=== PATIENT | female | born 1960 | race African-American/Black ===

== ENCOUNTER 2018-03-02 19:56 | Emergency (ER) | payer OTHER ==
[2018-03-02] MEDS ORDERED: KETOROLAC 30 MG/ML INJ ONE (20:30)
--- NOTE | 2018-03-02 21:14 | ER ---
Nurse's Notes [facility] Name: Tana Pérez Age: 57 yrs Sex: Female : 1960 Arrival Date: 03/02/2018 Time: 20:02 Bed 13 Private MD: Diagnosis: Pain in right foot;Pain in left foot;Sprain of ankle-Right Presentation: 03/02 20:25 Presenting complaint: Patient states: Pt reports she twisted her right foot and has ea been having left foot pain for a week. Transition of care: patient was not received from another setting of care. Onset of symptoms was March 02, 2018. Risk Assessment: Do you want to hurt yourself or someone else? Patient reports no desire to harm self or others. Initial Sepsis Screen: Does the patient meet any 2 criteria? No. Patient's initial sepsis screen is negative. Does the patient have a suspected source of infection? No. Patient's initial sepsis screen is negative. Care prior to arrival: None. 20:25 Method Of Arrival: Ambulatory ea 20:25 Acuity: JUANITA 4 ea Triage Assessment: 20:30 General: Appears in no apparent distress. Behavior is calm, cooperative, appropriate ea for age. Pain: Complains of pain in right Achilles and medial aspect of right heel. Neuro: Level of Consciousness is awake, alert, obeys commands, Oriented to person, place, time, situation. Cardiovascular: Patient's skin is warm and dry. Respiratory: Airway is patent Respiratory effort is even, unlabored, Respiratory pattern is regular, symmetrical. Derm: Skin is dry, Skin temperature is warm. Musculoskeletal: Reports pain in right foot and left foot. Historical: - Allergies: 20:45 Morphine; ea - Home Meds: 20:45 metformin 500 mg Oral tab 1 tab 2 times per day [Active]; Lipitor 20 mg Oral tab 1 tab ea once daily [Active]; - PMHx: 20:45 Diabetes - NIDDM; Hyperlipidemia; ea - PSHx: 20:45 None; ea - Immunization history:: Adult Immunizations up to date. - Social history:: Smoking status: Patient/guardian denies using tobacco. - Ebola Screening: : No symptoms or risks identified at this time. Screenin:48 Abuse screen: Denies threats or abuse. Nutritional screening: No deficits noted. ea Tuberculosis screening: No symptoms or risk factors identified. Fall Risk None identified. Assessment: 20:25 Reassessment: see triage assessment. ea 21:35 Reassessment: Patient and/or family updated on plan of care and expected duration. Pain ea level reassessed. Patient is alert, oriented x 3, equal unlabored respirations, skin warm/dry/pink. Discharge instruction given to patient, verbalized the understanding of instruction. Vital Signs: 20:25 BP 138 / 68; Pulse 78; Resp 18; Temp 97.6; Pulse Ox 99% ; Weight 90.72 kg; Height 5 ft. ea 1 in. (154.94 cm); Pain 7/10; 21:30 BP 128 / 70; Pulse 68; Resp 18; Pulse Ox 98% on R/A; ea 20:25 Body Mass Index 37.79 (90.72 kg, 154.94 cm) ea ED Course: 20:02 Patient arrived in ED. ds1 20:08 Scot Perez PA is PHCP. cp 20:08 Jean Paul Toure MD is Attending Physician. cp 20:20 Criselda Bryan RN is Primary Nurse. ea 20:25 Arm band placed on right wrist. Patient placed in an exam room, on a stretcher, on ea pulse oximetry. 20:25 Patient has correct armband on for positive identification. Bed in low position. Call ea light in reach. Side rails up X 1. 20:37 Triage completed. ea 21:01 XRAY Foot LEFT 3 View In Process Unspecified. EDMS 21:01 XRAY Foot RIGHT 3 View In Process Unspecified. EDMS 21:01 XRAY Ankle RIGHT 3 view In Process Unspecified. EDMS 21:12 Rupesh Addison DPM is Referral Physician. cp 21:30 No provider procedures requiring assistance completed. Patient did not have IV access ea during this emergency room visit. Administered Medications: 20:30 Drug: TORadol 60 mg Route: IM; Site: right gluteus; ea 21:27 Follow up: Response: No adverse reaction ea Outcome: 21:14 Discharge ordered by . cp 21:38 Patient left the ED. ea 21:38 Discharged to home with crutches. ea 21:38 Condition: stable 21:38 Instructed on discharge instructions, follow up and referral plans. medication usage, Demonstrated understanding of instructions, follow-up care, medications, Prescriptions given X 2. Signatures: Dispatcher [employer] EDWendi Chambers ds1 Scot Perez PA PA cp Antunez, Elena, RN RN alda Corrections: (The following items were deleted from the chart) 22:12 22:08 Patient left the ED. alda lizama
--- NOTE | 2018-03-02 21:14 | EDPHYS ---
Physician Documentation [facility] Name: Tana Pérez Age: 57 yrs Sex: Female : 1960 Arrival Date: 03/02/2018 Time: 20:02 Bed 13 Private MD: ED Physician Jean Paul Toure HPI: 03/02 21:07 This 57 yrs old Black Female presents to ER via Ambulatory with complaints of bilateral cp foot Pain. 21:07 The patient presents with pain, that is chronic. The complaints affect the right foot cp and left foot. Context: resulted from an unknown cause, the patient can fully bear weight, the patient is able to ambulate, patient reports pain worse with standing. Onset: The symptoms/episode began/occurred 6 month(s) ago. Associated signs and symptoms: Pertinent negatives calf tenderness, numbness, swelling. Treatment prior to arrival includes: no previous treatment. Historical: - Allergies: 20:45 Morphine; ea - Home Meds: 20:45 metformin 500 mg Oral tab 1 tab 2 times per day [Active]; Lipitor 20 mg Oral tab 1 tab ea once daily [Active]; - PMHx: 20:45 Diabetes - NIDDM; Hyperlipidemia; ea - PSHx: 20:45 None; ea - Immunization history:: Adult Immunizations up to date. - Social history:: Smoking status: Patient/guardian denies using tobacco. - Ebola Screening: : No symptoms or risks identified at this time. ROS: 21:10 Constitutional: Negative for body aches, chills, fever, poor PO intake. cp 21:10 Eyes: Negative for injury, pain, redness, and discharge. cp 21:10 Cardiovascular: Negative for chest pain, edema, palpitations. 21:10 Respiratory: Negative for cough, shortness of breath, wheezing. 21:10 MS/extremity: Positive for pain, of the left foot and right foot and right ankle, Negative for decreased range of motion, deformity, paresthesias. 21:10 Skin: Negative for cellulitis, rash. 21:10 All other systems are negative. Exam: 21:15 Constitutional: The patient appears in no acute distress, alert, awake, non-toxic, well cp developed, well nourished. 21:15 Head/Face: Normocephalic, atraumatic. cp 21:15 Eyes: Periorbital structures: appear normal, Conjunctiva: normal, no exudate, no injection, Lids and lashes: appear normal, bilaterally. 21:15 ENT: External ear(s): are unremarkable, Nose: is normal, Mouth: is normal. 21:15 Chest/axilla: Inspection: normal. 21:15 Cardiovascular: Rate: normal. 21:15 Respiratory: the patient does not display signs of respiratory distress, Respirations: normal, no use of accessory muscles, no retractions, labored breathing, is not present. 21:15 Abdomen/GI: Exam negative for discomfort, distension, guarding, Inspection: abdomen appears normal. 21:15 Back: pain, is absent, ROM is normal. 21:15 Musculoskeletal/extremity: Extremities: grossly normal except: noted in the left foot: pain, tenderness, There is no evidence of decreased ROM, deformity, erythema, swelling, noted in the right foot and right ankle: pain, swelling, tenderness, no evidence of decreased ROM, deformity, Pulses: noted to be 2+ in the right dorsalis pedis artery and left dorsalis pedis artery, Sensation intact. 21:15 Skin: cellulitis, is not appreciated, no rash present. Vital Signs: 20:25 BP 138 / 68; Pulse 78; Resp 18; Temp 97.6; Pulse Ox 99% ; Weight 90.72 kg; Height 5 ft. ea 1 in. (154.94 cm); Pain 7/10; 21:30 BP 128 / 70; Pulse 68; Resp 18; Pulse Ox 98% on R/A; ea 20:25 Body Mass Index 37.79 (90.72 kg, 154.94 cm) ea MDM: 20:09 Patient medically screened. cp 20:30 Differential diagnosis: sprain, fracture, dislocation. cp 21:12 Data reviewed: vital signs, nurses notes, radiologic studies, plain films, and as a cp result, I will discharge patient. 21:12 Test interpretation: by ED physician or midlevel provider: plain radiologic studies. cp Counseling: I had a detailed discussion with the patient and/or guardian regarding: the historical points, exam findings, and any diagnostic results supporting the discharge/admit diagnosis, radiology results, the need for outpatient follow up, a feed mixer, to return to the emergency department if symptoms worsen or persist or if there are any questions or concerns that arise at home. 21:12 Response to treatment: the patient's symptoms have mildly improved after treatment, and cp as a result, I will discharge patient. 03/02 20:18 Order name: XRAY Foot LEFT 3 View cp 03/02 20:18 Order name: XRAY Foot RIGHT 3 View cp 03/02 20:18 Order name: XRAY Ankle RIGHT 3 view cp 03/02 21:07 Order name: Crutches; Complete Time: 21:35 cp 03/02 21:07 Order name: Aircast Ankle Splint: right ankle; Complete Time: 21:35 cp Administered Medications: 20:30 Drug: TORadol 60 mg Route: IM; Site: right gluteus; ea 21:27 Follow up: Response: No adverse reaction alda Disposition: 03/03 06:02 Co-signature as Attending Physician, Jean Paul Toure MD. ma2 Disposition: 03/02/18 21:14 Discharged to Home. Impression: Pain in right foot, Pain in left foot, Sprain of ankle - Right. - Condition is Stable. - Discharge Instructions: Ankle Sprain, Foot Pain. - Prescriptions for Tramadol 50 mg Oral Tablet - take 1 tablet by ORAL route every 8 hours as needed; 15 tablet. Mobic 7.5 mg Oral Tablet - take 1 tablet by ORAL route once daily take with food; 20 tablet. - Medication Reconciliation Form, Thank You Letter, Antibiotic Education, Prescription Opioid Use, Work release form form. - Follow up: Rupesh Addison DPM; When: 2 - 3 days; Reason: bilateral foot pain. - Problem is new. - Symptoms have improved. Signatures: Dispatcher [employer] EDMS Scot Perez PA PA cp Antunez, Elena, RN RN ea Alzahri, Mohammad, MD MD ma2 Corrections: (The following items were deleted from the chart) 03/02 22:08 21:14 03/02/2018 21:14 Discharged to Home. Impression: Pain in right foot; Pain in left ea foot; Sprain of ankle - Right. Condition is Stable. Forms are Medication Reconciliation Form, Thank You Letter, Antibiotic Education, Prescription Opioid Use. Follow up: Rupesh Addison; When: 2 - 3 days; Reason: bilateral foot pain. Problem is new. Symptoms have improved. cp 03/03 00:39 03/02 20:10 Constitutional: Negative for body aches, chills, fever, poor PO intake, cp cp 03/03 00:39 03/02 20:10 Eyes: Negative for injury, pain, redness, and discharge, cp cp
--- NOTE | 2018-03-02 22:08 | RAD REPORT ---
EXAM DESCRIPTION: RAD - Foot Left 3 View - 03/02/2018 9:00 pm CLINICAL HISTORY: Trauma history, foot pain not further localized COMPARISON: None. FINDINGS: No fracture, dislocation or periosteal reaction. No acute or destructive bony process. La rge Achilles and plantar spurs are present. There is advanced for age degenerative change at the firs t MTP joint. No air or foreign body in the soft tissues. IMPRESSION: Degenerative change as detailed. No acute bone or soft tissue finding.
--- NOTE | 2018-03-02 22:10 | RAD REPORT ---
EXAM DESCRIPTION: RAD - Foot Right 3 View - 03/02/2018 9:00 pm CLINICAL HISTORY: Foot pain, trauma history, pain not further localized COMPARISON: None. FINDINGS: No fracture, dislocation or periosteal reaction. No acute or destructive bone process. Mod erate plantar and Achilles spurs are present. There is prominent for age degenerative change at the f irst MTP joint. No air or foreign body in the soft tissues. IMPRESSION: Degenerative change without acute bone finding. No suspicious soft tissue finding.
--- NOTE | 2018-03-02 22:11 | RAD REPORT ---
EXAM DESCRIPTION: RAD - Ankle Right 3 View - 03/02/2018 9:00 pm CLINICAL HISTORY: Twisting injury, ankle pain COMPARISON: None. FINDINGS: No fracture, dislocation or periosteal reaction. No joint effusion seen. No joint space na rrowing. Moderate plantar and Achilles spurs are present. Bone density inferior margin of the medial malleolus is not an acute process. Lateral soft tissue swelling is present. IMPRESSION: Lateral soft tissue swelling with no fracture identified. Degenerative changes are present as detailed.
== END 2018-03-02 22:08 | disposition home or self-care (01) ==
LOC: ER 19:56
DX: M79.672 Pain in left foot (principal); S93.401A Sprain of unspecified ligament of right ankle, initial encounter; X58.XXXA Exposure to other specified factors, initial encounter; M79.9 Soft tissue disorder, unspecified; E11.9 Type 2 diabetes mellitus without complications; E78.5 Hyperlipidemia, unspecified; Z79.84 Long term (current) use of oral hypoglycemic drugs; Z79.899 Other long term (current) drug therapy
CPT/HCPCS: 96372; 99284

== ENCOUNTER 2020-02-18 04:29 | Emergency (ER) | payer OTHER ==
--- OUTSIDE RECORDS SUMMARY | 2020-02-18 04:34 | XMS REPORT | Continuity of Care Document ---
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 Office Christopher [facility] Social Encou nter/ Legacy 00:00:00 00:00:00 Visit Hector Services [id number] Co mmuni [id number] [facility] 2019-01-22 2019-01-22 Office Lalitha Whitney [facility] Adult E ncounter/ Legacy 00:00:00 00:00:[address] [facility] [phone] Formerly [facility] 610368 [facility] 2019-01-21 2019-01-21 Office Amanda Brown [facility] Adult Encou nter/ Legacy 00:00:00 00:00:00 Visit Medicine [id number] Co mmuni [id number] [facility] 2019-01-06 2019-01-06 Office Lalitha Whitney [facility] Adult E ncounter/ Legacy 00:00:00 00:00:00 Visit Sylvester Cox,, Omid [facility] [id number] [facility] 903905 [facility] 2018-12-11 2018-12-11 Office Lalitha Whitney [facility] Adult E ncounter/ Legacy 00:00:00 00:00:00 Visit Jayne Cox,Amanda edicine [id number] [facility] [id number] Health 2018-12-11 2018-12-11 Office Amanda Brown [facility] Legacy Encount er/ Legacy 00:00:00 00:00:00 Visit Dorcas Sanchez Pending Sale To [facility] [id number] [id number] [facility] 800474 [facility] 2018-12-02 2018-12-02 Office Roland [facility] Public Encount er/ Legacy 00:00:00 00:00:00 Visit Segun [facility] [id number] Com brandy Services [id number] [facility] 2018-11-25 2018-11-25 [facility]/ Legacy 00:00:00 00:00:00 Visit Viviennelaura De Guzman [id number] [facility] [id number] [facility] 2018-11-16 2018-11-16 Office [facility] Adult Encounte r/ Legacy 00:00:00 00:00:00 Visit Lalitha Novoa [id number] Co mmuni [id number] [facility] 2018-11-12 2018-11-12 [facility] Adult [facility] ncounter/ Legacy 00:00:00 00:00:00 Visit Marley Chavira Medicine [id number] [facility] [id number] [facility] 2018-06-03 2018-06-03 [facility] Chucky English Encoun ter/ Legacy 00:00:00 00:00:00 Visit Arlen Weber [id number] ommuni Practice [id number] [facility] 2018-05-22 2018-05-22 Office [facility] Adult Encounte r/ Legacy 00:00:00 00:00:00 Visit Isabella Novoa [phone] [facility] 304614 [facility] 2018-04-22 2018-04-22 Office [facility] Vision Encoun ter/ Legacy 00:00:00 00:00:00 Visit Lori [id number] [facility] brandy [id number] [facility] 2018-04-19 2018-04-19 Office [facility] Vision Encoun ter/ Legacy 00:00:00 00:00:00 Visit Lori [id number] Com brandy [id number] [facility] 2018-03-23 2018-03-23 Office Devonte [facility] Adult Encounte r/ Legacy 00:00:00 00:00:00 Visit Lalitha Novoa [id number] Co mmuni [id number] [facility] 2018-03-23 2018-03-23 Office [facility] Adult Encounte r/ Legacy 00:00:00 00:00:00 Visit Lalitha Novoa [id number] Co mmuni [id number] [facility] 2018-03-23 2018-03-23 Office [facility] Adult Encounte r/ Legacy 00:00:00 00:00:00 Visit Lalitha Novoa [id number] Co mmuni [id number] [facility] 2018-03-23 2018-03-23 Office Devonte [facility] Adult Encounte r/ Legacy 00:00:00 00:00:00 Visit Lalitha Novoa [id number] Co mmuni [id number] [facility] 2018-03-23 2018-03-23 Office Devonte [facility] Adult Encounte r/ Legacy 00:00:00 00:00:00 Visit Lalitha Novoa [id number] Co mmuni [id number] [facility] 2018-03-23 2018-03-23 Office Peyton [facility] Adult Encount er/ Legacy 00:00:00 00:00:00 Visit Nona Novoa [id number] Neisha ommuni [id number] [facility] 2018-03-23 2018-03-23 Office Lalitha Whitney [facility] Adult E ncounter/ Legacy 00:00:00 00:00:00 Visit Calli Mancia Medicine [id number] Nona Vu [id number] [facility] 2018-03-22 2018-03-22 Office [facility] Adult Encounte r/ Legacy 00:00:00 00:00:00 Visit Gianni Novoa [id number] Co mmuni [id number] [facility] 2018-03-09 2018-03-09 Office Devonte [facility] Adult Encounte r/ Legacy 00:00:00 00:00:00 Visit Lalitha Novoa [id number] Co mmuni [id number] [facility] 2018-03-09 2018-03-09 Office [facility] Adult Encounte r/ Legacy 00:00:00 00:00:00 Visit Lalitha Medicine [id number] Co mmuni [id number] [facility] 2018-03-09 2018-03-09 Office Devonte [facility] Adult Encounte r/ Legacy 00:00:00 00:00:00 Visit Lalitha Novoa [id number] Co mmuni [id number] [facility] 2018-03-09 2018-03-09 Office Devonte, [facility] Adult Encounte r/ Legacy 00:00:00 00:00:00 Visit Lalitha Novoa [id number] Co mmuni [id number] [facility] 2017-12-05 2017-12-05 Office Roger, [facility] Vee Encount er/ Legacy 00:00:00 00:00:00 Visit Erika Weber [id number] Com brandy Practice [id number] [facility] 2017-11-09 2017-11-09 Office Valdez, [facility] Vision Encoun ter/ Legacy 00:00:00 00:00:00 Visit Lori [id number] Com brandy [id number] [facility] 2017-11-09 2017-11-09 Office Valdez, [facility] Vision Encoun ter/ Legacy 00:00:00 00:00:00 Visit Lori [id number] Com brandy [id number] [facility] 2017-11-01 2017-11-01 Office Valdez, [facility] Vision Encoun ter/ Legacy 00:00:00 00:00:00 Visit Lori [id number] Com brandy [id number] [facility] 2017-11-01 2017-11-01 [facility] Enco unter/ Legacy 00:00:00 00:00:00 Visit Juice [id number] Com brandy [id number] [facility] 2017-11-01 2017-11-01 [facility] Vision Enco unter/ Legacy 00:00:00 00:00:00 Visit Juice [id number] Com brandy [id number] [facility] 2017-11-01 2017-11-01 Office Evangelista, [facility] Vision Enco unter/ Legacy 00:00:00 00:00:00 Visit Juice [id number] Com brandy [id number] [facility] 2017-11-01 2017-11-01 Office Evangelista, [facility] Visi on Encounter/ Legacy 00:00:00 00:00:00 Visit Lori Valdez [id number] Communi 009957 [facility] 2017-10-27 2017-10-27 Office Devonte, [facility] Adult Encounte r/ Legacy 00:00:00 00:00:00 Visit Lalitha Novoa [id number] Co mmuni [id number] Health 2017-10-27 2017-10-27 Office Devonte [facility] Adult Encounte r/ Legacy 00:00:00 00:00:00 Visit Lalitha Novoa [id number] Co mmuni [id number] [facility] 2017-10-27 2017-10-27 Office Lalitha Whitney [facility] Adult E ncounter/ Legacy 00:00:00 00:00:00 Visit Raine Ramírez [place] [id number] [facility] [id number] [facility] 2017-10-17 2017-10-17 Office Devonte [facility] Adult Encounte r/ Legacy 00:00:00 00:00:00 Visit Lalitha Novoa [id number] Co mmuni [id number] [facility] 2017-10-15 2017-10-15 Office Provider, Public Health Services [facility] Public Encounter/ Legacy 00:00:00 00:00:00 Visit Guiterrez [facility] 93309 [id number] Former[facility] Services 830881 [facility] 2017-10-15 2017-10-15 Office Alexandr [facility] Vision Encount er/ Legacy 00:00:00 00:00:00 Visit Khoi Mckoy [id number] Co mmuni 855344 [facility] 2017-10-15 2017-10-15 Office Khoi Strange [facility] Visio n Encounter/ Legacy 00:00:00 00:00:00 Visit Estella Stahl [id number] Communi 935030 [facility] 2017-10-03 2017-10-03 Office Khoi [facility] SKEET OPERATOR Encount er/ Legacy 00:00:00 00:00:00 Visit Becka [id number] Com brandy [id number] Health 2017-10-02 2017-10-02 Office Khoi [facility] SKEET OPERATOR Encount er/ Legacy 00:00:00 00:00:00 Visit Becka [id number] Com brandy [id number] Health 2017-09-22 2017-09-22 Office Devonte [facility] Adult Encounte r/ Legacy 00:00:00 00:00:00 Visit Lalitha Novoa [id number] Co mmuni [id number] [facility] 2017-09-22 2017-09-22 Office [facility] Adult Encounte r/ Legacy 00:00:00 00:00:00 Visit Lalitha Medicine [id number] Co mmuni 708103 [facility] 2017-09-22 2017-09-22 Office [facility] Adult Encounte r/ Legacy 00:00:00 00:00:00 Visit Lalitha Medicine [id number] Co mmuni [id number] [facility] 2017-09-22 2017-09-22 Office [facility] Adult Encounte r/ Legacy 00:00:00 00:00:00 Visit Lalitha Medicine [id number] Co mmuni 944386 [facility] 2017-09-22 2017-09-22 [facility]/ Legacy 00:00:00 00:00:00 Visit Lalitha Medicine [id number] Co mmuni [id number] [facility] 2017-09-22 2017-09-22 [facility] Adult En[facility]te [facility]/ Legacy 00:00:00 00:00:00 Visit Lalitha Medicine [id number] Co mmuni 853128 [facility] 2017-09-22 2017-09-22 Office [facility] Adult Encounte r/ Legacy 00:00:00 00:00:00 Visit Lalitha Medicine [id number] Co mmuni 948722 [facility] 2017-08-28 2017-08-28 Office [facility] Adult Encounte r/ Legacy 00:00:00 00:00:00 Visit Becka Medicine [id number] Co mmuni [id number] [facility] 2017-08-28 2017-08-28 Office [facility] Adult Encounte r/ Legacy 00:00:00 00:00:00 Visit Becka Medicine [id number] Co mmuni [id number] [facility] 2017-08-28 2017-08-28 Office Status, Fax [facility] Encoun ter/ Legacy 00:00:00 00:00:00 Visit [facility]ending [facility] To [facility] [phone] [facility] [id number] [facility] 2017-08-28 2017-08-28 Office Status, Fax [facility] Legacy Encoun ter/ Legacy 00:00:00 00:00:00 Visit Pending [facility] To [facility] [id number] [facility] 811640 ty [facility] Health 2017-08-28 2017-08-28 Office Prabhjot [facility] Adult Encounte r/ Legacy 00:00:00 00:00:00 Visit [facility] Medicine [id number] Co mmuni 795889 ty Health 2017-08-28 2017-08-28 Office Prabhjot [facility] Adult Encounte r/ Legacy 00:00:00 00:00:00 [facility] [id number] Co mmuni 815407 ty Health 2017-08-28 2017-08-28 Office Khoi [facility] SKEET OPERATOR Encount er/ Legacy 00:00:00 00:00:00 Visit Becka [id number] Com brandy 891274 ty Health 2017-08-28 2017-08-28 Office Becka Westfall [facility] SKEET OPERATOR Encounter/ Legacy 00:00:00 00:00:00 Visit Calli Mancia [id number] Raine Hernandez 73496 0 ty Health 2017-07-12 2017-07-12 Office Gutierrez [facility] Public Encou nter/ Legacy 00:00:00 00:00:00 Visit [facility] [id number] Com brandy Services 317222 ty Health 2017-07-12 2017-07-12 Office Provider, Public Health Services [facility] Public Encounter/ Legacy 00:00:00 00:00:00 Visit Gutierrez [facility] 31446 01949 Communi Services [id number] ty Health 2017-06-29 2017-06-29 Office Teresa Clay [facility] Social Enc ounter/ Legacy 00:00:00 00:00:00 Visit Services [id number] Co mmuni 109071 ty Health 2017-06-29 2017-06-29 Office Devonte [facility] Adult Encounte r/ Legacy 00:00:00 00:00:[address] [facility] [id number] Co mmuni [id number] ty Health 2017-06-29 2017-06-29 Office Lalitha Whitney [facility] Adult E ncounter/ Legacy 00:00:00 00:00:00 Visit Silvia Doll Medicine [phone] [facility] 764711 [facility] Health 2017-06-26 2017-06-26 Office North [facility] Adult Encounte r/ Legacy 00:00:00 00:00:00 Visit Gianni Medicine [id number] Co mmuni 827595 ty Health 2017-06-02 2017-06-02 Office Devonte [facility] Adult Encounte r/ Legacy 00:00:00 00:00:00 Visit Lalitha Medicine [id number] Co mmuni 148526 ty Health 2017-06-02 2017-06-02 Office Lalitha Whitney [facility] Adult E ncounter/ Legacy 00:00:00 00:00:[address] [facility] [phone] [id number] Communi [id number] Health 2017-05-22 2017-05-22 Office Provider, Public Health Services [facility] Public Encounter/ Legacy 00:00:00 00:00:00 Visit Gutierrez [facility] [phone] Communi Services [id number] Health 2017-05-21 2017-05-21 Office Provider, [facility] Health Services [facility] Public Encounter/ Legacy 00:00:00 00:00:00 Visit Whitley, [facility] 52395 39295 Communi Services [id number] Health 2017-05-14 2017-05-14 Office Provider, Public Health Services [facility] Public Encounter/ Legacy 00:00:00 00:00:00 Visit Gutierrez [facility] 09765 37824 Communi Services [id number] Health 2017-05-10 2017-05-10 Office Lalitha Whitney [facility] Adult E ncounter/ Legacy 00:00:00 00:00:00 Visit Silvia Doll Medicine [phone] Communi 166020 Health 2017-05-04 2017-05-04 Office Teresa Clay [facility] Social Enc ounter/ Legacy 00:00:00 00:00:00 Visit Services [id number] Co mmuni [id number] ty Health 2017-05-04 2017-05-04 Office Devonte [facility] Adult Encounte r/ Legacy 00:00:00 00:00:00 Visit Lalitha Medicine [id number] Co mmuni 682969 ty Health 2017-05-04 2017-05-04 Office [facility] Social Enc ounter/ Legacy 00:00:00 00:00:00 Visit Services [id number] Co mmuni [id number] [facility] 2017-05-04 2017-05-04 Office [facility] Adult Encounte r/ Legacy 00:00:00 00:00:00 Visit Lalitha Medicine [id number] Co mmuni 223285 [facility] 2017-05-04 2017-05-04 Office [facility] Adult Encounte r/ Legacy 00:00:00 00:00:00 Visit Lalitha Medicine [id number] Co mmuni 525253 [facility] 2017-05-04 2017-05-04 Office [facility] Adult Encounte r/ Legacy 00:00:00 00:00:00 Visit Lalitha Medicine [id number] Co mmuni 304106 [facility] 2017-05-04 2017-05-04 Office [facility]/ Legacy 00:00:00 00:00:00 Visit Jayjay Sales Medicine [phone] [facility] 409642 [facility] 2017-05-04 2017-05-04 [facility] Encounte r/ Legacy 00:00:00 00:00:00 Visit Lalitha Medicine [id number] Co mmuni 343842 [facility] 2017-05-04 2017-05-04 Office [facility] Social Enc ounter/ Legacy 00:00:00 00:00:00 Visit Services [id number] Co mmuni 309757 [facility] 2017-05-04 2017-05-04 Office Provider[facility] Public En[facility]/ Legacy 00:00:00 00:00:00 Visit Gutierrez [facility] 57740 45939 [facility] 608346 [facility] 2017-05-04 2017-05-04 Office Lalitha Whitney [facility] Adult E ncounter/ Legacy 00:00:00 00:00:00 Visit Silvia Doll Medicine [phone] Gladys Jayjay Sales 111442 Gavino [facility] 2017-05-01 2017-05-01 Office Provider, Public Health Services [facility] Public Encounter/ Legacy 00:00:00 00:00:00 Visit Pillo Whitley [facility] 91709 27898 Communi Services 639406 [facility] 2017-04-13 2017-04-13 Office Devonte [facility] Adult Encounte r/ Legacy 00:00:00 00:00:[address] [facility] [id number] Co mmuni 950990 [facility] 2017-04-13 2017-04-13 Office Lalitha Whitney [facility] Adult E ncounter/ Legacy 00:00:00 00:00:[address] [facility] 02779 67990 [facility] 212181 [facility] 2017-04-13 2017-04-13 Office Provider, Public Health Services [facility] Public Encounter/ Legacy 00:00:00 00:00:00 [facility] 33917 84637 Communi Services [id number] [facility] Results Test Description Test Time Test Comments Results Result Comments Source rapid plasma reagin antibody, serum 2019-08-16 09:41:00 Test Item Value Reference Range Interpretation Comme nts rapid plasma reagin antibody, serum (test code = Non Reactive Non R eactive 5291-0) [facility], blood, as % of total [id number] 09:41:00 Test Item Value Reference Range Interpretation Comments hemoglobin A1C, blood, as % of total 7.1 % 4.8-5.6 H hemoglobin (test code = 4548-4) [facility], serum, by PCR, [id number] 09:41:00 Test Item Value Reference Range Interpretation Comments HIV-1RNA, serum, by PCR, <20 copies/mL quantitative (test code = 96909) [facility], [id number] 09:41:00 Test Item Value Reference Range Interpretation Comments LDL cholesterol, serum (test code = 136 mg/dL 0-99 H 2088-1) [facility] Centervery low density [id number] 09:41:00 Test Item Value Reference Range Interpretation Comments very low density lipoproteins (test 14 mg/dL 5-40 code = 2091-7) [facility], [id number] 09:41:00 Test Item Value Reference Range Interpretation Comments HDL cholesterol, serum (test code = 59 mg/dL >39 2085-9) [facility], serum, [id number] 09:41:00 Test Item Value Reference Range Interpretation Comments triglyceride, serum, fasting (test 72 mg/dL 0-149 code = 2571-8) [facility], [id number] 09:41:00 Test Item Value Reference Range Interpretation Comments cholesterol, serum (test code = 209 mg/dL 100-199 H 2093-3) [facility] Cent[facility]anine aminotransferase (SGPT), [id number] 09:41:00 Test Item Value Reference Range Interpretation Comments alanine aminotransferase (SGPT), serum 16 1/L 0-32 (test code = 1742-6) [facility] Centeraspartate aminotransferase (SGOT), [id number] 09:41:00 Test Item Value Reference Range Interpretation Comments aspartate aminotransferase (SGOT), 17 1/L 0-40 serum (test code = 1920-8) [facility] Center[facility]aline phosphatase, [id number] 09:41:00 Test Item Value Reference Range Interpretation Comments alkaline phosphatase, serum (test code 93 1/L 39-117 = 1783-0) [facility], serum, [id number] 09:41:00 Test Item Value Reference Range Interpretation Comments bilirubin, serum, total (test code 0.3 mg/dL 0.0-1.2 = 1975-2) [facility]bumin/globulin ratio, [id number] 09:41:00 Test Item Value Reference Range Interpretation Comments albumin/globulin ratio, serum (test 1.9 1.2-2.2 code = 1759-0) [facility] Healthglobulin, [id number] 09:41:00 Test Item Value Reference Range Interpretation Comments globulin, serum (test code = 2336-6) 2.4 1.5-4.5 [facility] Centeralbumin, [id number] 09:41:00 Test Item Value Reference Range Interpretation Comments albumin, serum (test code = 1751-7) 4.5 g/dL 3.8-4.9 [facility]protein, total, [id number] 09:41:00 Test Item Value Reference Range Interpretation Comments protein, total, serum (test code = 6.9 g/dL 6.0-8.5 2885-2) [facility] Centercalcium, sopnq6717-90-33 09:41:00 Test Item Value Reference Range Interpretation Comments calcium, serum (test code = 1999-8) 9.7 mg/dL 8.7-10.2 [facility] Centercarbon dioxide, venous sipen0363-49-28 09:41:00 Test Item Value Reference Range Interpretation Comments carbon dioxide, venous blood (test 24 mmol/L 20-29 code = 2027-1) [facility] Healthchloride, bejic5303-22-23 09:41:00 Test Item Value Reference Range Interpretation Comments chloride, serum (test code = 104 mmol/L 96-106 5-0) [facility] Healthpotassium, [id number] 09:41:00 Test Item Value Reference Range Interpretation Comments potassium, serum (test code = 4.3 mmol/L 3.5-5.2 2823-3) [facility] Centersodium, [id number] 09:41:00 Test Item Value Reference Range Interpretation Comments sodium, serum (test code = 2951-2) 143 mmol/L 134-144 [facility] Centerurea nitrogen/creatinine ratio, [id number] 09:41:00 Test Item Value Reference Range Interpretation Comments urea nitrogen/creatinine ratio, serum 18 9-23 (test code = 3097-3) [facility] CentereGFR if Lbokngvh2904-00-61 09:41:00 Test Item Value Reference Range Interpretation Comments eGFR if 95 >59 (test code = 59760-8) mL/min/((173/100).m2) [facility] CenterEstimated Glomerular Filtration Rate (calc)2019-08-16 09:41:00 Test Item Value Reference Range Interpretation Comments Estimated Glomerular 82 >59 Filtration Rate (calc) mL/min/((173/100).m2 (test code = 09853-2) ) [facility]ercreatinine, [id number] 09:41:00 Test Item Value Reference Range Interpretation Comments creatinine, serum (test code = 0.80 mg/dL 0.57-1.00 2160-0) [facility] Centerurea nitrogen, [id number] 09:41:00 Test Item Value Reference Range Interpretation Comments urea nitrogen, blood (test code = 14 mg/dL 6-24 3094-0) [facility] Centerblood glucose, dpwziq2403-04-11 09:41:00 Test Item Value Reference Range Interpretation Comments blood glucose, random (test code = 115 mg/dL 65-99 H 2339-0) [facility] Centerimmature granulocytes, percentage of total cells, blood 2019-08-16 09:41:00 Test Item Value Reference Range Interpretation Comments immature granulocytes, percentage of 0 % total cells, blood (test code = 06125-5) [facility] Centerbasophil count, agbwduav0077-70-74 09:41:00 Test Item Value Reference Range Interpretation Comments basophil count, absolute (test 0.0 x10E3/uL 0.0-0.2 code = 07117-7) [facility] CenterEosinophil Absolute Iiyfx2237-65-65 09:41:00 Test Item Value Reference Range Interpretation Comments Eosinophil Absolute Count (test 0.1 X10E3/UL 0.0-0.4 code = 65632-7) [facility] Centermonocyte count, blood, pzdfavazx5830-20-95 09:41:00 Test Item Value Reference Range Interpretation Comments monocyte count, blood, automated 0.3 X10E3/UL 0.1-0.9 (test code = 742-7) [facility] Centerlymphocyte count, blood, wqrllxbnq5499-48-31 09:41:00 Test Item Value Reference Range Interpretation Comments lymphocyte count, blood, 1.8 X10E3/UL 0.7-3.1 automated (test code = 731-0) [facility] CenterAbsolute Uqyzhmmskic8845-08-46 09:41:00 Test Item Value Reference Range Interpretation Comments Absolute Neutrophils (test code 2.2 X10E3/UL 1.4-7.0 = 12243-1) [facility] Centerbasophils as percent of blood fsgflycudc8821-32-68 09:41:00 Test Item Value Reference Range Interpretation Comments basophils as percent of blood 1 % leukocytes (test code = 707-0) [facility] Centereosinophils as percent of blood nmkzhokjui0823-36-62 09:41:00 Test Item Value Reference Range Interpretation Comments eosinophils as percent of blood 3 % leukocytes (test code = 713-8) [facility] Healthmonocytes as percent of blood vrzjtbwofu7828-89-84 09:41:00 Test Item Value Reference Range Interpretation Comments monocytes as percent of blood 7 % leukocytes (test code = 5905-5) [facility] Centerlymphocytes as percent of blood svdzmelgns2034-17-51 09:41:00 Test Item Value Reference Range Interpretation Comments lymphocytes as percent of blood 41 % leukocytes (test code = 736-9) [facility] Centerneutrophils as percent of blood tkebpyrrko3660-40-74 09:41:00 Test Item Value Reference Range Interpretation Comments neutrophils as percent of blood 48 % leukocytes (test code = 770-8) [facility] Centerplatelet wxyhe3010-92-36 09:41:00 Test Item Value Reference Range Interpretation Comments platelet count (test code = 311 X10E3/UL 150-450 777-3) [facility] Centerred blood cell distribution zyjdu7765-87-82 09:41:00 Test Item Value Reference Range Interpretation Comments red blood cell distribution width 14.4 % 11.7-15.4 (test code = 788-0) [facility] corpuscular hemoglobin concentration, [id number] 09:41:00 Test Item Value Reference Range Interpretation Comments mean corpuscular hemoglobin 31.1 G/DL 31.5-35.7 L concentration, RBC (test code = 786-4) [facility] corpuscular hemoglobin, [id number] 09:41:00 Test Item Value Reference Range Interpretation Comments mean corpuscular hemoglobin, RBC 30.6 pg 26.6-33.0 (test code = 785-6) [facility] corpuscular volume, IBU0889-02-74 09:41:00 Test Item Value Reference Range Interpretation Comments mean corpuscular volume, RBC (test code 99 fL 79-97 H = 787-2) [facility] Centerhematocrit, tgywx1122-69-29 09:41:00 Test Item Value Reference Range Interpretation Comments hematocrit, blood (test code = 4544-3) 40.2 % 34.0-46.6 [facility] Centerhemoglobin, xpszv0956-28-21 09:41:00 Test Item Value Reference Range Interpretation Comments hemoglobin, blood (test code = 12.5 g/dL 11.1-15.9 718-7) [facility] Centererythrocyte (RBC) rpgpf7892-66-53 09:41:00 Test Item Value Reference Range Interpretation Comments erythrocyte (RBC) count (test 4.08 X10E6/UL 3.77-5.28 code = 789-8) [facility] Centerleukocyte count, yntpo2371-74-76 09:41:00 Test Item Value Reference Range Interpretation Comments leukocyte count, blood (test 4.5 X10E3/UL 3.4-10.8 code = 6690-2) [facility] CenterCD4/CD8 okjlu8553-00-78 09:41:00 Test Item Value Reference Range Interpretation Comments CD4/CD8 ratio (test code = 21499) 1.78 0.92-3.72 [facility] CenterT-suppressor cells (CD8) as percent of blood lymphocytes 2019-08-16 09:41:00 Test Item Value Reference Range Interpretation Comments T-suppressor cells (CD8) as percent of 24.4 % 12.0-35.5 blood lymphocytes (test code = 3517) [facility] Centerabsolute [id number] 09:41:00 Test Item Value Reference Range Interpretation Comments absolute CD8 (test code = 62546) 439 109897 [facility] CenterT-helper cells (CD4) as percent of blood lymphocytes 2019-08-16 09:41:00 Test Item Value Reference Range Interpretation Comments T-helper cells (CD4) as percent of 43.5 % 30.8-58.5 blood lymphocytes (test code = 8123-2) [facility] CenterT-helper cells (CD4) rbizh8257-52-76 09:41:00 Test Item Value Reference Range Interpretation Comments T-helper cells (CD4) count (test code 783 /UL 359-1519 = 88678-7) [facility] Centermicroalbumin/creatinine ratio, gpecm6704-01-35 15:32:00 Test Item Value Reference Range Interpretation Comments microalbumin/creatinine ratio, 54 MG/G CREAT 0-29 H urine (test code = 96887-6) [facility] Centermicroalbumin/total urine eilibt9056-18-44 15:32:00 Test Item Value Reference Range Interpretation Comments microalbumin/total urine volume 79.8 mg/L (test code = 15461-1) [facility] Centercreatinine, random, hsego1324-93-38 15:32:00 Test Item Value Reference Range Interpretation Comments creatinine, random, urine (test 148.6 mg/dL code = 2161-8) [facility] Centerrapid plasma reagin antibody, zjrnu5635-73-77 15:32:00 Test Item Value Reference Range Interpretation Comments rapid plasma reagin antibody, Non Reactive Non Reactive serum (test code = 5291-0) [facility] Centerhemoglobin A1C, blood, as % of total iukrwlitwl3987-33-18 15:32:00 Test Item Value Reference Range Interpretation Comments hemoglobin A1C, blood, as % of total 7.1 % 4.8-5.6 H hemoglobin (test code = 4548-4) [facility] CenterHIV-1RNA, serum, by PCR, ptuhohuqsomt9794-88-95 15:32:00 Test Item Value Reference Range Interpretation Comments HIV-1RNA, serum, by PCR, <20 copies/mL quantitative (test code = 10056) [facility] CenterLDL cholesterol, erhzh7448-43-88 15:32:00 Test Item Value Reference Range Interpretation Comments LDL cholesterol, serum (test code = 125 mg/dL 0-99 H 2088-04) [facility] Centervery low density xntqvdgdqusz6223-00-39 15:32:00 Test Item Value Reference Range Interpretation Comments very low density lipoproteins (test 24 mg/dL 5-40 code = 2090-7) [facility] CenterHDL cholesterol, mdadh4631-89-02 15:32:00 Test Item Value Reference Range Interpretation Comments HDL cholesterol, serum (test code = 63 mg/dL >39 2084-12) [facility]ertriglyceride, serum, felxwde4730-98-02 15:32:00 Test Item Value Reference Range Interpretation Comments triglyceride, serum, fasting (test 122 mg/dL 0-149 code = 2571-8) [facility] Centercholesterol, iwrgg4997-27-13 15:32:00 Test Item Value Reference Range Interpretation Comments cholesterol, serum (test code = 212 mg/dL 100-199 H 2092-06) [facility] Centeralanine aminotransferase (SGPT), iaaox6175-65-84 15:32:00 Test Item Value Reference Range Interpretation Comments alanine aminotransferase (SGPT), serum 12 1/L 0-32 (test code = 1742-6) [facility] Healthaspartate aminotransferase (SGOT), anvgf4001-55-93 15:32:00 Test Item Value Reference Range Interpretation Comments aspartate aminotransferase (SGOT), 14 1/L 0-40 serum (test code = 1920-8) [facility] Centeralkaline phosphatase, eliyq6432-96-09 15:32:00 Test Item Value Reference Range Interpretation Comments alkaline phosphatase, serum (test code 85 1/L 39-117 = 1783-0) [facility] Healthbilirubin, serum, glzjc7504-94-88 15:32:00 Test Item Value Reference Range Interpretation Comments bilirubin, serum, total (test code 0.2 mg/dL 0.0-1.2 = 1975-2) [facility] Healthalbumin/globulin ratio, zzeul6683-92-25 15:32:00 Test Item Value Reference Range Interpretation Comments albumin/globulin ratio, serum (test 1.5 1.2-2.2 code = 1759-0) [facility] Healthglobulin, pkvsw7029-94-31 15:32:00 Test Item Value Reference Range Interpretation Comments globulin, serum (test code = 2336-6) 2.9 1.5-4.5 [facility] Healthalbumin, vwdwc0639-55-95 15:32:00 Test Item Value Reference Range Interpretation Comments albumin, serum (test code = 1751-7) 4.4 g/dL 3.8-4.9 [facility] Healthprotein, total, [id number] 15:32:00 Test Item Value Reference Range Interpretation Comments protein, total, serum (test code = 7.3 g/dL 6.0-8.5 2885-2) [facility] Centercalcium, [id number] 15:32:00 Test Item Value Reference Range Interpretation Comments calcium, serum (test code = 1999-8) 9.6 mg/dL 8.7-10.2 [facility] Centercarbon dioxide, venous [id number] 15:32:00 Test Item Value Reference Range Interpretation Comments carbon dioxide, venous blood (test 25 mmol/L 20- code = 7-1) [facility] Centerchloride, [id number] 15:32:00 Test Item Value Reference Range Interpretation Comments chloride, serum (test code = 104 mmol/L 96-106 2075-0) [facility] Healthpotassium, dwxjd1963-37-79 15:32:00 Test Item Value Reference Range Interpretation Comments potassium, serum (test code = 4.2 mmol/L 3.5-5.2 2823-3) [facility] Centersodium, pgbtu3282-39-63 15:32:00 Test Item Value Reference Range Interpretation Comments sodium, serum (test code = 2951-2) 143 mmol/L 134-144 [facility] Centerurea nitrogen/creatinine ratio, iofio7160-61-67 15:32:00 Test Item Value Reference Range Interpretation Comments urea nitrogen/creatinine ratio, serum 15 9-23 (test code = 3097-3) [facility] HealtheGFR if Kajnvuxx8576-90-01 15:32:00 Test Item Value Reference Range Interpretation Comments eGFR if 89 >59 (test code = 96106-7) mL/min/((173/100).m2) [facility] CenterEstimated Glomerular Filtration Rate (calc)2019-05-15 15:32:00 Test Item Value Reference Range Interpretation Comments Estimated Glomerular 77 >59 Filtration Rate (calc) mL/min/((173/100).m2 (test code = 15891-9) ) [facility] Centercreatinine, [id number] 15:32:00 Test Item Value Reference Range Interpretation Comments creatinine, serum (test code = 0.85 mg/dL 0.57-1.00 2160-0) [facility] Centerurea nitrogen, [id number] 15:32:00 Test Item Value Reference Range Interpretation Comments urea nitrogen, blood (test code = 13 mg/dL 6-24 3094-0) [facility] Centerblood glucose, ktzavh4983-70-32 15:32:00 Test Item Value Reference Range Interpretation Comments blood glucose, random (test code = 93 mg/dL 65-99 2339-0) [facility] Centerimmature granulocytes, percentage of total cells, blood 2019-05-15 15:32:00 Test Item Value Reference Range Interpretation Comments immature granulocytes, percentage of 0 % total cells, blood (test code = 10566-2) [facility] Centerbasophil count, uhpuojvg0867-54-09 15:32:00 Test Item Value Reference Range Interpretation Comments basophil count, absolute (test 0.0 x10E3/uL 0.0-0.2 code = 22266-8) [facility] HealthEosinophil Absolute Wxyqm5827-72-78 15:32:00 Test Item Value Reference Range Interpretation Comments Eosinophil Absolute Count (test 0.1 X10E3/UL 0.0-0.4 code = 88723-1) [facility] Healthmonocyte count, blood, zrckfdzmp1353-10-97 15:32:00 Test Item Value Reference Range Interpretation Comments monocyte count, blood, automated 0.5 X10E3/UL 0.1-0.9 (test code = 742-7) [facility] Centerlymphocyte count, blood, jgnvahmlz0354-45-06 15:32:00 Test Item Value Reference Range Interpretation Comments lymphocyte count, blood, 2.1 X10E3/UL 0.7-3.1 automated (test code = 731-0) [facility] CenterAbsolute Kyxzeabtvgq6995-31-46 15:32:00 Test Item Value Reference Range Interpretation Comments Absolute Neutrophils (test code 2.4 X10E3/UL 1.4-7.0 = 23391-1) [facility] Centerbasophils as percent of blood asrvclryct2968-42-99 15:32:00 Test Item Value Reference Range Interpretation Comments basophils as percent of blood 1 % leukocytes (test code = 707-0) [facility]ereosinophils as percent of blood nqfbwwhdcc1629-71-15 15:32:00 Test Item Value Reference Range Interpretation Comments eosinophils as percent of blood 2 % leukocytes (test code = 713-8) [facility] Healthmonocytes as percent of blood angmcbemdz6373-17-64 15:32:00 Test Item Value Reference Range Interpretation Comments monocytes as percent of blood 10 % leukocytes (test code = 5905-5) [facility] Centerlymphocytes as percent of blood sqnhqvyuvk1339-43-07 15:32:00 Test Item Value Reference Range Interpretation Comments lymphocytes as percent of blood 41 % leukocytes (test code = 736-9) [facility] Centerneutrophils as percent of blood ttgplkzffz3088-31-65 15:32:00 Test Item Value Reference Range Interpretation Comments neutrophils as percent of blood 46 % leukocytes (test code = 770-8) [facility] Centerplatelet lhujb3698-00-60 15:32:00 Test Item Value Reference Range Interpretation Comments platelet count (test code = 356 X10E3/UL 150-450 777-3) [facility] Centerred blood cell distribution aitlw7323-85-72 15:32:00 Test Item Value Reference Range Interpretation Comments red blood cell distribution width 13.3 % 11.7-15.4 (test code = 788-0) [facility] corpuscular hemoglobin concentration, [id number] 15:32:00 Test Item Value Reference Range Interpretation Comments mean corpuscular hemoglobin 33.1 G/DL 31.5-35.7 concentration, RBC (test code = 786-4) [facility] corpuscular hemoglobin, [id number] 15:32:00 Test Item Value Reference Range Interpretation Comments mean corpuscular hemoglobin, RBC 31.2 pg 26.6-33.0 (test code = 785-6) [facility] corpuscular volume, [id number] 15:32:00 Test Item Value Reference Range Interpretation Comments mean corpuscular volume, RBC (test code 94 fL 79-97 = 787-2) [facility] Centerhematocrit, dzfzu1858-27-09 15:32:00 Test Item Value Reference Range Interpretation Comments hematocrit, blood (test code = 4544-3) 37.8 % 34.0-46.6 [facility] Centerhemoglobin, nakro0252-56-53 15:32:00 Test Item Value Reference Range Interpretation Comments hemoglobin, blood (test code = 12.5 g/dL 11.1-15.9 718-7) [facility] Centererythrocyte (RBC) wcmxp0951-77-16 15:32:00 Test Item Value Reference Range Interpretation Comments erythrocyte (RBC) count (test 4.01 X10E6/UL 3.77-5.28 code = 789-8) [facility] Centerleukocyte count, flris6060-37-89 15:32:00 Test Item Value Reference Range Interpretation Comments leukocyte count, blood (test 5.1 X10E3/UL 3.4-10.8 code = 6690-2) [facility] CenterCD4/CD8 sunll2687-30-96 15:32:00 Test Item Value Reference Range Interpretation Comments CD4/CD8 ratio (test code = 83806) 1.98 0.92-3.72 [facility] CenterT-suppressor cells (CD8) as percent of blood lymphocytes 2019-05-15 15:32:00 Test Item Value Reference Range Interpretation Comments T-suppressor cells (CD8) as percent of 22.8 % 12.0-35.5 blood lymphocytes (test code = 3517) [facility] Healthabsolute [id number] 15:32:00 Test Item Value Reference Range Interpretation Comments absolute CD8 (test code = 52557) 479 109-897 [facility] CenterT-helper cells (CD4) as percent of blood lymphocytes 2019-05-15 15:32:00 Test Item Value Reference Range Interpretation Comments T-helper cells (CD4) as percent of 45.1 % 30.8-58.5 blood lymphocytes (test code = 8123-2) [facility] CenterT-helper cells (CD4) kryzm8727-37-00 15:32:00 Test Item Value Reference Range Interpretation Comments T-helper cells (CD4) count (test code 947 /UL 359-1519 = 95755-2) [facility] Centermicroalbumin/creatinine ratio, rwlrx5754-47-67 14:28:00 Test Item Value Reference Range Interpretation Comments microalbumin/creatinine 25.4 MG/G CREAT 0.0-30.0 ratio, urine (test code = 75579-5) [facility] Centermicroalbumin/total urine amptkq7968-27-58 14:28:00 Test Item Value Reference Range Interpretation Comments microalbumin/total urine volume 41.1 mg/L (test code = 67879-9) [facility] Centercreatinine, random, dxjmi5831-76-64 14:28:00 Test Item Value Reference Range Interpretation Comments creatinine, random, urine (test 161.5 mg/dL code = 2161-8) [facility] Centerblood glucose, ngexfz6895-30-66 14:09:19 Test Item Value Reference Range Interpretation Comments blood glucose, random (test code = 131 mg/dL 2339-0) [facility] Centerrapid plasma reagin antibody, [id number] 10:22:00 Test Item Value Reference Range Interpretation Comments rapid plasma reagin antibody, Non Reactive Non Reactive serum (test code = 5291-0) [facility] Centerhemoglobin A1C, blood, as % of total ppvjgmmoyg1106-74-38 10:22:00 Test Item Value Reference Range Interpretation Comments hemoglobin A1C, blood, as % of total 6.5 % 4.8-5.6 H hemoglobin (test code = 4548-4) [facility] CenterHIV-1RNA, serum, by PCR, gpkyfxovlwrj6966-84-98 10:22:00 Test Item Value Reference Range Interpretation Comments HIV-1RNA, serum, by PCR, <20 copies/mL quantitative (test code = 07179) [facility] CenterLDL cholesterol, bovos2939-20-50 10:22:00 Test Item Value Reference Range Interpretation Comments LDL cholesterol, serum (test code = 175 mg/dL 0-99 H 2088-04) [facility]y low density seuidrhzklas4798-76-83 10:22:00 Test Item Value Reference Range Interpretation Comments very low density lipoproteins (test 13 mg/dL 5-40 code = 2091-7) [facility] CenterHDL cholesterol, scdzu8447-13-62 10:22:00 Test Item Value Reference Range Interpretation Comments HDL cholesterol, serum (test code = 69 mg/dL >39 2084-12) [facility] Centertriglyceride, serum, fxhemqc0110-10-05 10:22:00 Test Item Value Reference Range Interpretation Comments triglyceride, serum, fasting (test 67 mg/dL 0-149 code = 2571-8) [facility] Centercholesterol, xtuai0018-13-59 10:22:00 Test Item Value Reference Range Interpretation Comments cholesterol, serum (test code = 257 mg/dL 100-199 H 2092-3) [facility] Centeralanine aminotransferase (SGPT), fjlaj7999-07-81 10:22:00 Test Item Value Reference Range Interpretation Comments alanine aminotransferase (SGPT), serum 24 1/L 0-32 (test code = 1742-6) [facility] Centeraspartate aminotransferase (SGOT), jxttl3792-55-38 10:22:00 Test Item Value Reference Range Interpretation Comments aspartate aminotransferase (SGOT), 21 1/L 0-40 serum (test code = 1920-8) [facility] Centeralkaline phosphatase, wzclz4275-79-34 10:22:00 Test Item Value Reference Range Interpretation Comments alkaline phosphatase, serum (test code 92 1/L 39-117 = 1783-0) [facility] Centerbilirubin, serum, skpmw9738-40-07 10:22:00 Test Item Value Reference Range Interpretation Comments bilirubin, serum, total (test code 0.3 mg/dL 0.0-1.2 = 1975-2) [facility] Healthalbumin/globulin ratio, nmiaj0084-74-89 10:22:00 Test Item Value Reference Range Interpretation Comments albumin/globulin ratio, serum (test 1.4 1.2-2.2 code = 1759-0) [facility] Healthglobulin, [id number] 10:22:00 Test Item Value Reference Range Interpretation Comments globulin, serum (test code = 2336-6) 3.2 1.5-4.5 [facility] Healthalbumin, [id number] 10:22:00 Test Item Value Reference Range Interpretation Comments albumin, serum (test code = 1751-7) 4.6 g/dL 3.5-5.5 [facility] Healthprotein, total, [id number] 10:22:00 Test Item Value Reference Range Interpretation Comments protein, total, serum (test code = 7.8 g/dL 6.0-8.5 2885-2) [facility] Centercalcium, aevhw1994-09-22 10:22:00 Test Item Value Reference Range Interpretation Comments calcium, serum (test code = 10.0 mg/dL 8.7-10.2 1999-) [facility] Centercarbon dioxide, venous acozz6611-26-66 10:22:00 Test Item Value Reference Range Interpretation Comments carbon dioxide, venous blood (test 22 mmol/L - code = 2026-1) [facility] Centerchloride, [id number] 10:22:00 Test Item Value Reference Range Interpretation Comments chloride, serum (test code = 102 mmol/L 96-106 5-0) [facility] Centerpotassium, eelau6782-51-54 10:22:00 Test Item Value Reference Range Interpretation Comments potassium, serum (test code = 4.2 mmol/L 3.5-5.2 2823-3) [facility] Centersodium, fbvzh1730-33-73 10:22:00 Test Item Value Reference Range Interpretation Comments sodium, serum (test code = 2951-2) 141 mmol/L 134-144 [facility] Centerurea nitrogen/creatinine ratio, uayyy6213-26-41 10:22:00 Test Item Value Reference Range Interpretation Comments urea nitrogen/creatinine ratio, serum 22 9-23 (test code = 3097-3) [facility] HealtheGFR if Wukzhfne5503-03-68 10:22:00 Test Item Value Reference Range Interpretation Comments eGFR if 97 >59 (test code = 94089-7) mL/min/((173/100).m2) [facility] CenterEstimated Glomerular Filtration Rate (calc)2018-11-16 10:22:00 Test Item Value Reference Range Interpretation Comments Estimated Glomerular 84 >59 Filtration Rate (calc) mL/min/((173/100).m2 (test code = 16497-7) ) [facility] Centercreatinine, [id number] 10:22:00 Test Item Value Reference Range Interpretation Comments creatinine, serum (test code = 0.79 mg/dL 0.57-1.00 2160-0) [facility] Centerurea nitrogen, [id number] 10:22:00 Test Item Value Reference Range Interpretation Comments urea nitrogen, blood (test code = 17 mg/dL 6-24 3094-0) [facility], hbqocq5124-66-89 10:22:00 Test Item Value Reference Range Interpretation Comments blood glucose, random (test code = 122 mg/dL 65-99 H 2339-0) [facility] Centerimmature granulocytes, percentage of total cells, blood 2018-11-16 10:22:00 Test Item Value Reference Range Interpretation Comments immature granulocytes, percentage of 0 % total cells, blood (test code = 41710-2) [facility] Centerbasophil count, aicgnkdu6593-58-02 10:22:00 Test Item Value Reference Range Interpretation Comments basophil count, absolute (test 0.0 x10E3/uL 0.0-0.2 code = 66767-0) [facility] CenterEosinophil Absolute Pteri4047-06-13 10:22:00 Test Item Value Reference Range Interpretation Comments Eosinophil Absolute Count (test 0.1 X10E3/UL 0.0-0.4 code = 84456-9) [facility] Healthmonocyte count, blood, lewdgegvg4657-39-93 10:22:00 Test Item Value Reference Range Interpretation Comments monocyte count, blood, automated 0.3 X10E3/UL 0.1-0.9 (test code = 742-7) [facility] Centerlymphocyte count, blood, wfglrlwdt1083-62-93 10:22:00 Test Item Value Reference Range Interpretation Comments lymphocyte count, blood, 2.0 X10E3/UL 0.7-3.1 automated (test code = 731-0) [facility] CenterAbsolute Lzdpeecoodo0281-10-96 10:22:00 Test Item Value Reference Range Interpretation Comments Absolute Neutrophils (test code 2.1 X10E3/UL 1.4-7.0 = 45581-0) [facility] Centerbasophils as percent of blood fqoglbvtmr9041-39-54 10:22:00 Test Item Value Reference Range Interpretation Comments basophils as percent of blood 1 % leukocytes (test code = 707-0) [facility] Centereosinophils as percent of blood jtfsepxvjs1297-98-83 10:22:00 Test Item Value Reference Range Interpretation Comments eosinophils as percent of blood 3 % leukocytes (test code = 713-8) [facility] Healthmonocytes as percent of blood gfblxuoelc2211-31-12 10:22:00 Test Item Value Reference Range Interpretation Comments monocytes as percent of blood 7 % leukocytes (test code = 5905-5) [facility] Centerlymphocytes as percent of blood ypytqhxvki2663-00-14 10:22:00 Test Item Value Reference Range Interpretation Comments lymphocytes as percent of blood 43 % leukocytes (test code = 736-9) [facility] Centerneutrophils as percent of blood rjwaduxxgk8052-17-43 10:22:00 Test Item Value Reference Range Interpretation Comments neutrophils as percent of blood 46 % leukocytes (test code = 770-8) [facility] Centerplatelet uiqdz8307-30-70 10:22:00 Test Item Value Reference Range Interpretation Comments platelet count (test code = 315 X10E3/UL 150-450 777-3) [facility] Centerred blood cell distribution iebjq4362-37-42 10:22:00 Test Item Value Reference Range Interpretation Comments red blood cell distribution width 14.4 % 12.3-15.4 (test code = 788-0) [facility] corpuscular hemoglobin concentration, WNL9325-88-60 10:22:00 Test Item Value Reference Range Interpretation Comments mean corpuscular hemoglobin 33.8 G/DL 31.5-35.7 concentration, RBC (test code = 786-4) [facility] corpuscular hemoglobin, KBA4929-11-00 10:22:00 Test Item Value Reference Range Interpretation Comments mean corpuscular hemoglobin, RBC 32.1 pg 26.6-33.0 (test code = 785-6) [facility] corpuscular volume, ROG2805-51-93 10:22:00 Test Item Value Reference Range Interpretation Comments mean corpuscular volume, RBC (test code 95 fL 79-97 = 787-2) [facility] Centerhematocrit, rwwsr2917-16-95 10:22:00 Test Item Value Reference Range Interpretation Comments hematocrit, blood (test code = 4544-3) 39.6 % 34.0-46.6 [facility] Centerhemoglobin, nsebd6607-13-62 10:22:00 Test Item Value Reference Range Interpretation Comments hemoglobin, blood (test code = 13.4 g/dL 11.1-15.9 718-7) [facility] Centererythrocyte (RBC) vgumx7557-81-86 10:22:00 Test Item Value Reference Range Interpretation Comments erythrocyte (RBC) count (test 4.18 X10E6/UL 3.77-5.28 code = 789-8) [facility] Centerleukocyte count, qgvkw6177-51-48 10:22:00 Test Item Value Reference Range Interpretation Comments leukocyte count, blood (test 4.5 X10E3/UL 3.4-10.8 code = 6690-2) [facility] CenterCD4/CD8 cflas4734-28-63 10:22:00 Test Item Value Reference Range Interpretation Comments CD4/CD8 ratio (test code = 08297) 1.37 0.92-3.72 [facility] CenterT-suppressor cells (CD8) as percent of blood lymphocytes 2018-11-16 10:22:00 Test Item Value Reference Range Interpretation Comments T-suppressor cells (CD8) as percent of 28.7 % 12.0-35.5 blood lymphocytes (test code = 3517) [facility] Centerabsolute [id number] 10:22:00 Test Item Value Reference Range Interpretation Comments absolute CD8 (test code = 95361) 574 109-897 [facility] CenterT-helper cells (CD4) as percent of blood lymphocytes 2018-11-16 10:22:00 Test Item Value Reference Range Interpretation Comments T-helper cells (CD4) as percent of 39.4 % 30.8-58.5 blood lymphocytes (test code = 8123-2) [facility] CenterT-helper cells (CD4) bseoq8065-13-92 10:22:00 Test Item Value Reference Range Interpretation Comments T-helper cells (CD4) count (test code 788 /UL 359-6503 = 60500-9) [facility] Centerrapid plasma reagin antibody, rhgwb6653-21-62 13:14:00 Test Item Value Reference Range Interpretation Comments rapid plasma reagin antibody, Non Reactive Non Reactive serum (test code = 5291-0) [facility] Centerhemoglobin A1C, blood, as % of total bsaguczfwf0378-66-94 13:14:00 Test Item Value Reference Range Interpretation Comments hemoglobin A1C, blood, as % of total 6.5 % 4.8-5.6 H hemoglobin (test code = 4548-4) [facility] CenterHIV-1RNA, serum, by PCR, dzwmdpxgmznl0735-20-57 13:14:00 Test Item Value Reference Range Interpretation Comments HIV-1RNA, serum, by PCR, <20 copies/mL quantitative (test code = 72724) [facility] CenterLDL cholesterol, wuycf4869-43-32 13:14:00 Test Item Value Reference Range Interpretation Comments LDL cholesterol, serum (test code = 108 mg/dL 0-99 H 2088-) [facility] Centervery low density szeoanvswmbl3021-27-19 13:14:00 Test Item Value Reference Range Interpretation Comments very low density lipoproteins (test 11 mg/dL 5-40 code = 2091-7) [facility] CenterHDL cholesterol, usbeb3189-73-52 13:14:00 Test Item Value Reference Range Interpretation Comments HDL cholesterol, serum (test code = 63 mg/dL >39 5-9) [facility] Centertriglyceride, serum, qaymlfo5227-57-33 13:14:00 Test Item Value Reference Range Interpretation Comments triglyceride, serum, fasting (test 53 mg/dL 0-149 code = 2571-8) [facility] Centercholesterol, nheeo4238-29-89 13:14:00 Test Item Value Reference Range Interpretation Comments cholesterol, serum (test code = 182 mg/dL 870-599 7568-3) [facility] Centeralanine aminotransferase (SGPT), ceoda9152-22-16 13:14:00 Test Item Value Reference Range Interpretation Comments alanine aminotransferase (SGPT), serum 16 1/L 0-32 (test code = 1742-6) [facility] Centeraspartate aminotransferase (SGOT), vjxjs5030-85-69 13:14:00 Test Item Value Reference Range Interpretation Comments aspartate aminotransferase (SGOT), 16 1/L 0-40 serum (test code = 1920-8) [facility] Centeralkaline phosphatase, llueh5807-94-36 13:14:00 Test Item Value Reference Range Interpretation Comments alkaline phosphatase, serum (test code 82 1/L 39-117 = 1783-0) [facility] Centerbilirubin, serum, hzjdc8206-46-86 13:14:00 Test Item Value Reference Range Interpretation Comments bilirubin, serum, total (test code 0.2 mg/dL 0.0-1.2 = 1975-2) [facility] Centeralbumin/globulin ratio, lbrov1156-06-38 13:14:00 Test Item Value Reference Range Interpretation Comments albumin/globulin ratio, serum (test 1.7 1.2-2.2 code = 1759-0) [facility] Healthglobulin, idrgp1080-14-59 13:14:00 Test Item Value Reference Range Interpretation Comments globulin, serum (test code = 2336-6) 2.6 1.5-4.5 [facility] Centeralbumin, qehnp4553-42-92 13:14:00 Test Item Value Reference Range Interpretation Comments albumin, serum (test code = 1751-7) 4.3 g/dL 3.5-5.5 [facility] Centerprotein, total, nxrpi7745-24-78 13:14:00 Test Item Value Reference Range Interpretation Comments protein, total, serum (test code = 6.9 g/dL 6.0-8.5 2885-2) [facility] Centercalcium, mplco9787-78-58 13:14:00 Test Item Value Reference Range Interpretation Comments calcium, serum (test code = 1999-) 9.4 mg/dL 8.7-10.2 [facility] Centercarbon dioxide, venous gykvc8341-22-35 13:14:00 Test Item Value Reference Range Interpretation Comments carbon dioxide, venous blood (test 23 mmol/L - code = 2026-1) [facility] Healthchloride, tyuiy0203-68-90 13:14:00 Test Item Value Reference Range Interpretation Comments chloride, serum (test code = 104 mmol/L 96-106 5-0) [facility] Centerpotassium, ycksw7803-80-68 13:14:00 Test Item Value Reference Range Interpretation Comments potassium, serum (test code = 3.6 mmol/L 3.5-5.2 2823-3) [facility] Centersodium, rjtvd2482-01-68 13:14:00 Test Item Value Reference Range Interpretation Comments sodium, serum (test code = 2951-2) 142 mmol/L 134-144 [facility] Centerurea nitrogen/creatinine ratio, whcxr6372-23-52 13:14:00 Test Item Value Reference Range Interpretation Comments urea nitrogen/creatinine ratio, serum 16 9-23 (test code = 3097-3) [facility] HealtheGFR if Zdsievhy6684-69-07 13:14:00 Test Item Value Reference Range Interpretation Comments eGFR if 114 >59 (test code = 02506-6) mL/min/((173/100).m2) [facility] CenterEstimated Glomerular Filtration Rate (calc)2018-03-09 13:14:00 Test Item Value Reference Range Interpretation Comments Estimated Glomerular 99 >59 Filtration Rate (calc) mL/min/((173/100).m2 (test code = 44429-2) ) [facility] Centercreatinine, kdhcz1713-02-45 13:14:00 Test Item Value Reference Range Interpretation Comments creatinine, serum (test code = 0.68 mg/dL 0.57-1.00 2160-0) [facility] Centerurea nitrogen, kwcps2716-31-45 13:14:00 Test Item Value Reference Range Interpretation Comments urea nitrogen, blood (test code = 11 mg/dL 6-24 3094-0) [facility] Centerblood glucose, hwvali2439-45-94 13:14:00 Test Item Value Reference Range Interpretation Comments blood glucose, random (test code = 122 mg/dL 65-99 H 2339-0) [facility] Centerimmature granulocytes, percentage of total cells, blood 2018-03-09 13:14:00 Test Item Value Reference Range Interpretation Comments immature granulocytes, percentage of 0 % total cells, blood (test code = 62601-6) [facility] Centerbasophil count, rldpkgzz9026-78-79 13:14:00 Test Item Value Reference Range Interpretation Comments basophil count, absolute (test 0.0 x10E3/uL 0.0-0.2 code = 14090-9) [facility] CenterEosinophil Absolute Ndasr6015-72-68 13:14:00 Test Item Value Reference Range Interpretation Comments Eosinophil Absolute Count (test 0.1 X10E3/UL 0.0-0.4 code = 24225-4) [facility] Centermonocyte count, blood, idgvldbrq8726-55-25 13:14:00 Test Item Value Reference Range Interpretation Comments monocyte count, blood, automated 0.5 X10E3/UL 0.1-0.9 (test code = 742-7) [facility] Centerlymphocyte count, blood, rlxjzfxpd7758-92-20 13:14:00 Test Item Value Reference Range Interpretation Comments lymphocyte count, blood, 1.9 X10E3/UL 0.7-3.1 automated (test code = 731-0) [facility] CenterAbsolute Mdzqpkwnaxu0135-85-86 13:14:00 Test Item Value Reference Range Interpretation Comments Absolute Neutrophils (test code 3.1 X10E3/UL 1.4-7.0 = 68577-9) [facility] Centerbasophils as percent of blood ykoyixmece2815-92-77 13:14:00 Test Item Value Reference Range Interpretation Comments basophils as percent of blood 0 % leukocytes (test code = 707-0) [facility] Centereosinophils as percent of blood hejgmobnwr8156-93-24 13:14:00 Test Item Value Reference Range Interpretation Comments eosinophils as percent of blood 2 % leukocytes (test code = 713-8) [facility] Centermonocytes as percent of blood trxzvdwghp8243-44-02 13:14:00 Test Item Value Reference Range Interpretation Comments monocytes as percent of blood 9 % leukocytes (test code = 5905-5) [facility] Centerlymphocytes as percent of blood gncwplprum3905-75-21 13:14:00 Test Item Value Reference Range Interpretation Comments lymphocytes as percent of blood 34 % leukocytes (test code = 736-9) [facility] Centerneutrophils as percent of blood xhewnvhexz1046-07-49 13:14:00 Test Item Value Reference Range Interpretation Comments neutrophils as percent of blood 55 % leukocytes (test code = 770-8) [facility] Centerplatelet mfojz6370-63-69 13:14:00 Test Item Value Reference Range Interpretation Comments platelet count (test code = 272 X10E3/UL 150-379 777-3) [facility] Centerred blood cell distribution mesth7787-35-27 13:14:00 Test Item Value Reference Range Interpretation Comments red blood cell distribution width 14.8 % 12.3-15.4 (test code = 788-0) [facility] corpuscular hemoglobin concentration, [id number] 13:14:00 Test Item Value Reference Range Interpretation Comments mean corpuscular hemoglobin 33.7 G/DL 31.5-35.7 concentration, RBC (test code = 786-4) [facility] corpuscular hemoglobin, KSI1280-13-00 13:14:00 Test Item Value Reference Range Interpretation Comments mean corpuscular hemoglobin, RBC 32.0 pg 26.6-33.0 (test code = 785-6) [facility] corpuscular volume, [id number] 13:14:00 Test Item Value Reference Range Interpretation Comments mean corpuscular volume, RBC (test code 95 fL 79-97 = 787-2) [facility] Centerhematocrit, idkvl8013-61-47 13:14:00 Test Item Value Reference Range Interpretation Comments hematocrit, blood (test code = 4544-3) 36.5 % 34.0-46.6 [facility] Centerhemoglobin, dismd9471-59-03 13:14:00 Test Item Value Reference Range Interpretation Comments hemoglobin, blood (test code = 12.3 g/dL 11.1-15.9 718-7) [facility] Centererythrocyte (RBC) gsgxf8988-68-05 13:14:00 Test Item Value Reference Range Interpretation Comments erythrocyte (RBC) count (test 3.84 X10E6/UL 3.77-5.28 code = 789-8) [facility] Centerleukocyte count, yxbaa8061-81-15 13:14:00 Test Item Value Reference Range Interpretation Comments leukocyte count, blood (test 5.6 X10E3/UL 3.4-10.8 code = 6690-2) [facility] CenterCD4/CD8 fxfja1216-69-58 13:14:00 Test Item Value Reference Range Interpretation Comments CD4/CD8 ratio (test code = 18565) 1.63 0.92-3.72 [facility] CenterT-suppressor cells (CD8) as percent of blood lymphocytes 2018-03-09 13:14:00 Test Item Value Reference Range Interpretation Comments T-suppressor cells (CD8) as percent of 26.2 % 12.0-35.5 blood lymphocytes (test code = 3517) [facility] Centerabsolute [id number] 13:14:00 Test Item Value Reference Range Interpretation Comments absolute CD8 (test code = 50160) 498 109-057 [facility] CenterT-helper cells (CD4) as percent of blood lymphocytes 2018-03-09 13:14:00 Test Item Value Reference Range Interpretation Comments T-helper cells (CD4) as percent of 42.6 % 30.8-58.5 blood lymphocytes (test code = 8123-2) [facility] CenterT-helper cells (CD4) uzdva1533-33-12 13:14:00 Test Item Value Reference Range Interpretation Comments T-helper cells (CD4) count (test code 809 /UL 359-1519 = 51592-8) [facility] Centermicroalbumin/creatinine ratio, vjyil9490-82-67 12:49:00 Test Item Value Reference Range Interpretation Comments microalbumin/creatinine 35.4 MG/G CREAT 0.0-30.0 H ratio, urine (test code = 17365-8) [facility] Centermicroalbumin/total urine nssgjy4460-39-51 12:49:00 Test Item Value Reference Range Interpretation Comments microalbumin/total urine volume 28.4 mg/L (test code = 76841-9) [facility] Centercreatinine, random, extpn8547-34-69 12:49:00 Test Item Value Reference Range Interpretation Comments creatinine, random, urine (test 80.2 mg/dL code = 2161-8) [facility] Centervitamin D 25-hydroxy, fczlw3098-55-31 11:04:00 Test Item Value Reference Range Interpretation Comments vitamin D 25-hydroxy, serum (test 36.8 ng/mL 30.0-100.0 code = 85083-4) [facility] Centerrapid plasma reagin antibody, phrgs6434-85-72 11:04:00 Test Item Value Reference Range Interpretation Comments rapid plasma reagin antibody, Non Reactive Non Reactive serum (test code = 5291-0) [facility] Centerhemoglobin A1C, blood, as % of total zmkrilbhrj1693-20-41 11:04:00 Test Item Value Reference Range Interpretation Comments hemoglobin A1C, blood, as % of total 6.7 % 4.8-5.6 H hemoglobin (test code = 4548-4) [facility] CenterHIV-1RNA, serum, by PCR, amwqxippusql0846-52-44 11:04:00 Test Item Value Reference Range Interpretation Comments HIV-1RNA, serum, by PCR, <20 copies/mL quantitative (test code = 78854) [facility] CenterLDL cholesterol, jgyfl0381-81-91 11:04:00 Test Item Value Reference Range Interpretation Comments LDL cholesterol, serum (test code = 134 mg/dL 0-99 H 2088-1) [facility] Centervery low density svhxjkaiwhaz2154-97-21 11:04:00 Test Item Value Reference Range Interpretation Comments very low density lipoproteins (test 11 mg/dL 5-40 code = 2091-7) [facility] CenterHDL cholesterol, qinad8156-61-41 11:04:00 Test Item Value Reference Range Interpretation Comments HDL cholesterol, serum (test code = 71 mg/dL >39 2084-9) [facility] Centertriglyceride, serum, jydwlob9529-07-42 11:04:00 Test Item Value Reference Range Interpretation Comments triglyceride, serum, fasting (test 56 mg/dL 0-149 code = 2571-8) [facility] Centercholesterol, uyggz2672-15-04 11:04:00 Test Item Value Reference Range Interpretation Comments cholesterol, serum (test code = 216 mg/dL 100-199 H 2093-3) [facility] Healthalanine aminotransferase (SGPT), tyuau6732-82-92 11:04:00 Test Item Value Reference Range Interpretation Comments alanine aminotransferase (SGPT), serum 12 1/L 0-32 (test code = 1742-6) [facility] Centeraspartate aminotransferase (SGOT), qnxyf6742-89-78 11:04:00 Test Item Value Reference Range Interpretation Comments aspartate aminotransferase (SGOT), 12 1/L 0-40 serum (test code = 1920-8) [facility] Centeralkaline phosphatase, hvtti2875-05-57 11:04:00 Test Item Value Reference Range Interpretation Comments alkaline phosphatase, serum (test code 93 1/L 39-117 = 1783-0) [facility] Centerbilirubin, serum, qhldk9295-45-70 11:04:00 Test Item Value Reference Range Interpretation Comments bilirubin, serum, total (test code 0.3 mg/dL 0.0-1.2 = 1975-2) [facility] Centeralbumin/globulin ratio, snwbv6547-90-40 11:04:00 Test Item Value Reference Range Interpretation Comments albumin/globulin ratio, serum (test 1.8 1.2-2.2 code = 1759-0) [facility] Healthglobulin, xkndd0369-55-43 11:04:00 Test Item Value Reference Range Interpretation Comments globulin, serum (test code = 2336-6) 2.5 1.5-4.5 [facility] Healthalbumin, gyntl3028-90-50 11:04:00 Test Item Value Reference Range Interpretation Comments albumin, serum (test code = 1751-7) 4.4 g/dL 3.5-5.5 [facility] Centerprotein, total, kzfoc5122-56-13 11:04:00 Test Item Value Reference Range Interpretation Comments protein, total, serum (test code = 6.9 g/dL 6.0-8.5 2885-2) [facility] Centercalcium, kkdee7954-13-47 11:04:00 Test Item Value Reference Range Interpretation Comments calcium, serum (test code = 1999-8) 9.7 mg/dL 8.7-10.2 [facility] Centercarbon dioxide, venous gbimc4935-11-14 11:04:00 Test Item Value Reference Range Interpretation Comments carbon dioxide, venous blood (test 26 mmol/L 20-29 code = 7-1) [facility] Centerchloride, nuuqr9909-85-37 11:04:00 Test Item Value Reference Range Interpretation Comments chloride, serum (test code = 100 mmol/L 96-106 2075-0) [facility] Centerpotassium, vzgxy6324-43-34 11:04:00 Test Item Value Reference Range Interpretation Comments potassium, serum (test code = 4.0 mmol/L 3.5-5.2 2823-3) [facility] Centersodium, ebhqn5326-58-10 11:04:00 Test Item Value Reference Range Interpretation Comments sodium, serum (test code = 2951-2) 140 mmol/L 134-144 [facility] Centerurea nitrogen/creatinine ratio, qixui1967-17-42 11:04:00 Test Item Value Reference Range Interpretation Comments urea nitrogen/creatinine ratio, serum 20 9-23 (test code = 3097-3) [facility] CentereGFR if Oslxhabk8176-59-06 11:04:00 Test Item Value Reference Range Interpretation Comments eGFR if 96 >59 (test code = 67222-7) mL/min/((173/100).m2) [facility] CenterEstimated Glomerular Filtration Rate (calc)2017-09-22 11:04:00 Test Item Value Reference Range Interpretation Comments Estimated Glomerular 83 >59 Filtration Rate (calc) mL/min/((173/100).m2 (test code = 45573-3) ) [facility] Centercreatinine, kjsls6218-09-11 11:04:00 Test Item Value Reference Range Interpretation Comments creatinine, serum (test code = 0.80 mg/dL 0.57-1.00 2160-0) [facility] Centerurea nitrogen, qqfwx0765-11-49 11:04:00 Test Item Value Reference Range Interpretation Comments urea nitrogen, blood (test code = 16 mg/dL 6-24 3094-0) [facility] Centerblood glucose, aovwnx2362-09-83 11:04:00 Test Item Value Reference Range Interpretation Comments blood glucose, random (test code = 122 mg/dL 65-99 H 2339-0) [facility] Centerimmature granulocytes, percentage of total cells, blood 2017-09-22 11:04:00 Test Item Value Reference Range Interpretation Comments immature granulocytes, percentage of 0 % total cells, blood (test code = 98864-2) [facility] Healthbasophil count, zumqltof1934-88-26 11:04:00 Test Item Value Reference Range Interpretation Comments basophil count, absolute (test 0.0 x10E3/uL 0.0-0.2 code = 11626-4) [facility] HealthEosinophil Absolute Xeutk2834-05-64 11:04:00 Test Item Value Reference Range Interpretation Comments Eosinophil Absolute Count (test 0.1 X10E3/UL 0.0-0.4 code = 27015-9) [facility] Centermonocyte count, blood, ocnpvtrja3580-99-02 11:04:00 Test Item Value Reference Range Interpretation Comments monocyte count, blood, automated 0.4 X10E3/UL 0.1-0.9 (test code = 742-7) [facility] Centerlymphocyte count, blood, gidcehgqm6928-62-32 11:04:00 Test Item Value Reference Range Interpretation Comments lymphocyte count, blood, 1.5 X10E3/UL 0.7-3.1 automated (test code = 731-0) [facility] CenterAbsolute Enlqyoukwfp2693-32-81 11:04:00 Test Item Value Reference Range Interpretation Comments Absolute Neutrophils (test code 3.4 X10E3/UL 1.4-7.0 = 13594-7) [facility] Centerbasophils as percent of blood qsctapusok9362-96-51 11:04:00 Test Item Value Reference Range Interpretation Comments basophils as percent of blood 1 % leukocytes (test code = 707-0) [facility] Healtheosinophils as percent of blood udlylxfxog5116-33-72 11:04:00 Test Item Value Reference Range Interpretation Comments eosinophils as percent of blood 2 % leukocytes (test code = 713-8) [facility] Healthmonocytes as percent of blood kmgrxtitpb1990-67-23 11:04:00 Test Item Value Reference Range Interpretation Comments monocytes as percent of blood 7 % leukocytes (test code = 5905-5) [facility] Centerlymphocytes as percent of blood oupoyzrtdi3084-49-65 11:04:00 Test Item Value Reference Range Interpretation Comments lymphocytes as percent of blood 28 % leukocytes (test code = 736-9) [facility] Centerneutrophils as percent of blood qolyhcsmhn9824-82-03 11:04:00 Test Item Value Reference Range Interpretation Comments neutrophils as percent of blood 62 % leukocytes (test code = 770-8) [facility] Centerplatelet lasbq6920-75-68 11:04:00 Test Item Value Reference Range Interpretation Comments platelet count (test code = 268 X10E3/UL 150-379 777-3) [facility] Centerred blood cell distribution yefap0097-21-05 11:04:00 Test Item Value Reference Range Interpretation Comments red blood cell distribution width 16.2 % 12.3-15.4 H (test code = 788-0) [facility] corpuscular hemoglobin concentration, [id number] 11:04:00 Test Item Value Reference Range Interpretation Comments mean corpuscular hemoglobin 34.0 G/DL 31.5-35.7 concentration, RBC (test code = 786-4) [facility] corpuscular hemoglobin, [id number] 11:04:00 Test Item Value Reference Range Interpretation Comments mean corpuscular hemoglobin, RBC 31.9 pg 26.6-33.0 (test code = 785-6) [facility] corpuscular volume, [id number] 11:04:00 Test Item Value Reference Range Interpretation Comments mean corpuscular volume, RBC (test code 94 fL 79-97 = 787-2) [facility]oc[facility] nmzlv9739-86-94 11:04:00 Test Item Value Reference Range Interpretation Comments hematocrit, blood (test code = 4544-3) 37.9 % 34.0-46.6 [facility], funxl7466-00-85 11:04:00 Test Item Value Reference Range Interpretation Comments hemoglobin, blood (test code = 12.9 g/dL 11.1-15.9 718-7) [facility]ererythrocyte (RBC) [id number] 11:04:00 Test Item Value Reference Range Interpretation Comments erythrocyte (RBC) count (test 4.04 X10E6/UL 3.77-5.28 code = 789-8) [facility] Centerleukocyte count, ynrpb4396-05-75 11:04:00 Test Item Value Reference Range Interpretation Comments leukocyte count, blood (test 5.4 X10E3/UL 3.4-10.8 code = 6690-2) [facility] CenterCD4/CD8 oarsv0793-83-03 11:04:00 Test Item Value Reference Range Interpretation Comments CD4/CD8 ratio (test code = 85194) 1.68 0.92-3.72 [facility] CenterT-suppressor cells (CD8) as percent of blood lymphocytes 2017-09-22 11:04:00 Test Item Value Reference Range Interpretation Comments T-suppressor cells (CD8) as percent of 24.2 % 12.0-35.5 blood lymphocytes (test code = 3517) [facility] Centerabsolute [id number] 11:04:00 Test Item Value Reference Range Interpretation Comments absolute CD8 (test code = 84734) 363 109-897 [facility] CenterT-helper cells (CD4) as percent of blood lymphocytes 2017-09-22 11:04:00 Test Item Value Reference Range Interpretation Comments T-helper cells (CD4) as percent of 40.6 % 30.8-58.5 blood lymphocytes (test code = 8123-2) [facility] CenterT-helper cells (CD4) mkwze4148-00-52 11:04:00 Test Item Value Reference Range Interpretation Comments T-helper cells (CD4) count (test code 609 /UL 359-1519 = 10171-0) [facility] Centermicroalbumin/total urine bqbnky5743-67-49 11:04:00 Test Item Value Reference Range Interpretation Comments microalbumin/total urine volume 39.5 mg/L (test code = 91147-2) [facility] Centercreatinine, random, jmurv2821-26-28 11:04:00 Test Item Value Reference Range Interpretation Comments creatinine, random, urine (test 116.0 mg/dL code = 2161-8) [facility] CenterNeisseria gonorrhoeae DNA [id number] 11:12:00 Test Item Value Reference Range Interpretation Comments Neisseria gonorrhoeae DNA probe Negative Negative (test code = 76876-2) [facility] Centerchlamydia DNA ibufa0358-85-13 11:12:00 Test Item Value Reference Range Interpretation Comments chlamydia DNA probe (test code = Negative Negative 20761-1) [facility] CenterNon-nucleotide Reverse Transcriptase Uswywpkrow3965-50-55 11:45:11 Test Item Value Reference Range Interpretation Comments Non-nucleotide Reverse Transcriptase none Inhibitors (test code = 825058) [facility] CenterNucleotide Reverse transcriptase mtzovkden6530-13-33 11:45:11 Test Item Value Reference Range Interpretation Comments Nucleotide Reverse transcriptase none inhibitor (test code = 374275) [facility] Centerblood glucose, xaflkn5724-57-61 11:45:11 Test Item Value Reference Range Interpretation Comments blood glucose, random (test code = 87 mg/dL 2339-0) [facility] Centerrapid plasma reagin antibody, sxemw1075-31-94 10:54:00 Test Item Value Reference Range Interpretation Comments rapid plasma reagin antibody, Non Reactive Non Reactive serum (test code = 5291-0) [facility] CenterHIV-1RNA, serum, by PCR, kldkrxdpszvv6438-64-95 10:54:00 Test Item Value Reference Range Interpretation Comments HIV-1RNA, serum, by PCR, quantitative 30 /mL (test code = 95654) [facility] CenterLDL cholesterol, jmvor3539-37-59 10:54:00 Test Item Value Reference Range Interpretation Comments LDL cholesterol, serum (test code = 135 mg/dL 0-99 H 2088-04) [facility]y low density kvuuxmuengra1052-88-06 10:54:00 Test Item Value Reference Range Interpretation Comments very low density lipoproteins (test 12 mg/dL 5-40 code = 1-7) [facility] CenterHDL cholesterol, pwdfs7981-87-72 10:54:00 Test Item Value Reference Range Interpretation Comments HDL cholesterol, serum (test code = 56 mg/dL >39 9) [facility] Centertriglyceride, serum, egrptat5534-17-86 10:54:00 Test Item Value Reference Range Interpretation Comments triglyceride, serum, fasting (test 60 mg/dL 0-149 code = 2571-8) [facility] Centercholesterol, czdgj2587-68-41 10:54:00 Test Item Value Reference Range Interpretation Comments cholesterol, serum (test code = 203 mg/dL 100-199 H 2092-06) [facility] Centeralanine aminotransferase (SGPT), paqgj8179-54-43 10:54:00 Test Item Value Reference Range Interpretation Comments alanine aminotransferase (SGPT), serum 17 1/L 0-32 (test code = 1742-6) [facility] Centeraspartate aminotransferase (SGOT), ramdx7653-78-56 10:54:00 Test Item Value Reference Range Interpretation Comments aspartate aminotransferase (SGOT), 19 1/L 0-40 serum (test code = 1920-8) [facility] Centeralkaline phosphatase, rejau7697-39-03 10:54:00 Test Item Value Reference Range Interpretation Comments alkaline phosphatase, serum (test code 91 1/L 39-117 = 1783-0) [facility] Centerbilirubin, serum, [id number] 10:54:00 Test Item Value Reference Range Interpretation Comments bilirubin, serum, total (test code 0.2 mg/dL 0.0-1.2 = 1975-2) [facility] Centeralbumin/globulin ratio, jwbkz0839-82-97 10:54:00 Test Item Value Reference Range Interpretation Comments albumin/globulin ratio, serum (test 1.6 1.2-2.2 code = 1759-0) [facility] Healthglobulin, dmmal2028-60-91 10:54:00 Test Item Value Reference Range Interpretation Comments globulin, serum (test code = 2336-6) 2.7 1.5-4.5 [facility] Healthalbumin, awvfh8625-16-13 10:54:00 Test Item Value Reference Range Interpretation Comments albumin, serum (test code = 1751-7) 4.3 g/dL 3.5-5.5 [facility] Centerprotein, total, nanrc0309-64-87 10:54:00 Test Item Value Reference Range Interpretation Comments protein, total, serum (test code = 7.0 g/dL 6.0-8.5 2885-2) [facility] Centercalcium, djrft9373-58-76 10:54:00 Test Item Value Reference Range Interpretation Comments calcium, serum (test code = 1999-8) 9.3 mg/dL 8.7-10.2 [facility] Centercarbon dioxide, venous pcjyl8929-69-53 10:54:00 Test Item Value Reference Range Interpretation Comments carbon dioxide, venous blood (test 23 mmol/L 18-29 code = 7-1) [facility] Healthchloride, tussm7151-41-71 10:54:00 Test Item Value Reference Range Interpretation Comments chloride, serum (test code = 101 mmol/L 96-106 2075-0) [facility] Healthpotassium, jykjj3409-87-98 10:54:00 Test Item Value Reference Range Interpretation Comments potassium, serum (test code = 4.2 mmol/L 3.5-5.2 2823-3) [facility] Healthsodium, sokea5287-08-29 10:54:00 Test Item Value Reference Range Interpretation Comments sodium, serum (test code = 2951-2) 141 mmol/L 134-144 [facility] Centerurea nitrogen/creatinine ratio, ddnfw9704-40-96 10:54:00 Test Item Value Reference Range Interpretation Comments urea nitrogen/creatinine ratio, serum 20 9-23 (test code = 3097-3) [facility] HealtheGFR if Okmerfpo9790-11-03 10:54:00 Test Item Value Reference Range Interpretation Comments eGFR if 115 >59 (test code = 46103-7) mL/min/((173/100).m2) [facility] CenterEstimated Glomerular Filtration Rate (calc)2017-06-02 10:54:00 Test Item Value Reference Range Interpretation Comments Estimated Glomerular 100 >59 Filtration Rate (calc) mL/min/((173/100).m2 (test code = 87790-3) ) [facility] Centercreatinine, qwiir9709-41-63 10:54:00 Test Item Value Reference Range Interpretation Comments creatinine, serum (test code = 0.66 mg/dL 0.57-1.00 2160-0) [facility] Centerurea nitrogen, zjepj8709-99-03 10:54:00 Test Item Value Reference Range Interpretation Comments urea nitrogen, blood (test code = 13 mg/dL 09-30 3094-0) [facility] Centerblood glucose, hlbpah5074-15-19 10:54:00 Test Item Value Reference Range Interpretation Comments blood glucose, random (test code = 105 mg/dL 65-99 H 2339-0) [facility] Centerimmature granulocytes, percentage of total cells, blood 2017-06-02 10:54:00 Test Item Value Reference Range Interpretation Comments immature granulocytes, percentage of 0 % total cells, blood (test code = 21228-8) [facility] Healthbasophil count, emidbnjt9167-07-19 10:54:00 Test Item Value Reference Range Interpretation Comments basophil count, absolute (test 0.0 x10E3/uL 0.0-0.2 code = 15706-6) [facility] HealthEosinophil Absolute Avcpd3714-26-37 10:54:00 Test Item Value Reference Range Interpretation Comments Eosinophil Absolute Count (test 0.1 X10E3/UL 0.0-0.4 code = 79897-3) [facility] Healthmonocyte count, blood, kiyniiqfs5180-87-28 10:54:00 Test Item Value Reference Range Interpretation Comments monocyte count, blood, automated 0.3 X10E3/UL 0.1-0.9 (test code = 742-7) [facility] Centerlymphocyte count, blood, akhvjbzjb0998-44-19 10:54:00 Test Item Value Reference Range Interpretation Comments lymphocyte count, blood, 1.3 X10E3/UL 0.7-3.1 automated (test code = 731-0) [facility] CenterAbsolute Aftzbwvpvig0709-36-71 10:54:00 Test Item Value Reference Range Interpretation Comments Absolute Neutrophils (test code 1.7 X10E3/UL 1.4-7.0 = 18878-5) [facility] Centerbasophils as percent of blood syvmbthsfr9398-84-63 10:54:00 Test Item Value Reference Range Interpretation Comments basophils as percent of blood 1 % leukocytes (test code = 707-0) [facility] Healtheosinophils as percent of blood cnbtafdwoa3506-04-68 10:54:00 Test Item Value Reference Range Interpretation Comments eosinophils as percent of blood 4 % leukocytes (test code = 713-8) [facility] Healthmonocytes as percent of blood ctkitcjywx0725-41-60 10:54:00 Test Item Value Reference Range Interpretation Comments monocytes as percent of blood 9 % leukocytes (test code = 5905-5) [facility] Centerlymphocytes as percent of blood mreraircep2236-84-07 10:54:00 Test Item Value Reference Range Interpretation Comments lymphocytes as percent of blood 37 % leukocytes (test code = 736-9) [facility] Healthneutrophils as percent of blood mskihyxcte4183-47-31 10:54:00 Test Item Value Reference Range Interpretation Comments neutrophils as percent of blood 49 % leukocytes (test code = 770-8) [facility] Centerplatelet cdjwb2723-25-01 10:54:00 Test Item Value Reference Range Interpretation Comments platelet count (test code = 287 X10E3/UL 150-379 777-3) [facility] Centerred blood cell distribution uzddr2364-65-69 10:54:00 Test Item Value Reference Range Interpretation Comments red blood cell distribution width 14.6 % 12.3-15.4 (test code = 788-0) [facility], FGZ8967-67-10 10:54:00 Test Item Value Reference Range Interpretation Comments mean corpuscular hemoglobin 31.6 G/DL 31.5-35.7 concentration, RBC (test code = 786-4) [facility], [id number] 10:54:00 Test Item Value Reference Range Interpretation Comments mean corpuscular hemoglobin, RBC 29.8 pg 26.6-33.0 (test code = 785-6) [facility], [id number] 10:54:00 Test Item Value Reference Range Interpretation Comments mean corpuscular volume, RBC (test code 94 fL 79-97 = 787-2) [facility] Centerhematocrit, erwhz7614-35-54 10:54:00 Test Item Value Reference Range Interpretation Comments hematocrit, blood (test code = 4544-3) 38.3 % 34.0-46.6 [facility] Centerhemoglobin, vwoda4064-54-51 10:54:00 Test Item Value Reference Range Interpretation Comments hemoglobin, blood (test code = 12.1 g/dL 11.1-15.9 718-7) [facility] Centererythrocyte (RBC) prvzo5759-97-58 10:54:00 Test Item Value Reference Range Interpretation Comments erythrocyte (RBC) count (test 4.06 X10E6/UL 3.77-5.28 code = 789-8) [facility] Centerleukocyte count, sgqml3786-19-87 10:54:00 Test Item Value Reference Range Interpretation Comments leukocyte count, blood (test 3.5 X10E3/UL 3.4-10.8 code = 6690-2) [facility] CenterCD4/CD8 yktrn6654-81-01 10:54:00 Test Item Value Reference Range Interpretation Comments CD4/CD8 ratio (test code = 47489) 0.97 0.92-3.72 [facility] CenterT-suppressor cells (CD8) as percent of blood lymphocytes 2017-06-02 10:54:00 Test Item Value Reference Range Interpretation Comments T-suppressor cells (CD8) as percent of 35.9 % 12.0-35.5 H blood lymphocytes (test code = 3517) [facility] Centerabsolute [id number] 10:54:00 Test Item Value Reference Range Interpretation Comments absolute CD8 (test code = 22405) 467 109-917 [facility] CenterT-helper cells (CD4) as percent of blood lymphocytes 2017-06-02 10:54:00 Test Item Value Reference Range Interpretation Comments T-helper cells (CD4) as percent of 34.8 % 30.8-58.5 blood lymphocytes (test code = 8123-2) [facility] CenterT-helper cells (CD4) empbk1616-46-99 10:54:00 Test Item Value Reference Range Interpretation Comments T-helper cells (CD4) count (test code 452 /UL 359-1519 = 95624-2) [facility] CenterHIV genotype ppdxht3441-81-23 13:04:16 Test Item Value Reference Range Interpretation Comments HIV genotype result (test code = 79757) done [facility] CenterQuantiferon Gold TB blood test for tuberculosis screening 2017-05-04 12:42:00 Test Item Value Reference Range Interpretation Comments Quantiferon Gold TB blood test for Negative Negative tuberculosis screening (test code = 14951-5) [facility] Centerhemoglobin A1C, blood, as % of total cbhkmqagjl1082-93-40 12:35:00 Test Item Value Reference Range Interpretation Comments hemoglobin A1C, blood, as % of total 6.5 % 4.8-5.6 H hemoglobin (test code = 4548-4) [facility] Centererythrocyte (RBC) hrbqr7876-41-87 12:35:00 Test Item Value Reference Range Interpretation Comments erythrocyte (RBC) count (test 4.20 X10E6/UL 3.77-5.28 code = 789-8) [facility] Healthmicroalbumin/total urine ggqvyh9114-64-03 11:30:00 Test Item Value Reference Range Interpretation Comments microalbumin/total urine volume 100.2 mg/L (test code = 69077-3) [facility] Centercreatinine, random, mgmal6655-39-53 11:30:00 Test Item Value Reference Range Interpretation Comments creatinine, random, urine (test 230.4 mg/dL code = 2161-8) [facility] Centerhepatitis A antibody, mnwjo8850-11-44 10:24:00 Test Item Value Reference Range Interpretation Comments hepatitis A antibody, total (test Negative Negative code = 75) [facility], skzcz8288-99-68 10:24:00 Test Item Value Reference Range Interpretation Comments hepatitis B core antibody, total Negative Negative (test code = 77) [facility] surface admemlw2535-51-84 10:24:00 Test Item Value Reference Range Interpretation Comments hepatitis B surface antigen (test Negative Negative code = 79) [facility] Centerrapid plasma reagin antibody, qrljv7000-98-56 10:24:00 Test Item Value Reference Range Interpretation Comments rapid plasma reagin antibody, Non Reactive Non Reactive serum (test code = 5291-0) [facility], ftbaf6608-70-36 10:24:00 Test Item Value Reference Range Interpretation Comments hepatitis C antibody, serum (test code <0.1 0.0-0.9 = 5199-5) [facility] CenterHIV-2 antibodies, western ryys3509-70-16 10:24:00 Test Item Value Reference Range Interpretation Comments HIV-2 antibodies, western blot (test Negative Negative code = 27099) [facility] CenterHIV-1/HIV-2 Ab, hbqig7693-49-62 10:24:00 Test Item Value Reference Range Interpretation Comments HIV-1/HIV-2 Ab, serum (test code = Positive Negative A 3399) [facility] CenterHIV-CMIA (Chemiluminescent Microparticle Immuno Assay) 2017-04-13 10:24:00 Test Item Value Reference Range Interpretation Comments HIV-CMIA (Chemiluminescent REAALG Non Reactive A Microparticle Immuno Assay) (test code = 820740) [facility] [id number] 10:24:00 Test Item Value Reference Range Interpretation Comments human leukocyte antigen B57 (test Negative code = 338204) [facility] Centertoxoplasma gondii antibody, SyW5780-11-55 10:24:00 Test Item Value Reference Range Interpretation Comments toxoplasma gondii antibody, IgG (test <3.0 0.0-7.1 code = 2430) [facility] Centerhepatitis B surface yrmwecka7356-40-55 10:24:00 Test Item Value Reference Range Interpretation Comments hepatitis B surface antibody Non Reactive (test code = 78) [facility] CenterNeisseria gonorrhoeae DNA [id number] 10:24:00 Test Item Value Reference Range Interpretation Comments Neisseria gonorrhoeae DNA probe Negative Negative (test code = 79400-1) [facility] Centerchlamydia DNA miksg1415-25-24 10:24:00 Test Item Value Reference Range Interpretation Comments chlamydia DNA probe (test code = Negative Negative 89217-2) [facility] CenterHIV-1RNA, serum, by PCR, tckervtaqzli5435-12-79 10:24:00 Test Item Value Reference Range Interpretation Comments HIV-1RNA, serum, by PCR, 36702 /mL quantitative (test code = 04998) [facility] CenterLDL cholesterol, cnfox7882-36-24 10:24:00 Test Item Value Reference Range Interpretation Comments LDL cholesterol, serum (test code = 168 mg/dL 0-99 H 2088-04) [facility] Centervery low density cqdpleoucvom4015-14-41 10:24:00 Test Item Value Reference Range Interpretation Comments very low density lipoproteins (test 20 mg/dL 5-40 code = 1-7) [facility] CenterHDL cholesterol, fazay4831-95-91 10:24:00 Test Item Value Reference Range Interpretation Comments HDL cholesterol, serum (test code = 46 mg/dL >39 2084-) [facility] Centertriglyceride, serum, sjglcop3559-60-80 10:24:00 Test Item Value Reference Range Interpretation Comments triglyceride, serum, fasting (test 100 mg/dL 0-149 code = 2571-8) [facility] Centercholesterol, imwri8365-82-78 10:24:00 Test Item Value Reference Range Interpretation Comments cholesterol, serum (test code = 234 mg/dL 100-199 H 2093-3) [facility] Centeralanine aminotransferase (SGPT), hbzws8041-77-66 10:24:00 Test Item Value Reference Range Interpretation Comments alanine aminotransferase (SGPT), serum 23 1/L 0-32 (test code = 1742-6) [facility] Centeraspartate aminotransferase (SGOT), mjsib1277-14-09 10:24:00 Test Item Value Reference Range Interpretation Comments aspartate aminotransferase (SGOT), 21 1/L 0-40 serum (test code = 1920-8) [facility] Centeralkaline phosphatase, uhbno1232-04-35 10:24:00 Test Item Value Reference Range Interpretation Comments alkaline phosphatase, serum (test code 65 1/L 39-117 = 1783-0) [facility] Centerbilirubin, serum, pecoo1812-73-10 10:24:00 Test Item Value Reference Range Interpretation Comments bilirubin, serum, total (test code 0.3 mg/dL 0.0-1.2 = 1975-2) [facility] Centeralbumin/globulin ratio, tfnxm5235-94-15 10:24:00 Test Item Value Reference Range Interpretation Comments albumin/globulin ratio, serum (test 1.6 1.2-2.2 code = 1759-0) [facility] Healthglobulin, hrglp4982-75-57 10:24:00 Test Item Value Reference Range Interpretation Comments globulin, serum (test code = 2336-6) 2.7 1.5-4.5 [facility] Healthalbumin, bfqxj0326-62-81 10:24:00 Test Item Value Reference Range Interpretation Comments albumin, serum (test code = 1751-7) 4.4 g/dL 3.5-5.5 [facility] Centerprotein, total, ymntt9504-87-71 10:24:00 Test Item Value Reference Range Interpretation Comments protein, total, serum (test code = 7.1 g/dL 6.0-8.5 2885-2) [facility] Centercalcium, remqh3602-90-01 10:24:00 Test Item Value Reference Range Interpretation Comments calcium, serum (test code = 1999-8) 9.5 mg/dL 8.7-10.2 [facility] Centercarbon dioxide, venous wcvoi9389-58-53 10:24:00 Test Item Value Reference Range Interpretation Comments carbon dioxide, venous blood (test 25 mmol/L 18-29 code = 7-1) [facility] Healthchloride, inuhz3729-87-05 10:24:00 Test Item Value Reference Range Interpretation Comments chloride, serum (test code = 102 mmol/L 96-106 2075-0) [facility] Healthpotassium, dxwme8204-31-96 10:24:00 Test Item Value Reference Range Interpretation Comments potassium, serum (test code = 4.0 mmol/L 3.5-5.2 2823-3) [facility] Centersodium, euard4428-37-88 10:24:00 Test Item Value Reference Range Interpretation Comments sodium, serum (test code = 2951-2) 141 mmol/L 134-144 [facility] Centerurea nitrogen/creatinine ratio, nepqo3062-20-15 10:24:00 Test Item Value Reference Range Interpretation Comments urea nitrogen/creatinine ratio, serum 14 9-23 (test code = 3097-3) [facility] HealtheGFR if Gnoeuqdj5766-08-18 10:24:00 Test Item Value Reference Range Interpretation Comments eGFR if 95 >59 (test code = 46252-3) mL/min/((173/100).m2) [facility] CenterEstimated Glomerular Filtration Rate (calc)2017-04-13 10:24:00 Test Item Value Reference Range Interpretation Comments Estimated Glomerular 83 >59 Filtration Rate (calc) mL/min/((173/100).m2 (test code = 75648-3) ) [facility] Centercreatinine, nayxe0153-92-30 10:24:00 Test Item Value Reference Range Interpretation Comments creatinine, serum (test code = 0.81 mg/dL 0.57-1.00 2160-0) [facility] Centerurea nitrogen, rqzyt8651-78-26 10:24:00 Test Item Value Reference Range Interpretation Comments urea nitrogen, blood (test code = 11 mg/dL 6-24 3094-0) [facility] Centerblood glucose, nwgcck9056-75-55 10:24:00 Test Item Value Reference Range Interpretation Comments blood glucose, random (test code = 86 mg/dL 65-99 2339-0) [facility] Centerimmature granulocytes, percentage of total cells, blood 2017-04-13 10:24:00 Test Item Value Reference Range Interpretation Comments immature granulocytes, percentage of 0 % total cells, blood (test code = 89266-2) [facility] Healthbasophil count, fcnwjvjr2795-32-53 10:24:00 Test Item Value Reference Range Interpretation Comments basophil count, absolute (test 0.0 x10E3/uL 0.0-0.2 code = 46947-9) [facility] HealthEosinophil Absolute Oikqa5698-83-43 10:24:00 Test Item Value Reference Range Interpretation Comments Eosinophil Absolute Count (test 0.0 X10E3/UL 0.0-0.4 code = 13232-7) [facility] Healthmonocyte count, blood, cyzabydvb6561-00-97 10:24:00 Test Item Value Reference Range Interpretation Comments monocyte count, blood, automated 0.4 X10E3/UL 0.1-0.9 (test code = 742-7) [facility] Centerlymphocyte count, blood, lrhblcjkd8023-93-89 10:24:00 Test Item Value Reference Range Interpretation Comments lymphocyte count, blood, 1.5 X10E3/UL 0.7-3.1 automated (test code = 731-0) [facility] HealthAbsolute Rnmyejzkudt4217-54-31 10:24:00 Test Item Value Reference Range Interpretation Comments Absolute Neutrophils (test code 1.3 X10E3/UL 1.4-7.0 L = 90125-9) [facility] Centerbasophils as percent of blood yghlhfestw1110-07-22 10:24:00 Test Item Value Reference Range Interpretation Comments basophils as percent of blood 1 % leukocytes (test code = 707-0) [facility] Healtheosinophils as percent of blood rqheiuqggk1514-17-46 10:24:00 Test Item Value Reference Range Interpretation Comments eosinophils as percent of blood 1 % leukocytes (test code = 713-8) [facility] Health[facility] as percent of blood [id number] 10:24:00 Test Item Value Reference Range Interpretation Comments monocytes as percent of blood 13 % leukocytes (test code = 5905-5) [facility] [id number] 10:24:00 Test Item Value Reference Range Interpretation Comments lymphocytes as percent of blood 45 % leukocytes (test code = 736-9) [facility] [id number] 10:24:00 Test Item Value Reference Range Interpretation Comments neutrophils as percent of blood 40 % leukocytes (test code = 770-8) [facility] [id number] 10:24:00 Test Item Value Reference Range Interpretation Comments platelet count (test code = 244 X10E3/UL 150-379 777-3) [facility] [id number] 10:24:00 Test Item Value Reference Range Interpretation Comments red blood cell distribution width 14.3 % 12.3-15.4 (test code = 788-0) [facility] corpuscular hemoglobin concentration, [id number] 10:24:00 Test Item Value Reference Range Interpretation Comments mean corpuscular hemoglobin 33.0 G/DL 31.5-35.7 concentration, RBC (test code = 786-4) [facility] corpuscular hemoglobin, [id number] 10:24:00 Test Item Value Reference Range Interpretation Comments mean corpuscular hemoglobin, RBC 30.0 pg 26.6-33.0 (test code = 785-6) [facility] corpuscular volume, [id number] 10:24:00 Test Item Value Reference Range Interpretation Comments mean corpuscular volume, RBC (test code 91 fL 79-97 = 787-2) [facility] [id number] 10:24:00 Test Item Value Reference Range Interpretation Comments hematocrit, blood (test code = 4544-3) 38.8 % 34.0-46.6 [facility], [id number] 10:24:00 Test Item Value Reference Range Interpretation Comments hemoglobin, blood (test code = 12.8 g/dL 11.1-15.9 718-7) [facility] ([facility] [id number] 10:24:00 Test Item Value Reference Range Interpretation Comments erythrocyte (RBC) count (test 4.26 X10E6/UL 3.77-5.28 code = 789-8) [facility], [id number] 10:24:00 Test Item Value Reference Range Interpretation Comments leukocyte count, blood (test 3.3 X10E3/UL 3.4-10.8 L code = 6690-2) [facility]CD[facility]CD8 [id number] 10:24:00 Test Item Value Reference Range Interpretation Comments CD4/CD8 ratio (test code = 09095) 0.41 0.92-3.72 L [facility] Center[facility]-suppressor cells (CD8) as percent of blood lymphocytes 2017-04-13 10:24:00 Test Item Value Reference Range Interpretation Comments T-suppressor cells (CD8) as percent of 60.0 % 12.0-35.5 H blood lymphocytes (test code = 3517) [facility]absolute [id number] 10:24:00 Test Item Value Reference Range Interpretation Comments absolute CD8 (test code = 64485) 900 109-897 H [facility] Center[facility]-helper cells (CD4) as percent of blood lymphocytes 2017-04-13 10:24:00 Test Item Value Reference Range Interpretation Comments T-helper cells (CD4) as percent of 24.6 % 30.8-58.5 L blood lymphocytes (test code = 8123-2) [facility] cells (CD4) [id number] 10:24:00 Test Item Value Reference Range Interpretation Comments T-helper cells (CD4) count (test code 369 /UL 359-8169 = 09100-6) [facility]
[2020-02-18] MEDS ORDERED: HYDROCODONE/APAP 5/325 MG TAB ONE (05:09)
--- NOTE | 2020-02-18 05:11 | ER ---
Nurse's Notes [facility] Name: Tana Pérez Age: 59 yrs Sex: Female : 1960 Arrival Date: 02/18/2020 Time: 04:31 Bed 5 Private MD: Diagnosis: Polyneuropathy, unspecified;Lumbago with sciatica, left side;Radiculopathy, cervical region Presentation: 02/17 04:40 Chief complaint: Patient states: my left knee is hurting started last Sunday then few rr5 days ago my left arm started to hurt too. denies fever, denies trauma. 04:40 Coronavirus screen: Client denies travel out of the [place] in the last 14 days. At this rr5 time, the client does not indicate any symptoms associated with coronavirus-19. Ebola Screen: Patient negative for fever greater than or equal to 101.5 degrees Fahrenheit, and additional compatible Ebola Virus Disease symptoms Patient denies exposure to infectious person. Patient denies travel to an Ebola-affected area in the 21 days before illness onset. Initial Sepsis Screen: Does the patient meet any 2 criteria? No. Patient's initial sepsis screen is negative. Does the patient have a suspected source of infection? No. Patient's initial sepsis screen is negative. Risk Assessment: Do you want to hurt yourself or someone else? Patient reports no desire to harm self or others. Onset of symptoms was February 16, 2020. 04:40 Method Of Arrival: Ambulatory rr5 04:40 Acuity: JUANITA 4 rr5 Historical: - Allergies: 04:40 Morphine; rr5 04:40 Vistaril; rr5 - Home Meds: 04:40 Lipitor 20 mg Oral tab 1 tab once daily [Active]; metformin 500 mg Oral tab 1 tab 2 rr5 times per day [Active]; 05:04 ramipril 5 mg Oral cap [Active]; duloxetine 30 mg oral cpDR [Active]; Lasix 40 mg Oral rr5 tab [Active]; Descovy 200-25 mg oral tab [Active]; Tivicay 50 mg oral tab [Active]; - PMHx: 04:40 Diabetes - NIDDM; Hyperlipidemia; HIV; Hypertension; rr5 - PSHx: 04:40 Knee surgery; ovary cyst surgery; Hysterectomy; ; rr5 - Immunization history:: Adult Immunizations up to date, Flu vaccine is up to date. - Social history:: Smoking status: unknown Patient uses alcohol, occasionally. Patient/guardian denies using street drugs. - Family history:: not pertinent. - Hospitalizations: : No recent hospitalization is reported. Screenin:45 Abuse screen: Denies threats or abuse. Denies injuries from another. Nutritional rr5 screening: No deficits noted. Tuberculosis screening: No symptoms or risk factors identified. Fall Risk None identified. Total Paiz Fall Scale indicates No Risk (0-24 pts). Assessment: 04:40 General: Appears in no apparent distress. uncomfortable, Behavior is calm, cooperative, rr5 appropriate for age. 04:40 Pain: Complains of pain in left arm and left leg Pain currently is 6 out of 10 on a rr5 pain scale. at worst was 10 out of 10 on a pain scale. Quality of pain is described as sharp, throbbing, Pain began gradually, Is intermittent. Neuro: Level of Consciousness is awake, alert, obeys commands, Oriented to person, place, time. Cardiovascular: Capillary refill < 3 seconds Patient's skin is warm and dry. Respiratory: Airway is patent Respiratory effort is even, unlabored, Respiratory pattern is regular, symmetrical. GI: No signs and/or symptoms were reported involving the gastrointestinal system. : No signs and/or symptoms were reported regarding the genitourinary system. EENT: No signs and/or symptoms were reported regarding the EENT system. Derm: Skin is intact, is healthy with good turgor, Skin temperature is warm. Musculoskeletal: Capillary refill < 3 seconds, Reports pain in left arm and left leg. 05:22 Reassessment: Patient appears in no apparent distress at this time. Patient is alert, rr5 oriented x 3, equal unlabored respirations, skin warm/dry/pink. discharge instruction given and explained without complaints made. Vital Signs: 04:40 BP 153 / 91; Pulse 83; Resp 19; Temp 98.2; Pulse Ox 98% ; Weight 89.36 kg; Height 5 ft. rr5 2 in. (157.48 cm); Pain 6/10; 05:22 BP 139 / 96; Pulse 69; Resp 17; Pulse Ox 100% ; rr5 04:40 Body Mass Index 36.03 (89.36 kg, 157.48 cm) rr5 ED Course: 04:31 Patient arrived in ED. ag3 04:32 Dez Cardona MD is Attending Physician. rn 04:32 Jamar Cash, RAJI is Primary Nurse. rr5 04:40 Arm band placed on right wrist. rr5 04:41 Patient has correct armband on for positive identification. Bed in low position. Call rr5 light in reach. 04:50 Triage completed. rr5 05:03 No provider procedures requiring assistance completed. Patient did not have IV access rr5 during this emergency room visit. Administered Medications: 05:01 Drug: [place] 5 mg-325 mg 1 tabs {Note: rass 0.} Route: PO; rr5 05:28 Follow up: Response: No adverse reaction; RASS: Alert and Calm (0) rr5 05:14 Drug: Decadron 10 mg Route: IM; Site: left gluteus; rr5 05:28 Follow up: Response: No adverse reaction rr5 Outcome: 05:10 Discharge ordered by MD. rn 05:22 Discharged to home ambulatory, with family. rr5 05:22 Condition: stable 05:22 Discharge instructions given to patient, family, Instructed on discharge instructions, follow up and referral plans. medication usage, Demonstrated understanding of instructions, follow-up care, medications, Prescriptions given X 1. 05:32 Patient left the ED. rr5 Signatures: Dez Cardona MD MD rn Gomez, Alice 3 Jmaar Cash, RN RN rr5
--- NOTE | 2020-02-18 05:11 | EDPHYS ---
Physician Documentation [facility] Name: Tana Pérez Age: 59 yrs Sex: Female : 1960 Arrival Date: 02/18/2020 Time: 04:31 Bed 5 Private MD: ED Physician Dez Cardona HPI: 02/17 05:05 This 59 yrs old Black Female presents to ER via Ambulatory with complaints of Arm Pain, rn Knee Pain. 05:05 The patient or guardian complains of pain, that is acute. The complaints affect the rn left leg and left arm. Context: The problem was sustained at an unknown location. Onset: The symptoms/episode began/occurred 2 day(s) ago. Treatment prior to arrival includes: no previous treatment. Modifying factors: The symptoms are alleviated by remaining still, the symptoms are aggravated by movement. Associated signs and symptoms: Pertinent positives: numbness, tingling, Pertinent negatives: decreased range of motion, deformity, erythema, fever, swelling, warmth, weakness. Severity of symptoms: At their worst the symptoms were moderate, in the emergency department the symptoms have improved. The patient has not experienced similar symptoms in the past. Reports 2 days of intermittent left arm and left leg pain and tingling, worse after moving apartments last few days, no direct trauma. no weakness. Reports worse with movement. Pain involves entire arm and leg. . Historical: - Allergies: 04:40 Morphine; rr5 04:40 Vistaril; rr5 - Home Meds: 04:40 Lipitor 20 mg Oral tab 1 tab once daily [Active]; metformin 500 mg Oral tab 1 tab 2 rr5 times per day [Active]; 05:04 ramipril 5 mg Oral cap [Active]; duloxetine 30 mg oral cpDR [Active]; Lasix 40 mg Oral rr5 tab [Active]; Descovy 200-25 mg oral tab [Active]; Tivicay 50 mg oral tab [Active]; - PMHx: 04:40 Diabetes - NIDDM; Hyperlipidemia; HIV; Hypertension; rr5 - PSHx: 04:40 Knee surgery; ovary cyst surgery; Hysterectomy; ; rr5 - Immunization history:: Adult Immunizations up to date, Flu vaccine is up to date. - Social history:: Smoking status: unknown Patient uses alcohol, occasionally. Patient/guardian denies using street drugs. - Family history:: not pertinent. - Hospitalizations: : No recent hospitalization is reported. ROS: 05:05 Constitutional: Negative for fever, chills, and weight loss, Neck: Negative for injury, rn pain, and swelling, Cardiovascular: Negative for chest pain, palpitations, and edema, Respiratory: Negative for shortness of breath, cough, wheezing, and pleuritic chest pain, Abdomen/GI: Negative for abdominal pain, nausea, vomiting, diarrhea, and constipation, Back: Negative for injury : Negative for injury, bleeding, discharge, and swelling, MS/Extremity: Negative for injury and deformity, Skin: Negative for injury, rash, and discoloration, Neuro: Negative for headache, weakness, and seizure. Exam: 05:05 Constitutional: This is a well developed, well nourished patient who is awake, alert, rn and in no acute distress. Head/Face: Normocephalic, atraumatic. Neck: Trachea midline, no masses palpated. Supple, full range of motion without nuchal rigidity, or vertebral point tenderness. No Meningismus. Cardiovascular: Regular rate and rhythm. No pulse deficits. Respiratory: Speaking full sentences. No increased work of breathing, no retractions or nasal flaring. Back: No spinal tenderness. No costovertebral tenderness. Full range of motion. Skin: Warm, dry, and no evidence of cellulitis. MS/ Extremity: Pulses equal, no cyanosis. Neurovascular intact. Full, normal range of motion. Equal circumference. Neuro: Awake and alert, GCS 15, oriented to person, place, time, and situation. Cranial nerves II-XII grossly intact. Motor strength 5/5 in all extremities. Sensory grossly intact. Cerebellar exam normal. Vital Signs: 04:40 BP 153 / 91; Pulse 83; Resp 19; Temp 98.2; Pulse Ox 98% ; Weight 89.36 kg; Height 5 ft. rr5 2 in. (157.48 cm); Pain 6/10; 05:22 BP 139 / 96; Pulse 69; Resp 17; Pulse Ox 100% ; rr5 04:40 Body Mass Index 36.03 (89.36 kg, 157.48 cm) rr5 MDM: 04:32 Patient medically screened. rn 05:05 Differential diagnosis: neuropathy, radiculopathy. Data reviewed: vital signs, nurses rn notes, and as a result, I will discharge patient. Counseling: I had a detailed discussion with the patient and/or guardian regarding: the historical points, exam findings, and any diagnostic results supporting the discharge/admit diagnosis, the need for outpatient follow up, to return to the emergency department if symptoms worsen or persist or if there are any questions or concerns that arise at home. Response to treatment: the patient's symptoms have mildly improved after treatment, and as a result, I will discharge patient. Special discussion: I discussed with the patient/guardian in detail that at this point there is no indication for admission to the hospital. It is understood, however, that if the symptoms persist or worsen the patient needs to return immediately for re-evaluation. Further emergent ED testing is not indicated at this point in time. I discussed with the patient/guardian in detail the need to arrange with the PCP or specialist further outpatient testing, MRI, Based on the history and exam findings, there is no indication for further emergent testing or inpatient evaluation. I discussed with the patient/guardian the need to see the primary care provider for further evaluation of the symptoms. Administered Medications: 05:01 Drug: [place] 5 mg-325 mg 1 tabs {Note: rass 0.} Route: PO; rr5 05:28 Follow up: Response: No adverse reaction; RASS: Alert and Calm (0) rr5 05:14 Drug: Decadron 10 mg Route: IM; Site: left gluteus; rr5 05:28 Follow up: Response: No adverse reaction rr5 Disposition: 02/18/20 05:10 Discharged to Home. Impression: Polyneuropathy, unspecified, Lumbago with sciatica, left side, Radiculopathy, cervical region. - Condition is Stable. - Discharge Instructions: Cervical Radiculopathy, Sciatica, Peripheral Neuropathy. - Prescriptions for Medrol (Francesco) 4 mg Oral Tablets, Dose Pack - take 1 tablet by ORAL route as directed - follow package instructions; 1 packet. - Medication Reconciliation Form, Thank You Letter, Antibiotic Education, Prescription Opioid Use, Work release form form. - Follow up: Private Physician; When: As needed; Reason: Recheck today's complaints, Re-evaluation by your physician. - Problem is new. - Symptoms have improved. Signatures: Dez Cardona MD MD rn Roque, Raymond, RN RN rr5 Corrections: (The following items were deleted from the chart) 05:32 05:10 02/18/2020 05:10 Discharged to Home. Impression: Polyneuropathy, unspecified; rr5 Lumbago with sciatica, left side; Radiculopathy, cervical region. Condition is Stable. Forms are Medication Reconciliation Form, Thank You Letter, Antibiotic Education, Prescription Opioid Use. Follow up: Private Physician; When: As needed; Reason: Recheck today's complaints, Re-evaluation by your physician. Problem is new. Symptoms have improved. rn
[2020-02-18] MEDS ORDERED: dexAMETHasone 4 MG/ML VIAL ONE (05:15)
[2020-02-18] MEDS ORDERED: dexAMETHasone 10 MG/ML VIAL ONE (05:17)
[2020-02-18 10:53] VITALS: TEMP 98.2
[2020-02-18 10:55] VITALS: BP 139/96; O2SAT 100
== END 2020-02-18 05:32 | disposition home or self-care (01) ==
LOC: ER 04:29
DX: M54.42 Lumbago with sciatica, left side (principal); M54.12 Radiculopathy, cervical region; E11.42 Type 2 diabetes mellitus with diabetic polyneuropathy; I10 Essential (primary) hypertension; E78.5 Hyperlipidemia, unspecified; Z21 Asymptomatic human immunodeficiency virus [HIV] infection status; Z88.5 Allergy status to narcotic agent; Z88.8 Allergy status to other drugs, medicaments and biological substances
CPT/HCPCS: 96372; 99283; J1100

== ENCOUNTER 2020-11-01 13:43 | Emergency (ER) | payer OTHER ==
--- OUTSIDE RECORDS SUMMARY | 2020-11-01 13:51 | XMS REPORT | Continuity of Care Document ---
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 09:34:08 Health 2016-08-24 2016-08-24 Outpatient [facility] [id number] [place] 09:10:58 09:10:58 Health 2016-08-24 2016-08-24 Outpatient [facility] [id number] [place] 08:00:37 08:00:37 Health Results Test Description Test Time Test Comments Results Result Comments Source hepatitis B core antibody, total 2020-04-06 09:15:00 Test Item Value Reference Range Interpretation Comme nts hepatitis B core antibody, total (test code = 77) Negative Nega tive [facility] [id number] 09:15:00 Test Item Value Reference Range Interpretation Comments hepatitis B surface antigen (test Negative Negative code = 79) [facility] [id number] 09:15:00 Test Item Value Reference Range Interpretation Comments hepatitis B surface >1000.0 See_Comment [Automa aracely message] The antibody (test code = system which generated 78) this result tra nsmitted reference range : Immunity>9.9. T he reference range was not used to interpr et this result as normal/abnormal . [facility]HIV-1RNA, serum, by PCR, [id number] 09:15:00 Test Item Value Reference Range Interpretation Comments HIV-1RNA, serum, by PCR, <20 copies/mL quantitative (test code = 18310) [facility] HospitalCD4/CD8 [id number] 09:15:00 Test Item Value Reference Range Interpretation Comments CD4/CD8 ratio (test code 1.96 (unknown unit) 0.92-3.72 = 32114) [facility] HospitalT-suppressor cells (CD8) as percent of blood lymphocytes 2020-04-06 09:15:00 Test Item Value Reference Range Interpretation Comments T-suppressor cells (CD8) as percent of 22.9 % 12.0-35.5 blood lymphocytes (test code = 3517) [facility] Hospitalabsolute [id number] 09:15:00 Test Item Value Reference Range Interpretation Comments absolute CD8 (test code = 344 (unknown unit) 507-466 99637) [facility], [id number] 09:15:00 Test Item Value Reference Range Interpretation Comments hepatitis C antibody, 0.1 (unknown unit) 0.0-0.9 serum (test code = 5199-5) [facility]C, blood, as % of total [id number] 09:15:00 Test Item Value Reference Range Interpretation Comments hemoglobin A1C, blood, as % of total 7.3 % 4.8-5.6 H hemoglobin (test code = 4548-4) [facility]micro[facility]/creatinine ratio, [id number] 09:15:00 Test Item Value Reference Range Interpretation Comments microalbumin/creatinine ratio, 25 MG/G CREAT 0-29 urine (test code = 48955-4) [facility]total urine [id number] 09:15:00 Test Item Value Reference Range Interpretation Comments microalbumin/total urine volume 43.4 mg/L (test code = 80871-8) [facility]creatinine, random, [id number] 09:15:00 Test Item Value Reference Range Interpretation Comments creatinine, random, urine (test 171.7 mg/dL code = 2161-8) [facility] HospitalLDL cholesterol, [id number] 09:15:00 Test Item Value Reference Range Interpretation Comments LDL cholesterol, serum (test code = 150 mg/dL 0-99 H 2088-04) [facility] Hospitalvery low density bakvlzzfemht1780-84-61 09:15:00 Test Item Value Reference Range Interpretation Comments very low density lipoproteins (test 16 mg/dL 5-40 code = 2091-7) [facility]HDL cholesterol, [id number] 09:15:00 Test Item Value Reference Range Interpretation Comments HDL cholesterol, serum (test code = 56 mg/dL >39 2084-9) [facility]triglyceride, serum, [id number] 09:15:00 Test Item Value Reference Range Interpretation Comments triglyceride, serum, fasting (test 91 mg/dL 0-149 code = 2571-8) [facility]cholesterol, [id number] 09:15:00 Test Item Value Reference Range Interpretation Comments cholesterol, serum (test code = 222 mg/dL 100-199 H 2092-3) [facility] Hospitalalanine aminotransferase (SGPT), [id number] 09:15:00 Test Item Value Reference Range Interpretation Comments alanine aminotransferase (SGPT), serum 13 1/L 0-32 (test code = 1742-6) [facility] Hospitalaspartate aminotransferase (SGOT), [id number] 09:15:00 Test Item Value Reference Range Interpretation Comments aspartate aminotransferase (SGOT), 15 1/L 0-40 serum (test code = 1920-8) [facility] Healthalkaline phosphatase, [id number] 09:15:00 Test Item Value Reference Range Interpretation Comments alkaline phosphatase, serum (test code 90 1/L 39-117 = 1783-0) [facility] Healthbilirubin, serum, [id number] 09:15:00 Test Item Value Reference Range Interpretation Comments bilirubin, serum, total (test code 0.3 mg/dL 0.0-1.2 = 1975-2) [facility] Healthalbumin/globulin ratio, [id number] 09:15:00 Test Item Value Reference Range Interpretation Comments albumin/globulin ratio, 1.6 (unknown unit) 1.2-2.2 serum (test code = 1759-0) [facility] Healthglobulin, [id number] 09:15:00 Test Item Value Reference Range Interpretation Comments globulin, serum (test code 2.7 (unknown unit) 1.5-4.5 = 2336-6) [facility] Healthalbumin, [id number] 09:15:00 Test Item Value Reference Range Interpretation Comments albumin, serum (test code = 1751-7) 4.2 g/dL 3.8-4.9 [facility] Healthprotein, total, [id number] 09:15:00 Test Item Value Reference Range Interpretation Comments protein, total, serum (test code = 6.9 g/dL 6.0-8.5 2885-2) [facility]calcium, [id number] 09:15:00 Test Item Value Reference Range Interpretation Comments calcium, serum (test code = 1999-8) 9.4 mg/dL 8.7-10.2 [facility]carbon dioxide, venous [id number] 09:15:00 Test Item Value Reference Range Interpretation Comments carbon dioxide, venous blood (test 25 mmol/L code = 2026-1) [facility] Hospitalchloride, [id number] 09:15:00 Test Item Value Reference Range Interpretation Comments chloride, serum (test code = 101 mmol/L 96-106 5-0) [facility]potassium, [id number] 09:15:00 Test Item Value Reference Range Interpretation Comments potassium, serum (test code = 3.8 mmol/L 3.5-5.2 2823-3) [facility] Healthsodium, [id number] 09:15:00 Test Item Value Reference Range Interpretation Comments sodium, serum (test code = 2951-2) 139 mmol/L 134-144 [facility] Hospitalurea nitrogen/creatinine ratio, [id number] 09:15:00 Test Item Value Reference Range Interpretation Comments urea nitrogen/creatinine 19 (unknown unit) 9-23 ratio, serum (test code = 3097-3) [facility] HealtheGFR if Ukypjdeg7891-57-99 09:15:00 Test Item Value Reference Range Interpretation Comments eGFR if 98 mL/min/{1.73 m2} >59 (test code = 88515-7) [facility] HospitalEstimated Glomerular Filtration Rate (calc)2020-04-06 09:15:00 Test Item Value Reference Range Interpretation Comments Estimated Glomerular 85 mL/min/{1.73 m2} >59 Filtration Rate (calc) (test code = 09907-0) [facility]creatinine, [id number] 09:15:00 Test Item Value Reference Range Interpretation Comments creatinine, serum (test code = 0.78 mg/dL 0.57-1.00 2160-0) [facility] Hospitalurea nitrogen, [id number] 09:15:00 Test Item Value Reference Range Interpretation Comments urea nitrogen, blood (test code = 15 mg/dL 6-24 3094-0) [facility] Hospitalblood glucose, [id number] 09:15:00 Test Item Value Reference Range Interpretation Comments blood glucose, random (test code = 122 mg/dL 65-99 H 2339-0) [facility] Hospitalimmature granulocytes, percentage of total cells, blood 2020-04-06 09:15:00 Test Item Value Reference Range Interpretation Comments immature granulocytes, percentage of 0 % total cells, blood (test code = 67568-2) [facility] Hospitalbasophil count, [id number] 09:15:00 Test Item Value Reference Range Interpretation Comments basophil count, absolute (test 0.0 x10E3/uL 0.0-0.2 code = 60039-6) [facility] HealthEosinophil Absolute [id number] 09:15:00 Test Item Value Reference Range Interpretation Comments Eosinophil Absolute Count (test 0.1 X10E3/UL 0.0-0.4 code = 11876-3) [facility] Healthmonocyte count, blood, [id number] 09:15:00 Test Item Value Reference Range Interpretation Comments monocyte count, blood, automated 0.4 X10E3/UL 0.1-0.9 (test code = 742-7) [facility] Healthlymphocyte count, blood, [id number] 09:15:00 Test Item Value Reference Range Interpretation Comments lymphocyte count, blood, 1.5 X10E3/UL 0.7-3.1 automated (test code = 731-0) [facility] HealthAbsolute Znhjvbdrhbc2313-26-67 09:15:00 Test Item Value Reference Range Interpretation Comments Absolute Neutrophils (test code 2.4 X10E3/UL 1.4-7.0 = 03698-8) [facility] Healthbasophils as percent of blood [id number] 09:15:00 Test Item Value Reference Range Interpretation Comments basophils as percent of blood 1 % leukocytes (test code = 707-0) [facility] Healtheosinophils as percent of blood kygnkxaylm7161-07-07 09:15:00 Test Item Value Reference Range Interpretation Comments eosinophils as percent of blood 2 % leukocytes (test code = 713-8) [facility] Healthmonocytes as percent of blood llvuhmibke7611-59-52 09:15:00 Test Item Value Reference Range Interpretation Comments monocytes as percent of blood 9 % leukocytes (test code = 5905-5) [facility] Healthlymphocytes as percent of blood qdvnijxmdy9519-14-30 09:15:00 Test Item Value Reference Range Interpretation Comments lymphocytes as percent of blood 33 % leukocytes (test code = 736-9) [facility] Healthneutrophils as percent of blood rusxbcjljk5791-59-05 09:15:00 Test Item Value Reference Range Interpretation Comments neutrophils as percent of blood 55 % leukocytes (test code = 770-8) [facility] Healthplatelet [id number] 09:15:00 Test Item Value Reference Range Interpretation Comments platelet count (test code = 295 X10E3/UL 150-450 777-3) [facility]red blood cell distribution [id number] 09:15:00 Test Item Value Reference Range Interpretation Comments red blood cell distribution width 12.9 % 11.7-15.4 (test code = 788-0) [facility] corpuscular hemoglobin concentration, [id number] 09:15:00 Test Item Value Reference Range Interpretation Comments mean corpuscular hemoglobin 33.3 G/DL 31.5-35.7 concentration, RBC (test code = 786-4) [facility] corpuscular hemoglobin, [id number] 09:15:00 Test Item Value Reference Range Interpretation Comments mean corpuscular hemoglobin, RBC 31.6 pg 26.6-33.0 (test code = 785-6) [facility] corpuscular volume, [id number] 09:15:00 Test Item Value Reference Range Interpretation Comments mean corpuscular volume, RBC (test code 95 fL 79-97 = 787-2) [facility]hematocrit, quldy5615-04-31 09:15:00 Test Item Value Reference Range Interpretation Comments hematocrit, blood (test code = 4544-3) 37.5 % 34.0-46.6 [facility] Hospitalhemoglobin, [id number] 09:15:00 Test Item Value Reference Range Interpretation Comments hemoglobin, blood (test code = 12.5 g/dL 11.1-15.9 718-7) [facility] Hospitalerythrocyte (RBC) [id number] 09:15:00 Test Item Value Reference Range Interpretation Comments erythrocyte (RBC) count (test 3.95 X10E6/UL 3.77-5.28 code = 789-8) [facility] Hospitalleukocyte count, [id number] 09:15:00 Test Item Value Reference Range Interpretation Comments leukocyte count, blood (test 4.3 X10E3/UL 3.4-10.8 code = 6690-2) [facility] HospitalT-helper cells (CD4) as percent of blood lymphocytes 2020-04-06 09:15:00 Test Item Value Reference Range Interpretation Comments T-helper cells (CD4) as percent of 44.9 % 30.8-58.5 blood lymphocytes (test code = 8123-2) [facility] HospitalT-helper cells (CD4) [id number] 09:15:00 Test Item Value Reference Range Interpretation Comments T-helper cells (CD4) count (test code 674 /UL 359-1519 = 12489-8) [facility] Hospitalhepatitis A antibody, [id number] 09:15:00 Test Item Value Reference Range Interpretation Comments hepatitis A antibody, total (test Positive Negative A code = 75) [facility] Hospitalrapid plasma reagin antibody, [id number] 09:41:00 Test Item Value Reference Range Interpretation Comments rapid plasma reagin antibody, Non Reactive Non Reactive serum (test code = 5291-0) [facility]hemoglobin A1C, blood, as % of total kuugxlhfjy8776-13-86 09:41:00 Test Item Value Reference Range Interpretation Comments hemoglobin A1C, blood, as % of total 7.1 % 4.8-5.6 H hemoglobin (test code = 4548-4) [facility] HospitalLDL cholesterol, [id number] 09:41:00 Test Item Value Reference Range Interpretation Comments LDL cholesterol, serum (test code = 136 mg/dL 0-99 H 2088-04) [facility] Hospitalvery low density wgrrqqzvlhrs1172-79-64 09:41:00 Test Item Value Reference Range Interpretation Comments very low density lipoproteins (test 14 mg/dL 5-40 code = 2091-7) [facility] HospitalHDL cholesterol, [id number] 09:41:00 Test Item Value Reference Range Interpretation Comments HDL cholesterol, serum (test code = 59 mg/dL >39 2084-9) [facility] Hospitaltriglyceride, serum, [id number] 09:41:00 Test Item Value Reference Range Interpretation Comments triglyceride, serum, fasting (test 72 mg/dL 0-149 code = 2571-8) [facility]cholesterol, [id number] 09:41:00 Test Item Value Reference Range Interpretation Comments cholesterol, serum (test code = 209 mg/dL 100-199 H 2092-3) [facility] Hospitalalanine aminotransferase (SGPT), fbllb4883-75-06 09:41:00 Test Item Value Reference Range Interpretation Comments alanine aminotransferase (SGPT), serum 16 1/L 0-32 (test code = 1742-6) [facility] Healthaspartate aminotransferase (SGOT), [id number] 09:41:00 Test Item Value Reference Range Interpretation Comments aspartate aminotransferase (SGOT), 17 1/L 0-40 serum (test code = 1920-8) [facility] Hospitalalkaline phosphatase, [id number] 09:41:00 Test Item Value Reference Range Interpretation Comments alkaline phosphatase, serum (test code 93 1/L 39-117 = 1783-0) [facility]bilirubin, serum, [id number] 09:41:00 Test Item Value Reference Range Interpretation Comments bilirubin, serum, total (test code 0.3 mg/dL 0.0-1.2 = 1975-2) [facility] Hospitalalbumin/globulin ratio, [id number] 09:41:00 Test Item Value Reference Range Interpretation Comments albumin/globulin ratio, 1.9 (unknown unit) 1.2-2.2 serum (test code = 1759-0) [facility] Healthglobulin, [id number] 09:41:00 Test Item Value Reference Range Interpretation Comments globulin, serum (test code 2.4 (unknown unit) 1.5-4.5 = 2336-6) [facility] Healthalbumin, [id number] 09:41:00 Test Item Value Reference Range Interpretation Comments albumin, serum (test code = 1751-7) 4.5 g/dL 3.8-4.9 [facility]protein, total, [id number] 09:41:00 Test Item Value Reference Range Interpretation Comments protein, total, serum (test code = 6.9 g/dL 6.0-8.5 2885-2) [facility]calcium, [id number] 09:41:00 Test Item Value Reference Range Interpretation Comments calcium, serum (test code = 1999-8) 9.7 mg/dL 8.7-10.2 [facility] Hospitalcarbon dioxide, venous [id number] 09:41:00 Test Item Value Reference Range Interpretation Comments carbon dioxide, venous blood (test 24 mmol/L 20-29 code = 7-1) [facility] Healthchloride, [id number] 09:41:00 Test Item Value Reference Range Interpretation Comments chloride, serum (test code = 104 mmol/L 96-106 2075-0) [facility] Healthpotassium, [id number] 09:41:00 Test Item Value Reference Range Interpretation Comments potassium, serum (test code = 4.3 mmol/L 3.5-5.2 2823-3) [facility] Hospitalsodium, [id number] 09:41:00 Test Item Value Reference Range Interpretation Comments sodium, serum (test code = 2951-2) 143 mmol/L 134-144 [facility] Healthurea nitrogen/creatinine ratio, [id number] 09:41:00 Test Item Value Reference Range Interpretation Comments urea nitrogen/creatinine 18 (unknown unit) 9-23 ratio, serum (test code = 3097-3) [facility] HealtheGFR if Bjjjtvmz1209-98-55 09:41:00 Test Item Value Reference Range Interpretation Comments eGFR if 95 mL/min/{1.73 m2} >59 (test code = 20609-3) [facility] HospitalEstimated Glomerular Filtration Rate (calc)2019-08-16 09:41:00 Test Item Value Reference Range Interpretation Comments Estimated Glomerular 82 mL/min/{1.73 m2} >59 Filtration Rate (calc) (test code = 94186-7) [facility]creatinine, [id number] 09:41:00 Test Item Value Reference Range Interpretation Comments creatinine, serum (test code = 0.80 mg/dL 0.57-1.00 2160-0) [facility]urea nitrogen, [id number] 09:41:00 Test Item Value Reference Range Interpretation Comments urea nitrogen, blood (test code = 14 mg/dL 6-24 3094-0) [facility]blood glucose, [id number] 09:41:00 Test Item Value Reference Range Interpretation Comments blood glucose, random (test code = 115 mg/dL 65-99 H 2339-0) [facility] Hospitalimmature granulocytes, percentage of total cells, blood 2019-08-16 09:41:00 Test Item Value Reference Range Interpretation Comments immature granulocytes, percentage of 0 % total cells, blood (test code = 28740-8) [facility]basophil count, ylzamind0602-56-01 09:41:00 Test Item Value Reference Range Interpretation Comments basophil count, absolute (test 0.0 x10E3/uL 0.0-0.2 code = 36784-8) [facility] HealthEosinophil Absolute [id number] 09:41:00 Test Item Value Reference Range Interpretation Comments Eosinophil Absolute Count (test 0.1 X10E3/UL 0.0-0.4 code = 63369-1) [facility] Healthmonocyte count, blood, zhvhmazcl4750-85-50 09:41:00 Test Item Value Reference Range Interpretation Comments monocyte count, blood, automated 0.3 X10E3/UL 0.1-0.9 (test code = 742-7) [facility] Hospitallymphocyte count, blood, ztgkyhzga7963-07-13 09:41:00 Test Item Value Reference Range Interpretation Comments lymphocyte count, blood, 1.8 X10E3/UL 0.7-3.1 automated (test code = 731-0) [facility] HospitalAbsolute Vwtcarhrliv2408-92-55 09:41:00 Test Item Value Reference Range Interpretation Comments Absolute Neutrophils (test code 2.2 X10E3/UL 1.4-7.0 = 08862-4) [facility] Healthbasophils as percent of blood xqtvahbhhc8992-96-90 09:41:00 Test Item Value Reference Range Interpretation Comments basophils as percent of blood 1 % leukocytes (test code = 707-0) [facility] Healtheosinophils as percent of blood sdecefhjwb4051-94-81 09:41:00 Test Item Value Reference Range Interpretation Comments eosinophils as percent of blood 3 % leukocytes (test code = 713-8) [facility] Healthmonocytes as percent of blood msiaufrjke6632-85-19 09:41:00 Test Item Value Reference Range Interpretation Comments monocytes as percent of blood 7 % leukocytes (test code = 5905-5) [facility] Hospitallymphocytes as percent of blood oovjixbrip9491-83-97 09:41:00 Test Item Value Reference Range Interpretation Comments lymphocytes as percent of blood 41 % leukocytes (test code = 736-9) [facility] Hospitalneutrophils as percent of blood zfatszjcad9781-09-57 09:41:00 Test Item Value Reference Range Interpretation Comments neutrophils as percent of blood 48 % leukocytes (test code = 770-8) [facility] Hospitalplatelet [id number] 09:41:00 Test Item Value Reference Range Interpretation Comments platelet count (test code = 311 X10E3/UL 150-450 777-3) [facility]red blood cell distribution [id number] 09:41:00 Test Item Value Reference Range Interpretation Comments red blood cell distribution width 14.4 % 11.7-15.4 (test code = 788-0) [facility] corpuscular hemoglobin concentration, [id number] 09:41:00 Test Item Value Reference Range Interpretation Comments mean corpuscular hemoglobin 31.1 G/DL 31.5-35.7 L concentration, RBC (test code = 786-4) [facility] corpuscular hemoglobin, [id number] 09:41:00 Test Item Value Reference Range Interpretation Comments mean corpuscular hemoglobin, RBC 30.6 pg 26.6-33.0 (test code = 785-6) [facility] corpuscular volume, [id number] 09:41:00 Test Item Value Reference Range Interpretation Comments mean corpuscular volume, RBC (test code 99 fL 79-97 H = 787-2) [facility], [id number] 09:41:00 Test Item Value Reference Range Interpretation Comments hematocrit, blood (test code = 4544-3) 40.2 % 34.0-46.6 [facility], [id number] 09:41:00 Test Item Value Reference Range Interpretation Comments hemoglobin, blood (test code = 12.5 g/dL 11.1-15.9 718-7) [facility]th[facility] (RBC) uhpru0029-78-44 09:41:00 Test Item Value Reference Range Interpretation Comments erythrocyte (RBC) count (test 4.08 X10E6/UL 3.77-5.28 code = 789-8) [facility]leuk[facility] count, rttte3820-46-65 09:41:00 Test Item Value Reference Range Interpretation Comments leukocyte count, blood (test 4.5 X10E3/UL 3.4-10.8 code = 6690-2) [facility] HospitalT-helper cells (CD4) as percent of blood lymphocytes 2019-08-16 09:41:00 Test Item Value Reference Range Interpretation Comments T-helper cells (CD4) as percent of 43.5 % 30.8-58.5 blood lymphocytes (test code = 8123-2) [facility] cells (CD4) zqafj3389-51-04 09:41:00 Test Item Value Reference Range Interpretation Comments T-helper cells (CD4) count (test code 783 /UL 359-1519 = 21931-1) [facility]HIV-1RNA, serum, by PCR, wjcfmyvsobfh3290-50-74 09:41:00 Test Item Value Reference Range Interpretation Comments HIV-1RNA, serum, by PCR, <20 copies/mL quantitative (test code = 61507) [facility] HospitalCD4/CD8 [id number] 09:41:00 Test Item Value Reference Range Interpretation Comments CD4/CD8 ratio (test code 1.78 (unknown unit) 0.92-3.72 = 49698) [facility] HospitalT-suppressor cells (CD8) as percent of blood lymphocytes 2019-08-16 09:41:00 Test Item Value Reference Range Interpretation Comments T-suppressor cells (CD8) as percent of 24.4 % 12.0-35.5 blood lymphocytes (test code = 3517) [facility]absolute [id number] 09:41:00 Test Item Value Reference Range Interpretation Comments absolute CD8 (test code = 439 (unknown unit) [phone] 91646) [facility]album[facility]creatinine ratio, yaqii1449-73-82 15:32:00 Test Item Value Reference Range Interpretation Comments microalbumin/creatinine ratio, 54 MG/G CREAT 0-29 H urine (test code = 85200-7) [facility]total urine ybifom7767-92-71 15:32:00 Test Item Value Reference Range Interpretation Comments microalbumin/total urine volume 79.8 mg/L (test code = 08575-5) [facility]creatinine, random, vyatx3709-26-57 15:32:00 Test Item Value Reference Range Interpretation Comments creatinine, random, urine (test 148.6 mg/dL code = 2161-8) [facility] Hospitalrapid plasma reagin antibody, [id number] 15:32:00 Test Item Value Reference Range Interpretation Comments rapid plasma reagin antibody, Non Reactive Non Reactive serum (test code = 5291-0) [facility]hemoglobin A1C, blood, as % of total nvcbvjdnlj2510-55-68 15:32:00 Test Item Value Reference Range Interpretation Comments hemoglobin A1C, blood, as % of total 7.1 % 4.8-5.6 H hemoglobin (test code = 4548-4) [facility] HospitalLDL cholesterol, pwqqy6706-26-06 15:32:00 Test Item Value Reference Range Interpretation Comments LDL cholesterol, serum (test code = 125 mg/dL 0-99 H 2088-04) [facility] qxqsopwbjvel8806-62-61 15:32:00 Test Item Value Reference Range Interpretation Comments very low density lipoproteins (test 24 mg/dL 5-40 code = 2090-7) [facility]HDL cholesterol, roagc1224-00-80 15:32:00 Test Item Value Reference Range Interpretation Comments HDL cholesterol, serum (test code = 63 mg/dL >39 2084-12) [facility] Hospitaltriglyceride, serum, arffwtx2715-95-47 15:32:00 Test Item Value Reference Range Interpretation Comments triglyceride, serum, fasting (test 122 mg/dL 0-149 code = 2571-8) [facility]cholesterol, ekgig6982-71-04 15:32:00 Test Item Value Reference Range Interpretation Comments cholesterol, serum (test code = 212 mg/dL 100-199 H 2092-06) [facility]alanine aminotransferase (SGPT), stzgr2637-99-16 15:32:00 Test Item Value Reference Range Interpretation Comments alanine aminotransferase (SGPT), serum 12 1/L 0-32 (test code = 1742-6) [facility] Hospitalaspartate aminotransferase (SGOT), rumbr4561-08-26 15:32:00 Test Item Value Reference Range Interpretation Comments aspartate aminotransferase (SGOT), 14 1/L 0-40 serum (test code = 1920-8) [facility] Hospitalalkaline phosphatase, xywes2757-89-41 15:32:00 Test Item Value Reference Range Interpretation Comments alkaline phosphatase, serum (test code 85 1/L 39-117 = 1783-0) [facility] Healthbilirubin, serum, [id number] 15:32:00 Test Item Value Reference Range Interpretation Comments bilirubin, serum, total (test code 0.2 mg/dL 0.0-1.2 = 1975-2) [facility] Healthalbumin/globulin ratio, qapyn5534-96-73 15:32:00 Test Item Value Reference Range Interpretation Comments albumin/globulin ratio, 1.5 (unknown unit) 1.2-2.2 serum (test code = 1759-0) [facility] Healthglobulin, bsxgj5753-88-06 15:32:00 Test Item Value Reference Range Interpretation Comments globulin, serum (test code 2.9 (unknown unit) 1.5-4.5 = 2336-6) [facility] Healthalbumin, spajp5371-96-87 15:32:00 Test Item Value Reference Range Interpretation Comments albumin, serum (test code = 1751-7) 4.4 g/dL 3.8-4.9 [facility]protein, total, kjhmv6559-80-84 15:32:00 Test Item Value Reference Range Interpretation Comments protein, total, serum (test code = 7.3 g/dL 6.0-8.5 2885-2) [facility]calcium, mfhsc9498-29-78 15:32:00 Test Item Value Reference Range Interpretation Comments calcium, serum (test code = 1999-8) 9.6 mg/dL 8.7-10.2 [facility]carbon dioxide, venous udvks1191-19-92 15:32:00 Test Item Value Reference Range Interpretation Comments carbon dioxide, venous blood (test 25 mmol/L code = 2026-1) [facility] Healthchloride, lgedt3876-74-50 15:32:00 Test Item Value Reference Range Interpretation Comments chloride, serum (test code = 104 mmol/L 96-106 5-0) [facility]potassium, aagbu2792-64-30 15:32:00 Test Item Value Reference Range Interpretation Comments potassium, serum (test code = 4.2 mmol/L 3.5-5.2 2823-3) [facility] Hospitalsodium, veaco2407-89-95 15:32:00 Test Item Value Reference Range Interpretation Comments sodium, serum (test code = 2951-2) 143 mmol/L 134-144 [facility] Hospitalurea nitrogen/creatinine ratio, vloby3529-06-50 15:32:00 Test Item Value Reference Range Interpretation Comments urea nitrogen/creatinine 15 (unknown unit) 9-23 ratio, serum (test code = 3097-3) [facility] HealtheGFR if Rlymrxvt1386-22-10 15:32:00 Test Item Value Reference Range Interpretation Comments eGFR if 89 mL/min/{1.73 m2} >59 (test code = 77546-6) [facility] HospitalEstimated Glomerular Filtration Rate (calc)2019-05-15 15:32:00 Test Item Value Reference Range Interpretation Comments Estimated Glomerular 77 mL/min/{1.73 m2} >59 Filtration Rate (calc) (test code = 07873-0) [facility]creatinine, [id number] 15:32:00 Test Item Value Reference Range Interpretation Comments creatinine, serum (test code = 0.85 mg/dL 0.57-1.00 2160-0) [facility] Hospitalurea nitrogen, afupk2508-28-31 15:32:00 Test Item Value Reference Range Interpretation Comments urea nitrogen, blood (test code = 13 mg/dL 6-24 3094-0) [facility]blood glucose, pbjyih5575-14-06 15:32:00 Test Item Value Reference Range Interpretation Comments blood glucose, random (test code = 93 mg/dL 65-99 2339-0) [facility] Hospitalimmature granulocytes, percentage of total cells, blood 2019-05-15 15:32:00 Test Item Value Reference Range Interpretation Comments immature granulocytes, percentage of 0 % total cells, blood (test code = 34064-1) [facility]basophil count, efntyjqh3905-80-84 15:32:00 Test Item Value Reference Range Interpretation Comments basophil count, absolute (test 0.0 x10E3/uL 0.0-0.2 code = 79771-6) [facility] HospitalEosinophil Absolute Ksffd5036-99-43 15:32:00 Test Item Value Reference Range Interpretation Comments Eosinophil Absolute Count (test 0.1 X10E3/UL 0.0-0.4 code = 17650-5) [facility] Hospitalmonocyte count, blood, jymphxvvx2671-98-50 15:32:00 Test Item Value Reference Range Interpretation Comments monocyte count, blood, automated 0.5 X10E3/UL 0.1-0.9 (test code = 742-7) [facility] Hospitallymphocyte count, blood, wfkcbxvjp6139-86-11 15:32:00 Test Item Value Reference Range Interpretation Comments lymphocyte count, blood, 2.1 X10E3/UL 0.7-3.1 automated (test code = 731-0) [facility] HospitalAbsolute Hptgywexjtu7572-26-25 15:32:00 Test Item Value Reference Range Interpretation Comments Absolute Neutrophils (test code 2.4 X10E3/UL 1.4-7.0 = 54953-1) [facility] Hospitalbasophils as percent of blood vlrbmlwehb9264-95-19 15:32:00 Test Item Value Reference Range Interpretation Comments basophils as percent of blood 1 % leukocytes (test code = 707-0) [facility] Hospitaleosinophils as percent of blood azurmaytzk9024-91-85 15:32:00 Test Item Value Reference Range Interpretation Comments eosinophils as percent of blood 2 % leukocytes (test code = 713-8) [facility] Healthmonocytes as percent of blood hytgfurcco7018-28-44 15:32:00 Test Item Value Reference Range Interpretation Comments monocytes as percent of blood 10 % leukocytes (test code = 5905-5) [facility] Hospitallymphocytes as percent of blood shtjrsepjr2826-01-64 15:32:00 Test Item Value Reference Range Interpretation Comments lymphocytes as percent of blood 41 % leukocytes (test code = 736-9) [facility] Hospitalneutrophils as percent of blood vzzpgpizlt0924-57-85 15:32:00 Test Item Value Reference Range Interpretation Comments neutrophils as percent of blood 46 % leukocytes (test code = 770-8) [facility] Hospitalplatelet aryie6139-92-44 15:32:00 Test Item Value Reference Range Interpretation Comments platelet count (test code = 356 X10E3/UL 150-450 777-3) [facility] Hospitalred blood cell distribution efpcm1702-87-72 15:32:00 Test Item Value Reference Range Interpretation Comments red blood cell distribution width 13.3 % 11.7-15.4 (test code = 788-0) [facility] corpuscular hemoglobin concentration, [id number] 15:32:00 Test Item Value Reference Range Interpretation Comments mean corpuscular hemoglobin 33.1 G/DL 31.5-35.7 concentration, RBC (test code = 786-4) [facility] corpuscular hemoglobin, [id number] 15:32:00 Test Item Value Reference Range Interpretation Comments mean corpuscular hemoglobin, RBC 31.2 pg 26.6-33.0 (test code = 785-6) [facility] [id number] 15:32:00 Test Item Value Reference Range Interpretation Comments mean corpuscular volume, RBC (test code 94 fL 79-97 = 787-2) [facility]hematocrit, mkkhv1043-66-41 15:32:00 Test Item Value Reference Range Interpretation Comments hematocrit, blood (test code = 4544-3) 37.8 % 34.0-46.6 [facility]hemoglobin, [id number] 15:32:00 Test Item Value Reference Range Interpretation Comments hemoglobin, blood (test code = 12.5 g/dL 11.1-15.9 718-7) [facility] Hospitalerythrocyte (RBC) dokqg2972-52-56 15:32:00 Test Item Value Reference Range Interpretation Comments erythrocyte (RBC) count (test 4.01 X10E6/UL 3.77-5.28 code = 789-8) [facility] Hospitalleukocyte count, vldrx0102-28-68 15:32:00 Test Item Value Reference Range Interpretation Comments leukocyte count, blood (test 5.1 X10E3/UL 3.4-10.8 code = 6690-2) [facility] HospitalT-helper cells (CD4) as percent of blood lymphocytes 2019-05-15 15:32:00 Test Item Value Reference Range Interpretation Comments T-helper cells (CD4) as percent of 45.1 % 30.8-58.5 blood lymphocytes (test code = 8123-2) [facility] HospitalT-helper cells (CD4) hcbae7886-01-44 15:32:00 Test Item Value Reference Range Interpretation Comments T-helper cells (CD4) count (test code 947 /UL 359-1519 = 74076-3) [facility] HospitalHIV-1RNA, serum, by PCR, dbflcvqljtbt4569-53-92 15:32:00 Test Item Value Reference Range Interpretation Comments HIV-1RNA, serum, by PCR, <20 copies/mL quantitative (test code = 46185) [facility] HospitalCD4/CD8 blalq0025-48-05 15:32:00 Test Item Value Reference Range Interpretation Comments CD4/CD8 ratio (test code 1.98 (unknown unit) 0.92-3.72 = 29432) [facility] HospitalT-suppressor cells (CD8) as percent of blood lymphocytes 2019-05-15 15:32:00 Test Item Value Reference Range Interpretation Comments T-suppressor cells (CD8) as percent of 22.8 % 12.0-35.5 blood lymphocytes (test code = 3517) [facility]absolute [id number] 15:32:00 Test Item Value Reference Range Interpretation Comments absolute CD8 (test code = 479 (unknown unit) 411-015 48551) [facility]microalbumin/creatinine ratio, kbhnn1914-00-19 14:28:00 Test Item Value Reference Range Interpretation Comments microalbumin/creatinine 25.4 MG/G CREAT 0.0-30.0 ratio, urine (test code = 69542-8) [facility]/total urine wtwntj2911-38-19 14:28:00 Test Item Value Reference Range Interpretation Comments microalbumin/total urine volume 41.1 mg/L (test code = 91101-7) [facility]creatinine, random, nbxyt7133-34-69 14:28:00 Test Item Value Reference Range Interpretation Comments creatinine, random, urine (test 161.5 mg/dL code = 2161-8) [facility]blood glucose, uhlqpl9056-64-81 14:09:19 Test Item Value Reference Range Interpretation Comments blood glucose, random (test code = 131 mg/dL 2339-0) [facility] Hospitalrapid plasma reagin antibody, uhtiv7294-52-54 10:22:00 Test Item Value Reference Range Interpretation Comments rapid plasma reagin antibody, Non Reactive Non Reactive serum (test code = 5291-0) [facility]hemoglobin A1C, blood, as % of total aesjclsahy2975-75-14 10:22:00 Test Item Value Reference Range Interpretation Comments hemoglobin A1C, blood, as % of total 6.5 % 4.8-5.6 H hemoglobin (test code = 4548-4) [facility] HospitalLDL cholesterol, yogod6866-06-22 10:22:00 Test Item Value Reference Range Interpretation Comments LDL cholesterol, serum (test code = 175 mg/dL 0-99 H 2088-04) [facility] Hospitalvery low density rpmpizakcwzh4492-49-70 10:22:00 Test Item Value Reference Range Interpretation Comments very low density lipoproteins (test 13 mg/dL 5-40 code = 209-7) [facility] HospitalHDL cholesterol, jionk2346-27-42 10:22:00 Test Item Value Reference Range Interpretation Comments HDL cholesterol, serum (test code = 69 mg/dL >39 2084-12) [facility] Hospitaltriglyceride, serum, kpzqxkf5084-03-29 10:22:00 Test Item Value Reference Range Interpretation Comments triglyceride, serum, fasting (test 67 mg/dL 0-149 code = 2571-8) [facility]cholesterol, okjur2023-32-63 10:22:00 Test Item Value Reference Range Interpretation Comments cholesterol, serum (test code = 257 mg/dL 100-199 H 2092-06) [facility]alanine aminotransferase (SGPT), hheui8017-92-33 10:22:00 Test Item Value Reference Range Interpretation Comments alanine aminotransferase (SGPT), serum 24 1/L 0-32 (test code = 1742-6) [facility] Hospitalaspartate aminotransferase (SGOT), lxfgc0714-94-98 10:22:00 Test Item Value Reference Range Interpretation Comments aspartate aminotransferase (SGOT), 21 1/L 0-40 serum (test code = 1920-8) [facility] Hospitalalkaline phosphatase, rqesp8113-53-54 10:22:00 Test Item Value Reference Range Interpretation Comments alkaline phosphatase, serum (test code 92 1/L 39-117 = 1783-0) [facility]bilirubin, serum, jekrr6486-24-09 10:22:00 Test Item Value Reference Range Interpretation Comments bilirubin, serum, total (test code 0.3 mg/dL 0.0-1.2 = 1974-2) [facility], vxbsy3836-43-41 10:22:00 Test Item Value Reference Range Interpretation Comments albumin/globulin ratio, 1.4 (unknown unit) 1.2-2.2 serum (test code = 1759-0) [facility] Healthglobulin, terhp7228-89-28 10:22:00 Test Item Value Reference Range Interpretation Comments globulin, serum (test code 3.2 (unknown unit) 1.5-4.5 = 2336-6) [facility] Healthalbumin, yijzz3761-29-44 10:22:00 Test Item Value Reference Range Interpretation Comments albumin, serum (test code = 1751-7) 4.6 g/dL 3.5-5.5 [facility]protein, total, mymhh6694-36-06 10:22:00 Test Item Value Reference Range Interpretation Comments protein, total, serum (test code = 7.8 g/dL 6.0-8.5 2885-2) [facility]calcium, dbxko8002-68-89 10:22:00 Test Item Value Reference Range Interpretation Comments calcium, serum (test code = 10.0 mg/dL 8.7-10.2 1999-) [facility] Hospitalcarbon dioxide, venous ddyal5708-36-20 10:22:00 Test Item Value Reference Range Interpretation Comments carbon dioxide, venous blood (test 22 mmol/L code = 2026-1) [facility] Hospitalchloride, vrwnf8154-27-07 10:22:00 Test Item Value Reference Range Interpretation Comments chloride, serum (test code = 102 mmol/L 96-106 2074-0) [facility]potassium, bzibf2649-47-53 10:22:00 Test Item Value Reference Range Interpretation Comments potassium, serum (test code = 4.2 mmol/L 3.5-5.2 2823-3) [facility]alsodium, ddxmc1882-22-99 10:22:00 Test Item Value Reference Range Interpretation Comments sodium, serum (test code = 2951-2) 141 mmol/L 134-144 [facility]urea nitrogen/creatinine ratio, tixru2508-22-98 10:22:00 Test Item Value Reference Range Interpretation Comments urea nitrogen/creatinine 22 (unknown unit) 9-23 ratio, serum (test code = 3097-3) [facility] HealtheGFR if Xkuttgog9193-83-40 10:22:00 Test Item Value Reference Range Interpretation Comments eGFR if 97 mL/min/{1.73 m2} >59 (test code = 40677-5) [facility] HospitalEstimated Glomerular Filtration Rate (calc)2018-11-16 10:22:00 Test Item Value Reference Range Interpretation Comments Estimated Glomerular 84 mL/min/{1.73 m2} >59 Filtration Rate (calc) (test code = 79876-3) [facility]creatinine, qfgfi0426-37-18 10:22:00 Test Item Value Reference Range Interpretation Comments creatinine, serum (test code = 0.79 mg/dL 0.57-1.00 2160-0) [facility]urea nitrogen, lcgpf6120-57-12 10:22:00 Test Item Value Reference Range Interpretation Comments urea nitrogen, blood (test code = 17 mg/dL 6-24 3094-0) [facility]blood glucose, igbpiv3644-38-09 10:22:00 Test Item Value Reference Range Interpretation Comments blood glucose, random (test code = 122 mg/dL 65-99 H 2339-0) [facility] Hospitalimmature granulocytes, percentage of total cells, blood 2018-11-16 10:22:00 Test Item Value Reference Range Interpretation Comments immature granulocytes, percentage of 0 % total cells, blood (test code = 43087-3) [facility]basophil count, uwrdiars5032-49-34 10:22:00 Test Item Value Reference Range Interpretation Comments basophil count, absolute (test 0.0 x10E3/uL 0.0-0.2 code = 67889-2) [facility] HospitalEosinophil Absolute Ploqe2468-98-05 10:22:00 Test Item Value Reference Range Interpretation Comments Eosinophil Absolute Count (test 0.1 X10E3/UL 0.0-0.4 code = 27208-6) [facility] Hospitalmonocyte count, blood, sztklsmea6617-34-25 10:22:00 Test Item Value Reference Range Interpretation Comments monocyte count, blood, automated 0.3 X10E3/UL 0.1-0.9 (test code = 742-7) [facility]allymphocyte count, blood, axzzbxvez3165-57-74 10:22:00 Test Item Value Reference Range Interpretation Comments lymphocyte count, blood, 2.0 X10E3/UL 0.7-3.1 automated (test code = 731-0) [facility]Absolute Bqehthcvdgf5015-45-24 10:22:00 Test Item Value Reference Range Interpretation Comments Absolute Neutrophils (test code 2.1 X10E3/UL 1.4-7.0 = 13504-6) [facility]basophils as percent of blood qofiqgjzfl1040-12-73 10:22:00 Test Item Value Reference Range Interpretation Comments basophils as percent of blood 1 % leukocytes (test code = 707-0) [facility]aleosinophils as percent of blood byztgxdpkw1291-01-41 10:22:00 Test Item Value Reference Range Interpretation Comments eosinophils as percent of blood 3 % leukocytes (test code = 713-8) [facility] Healthmonocytes as percent of blood ihimpmvoml6819-35-60 10:22:00 Test Item Value Reference Range Interpretation Comments monocytes as percent of blood 7 % leukocytes (test code = 5905-5) [facility] Hospitallymphocytes as percent of blood hfewpwphls3662-32-80 10:22:00 Test Item Value Reference Range Interpretation Comments lymphocytes as percent of blood 43 % leukocytes (test code = 736-9) [facility] Hospitalneutrophils as percent of blood lfhbhrcdue4038-51-05 10:22:00 Test Item Value Reference Range Interpretation Comments neutrophils as percent of blood 46 % leukocytes (test code = 770-8) [facility] Hospitalplatelet trjyr2014-75-46 10:22:00 Test Item Value Reference Range Interpretation Comments platelet count (test code = 315 X10E3/UL 150-450 777-3) [facility]red blood cell distribution zvvtm0858-34-88 10:22:00 Test Item Value Reference Range Interpretation Comments red blood cell distribution width 14.4 % 12.3-15.4 (test code = 788-0) [facility] corpuscular hemoglobin concentration, [id number] 10:22:00 Test Item Value Reference Range Interpretation Comments mean corpuscular hemoglobin 33.8 G/DL 31.5-35.7 concentration, RBC (test code = 786-4) [facility], [id number] 10:22:00 Test Item Value Reference Range Interpretation Comments mean corpuscular hemoglobin, RBC 32.1 pg 26.6-33.0 (test code = 785-6) [facility]mean corpuscular volume, [id number] 10:22:00 Test Item Value Reference Range Interpretation Comments mean corpuscular volume, RBC (test code 95 fL 79-97 = 787-2) [facility]hematocrit, crula3338-81-70 10:22:00 Test Item Value Reference Range Interpretation Comments hematocrit, blood (test code = 4544-3) 39.6 % 34.0-46.6 [facility]hemoglobin, piagl6975-90-41 10:22:00 Test Item Value Reference Range Interpretation Comments hemoglobin, blood (test code = 13.4 g/dL 11.1-15.9 718-7) [facility]erythrocyte (RBC) uwqbz1285-97-24 10:22:00 Test Item Value Reference Range Interpretation Comments erythrocyte (RBC) count (test 4.18 X10E6/UL 3.77-5.28 code = 789-8) [facility]leukocyte count, cpjhb8551-30-12 10:22:00 Test Item Value Reference Range Interpretation Comments leukocyte count, blood (test 4.5 X10E3/UL 3.4-10.8 code = 6690-2) [facility] HospitalT-helper cells (CD4) as percent of blood lymphocytes 2018-11-16 10:22:00 Test Item Value Reference Range Interpretation Comments T-helper cells (CD4) as percent of 39.4 % 30.8-58.5 blood lymphocytes (test code = 8123-2) [facility]T-helper cells (CD4) gpffk3378-88-34 10:22:00 Test Item Value Reference Range Interpretation Comments T-helper cells (CD4) count (test code 788 /UL 359-1519 = 93261-5) [facility] HospitalHIV-1RNA, serum, by PCR, acaexrruprto3476-88-69 10:22:00 Test Item Value Reference Range Interpretation Comments HIV-1RNA, serum, by PCR, <20 copies/mL quantitative (test code = 58712) [facility] HospitalCD4/CD8 pdhzx7038-17-01 10:22:00 Test Item Value Reference Range Interpretation Comments CD4/CD8 ratio (test code 1.37 (unknown unit) 0.92-3.72 = 61346) [facility] HospitalT-suppressor cells (CD8) as percent of blood lymphocytes 2018-11-16 10:22:00 Test Item Value Reference Range Interpretation Comments T-suppressor cells (CD8) as percent of 28.7 % 12.0-35.5 blood lymphocytes (test code = 3517) [facility] [facility] [id number] 10:22:00 Test Item Value Reference Range Interpretation Comments absolute CD8 (test code = 574 (unknown unit) [phone]) [facility] reagin antibody, [id number] 13:14:00 Test Item Value Reference Range Interpretation Comments rapid plasma reagin antibody, Non Reactive Non Reactive serum (test code = 5291-0) [facility]hemoglobin A1C, blood, as % of total lcdsbqmcwt9075-60-23 13:14:00 Test Item Value Reference Range Interpretation Comments hemoglobin A1C, blood, as % of total 6.5 % 4.8-5.6 H hemoglobin (test code = 4548-4) [facility] HospitalLDL cholesterol, [id number] 13:14:00 Test Item Value Reference Range Interpretation Comments LDL cholesterol, serum (test code = 108 mg/dL 0-99 H 2088-1) [facility]very low density oobetitmnhvi4962-66-28 13:14:00 Test Item Value Reference Range Interpretation Comments very low density lipoproteins (test 11 mg/dL 5-40 code = 2091-7) [facility]HDL cholesterol, [id number] 13:14:00 Test Item Value Reference Range Interpretation Comments HDL cholesterol, serum (test code = 63 mg/dL >39 2084-9) [facility]triglyceride, serum, zywsxeh7363-49-74 13:14:00 Test Item Value Reference Range Interpretation Comments triglyceride, serum, fasting (test 53 mg/dL 0-149 code = 2571-8) [facility]cholesterol, [id number] 13:14:00 Test Item Value Reference Range Interpretation Comments cholesterol, serum (test code = 182 mg/dL 742-318 3522-3) [facility]alanine aminotransferase (SGPT), wxmdu5765-36-76 13:14:00 Test Item Value Reference Range Interpretation Comments alanine aminotransferase (SGPT), serum 16 1/L 0-32 (test code = 1742-6) [facility] Hospitalaspartate aminotransferase (SGOT), awqjk5793-84-09 13:14:00 Test Item Value Reference Range Interpretation Comments aspartate aminotransferase (SGOT), 16 1/L 0-40 serum (test code = 1920-8) [facility] Hospitalalkaline phosphatase, qxyir2352-95-50 13:14:00 Test Item Value Reference Range Interpretation Comments alkaline phosphatase, serum (test code 82 1/L 39-117 = 1783-0) [facility]bilirubin, serum, [id number] 13:14:00 Test Item Value Reference Range Interpretation Comments bilirubin, serum, total (test code 0.2 mg/dL 0.0-1.2 = 1975-2) [facility]albumin/globulin ratio, [id number] 13:14:00 Test Item Value Reference Range Interpretation Comments albumin/globulin ratio, 1.7 (unknown unit) 1.2-2.2 serum (test code = 1759-0) [facility] Healthglobulin, kyxwe4581-12-88 13:14:00 Test Item Value Reference Range Interpretation Comments globulin, serum (test code 2.6 (unknown unit) 1.5-4.5 = 2336-6) [facility] Healthalbumin, dhgik3938-91-95 13:14:00 Test Item Value Reference Range Interpretation Comments albumin, serum (test code = 1751-7) 4.3 g/dL 3.5-5.5 [facility]protein, total, [id number] 13:14:00 Test Item Value Reference Range Interpretation Comments protein, total, serum (test code = 6.9 g/dL 6.0-8.5 2885-2) [facility]calcium, zsppa5549-12-32 13:14:00 Test Item Value Reference Range Interpretation Comments calcium, serum (test code = 1999-8) 9.4 mg/dL 8.7-10.2 [facility]carbon dioxide, venous elsnj4116-98-62 13:14:00 Test Item Value Reference Range Interpretation Comments carbon dioxide, venous blood (test 23 mmol/L 20- code = 7-1) [facility] Healthchloride, vgkwo1104-94-74 13:14:00 Test Item Value Reference Range Interpretation Comments chloride, serum (test code = 104 mmol/L 96-106 2075-0) [facility] Healthpotassium, [id number] 13:14:00 Test Item Value Reference Range Interpretation Comments potassium, serum (test code = 3.6 mmol/L 3.5-5.2 2823-3) [facility] Hospitalsodium, kelpc7083-13-50 13:14:00 Test Item Value Reference Range Interpretation Comments sodium, serum (test code = 2951-2) 142 mmol/L 134-144 [facility] Hospitalurea nitrogen/creatinine ratio, [id number] 13:14:00 Test Item Value Reference Range Interpretation Comments urea nitrogen/creatinine 16 (unknown unit) 9-23 ratio, serum (test code = 3097-3) [facility] HealtheGFR if Cnkfpqcc9602-88-62 13:14:00 Test Item Value Reference Range Interpretation Comments eGFR if 114 mL/min/{1.73 m2} >59 (test code = 07371-6) [facility] HospitalEstimated Glomerular Filtration Rate (calc)2018-03-09 13:14:00 Test Item Value Reference Range Interpretation Comments Estimated Glomerular 99 mL/min/{1.73 m2} >59 Filtration Rate (calc) (test code = 15169-9) [facility] Hospitalcreatinine, iwjcp1935-82-31 13:14:00 Test Item Value Reference Range Interpretation Comments creatinine, serum (test code = 0.68 mg/dL 0.57-1.00 2160-0) [facility] Hospitalurea nitrogen, [id number] 13:14:00 Test Item Value Reference Range Interpretation Comments urea nitrogen, blood (test code = 11 mg/dL 6-24 3094-0) [facility] Hospitalblood glucose, tsvzhi0729-26-85 13:14:00 Test Item Value Reference Range Interpretation Comments blood glucose, random (test code = 122 mg/dL 65-99 H 2339-0) [facility] Hospitalimmature granulocytes, percentage of total cells, blood 2018-03-09 13:14:00 Test Item Value Reference Range Interpretation Comments immature granulocytes, percentage of 0 % total cells, blood (test code = 78384-6) [facility] Healthbasophil count, clxcdpny3827-34-20 13:14:00 Test Item Value Reference Range Interpretation Comments basophil count, absolute (test 0.0 x10E3/uL 0.0-0.2 code = 47550-3) [facility] HealthEosinophil Absolute Ndpai5506-28-90 13:14:00 Test Item Value Reference Range Interpretation Comments Eosinophil Absolute Count (test 0.1 X10E3/UL 0.0-0.4 code = 28639-5) [facility] Healthmonocyte count, blood, gqcfcgfsr7309-53-56 13:14:00 Test Item Value Reference Range Interpretation Comments monocyte count, blood, automated 0.5 X10E3/UL 0.1-0.9 (test code = 742-7) [facility] Hospitallymphocyte count, blood, vzcnfstsy5070-33-89 13:14:00 Test Item Value Reference Range Interpretation Comments lymphocyte count, blood, 1.9 X10E3/UL 0.7-3.1 automated (test code = 731-0) [facility]Absolute Mjimkjqmpzq6637-34-32 13:14:00 Test Item Value Reference Range Interpretation Comments Absolute Neutrophils (test code 3.1 X10E3/UL 1.4-7.0 = 20548-9) [facility] Hospitalbasophils as percent of blood ciatdhciti8607-67-68 13:14:00 Test Item Value Reference Range Interpretation Comments basophils as percent of blood 0 % leukocytes (test code = 707-0) [facility] Healtheosinophils as percent of blood ihdbidzjfs9919-82-19 13:14:00 Test Item Value Reference Range Interpretation Comments eosinophils as percent of blood 2 % leukocytes (test code = 713-8) [facility] Healthmonocytes as percent of blood swhfqviapt7198-52-33 13:14:00 Test Item Value Reference Range Interpretation Comments monocytes as percent of blood 9 % leukocytes (test code = 5905-5) [facility] Hospitallymphocytes as percent of blood ehjgcequxp6397-10-44 13:14:00 Test Item Value Reference Range Interpretation Comments lymphocytes as percent of blood 34 % leukocytes (test code = 736-9) [facility] Hospitalneutrophils as percent of blood ycogfiesrg2283-05-45 13:14:00 Test Item Value Reference Range Interpretation Comments neutrophils as percent of blood 55 % leukocytes (test code = 770-8) [facility] Hospitalplatelet kbdrc3737-66-95 13:14:00 Test Item Value Reference Range Interpretation Comments platelet count (test code = 272 X10E3/UL 150-379 777-3) [facility] Hospitalred blood cell distribution mziak7594-07-17 13:14:00 Test Item Value Reference Range Interpretation Comments red blood cell distribution width 14.8 % 12.3-15.4 (test code = 788-0) [facility] corpuscular hemoglobin concentration, [id number] 13:14:00 Test Item Value Reference Range Interpretation Comments mean corpuscular hemoglobin 33.7 G/DL 31.5-35.7 concentration, RBC (test code = 786-4) [facility] corpuscular hemoglobin, WGP7740-12-03 13:14:00 Test Item Value Reference Range Interpretation Comments mean corpuscular hemoglobin, RBC 32.0 pg 26.6-33.0 (test code = 785-6) [facility] corpuscular volume, [id number] 13:14:00 Test Item Value Reference Range Interpretation Comments mean corpuscular volume, RBC (test code 95 fL 79-97 = 787-2) [facility] Hospitalhematocrit, zsaby3435-01-01 13:14:00 Test Item Value Reference Range Interpretation Comments hematocrit, blood (test code = 4544-3) 36.5 % 34.0-46.6 [facility] Hospitalhemoglobin, qzqkf5635-08-13 13:14:00 Test Item Value Reference Range Interpretation Comments hemoglobin, blood (test code = 12.3 g/dL 11.1-15.9 718-7) [facility] Hospitalerythrocyte (RBC) cehry0567-74-68 13:14:00 Test Item Value Reference Range Interpretation Comments erythrocyte (RBC) count (test 3.84 X10E6/UL 3.77-5.28 code = 789-8) [facility] Hospitalleukocyte count, hiudw3428-12-46 13:14:00 Test Item Value Reference Range Interpretation Comments leukocyte count, blood (test 5.6 X10E3/UL 3.4-10.8 code = 6690-2) [facility] HospitalT-helper cells (CD4) as percent of blood lymphocytes 2018-03-09 13:14:00 Test Item Value Reference Range Interpretation Comments T-helper cells (CD4) as percent of 42.6 % 30.8-58.5 blood lymphocytes (test code = 8123-2) [facility] HospitalT-helper cells (CD4) zuhqy1774-65-55 13:14:00 Test Item Value Reference Range Interpretation Comments T-helper cells (CD4) count (test code 809 /UL 359-1519 = 34480-2) [facility] HospitalHIV-1RNA, serum, by PCR, widoabhjyuqi2939-40-22 13:14:00 Test Item Value Reference Range Interpretation Comments HIV-1RNA, serum, by PCR, <20 copies/mL quantitative (test code = 97580) [facility] HospitalCD4/CD8 fufyp9524-27-84 13:14:00 Test Item Value Reference Range Interpretation Comments CD4/CD8 ratio (test code 1.63 (unknown unit) 0.92-3.72 = 57327) [facility] HospitalT-suppressor cells (CD8) as percent of blood lymphocytes 2018-03-09 13:14:00 Test Item Value Reference Range Interpretation Comments T-suppressor cells (CD8) as percent of 26.2 % 12.0-35.5 blood lymphocytes (test code = 3517) [facility] Healthabsolute [id number] 13:14:00 Test Item Value Reference Range Interpretation Comments absolute CD8 (test code = 498 (unknown unit) 992-082 81215) [facility] Hospitalmicroalbumin/creatinine ratio, tyvsc1315-09-91 12:49:00 Test Item Value Reference Range Interpretation Comments microalbumin/creatinine 35.4 MG/G CREAT 0.0-30.0 H ratio, urine (test code = 95293-1) [facility]microalbumin/total urine ntczji9922-72-43 12:49:00 Test Item Value Reference Range Interpretation Comments microalbumin/total urine volume 28.4 mg/L (test code = 29141-0) [facility] Hospitalcreatinine, random, rpvuh5021-90-22 12:49:00 Test Item Value Reference Range Interpretation Comments creatinine, random, urine (test 80.2 mg/dL code = 2161-8) [facility] Hospitalvitamin D 25-hydroxy, mminn0981-85-52 11:04:00 Test Item Value Reference Range Interpretation Comments vitamin D 25-hydroxy, serum (test 36.8 ng/mL 30.0-100.0 code = 96391-9) [facility] Hospitalrapid plasma reagin antibody, mzksj1716-72-88 11:04:00 Test Item Value Reference Range Interpretation Comments rapid plasma reagin antibody, Non Reactive Non Reactive serum (test code = 5291-0) [facility]hemoglobin A1C, blood, as % of total rcmfryuiic1626-62-59 11:04:00 Test Item Value Reference Range Interpretation Comments hemoglobin A1C, blood, as % of total 6.7 % 4.8-5.6 H hemoglobin (test code = 4548-4) [facility] HospitalLDL cholesterol, ricti8394-53-25 11:04:00 Test Item Value Reference Range Interpretation Comments LDL cholesterol, serum (test code = 134 mg/dL 0-99 H 2088-) [facility] Hospitalvery low density tcbovymjivma7698-18-54 11:04:00 Test Item Value Reference Range Interpretation Comments very low density lipoproteins (test 11 mg/dL 5-40 code = 2091-7) [facility] HospitalHDL cholesterol, pdaeo1802-12-10 11:04:00 Test Item Value Reference Range Interpretation Comments HDL cholesterol, serum (test code = 71 mg/dL >39 2084-9) [facility] Hospitaltriglyceride, serum, fimxlre6162-23-75 11:04:00 Test Item Value Reference Range Interpretation Comments triglyceride, serum, fasting (test 56 mg/dL 0-149 code = 2571-8) [facility]cholesterol, clbyy1624-50-47 11:04:00 Test Item Value Reference Range Interpretation Comments cholesterol, serum (test code = 216 mg/dL 100-199 H 2092-3) [facility]alanine aminotransferase (SGPT), mauxj2151-12-71 11:04:00 Test Item Value Reference Range Interpretation Comments alanine aminotransferase (SGPT), serum 12 1/L 0-32 (test code = 1742-6) [facility] Hospitalaspartate aminotransferase (SGOT), [id number] 11:04:00 Test Item Value Reference Range Interpretation Comments aspartate aminotransferase (SGOT), 12 1/L 0-40 serum (test code = 1920-8) [facility] Hospitalalkaline phosphatase, zajsb7837-74-86 11:04:00 Test Item Value Reference Range Interpretation Comments alkaline phosphatase, serum (test code 93 1/L 39-117 = 1783-0) [facility]bilirubin, serum, ggdsi1845-08-18 11:04:00 Test Item Value Reference Range Interpretation Comments bilirubin, serum, total (test code 0.3 mg/dL 0.0-1.2 = 1975-2) [facility] Healthalbumin/globulin ratio, hqmme1003-11-17 11:04:00 Test Item Value Reference Range Interpretation Comments albumin/globulin ratio, 1.8 (unknown unit) 1.2-2.2 serum (test code = 1759-0) [facility] Healthglobulin, oaggs8674-01-98 11:04:00 Test Item Value Reference Range Interpretation Comments globulin, serum (test code 2.5 (unknown unit) 1.5-4.5 = 2336-6) [facility] Healthalbumin, lpjpt7187-32-91 11:04:00 Test Item Value Reference Range Interpretation Comments albumin, serum (test code = 1751-7) 4.4 g/dL 3.5-5.5 [facility]protein, total, jtdox9576-41-24 11:04:00 Test Item Value Reference Range Interpretation Comments protein, total, serum (test code = 6.9 g/dL 6.0-8.5 2885-2) [facility]calcium, ujsoi7716-77-73 11:04:00 Test Item Value Reference Range Interpretation Comments calcium, serum (test code = 1999-8) 9.7 mg/dL 8.7-10.2 [facility] Hospitalcarbon dioxide, venous klkjd5095-03-64 11:04:00 Test Item Value Reference Range Interpretation Comments carbon dioxide, venous blood (test 26 mmol/L 20-29 code = 2026-1) [facility] Hospitalchloride, ukubq0786-40-94 11:04:00 Test Item Value Reference Range Interpretation Comments chloride, serum (test code = 100 mmol/L 96-106 2075-0) [facility] Healthpotassium, hdfnu1577-48-81 11:04:00 Test Item Value Reference Range Interpretation Comments potassium, serum (test code = 4.0 mmol/L 3.5-5.2 2823-3) [facility]alsodium, xfwev6514-41-95 11:04:00 Test Item Value Reference Range Interpretation Comments sodium, serum (test code = 2951-2) 140 mmol/L 134-144 [facility] Hospitalurea nitrogen/creatinine ratio, lcjns9726-71-25 11:04:00 Test Item Value Reference Range Interpretation Comments urea nitrogen/creatinine 20 (unknown unit) 9-23 ratio, serum (test code = 3097-3) [facility] HealtheGFR if Aikfrden9266-53-66 11:04:00 Test Item Value Reference Range Interpretation Comments eGFR if 96 mL/min/{1.73 m2} >59 (test code = 39530-1) [facility] HospitalEstimated Glomerular Filtration Rate (calc)2017-09-22 11:04:00 Test Item Value Reference Range Interpretation Comments Estimated Glomerular 83 mL/min/{1.73 m2} >59 Filtration Rate (calc) (test code = 58963-4) [facility] Hospitalcreatinine, uxyfb8728-12-02 11:04:00 Test Item Value Reference Range Interpretation Comments creatinine, serum (test code = 0.80 mg/dL 0.57-1.00 2160-0) [facility] Hospitalurea nitrogen, jsgjm6713-30-70 11:04:00 Test Item Value Reference Range Interpretation Comments urea nitrogen, blood (test code = 16 mg/dL 6-24 3094-0) [facility] Hospitalblood glucose, xazxzu5717-96-52 11:04:00 Test Item Value Reference Range Interpretation Comments blood glucose, random (test code = 122 mg/dL 65-99 H 2339-0) [facility] Hospitalimmature granulocytes, percentage of total cells, blood 2017-09-22 11:04:00 Test Item Value Reference Range Interpretation Comments immature granulocytes, percentage of 0 % total cells, blood (test code = 94408-3) [facility] Hospitalbasophil count, qphboxtq6780-92-66 11:04:00 Test Item Value Reference Range Interpretation Comments basophil count, absolute (test 0.0 x10E3/uL 0.0-0.2 code = 56951-7) [facility] HealthEosinophil Absolute Rtfci3012-53-92 11:04:00 Test Item Value Reference Range Interpretation Comments Eosinophil Absolute Count (test 0.1 X10E3/UL 0.0-0.4 code = 78604-1) [facility] Healthmonocyte count, blood, olufarjsh6951-37-09 11:04:00 Test Item Value Reference Range Interpretation Comments monocyte count, blood, automated 0.4 X10E3/UL 0.1-0.9 (test code = 742-7) [facility] Hospitallymphocyte count, blood, qxuwfqarj7041-34-25 11:04:00 Test Item Value Reference Range Interpretation Comments lymphocyte count, blood, 1.5 X10E3/UL 0.7-3.1 automated (test code = 731-0) [facility] HealthAbsolute Etjrmzbdkju4700-76-37 11:04:00 Test Item Value Reference Range Interpretation Comments Absolute Neutrophils (test code 3.4 X10E3/UL 1.4-7.0 = 08072-5) [facility] Healthbasophils as percent of blood wdxiypkdow4005-99-92 11:04:00 Test Item Value Reference Range Interpretation Comments basophils as percent of blood 1 % leukocytes (test code = 707-0) [facility] Healtheosinophils as percent of blood emegpawawp6210-31-80 11:04:00 Test Item Value Reference Range Interpretation Comments eosinophils as percent of blood 2 % leukocytes (test code = 713-8) [facility] Healthmonocytes as percent of blood hmkcsezxur6651-25-80 11:04:00 Test Item Value Reference Range Interpretation Comments monocytes as percent of blood 7 % leukocytes (test code = 5905-5) [facility] Hospitallymphocytes as percent of blood nitfibuiwq7773-21-38 11:04:00 Test Item Value Reference Range Interpretation Comments lymphocytes as percent of blood 28 % leukocytes (test code = 736-9) [facility] Hospitalneutrophils as percent of blood zublwgivrs2158-61-26 11:04:00 Test Item Value Reference Range Interpretation Comments neutrophils as percent of blood 62 % leukocytes (test code = 770-8) [facility] Hospitalplatelet ixwny8311-61-54 11:04:00 Test Item Value Reference Range Interpretation Comments platelet count (test code = 268 X10E3/UL 150-379 777-3) [facility] Hospitalred blood cell distribution lsmls1749-41-08 11:04:00 Test Item Value Reference Range Interpretation Comments red blood cell distribution width 16.2 % 12.3-15.4 H (test code = 788-0) [facility] corpuscular hemoglobin concentration, [id number] 11:04:00 Test Item Value Reference Range Interpretation Comments mean corpuscular hemoglobin 34.0 G/DL 31.5-35.7 concentration, RBC (test code = 786-4) [facility] corpuscular hemoglobin, [id number] 11:04:00 Test Item Value Reference Range Interpretation Comments mean corpuscular hemoglobin, RBC 31.9 pg 26.6-33.0 (test code = 785-6) [facility] corpuscular volume, ICE1316-67-21 11:04:00 Test Item Value Reference Range Interpretation Comments mean corpuscular volume, RBC (test code 94 fL 79-97 = 787-2) [facility]hematocrit, obsfi9241-01-34 11:04:00 Test Item Value Reference Range Interpretation Comments hematocrit, blood (test code = 4544-3) 37.9 % 34.0-46.6 [facility]hemoglobin, fjfyh6088-54-81 11:04:00 Test Item Value Reference Range Interpretation Comments hemoglobin, blood (test code = 12.9 g/dL 11.1-15.9 718-7) [facility] Hospitalerythrocyte (RBC) kpclj2430-32-67 11:04:00 Test Item Value Reference Range Interpretation Comments erythrocyte (RBC) count (test 4.04 X10E6/UL 3.77-5.28 code = 789-8) [facility] Hospitalleukocyte count, fdinv2453-49-50 11:04:00 Test Item Value Reference Range Interpretation Comments leukocyte count, blood (test 5.4 X10E3/UL 3.4-10.8 code = 6690-2) [facility] HospitalT-helper cells (CD4) as percent of blood lymphocytes 2017-09-22 11:04:00 Test Item Value Reference Range Interpretation Comments T-helper cells (CD4) as percent of 40.6 % 30.8-58.5 blood lymphocytes (test code = 8123-2) [facility] HospitalT-helper cells (CD4) biesi3577-37-45 11:04:00 Test Item Value Reference Range Interpretation Comments T-helper cells (CD4) count (test code 609 /UL 359-1519 = 42563-1) [facility]microalbumin/total urine itjqrg1103-24-07 11:04:00 Test Item Value Reference Range Interpretation Comments microalbumin/total urine volume 39.5 mg/L (test code = 28649-4) [facility]creatinine, random, ygcfb7797-51-91 11:04:00 Test Item Value Reference Range Interpretation Comments creatinine, random, urine (test 116.0 mg/dL code = 2161-8) [facility] HospitalHIV-1RNA, serum, by PCR, qzrascwbikhx6893-72-08 11:04:00 Test Item Value Reference Range Interpretation Comments HIV-1RNA, serum, by PCR, <20 copies/mL quantitative (test code = 05489) [facility] HospitalCD4/CD8 kucfj0396-51-49 11:04:00 Test Item Value Reference Range Interpretation Comments CD4/CD8 ratio (test code 1.68 (unknown unit) 0.92-3.72 = 22170) [facility] HospitalT-suppressor cells (CD8) as percent of blood lymphocytes 2017-09-22 11:04:00 Test Item Value Reference Range Interpretation Comments T-suppressor cells (CD8) as percent of 24.2 % 12.0-35.5 blood lymphocytes (test code = 3517) [facility]absolute [id number] 11:04:00 Test Item Value Reference Range Interpretation Comments absolute CD8 (test code = 363 (unknown unit) [phone]) [facility] HospitalNeisseria gonorrhoeae DNA abqld8150-97-39 11:12:00 Test Item Value Reference Range Interpretation Comments Neisseria gonorrhoeae DNA probe Negative Negative (test code = 93212-0) [facility] Hospitalchlamydia DNA qgftn7650-70-02 11:12:00 Test Item Value Reference Range Interpretation Comments chlamydia DNA probe (test code = Negative Negative 76964-8) [facility] Hospitalblood glucose, fnpkwx8848-19-47 11:45:11 Test Item Value Reference Range Interpretation Comments blood glucose, random (test code = 87 mg/dL 2339-0) [facility] HospitalNon-nucleotide Reverse Transcriptase Ioaexpoaqe0168-11-71 11:45:11 Test Item Value Reference Range Interpretation Comments Non-nucleotide Reverse Transcriptase none Inhibitors (test code = 716251) [facility] HospitalNucleotide Reverse transcriptase jthtcoasw0706-49-53 11:45:11 Test Item Value Reference Range Interpretation Comments Nucleotide Reverse transcriptase none inhibitor (test code = 318295) [facility] Hospitalrapid plasma reagin antibody, gitgf4716-22-94 10:54:00 Test Item Value Reference Range Interpretation Comments rapid plasma reagin antibody, Non Reactive Non Reactive serum (test code = 5291-0) [facility] HospitalLDL cholesterol, gtsrt4143-35-55 10:54:00 Test Item Value Reference Range Interpretation Comments LDL cholesterol, serum (test code = 135 mg/dL 0-99 H 2088-04) [facility] Hospitalvery low density nuezdmmizudt3594-07-64 10:54:00 Test Item Value Reference Range Interpretation Comments very low density lipoproteins (test 12 mg/dL 5-40 code = 1-7) [facility] HospitalHDL cholesterol, obdmt4560-64-23 10:54:00 Test Item Value Reference Range Interpretation Comments HDL cholesterol, serum (test code = 56 mg/dL >39 2084-9) [facility] Hospitaltriglyceride, serum, lopujee3797-36-13 10:54:00 Test Item Value Reference Range Interpretation Comments triglyceride, serum, fasting (test 60 mg/dL 0-149 code = 2571-8) [facility] Hospitalcholesterol, [id number] 10:54:00 Test Item Value Reference Range Interpretation Comments cholesterol, serum (test code = 203 mg/dL 100-199 H 2092-3) [facility]), [id number] 10:54:00 Test Item Value Reference Range Interpretation Comments alanine aminotransferase (SGPT), serum 17 1/L 0-32 (test code = 1742-6) [facility] Hospitalaspartate aminotransferase (SGOT), [id number] 10:54:00 Test Item Value Reference Range Interpretation Comments aspartate aminotransferase (SGOT), 19 1/L 0-40 serum (test code = 1920-8) [facility]alkaline phosphatase, jldyb1952-61-03 10:54:00 Test Item Value Reference Range Interpretation Comments alkaline phosphatase, serum (test code 91 1/L 39-117 = 1783-0) [facility] Healthbilirubin, serum, [id number] 10:54:00 Test Item Value Reference Range Interpretation Comments bilirubin, serum, total (test code 0.2 mg/dL 0.0-1.2 = 1975-2) [facility] Healthalbumin/globulin ratio, [id number] 10:54:00 Test Item Value Reference Range Interpretation Comments albumin/globulin ratio, 1.6 (unknown unit) 1.2-2.2 serum (test code = 1759-0) [facility] Healthglobulin, [id number] 10:54:00 Test Item Value Reference Range Interpretation Comments globulin, serum (test code 2.7 (unknown unit) 1.5-4.5 = 2336-6) [facility] Healthalbumin, [id number] 10:54:00 Test Item Value Reference Range Interpretation Comments albumin, serum (test code = 1751-7) 4.3 g/dL 3.5-5.5 [facility]protein, total, [id number] 10:54:00 Test Item Value Reference Range Interpretation Comments protein, total, serum (test code = 7.0 g/dL 6.0-8.5 2885-2) [facility] Healthcalcium, olvqe7710-69-94 10:54:00 Test Item Value Reference Range Interpretation Comments calcium, serum (test code = 1999-8) 9.3 mg/dL 8.7-10.2 [facility]carbon [facility] venous jeggm4789-78-05 10:54:00 Test Item Value Reference Range Interpretation Comments carbon dioxide, venous blood (test 23 mmol/L - code = 2026-1) [facility]chloride, [id number] 10:54:00 Test Item Value Reference Range Interpretation Comments chloride, serum (test code = 101 mmol/L 96-106 5-0) [facility]potassium, [id number] 10:54:00 Test Item Value Reference Range Interpretation Comments potassium, serum (test code = 4.2 mmol/L 3.5-5.2 2823-3) [facility]alsodium, [id number] 10:54:00 Test Item Value Reference Range Interpretation Comments sodium, serum (test code = 2951-2) 141 mmol/L 134-144 [facility] Hospitalurea nitrogen/creatinine ratio, [id number] 10:54:00 Test Item Value Reference Range Interpretation Comments urea nitrogen/creatinine 20 (unknown unit) 9-23 ratio, serum (test code = 3097-3) [facility] HealtheGFR if Ihjxifsa7879-67-41 10:54:00 Test Item Value Reference Range Interpretation Comments eGFR if 115 mL/min/{1.73 m2} >59 (test code = 95567-1) [facility] HospitalEstimated Glomerular Filtration Rate (calc)2017-06-02 10:54:00 Test Item Value Reference Range Interpretation Comments Estimated Glomerular 100 mL/min/{1.73 m2} >59 Filtration Rate (calc) (test code = 09802-8) [facility]creatinine, [id number] 10:54:00 Test Item Value Reference Range Interpretation Comments creatinine, serum (test code = 0.66 mg/dL 0.57-1.00 2160-0) [facility] Hospitalurea nitrogen, [id number] 10:54:00 Test Item Value Reference Range Interpretation Comments urea nitrogen, blood (test code = 13 mg/dL 09-30 3094-0) [facility]blood glucose, pfigzx2884-73-17 10:54:00 Test Item Value Reference Range Interpretation Comments blood glucose, random (test code = 105 mg/dL 65-99 H 2339-0) [facility] Hospitalimmature granulocytes, percentage of total cells, blood 2017-06-02 10:54:00 Test Item Value Reference Range Interpretation Comments immature granulocytes, percentage of 0 % total cells, blood (test code = 80969-8) [facility]basophil count, vafxqagy7854-99-29 10:54:00 Test Item Value Reference Range Interpretation Comments basophil count, absolute (test 0.0 x10E3/uL 0.0-0.2 code = 10335-5) [facility] HealthEosinophil Absolute Jwwpb5943-00-31 10:54:00 Test Item Value Reference Range Interpretation Comments Eosinophil Absolute Count (test 0.1 X10E3/UL 0.0-0.4 code = 39400-1) [facility] Healthmonocyte count, blood, klwweutql7225-25-55 10:54:00 Test Item Value Reference Range Interpretation Comments monocyte count, blood, automated 0.3 X10E3/UL 0.1-0.9 (test code = 742-7) [facility] Healthlymphocyte count, blood, [id number] 10:54:00 Test Item Value Reference Range Interpretation Comments lymphocyte count, blood, 1.3 X10E3/UL 0.7-3.1 automated (test code = 731-0) [facility] HealthAbsolute Rnxkjyspcvw7105-26-34 10:54:00 Test Item Value Reference Range Interpretation Comments Absolute Neutrophils (test code 1.7 X10E3/UL 1.4-7.0 = 65528-7) [facility] Healthbasophils as percent of blood [id number] 10:54:00 Test Item Value Reference Range Interpretation Comments basophils as percent of blood 1 % leukocytes (test code = 707-0) [facility] Healtheosinophils as percent of blood iqxkohvsjz2854-61-05 10:54:00 Test Item Value Reference Range Interpretation Comments eosinophils as percent of blood 4 % leukocytes (test code = 713-8) [facility] Healthmonocytes as percent of blood tpstavxnfc1914-84-09 10:54:00 Test Item Value Reference Range Interpretation Comments monocytes as percent of blood 9 % leukocytes (test code = 5905-5) [facility] Healthlymphocytes as percent of blood acimtlvyen0720-67-19 10:54:00 Test Item Value Reference Range Interpretation Comments lymphocytes as percent of blood 37 % leukocytes (test code = 736-9) [facility] Healthneutrophils as percent of blood rpysetsdue7287-55-80 10:54:00 Test Item Value Reference Range Interpretation Comments neutrophils as percent of blood 49 % leukocytes (test code = 770-8) [facility] Healthplatelet [id number] 10:54:00 Test Item Value Reference Range Interpretation Comments platelet count (test code = 287 X10E3/UL 150-379 777-3) [facility]red blood cell distribution iftrw4709-17-58 10:54:00 Test Item Value Reference Range Interpretation Comments red blood cell distribution width 14.6 % 12.3-15.4 (test code = 788-0) [facility] corpuscular hemoglobin concentration, [id number] 10:54:00 Test Item Value Reference Range Interpretation Comments mean corpuscular hemoglobin 31.6 G/DL 31.5-35.7 concentration, RBC (test code = 786-4) [facility] corpuscular hemoglobin, [id number] 10:54:00 Test Item Value Reference Range Interpretation Comments mean corpuscular hemoglobin, RBC 29.8 pg 26.6-33.0 (test code = 785-6) [facility] corpuscular volume, [id number] 10:54:00 Test Item Value Reference Range Interpretation Comments mean corpuscular volume, RBC (test code 94 fL 79-97 = 787-2) [facility]hematocrit, kbmia7935-60-85 10:54:00 Test Item Value Reference Range Interpretation Comments hematocrit, blood (test code = 4544-3) 38.3 % 34.0-46.6 [facility] Hospitalhemoglobin, [id number] 10:54:00 Test Item Value Reference Range Interpretation Comments hemoglobin, blood (test code = 12.1 g/dL 11.1-15.9 718-7) [facility] Hospitalerythrocyte (RBC) kzdsy4935-84-44 10:54:00 Test Item Value Reference Range Interpretation Comments erythrocyte (RBC) count (test 4.06 X10E6/UL 3.77-5.28 code = 789-8) [facility]leukocyte count, [id number] 10:54:00 Test Item Value Reference Range Interpretation Comments leukocyte count, blood (test 3.5 X10E3/UL 3.4-10.8 code = 6690-2) [facility] HospitalT-helper cells (CD4) as percent of blood lymphocytes 2017-06-02 10:54:00 Test Item Value Reference Range Interpretation Comments T-helper cells (CD4) as percent of 34.8 % 30.8-58.5 blood lymphocytes (test code = 8123-2) [facility] HospitalT-helper cells (CD4) gmllz1351-79-85 10:54:00 Test Item Value Reference Range Interpretation Comments T-helper cells (CD4) count (test code 452 /UL 359-1519 = 48594-2) [facility] HospitalHIV-1RNA, serum, by PCR, qxcayjyeqhus9320-51-49 10:54:00 Test Item Value Reference Range Interpretation Comments HIV-1RNA, serum, by PCR, quantitative 30 /mL (test code = 80698) [facility] HospitalCD4/CD8 [id number] 10:54:00 Test Item Value Reference Range Interpretation Comments CD4/CD8 ratio (test code 0.97 (unknown unit) 0.92-3.72 = 06136) [facility] HospitalT-suppressor cells (CD8) as percent of blood lymphocytes 2017-06-02 10:54:00 Test Item Value Reference Range Interpretation Comments T-suppressor cells (CD8) as percent of 35.9 % 12.0-35.5 H blood lymphocytes (test code = 3517) [facility] Hospitalabsolute [id number] 10:54:00 Test Item Value Reference Range Interpretation Comments absolute CD8 (test code = 467 (unknown unit) 298.188.56213) [facility] HospitalHIV genotype rvaucd8770-82-48 13:04:16 Test Item Value Reference Range Interpretation Comments HIV genotype result (test code = 28214) done [facility] HospitalQuantiferon Gold TB blood test for tuberculosis screening 2017-05-04 12:42:00 Test Item Value Reference Range Interpretation Comments Quantiferon Gold TB blood test for Negative Negative tuberculosis screening (test code = 71309-4) [facility]hemoglobin A1C, blood, as % of total dmsedddesc0077-98-64 12:35:00 Test Item Value Reference Range Interpretation Comments hemoglobin A1C, blood, as % of total 6.5 % 4.8-5.6 H hemoglobin (test code = 4548-4) [facility] Hospitalerythrocyte (RBC) zkbva4546-51-88 12:35:00 Test Item Value Reference Range Interpretation Comments erythrocyte (RBC) count (test 4.20 X10E6/UL 3.77-5.28 code = 789-8) [facility]microalbumin/total urine qjeyxv1931-76-96 11:30:00 Test Item Value Reference Range Interpretation Comments microalbumin/total urine volume 100.2 mg/L (test code = 78279-6) [facility]creatinine, random, [id number] 11:30:00 Test Item Value Reference Range Interpretation Comments creatinine, random, urine (test 230.4 mg/dL code = 2161-8) [facility] Hospitalrapid plasma reagin antibody, fkfvc3285-62-68 10:24:00 Test Item Value Reference Range Interpretation Comments rapid plasma reagin antibody, Non Reactive Non Reactive serum (test code = 5291-0) [facility] Hospitalhepatitis C antibody, [id number] 10:24:00 Test Item Value Reference Range Interpretation Comments hepatitis C antibody, serum (test code <0.1 0.0-0.9 = 5199-5) [facility] HospitalNeisseria gonorrhoeae DNA [id number] 10:24:00 Test Item Value Reference Range Interpretation Comments Neisseria gonorrhoeae DNA probe Negative Negative (test code = 03383-2) [facility] Hospitalchlamydia DNA [id number] 10:24:00 Test Item Value Reference Range Interpretation Comments chlamydia DNA probe (test code = Negative Negative 91725-1) [facility] HospitalLDL cholesterol, klkph6371-34-17 10:24:00 Test Item Value Reference Range Interpretation Comments LDL cholesterol, serum (test code = 168 mg/dL 0-99 H 2088-) [facility] Hospitalvery low density fvrreeydkghm4532-08-94 10:24:00 Test Item Value Reference Range Interpretation Comments very low density lipoproteins (test 20 mg/dL 5-40 code = 2091-7) [facility] HospitalHDL cholesterol, [id number] 10:24:00 Test Item Value Reference Range Interpretation Comments HDL cholesterol, serum (test code = 46 mg/dL >39 2084-9) [facility] Hospitaltriglyceride, serum, eeurkpe4309-91-11 10:24:00 Test Item Value Reference Range Interpretation Comments triglyceride, serum, fasting (test 100 mg/dL 0-149 code = 2571-8) [facility]cholesterol, brdfz4957-72-53 10:24:00 Test Item Value Reference Range Interpretation Comments cholesterol, serum (test code = 234 mg/dL 100-199 H 2093-3) [facility]alanine aminotransferase (SGPT), [id number] 10:24:00 Test Item Value Reference Range Interpretation Comments alanine aminotransferase (SGPT), serum 23 1/L 0-32 (test code = 1742-6) [facility] Hospitalaspartate aminotransferase (SGOT), tmhfm6131-93-90 10:24:00 Test Item Value Reference Range Interpretation Comments aspartate aminotransferase (SGOT), 21 1/L 0-40 serum (test code = 1920-8) [facility] Hospitalalkaline phosphatase, nkcay9106-62-63 10:24:00 Test Item Value Reference Range Interpretation Comments alkaline phosphatase, serum (test code 65 1/L 39-117 = 1783-0) [facility]bilirubin, serum, [id number] 10:24:00 Test Item Value Reference Range Interpretation Comments bilirubin, serum, total (test code 0.3 mg/dL 0.0-1.2 = 1975-2) [facility]albumin/globulin ratio, eespv5030-86-24 10:24:00 Test Item Value Reference Range Interpretation Comments albumin/globulin ratio, 1.6 (unknown unit) 1.2-2.2 serum (test code = 1759-0) [facility] Healthglobulin, [id number] 10:24:00 Test Item Value Reference Range Interpretation Comments globulin, serum (test code 2.7 (unknown unit) 1.5-4.5 = 2336-6) [facility] Healthalbumin, tsuuv7477-46-04 10:24:00 Test Item Value Reference Range Interpretation Comments albumin, serum (test code = 1751-7) 4.4 g/dL 3.5-5.5 [facility]protein, total, [id number] 10:24:00 Test Item Value Reference Range Interpretation Comments protein, total, serum (test code = 7.1 g/dL 6.0-8.5 2885-2) [facility] Hospitalcalcium, [id number] 10:24:00 Test Item Value Reference Range Interpretation Comments calcium, serum (test code = 1999-) 9.5 mg/dL 8.7-10.2 [facility] Hospitalcarbon dioxide, venous [id number] 10:24:00 Test Item Value Reference Range Interpretation Comments carbon dioxide, venous blood (test 25 mmol/L code = 2026-1) [facility] Hospitalchloride, [id number] 10:24:00 Test Item Value Reference Range Interpretation Comments chloride, serum (test code = 102 mmol/L 96-106 5-0) [facility] Healthpotassium, ivlna3968-70-98 10:24:00 Test Item Value Reference Range Interpretation Comments potassium, serum (test code = 4.0 mmol/L 3.5-5.2 2823-3) [facility]alsodium, buclm6137-79-56 10:24:00 Test Item Value Reference Range Interpretation Comments sodium, serum (test code = 2951-2) 141 mmol/L 134-144 [facility] Hospitalurea nitrogen/creatinine ratio, wbbfr3329-39-24 10:24:00 Test Item Value Reference Range Interpretation Comments urea nitrogen/creatinine 14 (unknown unit) 9-23 ratio, serum (test code = 3097-3) [facility] HealtheGFR if Hzztiamv3205-99-50 10:24:00 Test Item Value Reference Range Interpretation Comments eGFR if 95 mL/min/{1.73 m2} >59 (test code = 58666-4) [facility] HospitalEstimated Glomerular Filtration Rate (calc)2017-04-13 10:24:00 Test Item Value Reference Range Interpretation Comments Estimated Glomerular 83 mL/min/{1.73 m2} >59 Filtration Rate (calc) (test code = 82106-2) [facility]creatinine, ubgtq6598-11-55 10:24:00 Test Item Value Reference Range Interpretation Comments creatinine, serum (test code = 0.81 mg/dL 0.57-1.00 2160-0) [facility] Hospitalurea nitrogen, [id number] 10:24:00 Test Item Value Reference Range Interpretation Comments urea nitrogen, blood (test code = 11 mg/dL 09-30 3094-0) [facility]blood glucose, cpapkm2829-17-12 10:24:00 Test Item Value Reference Range Interpretation Comments blood glucose, random (test code = 86 mg/dL 65-99 2339-0) [facility] Hospitalimmature granulocytes, percentage of total cells, blood 2017-04-13 10:24:00 Test Item Value Reference Range Interpretation Comments immature granulocytes, percentage of 0 % total cells, blood (test code = 48927-7) [facility] Healthbasophil count, nykdrnyv1745-93-54 10:24:00 Test Item Value Reference Range Interpretation Comments basophil count, absolute (test 0.0 x10E3/uL 0.0-0.2 code = 15498-1) [facility] HealthEosinophil Absolute [id number] 10:24:00 Test Item Value Reference Range Interpretation Comments Eosinophil Absolute Count (test 0.0 X10E3/UL 0.0-0.4 code = 47519-3) [facility] Hospitalmonocyte count, blood, kdroobpyl8241-19-36 10:24:00 Test Item Value Reference Range Interpretation Comments monocyte count, blood, automated 0.4 X10E3/UL 0.1-0.9 (test code = 742-7) [facility] Hospitallymphocyte count, blood, lwbtncgzc6276-07-81 10:24:00 Test Item Value Reference Range Interpretation Comments lymphocyte count, blood, 1.5 X10E3/UL 0.7-3.1 automated (test code = 731-0) [facility] HospitalAbsolute Ywjvhemfpvk0715-72-26 10:24:00 Test Item Value Reference Range Interpretation Comments Absolute Neutrophils (test code 1.3 X10E3/UL 1.4-7.0 L = 44651-5) [facility] Healthbasophils as percent of blood wbqhyadfal2161-62-62 10:24:00 Test Item Value Reference Range Interpretation Comments basophils as percent of blood 1 % leukocytes (test code = 707-0) [facility] Healtheosinophils as percent of blood ptxbczfcrn8535-94-34 10:24:00 Test Item Value Reference Range Interpretation Comments eosinophils as percent of blood 1 % leukocytes (test code = 713-8) [facility] Healthmonocytes as percent of blood bkizczsqsz2322-09-68 10:24:00 Test Item Value Reference Range Interpretation Comments monocytes as percent of blood 13 % leukocytes (test code = 5905-5) [facility] Hospitallymphocytes as percent of blood gswamakfys0594-75-87 10:24:00 Test Item Value Reference Range Interpretation Comments lymphocytes as percent of blood 45 % leukocytes (test code = 736-9) [facility] Hospitalneutrophils as percent of blood hfedfhxjpc2952-24-03 10:24:00 Test Item Value Reference Range Interpretation Comments neutrophils as percent of blood 40 % leukocytes (test code = 770-8) [facility] Hospitalplatelet xbnod5280-62-75 10:24:00 Test Item Value Reference Range Interpretation Comments platelet count (test code = 244 X10E3/UL 150-379 777-3) [facility] Hospitalred blood cell distribution cronr9964-38-56 10:24:00 Test Item Value Reference Range Interpretation Comments red blood cell distribution width 14.3 % 12.3-15.4 (test code = 788-0) [facility] corpuscular hemoglobin concentration, [id number] 10:24:00 Test Item Value Reference Range Interpretation Comments mean corpuscular hemoglobin 33.0 G/DL 31.5-35.7 concentration, RBC (test code = 786-4) [facility] corpuscular hemoglobin, [id number] 10:24:00 Test Item Value Reference Range Interpretation Comments mean corpuscular hemoglobin, RBC 30.0 pg 26.6-33.0 (test code = 785-6) [facility] corpuscular volume, [id number] 10:24:00 Test Item Value Reference Range Interpretation Comments mean corpuscular volume, RBC (test code 91 fL 79-97 = 787-2) [facility]hematocrit, vronb0179-26-07 10:24:00 Test Item Value Reference Range Interpretation Comments hematocrit, blood (test code = 4544-3) 38.8 % 34.0-46.6 [facility]hemoglobin, wxmws6051-77-69 10:24:00 Test Item Value Reference Range Interpretation Comments hemoglobin, blood (test code = 12.8 g/dL 11.1-15.9 718-7) [facility] Hospitalerythrocyte (RBC) msfol3457-45-23 10:24:00 Test Item Value Reference Range Interpretation Comments erythrocyte (RBC) count (test 4.26 X10E6/UL 3.77-5.28 code = 789-8) [facility] Hospitalleukocyte count, [id number] 10:24:00 Test Item Value Reference Range Interpretation Comments leukocyte count, blood (test 3.3 X10E3/UL 3.4-10.8 L code = 6690-2) [facility] HospitalT-helper cells (CD4) as percent of blood lymphocytes 2017-04-13 10:24:00 Test Item Value Reference Range Interpretation Comments T-helper cells (CD4) as percent of 24.6 % 30.8-58.5 L blood lymphocytes (test code = 8123-2) [facility] HospitalT-helper cells (CD4) iavjf1531-32-74 10:24:00 Test Item Value Reference Range Interpretation Comments T-helper cells (CD4) count (test code 369 /UL 359-1519 = 60612-8) [facility] Hospitalhepatitis B core antibody, [id number] 10:24:00 Test Item Value Reference Range Interpretation Comments hepatitis B core antibody, total Negative Negative (test code = 77) [facility] gkdtsah7064-02-09 10:24:00 Test Item Value Reference Range Interpretation Comments hepatitis B surface antigen (test Negative Negative code = 79) [facility] HospitalHIV-2 antibodies, western [id number] 10:24:00 Test Item Value Reference Range Interpretation Comments HIV-2 antibodies, western blot (test Negative Negative code = 08786) [facility] HospitalHIV-1/HIV-2 Ab, pjtzl9345-21-93 10:24:00 Test Item Value Reference Range Interpretation Comments HIV-1/HIV-2 Ab, serum (test code = Positive Negative A 3399) [facility] HospitalHIV-CMIA (Chemiluminescent Microparticle Immuno Assay) 2017-04-13 10:24:00 Test Item Value Reference Range Interpretation Comments HIV-CMIA (Chemiluminescent REAALG Non Reactive A Microparticle Immuno Assay) (test code = 346564) [facility] [id number] 10:24:00 Test Item Value Reference Range Interpretation Comments human leukocyte antigen B57 (test Negative code = 334653) [facility] Hospitaltoxoplasma gondii antibody, [id number] 10:24:00 Test Item Value Reference Range Interpretation Comments toxoplasma gondii antibody, IgG (test <3.0 0.0-7.1 code = 2430) [facility]hepatitis [facility] surface glegqxat2550-58-46 10:24:00 Test Item Value Reference Range Interpretation Comments hepatitis B surface antibody Non Reactive (test code = 78) [facility]HIV-1RNA, serum, by PCR, bbnwsigbbfmq6344-16-49 10:24:00 Test Item Value Reference Range Interpretation Comments HIV-1RNA, serum, by PCR, 19690 /mL quantitative (test code = 84077) [facility] HospitalCD4/CD8 [id number] 10:24:00 Test Item Value Reference Range Interpretation Comments CD4/CD8 ratio (test code 0.41 (unknown unit) 0.92-3.72 L = 70943) [facility] HospitalT-suppressor cells (CD8) as percent of blood lymphocytes 2017-04-13 10:24:00 Test Item Value Reference Range Interpretation Comments T-suppressor cells (CD8) as percent of 60.0 % 12.0-35.5 H blood lymphocytes (test code = 3517) [facility] Hospitalabsolute [id number] 10:24:00 Test Item Value Reference Range Interpretation Comments absolute CD8 (test code = 900 (unknown unit) 109-897 H 29768) [facility] Hospitalhepatitis A antibody, [id number] 10:24:00 Test Item Value Reference Range Interpretation Comments hepatitis A antibody, total (test Negative Negative code = 75) [facility]
--- NOTE | 2020-11-01 15:03 | RAD REPORT ---
EXAM DESCRIPTION: RAD - Chest Pa And Lat (2 Views) - 11/01/2020 2:51 pm CLINICAL HISTORY: COUGH COMPARISON: None TECHNIQUE: Frontal and lateral views of the chest were obtained. FINDINGS: The lungs are normal volume with no mass or consolidation identified. Lung markings in the left base are slightly more pronounced than on the right. Baseline for the patient is unknown. A min imal interstitial infiltrate at the left base is possible. No failure or volume overload findings. Heart size is normal and central vasculature is within normal limits. No pleural effusion or pneu mothorax seen. No acute bony finding noted. No aortic abnormality. IMPRESSION: No focal consolidation or mass lesion identifiable. Left base lung markings are fractionally increased relative to the right. As a baseline study, a mini mal left base infiltrate would be possible in this setting.
[2020-11-01] MEDS ORDERED: ONDANSETRON 4 MG/2 ML VIAL ONE (16:25)
[2020-11-01] MEDS ORDERED: NA CHLORIDE 0.9% 500 ML ONE (16:25)
[2020-11-01 16:30] LABS: Absolute Lymphocytes (CBC) 0.2 K/uL (0.7-4.9); Basophils % 0.1 % (0-1.3); Hematocrit 40.6 % (36.0-45.0); MPV 8.4 fL (7.6-11.3); RBC Red Blood Cell Count 4.25 M/uL (3.86-4.86)
[2020-11-01 16:47] LABS: ALT/SGPT 22 U/L (12-78); AST/SGOT 12 U/L (15-37); Albumin 4.1 g/dL (3.4-5.0); Alkaline Phosphatase 95 U/L (45-117); BUN Blood Urea Nitrogen 13 mg/dL (7-18); Bicarbonate 28 mmol/L (21-32); Bilirubin Direct < 0.1 mg/dL (0-0.2); Bilirubin Total 0.5 mg/dL (0.2-1.0); Glucose Level 150 mg/dL (74-106); Lipase 36 U/L (73-393); Potassium 3.9 mmol/L (3.5-5.1); Protein, Total 8.4 g/dL (6.4-8.2); Sodium Level 139 mmol/L (136-145)
--- NOTE | 2020-11-01 17:24 | RAD REPORT ---
EXAM DESCRIPTION: US - Abdomen Exam Limited - 11/01/2020 5:07 pm CLINICAL HISTORY: EPIGASTRIC PAIN COMPARISON: No comparisons FINDINGS: No gallstones, sludge or other abnormalities within the gallbladder lumen. There is no wal l thickening or pericholecystic fluid. No common duct stone or biliary tree dilatation identified. IMPRESSION: Normal gallbladder and biliary tree ultrasound.
--- NOTE | 2020-11-02 17:33 | ER ---
Nurse's Notes [facility] Name: Tana Pérez Age: 60 yrs Sex: Female : 1960 Arrival Date: 11/01/2020 Time: 13:46 Bed 12 Private MD: Diagnosis: Pneumonia;Vomiting Presentation: 11/01 14:24 Chief complaint: Patient states: Coughing x 1 week, Diarrhea, vomiting starting today. kg Coronavirus screen: Client denies travel out of the [place] in the last 14 days. At this time, unable to obtain information related to travel outside the [place] Client presents with at least one sign or symptom that may indicate coronavirus-19. Standard/surgical mask placed on the client. Provider contacted for isolation considerations. Ebola Screen: Patient negative for fever greater than or equal to 101.5 degrees Fahrenheit, and additional compatible Ebola Virus Disease symptoms Patient denies exposure to infectious person. Patient denies travel to an Ebola-affected area in the 21 days before illness onset. Initial Sepsis Screen: Does the patient meet any 2 criteria? No. Patient's initial sepsis screen is negative. Does the patient have a suspected source of infection? No. Patient's initial sepsis screen is negative. Risk Assessment: Do you want to hurt yourself or someone else? Patient reports no desire to harm self or others. Onset of symptoms was November 01, 2020. 14:24 Method Of Arrival: Ambulatory kg 14:24 Acuity: JUANITA 3 kg Triage Assessment: 14:24 General: Appears in no apparent distress. Behavior is calm, cooperative, quiet. Pain: kg Complains of pain in abdomen Pain radiates to neck. GI: Reports lower abdominal pain, upper abdominal pain, diarrhea, nausea, vomiting. Historical: - Allergies: 14:27 Morphine; kg 14:27 Vistaril; kg - PMHx: 14:27 Diabetes - NIDDM; HIV; Hyperlipidemia; Hypertension; Anxiety; Depressive disorder; kg - PSHx: 14:27 left knee; Exploratory laparotomy; hysterectomy; kg - Immunization history:: Adult Immunizations up to date, Client reports receiving the 2nd dose of the Covid vaccine. - Social history:: Smoking status: Patient denies any tobacco usage or history of. Screenin:26 Abuse screen: Denies threats or abuse. Denies injuries from another. Nutritional kg screening: No deficits noted. Tuberculosis screening: No symptoms or risk factors identified. Fall Risk None identified. No fall in past 12 months (0 pts). No secondary diagnosis (0 pts). IV access (20 points). Ambulatory Aid- None/Bed Rest/Nurse Assist (0 pts). Gait- Normal/Bed Rest/Wheelchair (0 pts) Mental Status- Oriented to own ability (0 pts). Total Paiz Fall Scale indicates No Risk (0-24 pts). Assessment: 16:20 General: Appears in no apparent distress. uncomfortable, Behavior is calm, cooperative. vg1 Pain: Complains of pain in epigastric area Pain currently is 10 out of 10 on a pain scale. Pain began 1 day ago. Noted to be grimacing, guarding. Neuro: Level of Consciousness is awake, alert, obeys commands, Oriented to person, place, time, situation. Cardiovascular: Patient's skin is warm and dry. Respiratory: Reports cough that is productive, Airway is patent Respiratory effort is even, unlabored. GI: Abdomen is round Abdomen is tender to palpation in epigastric area Reports diarrhea, nausea, vomiting. : No signs and/or symptoms were reported regarding the genitourinary system. EENT: No signs and/or symptoms were reported regarding the EENT system. Derm: Skin is intact, is healthy with good turgor. Musculoskeletal: Circulation, motion, and sensation intact. 18:00 Reassessment: Awaiting disposition. . aa5 18:55 Neuro: Level of Consciousness is awake, alert, obeys commands, Oriented to person, aa5 place, time, situation. Respiratory: Airway is patent Respiratory effort is even, unlabored, Respiratory pattern is regular, symmetrical. Derm: Skin is dry, Skin is normal, Skin temperature is warm. Vital Signs: 14:24 Pulse 101; Resp 20; Temp 98.5(O); Pulse Ox 99% ; Weight 88.9 kg (R); Height 5 ft. 2 in. kg (157.48 cm); Pain 9/10; 14:24 BP 149 / 90; kg 16:20 BP 149 / 94; Pulse 100; Resp 16; Pulse Ox 100% ; vg1 14:24 Body Mass Index 35.85 (88.90 kg, 157.48 cm) kg ED Course: 13:46 Patient arrived in ED. mr 14:26 Triage completed. kg 14:26 Patient has correct armband on for positive identification. kg 14:51 XRAY Chest Pa And Lat (2 Views) In Process Unspecified. EDMS 15:40 Avinash Mckeon PA is PHCP. jmm 15:40 Dez Cardona MD is Attending Physician. jmm 15:45 Fatmata Mayorga, RN is Primary Nurse. vg1 16:19 Initial lab(s) drawn, by co, sent to lab. Inserted saline lock: 20 gauge in right vg1 antecubital area, using aseptic technique. Blood collected. 16:24 IV discontinued, intact, bleeding controlled, No redness/swelling at site. Pressure vg1 dressing applied, 20 g in Right AC, infiltrate. 16:27 Inserted saline lock: 22 gauge in left antecubital area, using aseptic technique. vg1 16:33 Arm band placed on. vg1 17:07 US Abdomen Limited In Process Unspecified. EDMS 17:49 Report given to RAJI Esqueda. vg1 18:55 IV discontinued, intact, bleeding controlled, No redness/swelling at site. Pressure aa5 dressing applied. 18:56 No provider procedures requiring assistance completed. aa5 Administered Medications: 16:29 Drug: NS 0.9% 500 ml Route: IV; Rate: bolus; Site: left antecubital; vg1 16:31 Drug: Zofran (Ondansetron) 4 mg Route: IVP; Site: left antecubital; vg1 Outcome: 18:25 Discharge ordered by . [facility] 18:55 Discharged to home ambulatory, with family. aa5 18:55 Condition: stable 18:55 Discharge instructions given to patient, Instructed on discharge instructions, follow up and referral plans. medication usage, Demonstrated understanding of instructions, follow-up care, medications, Prescriptions given X 2. 18:56 Patient left the ED. aa5 Signatures: Dispatcher [employer] EDMS Avinash Mckeon PA PA carmen Vesta ValladaresYin RN RN aa5 Fatmata Mayorga RN RN vg1 Melisa Bryant RN RN kg Corrections: (The following items were deleted from the chart) 16:33 16:32 IV discontinued, intact, bleeding controlled, No redness/swelling at site. vg1 Pressure dressing applied, 20 g in Right AC, infiltrate vg1
--- NOTE | 2020-11-02 17:33 | EDPHYS ---
Physician Documentation [facility] Name: Tana Pérez Age: 60 yrs Sex: Female : 1960 Arrival Date: 11/01/2020 Time: 13:46 Bed 12 Private MD: ED Physician Dez Cardona HPI: 11/01 16:06 This 60 yrs old Black Female presents to ER via Ambulatory with complaints of jmm Vomiting/Diarrhea, Abdominal Pain. 16:06 The patient presents to the emergency department with nausea, vomiting, diarrhea, jmm abdominal pain. Onset: The symptoms/episode began/occurred gradually, 1 week(s) ago. Possible causes: unknown. The symptoms are aggravated by nothing. The symptoms are alleviated by nothing. Associated signs and symptoms: Pertinent positives: abdominal pain, diarrhea, vomiting, Pertinent negatives: flatulence. Historical: - Allergies: 14:27 Morphine; kg 14:27 Vistaril; kg - PMHx: 14:27 Diabetes - NIDDM; HIV; Hyperlipidemia; Hypertension; Anxiety; Depressive disorder; kg - PSHx: 14:27 left knee; Exploratory laparotomy; hysterectomy; kg - Immunization history:: Adult Immunizations up to date, Client reports receiving the 2nd dose of the Covid vaccine. - Social history:: Smoking status: Patient denies any tobacco usage or history of. ROS: 16:06 Constitutional: Positive for chills. jmm 16:06 Respiratory: Positive for cough. 16:06 Abdomen/GI: Positive for abdominal pain, nausea and vomiting, diarrhea. 16:06 All other systems are negative. Exam: 16:06 Constitutional: This is a well developed, well nourished patient who is awake, alert, jmm and in no acute distress. Head/Face: atraumatic. Eyes: EOMI, no conjunctival erythema appreciated ENT: Moist Mucus Membranes Neck: Trachea midline, Supple Chest/axilla: Normal chest wall appearance and motion. Cardiovascular: Regular rate and rhythm. No edema appreciated Respiratory: Normal respirations, no respiratory distress appreciated 16:06 Back: Normal ROM Skin: General appearance color normal MS/ Extremity: Moves all extremities, no obvious deformities appreciated, no edema noted to the lower extremities Neuro: Awake and alert, normal gait Psych: Behavior is normal, Mood is normal, Patient is cooperative and pleasant 16:06 Abdomen/GI: Inspection: abdomen appears normal, Bowel sounds: normal, Palpation: soft, mild abdominal tenderness, in the right upper quadrant and left upper quadrant. Vital Signs: 14:24 Pulse 101; Resp 20; Temp 98.5(O); Pulse Ox 99% ; Weight 88.9 kg (R); Height 5 ft. 2 in. kg (157.48 cm); Pain 9/10; 14:24 BP 149 / 90; kg 16:20 BP 149 / 94; Pulse 100; Resp 16; Pulse Ox 100% ; vg1 14:24 Body Mass Index 35.85 (88.90 kg, 157.48 cm) kg MDM: 15:40 Patient medically screened. [facility] 18:23 Data reviewed: vital signs, nurses notes. Counseling: I had a detailed discussion with carmen the patient and/or guardian regarding: the historical points, exam findings, and any diagnostic results supporting the discharge/admit diagnosis, lab results, radiology results, the need for outpatient follow up, to return to the emergency department if symptoms worsen or persist or if there are any questions or concerns that arise at home. ED course: Patient is alert nontoxic in appearance in the ED. Labs are unremarkable. Ultrasound gallbladder does not reveal acute cholecystitis. Patient was reexamined, there is no pain elicited on palpation of the abdomen. Chest x-ray concerning for possible pneumonia. Will treat with oral antibiotics. Patient is otherwise advised to follow-up with primary care provider and otherwise given strict return precautions. Patient understood and agrees with plan of care.. 11/01 14:30 Order name: Flu; Complete Time: 15:41 kg 11/01 15:55 Order name: Basic Metabolic Panel; Complete Time: 17:14 [facility] 11/01 15:55 Order name: CBC with Diff; Complete Time: 17:14 [facility] 11/01 15:55 Order name: Hepatic Function; Complete Time: 17:14 [facility] 11/01 15:55 Order name: Lipase; Complete Time: 17:14 [facility] 11/01 14:30 Order name: XRAY Chest Pa And Lat (2 Views); Complete Time: 15:41 kg 11/01 15:55 Order name: IV Saline Lock; Complete Time: 16:32 [facility] 11/01 15:55 Order name: Labs collected and sent; Complete Time: 16:22 [facility] 11/01 15:56 Order name: Misc. Order: new gown, patient vomited on herself; Complete Time: 16:00 [facility] 11/01 15:59 Order name: US Abdomen Limited; Complete Time: 17:25 [facility] 11/01 16:01 Order name: SARS-COV-2 RT PCR; Complete Time: 16:02 EDMS Administered Medications: 16:29 Drug: NS 0.9% 500 ml Route: IV; Rate: bolus; Site: left antecubital; 1 16:31 Drug: Zofran (Ondansetron) 4 mg Route: IVP; Site: left antecubital; 1 Disposition: 11/02 06:02 Co-signature as Attending Physician, Dez Cardona MD. rn Disposition Summary: 11/01/20 18:25 Discharge Ordered Location: Home [facility] Condition: Stable [facility] Diagnosis - Pneumonia [facility] - Vomiting [facility] Followup: [facility] - With: Private Physician - When: 2 - 3 days - Reason: Recheck today's complaints, Continuance of care, Re-evaluation by your physician Discharge Instructions: - Discharge Summary Sheet [facility] - Community-Acquired Pneumonia, Adult [facility] Forms: - Medication Reconciliation Form [facility] - Thank You Letter [facility] - Antibiotic Education [facility] - Prescription Opioid Use [facility] Prescriptions: - ondansetron 4 mg Oral tablet,disintegrating - take 1 tablet by ORAL route every 4 hours; 20 tablet; Refills: 0, Product [facility] Selection Permitted - Zithromax Z-Francesco 250 mg Oral Tablet - take 1 tablet by ORAL route as directed for 5 days Day 1 - take two (2) tablets [facility] one time. Day 2, 3, 4 , 5 take one (1) tablet once daily.; 6 tablet; Refills: 0, Product Selection Permitted Signatures: Dispatcher [employer] EDMS Avinash Mckeon PA PA Dez Quintana MD MD rn Garcia, Victoria RN RN vg1 Melisa Bryant, RN RN kg Corrections: (The following items were deleted from the chart) 11/01 14:57 14:31 CORONAVIRUS+ ordered. EDMS EDMS
[2020-11-03 13:02] VITALS: TEMP 98.5
[2020-11-03 13:04] VITALS: BP 149/94; O2SAT 100
== END 2020-11-01 18:56 | disposition home or self-care (01) ==
LOC: ER 13:43
DX: J18.9 Pneumonia, unspecified organism (principal); I10 Essential (primary) hypertension; Z21 Asymptomatic human immunodeficiency virus [HIV] infection status; Z20.822 Contact with and (suspected) exposure to COVID-19; Z88.5 Allergy status to narcotic agent; Z91.09 Other allergy status, other than to drugs and biological substances
CPT/HCPCS: 85025; 80048; 36415; 80076; 83690; 87804 ×2; 71046; 76705; U0003; J7040; J2405

== ENCOUNTER 2021-04-01 18:26 | Emergency (ER) | payer BC ==
--- OUTSIDE RECORDS SUMMARY | 2021-04-01 18:35 | XMS REPORT | Continuity of Care Document ---
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 Interpretation Comments aspartate aminotransferase (SGOT), 15 1/L 0-40 serum (test code = 1920-8) [facility] Hospitalalkaline phosphatase, [id number] 09:15:00 Test Item Value Reference Range Interpretation Comments alkaline phosphatase, serum (test code 90 1/L 39-117 = 1783-0) [facility] Hospitalbilirubin, serum, [id number] 09:15:00 Test Item Value Reference Range Interpretation Comments bilirubin, serum, total (test code 0.3 mg/dL 0.0-1.2 = 1975-2) [facility] Healthalbum[facility]/globulin [facility], [id number] 09:15:00 Test Item Value Reference Range Interpretation Comments albumin/globulin ratio, 1.6 (unknown unit) 1.2-2.2 serum (test code = 1759-0) [facility] Healthglobulin, [id number] 09:15:00 Test Item Value Reference Range Interpretation Comments globulin, serum (test code 2.7 (unknown unit) 1.5-4.5 = 2336-6) [facility] Healthalbumin, [id number] 09:15:00 Test Item Value Reference Range Interpretation Comments albumin, serum (test code = 1751-7) 4.2 g/dL 3.8-4.9 [facility] Hospitalprotein, total, qsote0488-75-32 09:15:00 Test Item Value Reference Range Interpretation Comments protein, total, serum (test code = 6.9 g/dL 6.0-8.5 2885-2) [facility] Hospitalcalcium, [id number] 09:15:00 Test Item Value Reference Range Interpretation Comments calcium, serum (test code = 1999-8) 9.4 mg/dL 8.7-10.2 [facility] Hospitalcarbon dioxide, venous dxrrs2289-60-70 09:15:00 Test Item Value Reference Range Interpretation Comments carbon dioxide, venous blood (test 25 mmol/L code = 2026-1) [facility] Hospitalchloride, [id number] 09:15:00 Test Item Value Reference Range Interpretation Comments chloride, serum (test code = 101 mmol/L 96-106 5-0) [facility] Hospitalpotassium, [id number] 09:15:00 Test Item Value Reference Range Interpretation Comments potassium, serum (test code = 3.8 mmol/L 3.5-5.2 2823-3) [facility] Hospitalsodium, [id number] 09:15:00 Test Item Value Reference Range Interpretation Comments sodium, serum (test code = 2951-2) 139 mmol/L 134-144 [facility] Hospitalurea nitrogen/creatinine ratio, [id number] 09:15:00 Test Item Value Reference Range Interpretation Comments urea nitrogen/creatinine 19 (unknown unit) 9-23 ratio, serum (test code = 3097-3) [facility] HealtheGFR if Gnwmlpil3632-14-88 09:15:00 Test Item Value Reference Range Interpretation Comments eGFR if 98 mL/min/{1.73 m2} >59 (test code = 59921-5) [facility] HospitalEstimated Glomerular Filtration Rate (calc)2020-04-06 09:15:00 Test Item Value Reference Range Interpretation Comments Estimated Glomerular 85 mL/min/{1.73 m2} >59 Filtration Rate (calc) (test code = 25179-2) [facility] Hospitalcreatinine, [id number] 09:15:00 Test Item Value Reference Range Interpretation Comments creatinine, serum (test code = 0.78 mg/dL 0.57-1.00 2160-0) [facility] Hospitalurea nitrogen, aujxt2886-33-26 09:15:00 Test Item Value Reference Range Interpretation Comments urea nitrogen, blood (test code = 15 mg/dL 6-24 3094-0) [facility] Hospitalblood glucose, ducnsw8305-67-61 09:15:00 Test Item Value Reference Range Interpretation Comments blood glucose, random (test code = 122 mg/dL 65-99 H 2339-0) [facility] Hospitalimmature granulocytes, percentage of total cells, blood 2020-04-06 09:15:00 Test Item Value Reference Range Interpretation Comments immature granulocytes, percentage of 0 % total cells, blood (test code = 10504-3) [facility] Hospitalbasophil count, ilisvgnx6587-66-06 09:15:00 Test Item Value Reference Range Interpretation Comments basophil count, absolute (test 0.0 x10E3/uL 0.0-0.2 code = 06386-9) [facility] HospitalEosinophil Absolute Yguzp8439-74-26 09:15:00 Test Item Value Reference Range Interpretation Comments Eosinophil Absolute Count (test 0.1 X10E3/UL 0.0-0.4 code = 31455-6) [facility] Hospitalmonocyte count, blood, mmrfnitdo0290-31-38 09:15:00 Test Item Value Reference Range Interpretation Comments monocyte count, blood, automated 0.4 X10E3/UL 0.1-0.9 (test code = 742-7) [facility] Hospitallymphocyte count, blood, igdolrwuy2675-02-99 09:15:00 Test Item Value Reference Range Interpretation Comments lymphocyte count, blood, 1.5 X10E3/UL 0.7-3.1 automated (test code = 731-0) [facility] HospitalAbsolute Mjnxikkvest4510-65-17 09:15:00 Test Item Value Reference Range Interpretation Comments Absolute Neutrophils (test code 2.4 X10E3/UL 1.4-7.0 = 08094-4) [facility] Hospitalbasophils as percent of blood ycyadnpxme5538-88-40 09:15:00 Test Item Value Reference Range Interpretation Comments basophils as percent of blood 1 % leukocytes (test code = 707-0) [facility] Hospitaleosinophils as percent of blood rojdkumlpi8769-75-21 09:15:00 Test Item Value Reference Range Interpretation Comments eosinophils as percent of blood 2 % leukocytes (test code = 713-8) [facility] Hospitalmonocytes as percent of blood ufahfbydsu9252-86-72 09:15:00 Test Item Value Reference Range Interpretation Comments monocytes as percent of blood 9 % leukocytes (test code = 5905-5) [facility] Hospitallymphocytes as percent of blood ycecxceemm6006-86-45 09:15:00 Test Item Value Reference Range Interpretation Comments lymphocytes as percent of blood 33 % leukocytes (test code = 736-9) [facility] Hospitalneutrophils as percent of blood cfdtcnomjk2584-05-14 09:15:00 Test Item Value Reference Range Interpretation Comments neutrophils as percent of blood 55 % leukocytes (test code = 770-8) [facility] Hospitalplatelet wnbvb0560-54-10 09:15:00 Test Item Value Reference Range Interpretation Comments platelet count (test code = 295 X10E3/UL 150-450 777-3) [facility] Hospitalred blood cell distribution cnzat7550-92-59 09:15:00 Test Item Value Reference Range Interpretation Comments red blood cell distribution width 12.9 % 11.7-15.4 (test code = 788-0) [facility] Hospitalmean corpuscular hemoglobin concentration, [id number] 09:15:00 Test Item Value Reference Range Interpretation Comments mean corpuscular hemoglobin 33.3 G/DL 31.5-35.7 concentration, RBC (test code = 786-4) [facility] Hospitalmean corpuscular hemoglobin, [id number] 09:15:00 Test Item Value Reference Range Interpretation Comments mean corpuscular hemoglobin, RBC 31.6 pg 26.6-33.0 (test code = 785-6) [facility] corpus[facility], [id number] 09:15:00 Test Item Value Reference Range Interpretation Comments mean corpuscular volume, RBC (test code 95 fL 79-97 = 787-2) [facility] Hospitalhematocrit, ltjln8968-05-47 09:15:00 Test Item Value Reference Range Interpretation Comments hematocrit, blood (test code = 4544-3) 37.5 % 34.0-46.6 [facility] Hospitalhemoglobin, [id number] 09:15:00 Test Item Value Reference Range Interpretation Comments hemoglobin, blood (test code = 12.5 g/dL 11.1-15.9 718-7) [facility] Hospitalerythrocyte (RBC) yxeeq5374-87-01 09:15:00 Test Item Value Reference Range Interpretation Comments erythrocyte (RBC) count (test 3.95 X10E6/UL 3.77-5.28 code = 789-8) [facility] reagin antibody, [id number] 09:41:00 Test Item Value Reference Range Interpretation Comments rapid plasma reagin antibody, Non Reactive Non Reactive serum (test code = 5291-0) [facility] Hospitalhemoglobin A1C, blood, as % of total pkqrxqkmyn6850-63-58 09:41:00 Test Item Value Reference Range Interpretation Comments hemoglobin A1C, blood, as % of total 7.1 % 4.8-5.6 H hemoglobin (test code = 4548-4) [facility] HospitalLDL cholesterol, [id number] 09:41:00 Test Item Value Reference Range Interpretation Comments LDL cholesterol, serum (test code = 136 mg/dL 0-99 H 2088-1) [facility] low density hjhkjuovzhrf9851-67-29 09:41:00 Test Item Value Reference Range Interpretation Comments very low density lipoproteins (test 14 mg/dL 5-40 code = 2091-7) [facility] HospitalHDL cholesterol, mkggy2776-53-03 09:41:00 Test Item Value Reference Range Interpretation Comments HDL cholesterol, serum (test code = 59 mg/dL >39 5-9) [facility] Hospitaltriglyceride, serum, llomegd7553-61-36 09:41:00 Test Item Value Reference Range Interpretation Comments triglyceride, serum, fasting (test 72 mg/dL 0-149 code = 2571-8) [facility] Hospitalcholesterol, faxsg2812-89-29 09:41:00 Test Item Value Reference Range Interpretation Comments cholesterol, serum (test code = 209 mg/dL 100-199 H 3-3) [facility] Hospitalalanine aminotransferase (SGPT), cxrmb7014-49-68 09:41:00 Test Item Value Reference Range Interpretation Comments alanine aminotransferase (SGPT), serum 16 1/L 0-32 (test code = 1742-6) [facility] Hospitalaspartate aminotransferase (SGOT), aytbb6581-04-52 09:41:00 Test Item Value Reference Range Interpretation Comments aspartate aminotransferase (SGOT), 17 1/L 0-40 serum (test code = 1920-8) [facility] Hospitalalkaline phosphatase, wmijt6087-52-19 09:41:00 Test Item Value Reference Range Interpretation Comments alkaline phosphatase, serum (test code 93 1/L 39-117 = 1783-0) [facility] Hospitalbilirubin, serum, cimzl1162-56-01 09:41:00 Test Item Value Reference Range Interpretation Comments bilirubin, serum, total (test code 0.3 mg/dL 0.0-1.2 = 1975-2) [facility] Hospitalalbumin/globulin ratio, scsdv4860-55-34 09:41:00 Test Item Value Reference Range Interpretation Comments albumin/globulin ratio, 1.9 (unknown unit) 1.2-2.2 serum (test code = 1759-0) [facility] Hospitalglobulin, sqlwd8602-54-04 09:41:00 Test Item Value Reference Range Interpretation Comments globulin, serum (test code 2.4 (unknown unit) 1.5-4.5 = 2336-6) [facility] Hospitalalbumin, lrrbv3393-13-22 09:41:00 Test Item Value Reference Range Interpretation Comments albumin, serum (test code = 1751-7) 4.5 g/dL 3.8-4.9 [facility] Healthprotein, total, egwzd4020-05-48 09:41:00 Test Item Value Reference Range Interpretation Comments protein, total, serum (test code = 6.9 g/dL 6.0-8.5 2885-2) [facility] Hospitalcalcium, aslad2457-74-66 09:41:00 Test Item Value Reference Range Interpretation Comments calcium, serum (test code = 1999-) 9.7 mg/dL 8.7-10.2 [facility] Hospitalcarbon dioxide, venous fmejg8259-95-04 09:41:00 Test Item Value Reference Range Interpretation Comments carbon dioxide, venous blood (test 24 mmol/L code = 2027-1) [facility] Hospitalchloride, gkraq3714-17-16 09:41:00 Test Item Value Reference Range Interpretation Comments chloride, serum (test code = 104 mmol/L 96-106 5-0) [facility] Hospitalpotassium, fdjvi8403-33-52 09:41:00 Test Item Value Reference Range Interpretation Comments potassium, serum (test code = 4.3 mmol/L 3.5-5.2 2823-3) [facility] Hospitalsodium, wquon0863-34-23 09:41:00 Test Item Value Reference Range Interpretation Comments sodium, serum (test code = 2951-2) 143 mmol/L 134-144 [facility] Hospitalurea nitrogen/creatinine ratio, xttvy9374-32-22 09:41:00 Test Item Value Reference Range Interpretation Comments urea nitrogen/creatinine 18 (unknown unit) 9-23 ratio, serum (test code = 3097-3) [facility] HealtheGFR if Ruropzzr1127-73-79 09:41:00 Test Item Value Reference Range Interpretation Comments eGFR if 95 mL/min/{1.73 m2} >59 (test code = 98031-9) [facility] HospitalEstimated Glomerular Filtration Rate (calc)2019-08-16 09:41:00 Test Item Value Reference Range Interpretation Comments Estimated Glomerular 82 mL/min/{1.73 m2} >59 Filtration Rate (calc) (test code = 74090-0) [facility] Hospitalcreatinine, [id number] 09:41:00 Test Item Value Reference Range Interpretation Comments creatinine, serum (test code = 0.80 mg/dL 0.57-1.00 2160-0) [facility] Healthurea nitrogen, zrqwy4431-81-23 09:41:00 Test Item Value Reference Range Interpretation Comments urea nitrogen, blood (test code = 14 mg/dL 6-24 3094-0) [facility] Hospitalblood glucose, mutprq6816-06-09 09:41:00 Test Item Value Reference Range Interpretation Comments blood glucose, random (test code = 115 mg/dL 65-99 H 2339-0) [facility] Hospitalimmature granulocytes, percentage of total cells, blood 2019-08-16 09:41:00 Test Item Value Reference Range Interpretation Comments immature granulocytes, percentage of 0 % total cells, blood (test code = 05464-6) [facility] Hospitalbasophil count, xtfevmgy2438-58-07 09:41:00 Test Item Value Reference Range Interpretation Comments basophil count, absolute (test 0.0 x10E3/uL 0.0-0.2 code = 65003-8) [facility] HospitalEosinophil Absolute [id number] 09:41:00 Test Item Value Reference Range Interpretation Comments Eosinophil Absolute Count (test 0.1 X10E3/UL 0.0-0.4 code = 74128-2) [facility] Hospitalmonocyte count, blood, bxfijvzqu9411-70-21 09:41:00 Test Item Value Reference Range Interpretation Comments monocyte count, blood, automated 0.3 X10E3/UL 0.1-0.9 (test code = 742-7) [facility] Hospitallymphocyte count, blood, fikrpyooc4492-28-82 09:41:00 Test Item Value Reference Range Interpretation Comments lymphocyte count, blood, 1.8 X10E3/UL 0.7-3.1 automated (test code = 731-0) [facility] HospitalAbsolute Iqfqihsboal4569-99-21 09:41:00 Test Item Value Reference Range Interpretation Comments Absolute Neutrophils (test code 2.2 X10E3/UL 1.4-7.0 = 38760-8) [facility] Hospitalbasophils as percent of blood tggfdqpgfk1394-70-40 09:41:00 Test Item Value Reference Range Interpretation Comments basophils as percent of blood 1 % leukocytes (test code = 707-0) [facility] Hospitaleosinophils as percent of blood memmwmdfzs3043-00-18 09:41:00 Test Item Value Reference Range Interpretation Comments eosinophils as percent of blood 3 % leukocytes (test code = 713-8) [facility] Healthmonocytes as percent of blood ptxnqqvlic0426-35-94 09:41:00 Test Item Value Reference Range Interpretation Comments monocytes as percent of blood 7 % leukocytes (test code = 5905-5) [facility] Hospitallymphocytes as percent of blood qstiybezjq9984-57-30 09:41:00 Test Item Value Reference Range Interpretation Comments lymphocytes as percent of blood 41 % leukocytes (test code = 736-9) [facility] Hospitalneutrophils as percent of blood hbrjajkvrs5565-00-75 09:41:00 Test Item Value Reference Range Interpretation Comments neutrophils as percent of blood 48 % leukocytes (test code = 770-8) [facility] Hospitalplatelet nqvkf5390-09-55 09:41:00 Test Item Value Reference Range Interpretation Comments platelet count (test code = 311 X10E3/UL 150-450 777-3) [facility] Hospitalred blood cell distribution fcdpw0871-60-43 09:41:00 Test Item Value Reference Range Interpretation Comments red blood cell distribution width 14.4 % 11.7-15.4 (test code = 788-0) [facility] corpuscular hemoglobin concentration, [id number] 09:41:00 Test Item Value Reference Range Interpretation Comments mean corpuscular hemoglobin 31.1 G/DL 31.5-35.7 L concentration, RBC (test code = 786-4) [facility] corpuscular hemoglobin, [id number] 09:41:00 Test Item Value Reference Range Interpretation Comments mean corpuscular hemoglobin, RBC 30.6 pg 26.6-33.0 (test code = 785-6) [facility] corpuscular volume, [id number] 09:41:00 Test Item Value Reference Range Interpretation Comments mean corpuscular volume, RBC (test code 99 fL 79-97 H = 787-2) [facility] Hospitalhematocrit, armtk7734-21-82 09:41:00 Test Item Value Reference Range Interpretation Comments hematocrit, blood (test code = 4544-3) 40.2 % 34.0-46.6 [facility] Hospitalhemoglobin, aybej0297-50-35 09:41:00 Test Item Value Reference Range Interpretation Comments hemoglobin, blood (test code = 12.5 g/dL 11.1-15.9 718-7) [facility] Hospitalerythrocyte (RBC) vbwlu4625-86-71 09:41:00 Test Item Value Reference Range Interpretation Comments erythrocyte (RBC) count (test 4.08 X10E6/UL 3.77-5.28 code = 789-8) [facility] Hospitalleukocyte count, yauea9874-92-55 09:41:00 Test Item Value Reference Range Interpretation Comments leukocyte count, blood (test 4.5 X10E3/UL 3.4-10.8 code = 6690-2) [facility] HospitalT-helper cells (CD4) as percent of blood lymphocytes 2019-08-16 09:41:00 Test Item Value Reference Range Interpretation Comments T-helper cells (CD4) as percent of 43.5 % 30.8-58.5 blood lymphocytes (test code = 8123-2) [facility] HospitalT-helper cells (CD4) wdnpi1142-45-95 09:41:00 Test Item Value Reference Range Interpretation Comments T-helper cells (CD4) count (test code 783 /UL 359-1519 = 48401-2) [facility] HospitalHIV-1RNA, serum, by PCR, ycgatumrhehy3550-58-11 09:41:00 Test Item Value Reference Range Interpretation Comments HIV-1RNA, serum, by PCR, <20 copies/mL quantitative (test code = 27497) [facility] HospitalCD4/CD8 tcrrn2142-54-42 09:41:00 Test Item Value Reference Range Interpretation Comments CD4/CD8 ratio (test code 1.78 (unknown unit) 0.92-3.72 = 80387) [facility] HospitalT-suppressor cells (CD8) as percent of blood lymphocytes 2019-08-16 09:41:00 Test Item Value Reference Range Interpretation Comments T-suppressor cells (CD8) as percent of 24.4 % 12.0-35.5 blood lymphocytes (test code = 3517) [facility] Hospitalabsolute [id number] 09:41:00 Test Item Value Reference Range Interpretation Comments absolute CD8 (test code = 439 (unknown unit) [phone]) [facility] Hospitalmicroalbumin/creatinine ratio, rfxxw9089-42-24 15:32:00 Test Item Value Reference Range Interpretation Comments microalbumin/creatinine ratio, 54 MG/G CREAT 0-29 H urine (test code = 39894-9) [facility] Hospitalmicroalbumin/total urine vcrczg6796-11-93 15:32:00 Test Item Value Reference Range Interpretation Comments microalbumin/total urine volume 79.8 mg/L (test code = 24999-1) [facility] Hospitalcreatinine, random, dwkbo6532-24-97 15:32:00 Test Item Value Reference Range Interpretation Comments creatinine, random, urine (test 148.6 mg/dL code = 2161-8) [facility] Hospitalrapid plasma reagin antibody, ddago1116-16-09 15:32:00 Test Item Value Reference Range Interpretation Comments rapid plasma reagin antibody, Non Reactive Non Reactive serum (test code = 5291-0) [facility] Hospitalhemoglobin A1C, blood, as % of total pxxcpjjcba7540-22-47 15:32:00 Test Item Value Reference Range Interpretation Comments hemoglobin A1C, blood, as % of total 7.1 % 4.8-5.6 H hemoglobin (test code = 4548-4) [facility] HospitalLDL cholesterol, jhpws1231-70-01 15:32:00 Test Item Value Reference Range Interpretation Comments LDL cholesterol, serum (test code = 125 mg/dL 0-99 H 2088-1) [facility] Hospitalvery low density kfesxueqcnft5440-37-85 15:32:00 Test Item Value Reference Range Interpretation Comments very low density lipoproteins (test 24 mg/dL 5-40 code = 2091-7) [facility] HospitalHDL cholesterol, torac9466-03-37 15:32:00 Test Item Value Reference Range Interpretation Comments HDL cholesterol, serum (test code = 63 mg/dL >39 2084-9) [facility] Hospitaltriglyceride, serum, cqjwcsk8673-52-80 15:32:00 Test Item Value Reference Range Interpretation Comments triglyceride, serum, fasting (test 122 mg/dL 0-149 code = 2571-8) [facility] Hospitalcholesterol, owxpa6700-11-08 15:32:00 Test Item Value Reference Range Interpretation Comments cholesterol, serum (test code = 212 mg/dL 100-199 H 2093-3) [facility] Healthalanine aminotransferase (SGPT), quqyr6089-12-52 15:32:00 Test Item Value Reference Range Interpretation Comments alanine aminotransferase (SGPT), serum 12 1/L 0-32 (test code = 1742-6) [facility] Hospitalaspartate aminotransferase (SGOT), tvqga7612-22-04 15:32:00 Test Item Value Reference Range Interpretation Comments aspartate aminotransferase (SGOT), 14 1/L 0-40 serum (test code = 1920-8) [facility] Hospitalalkaline phosphatase, ulofr4719-19-82 15:32:00 Test Item Value Reference Range Interpretation Comments alkaline phosphatase, serum (test code 85 1/L 39-117 = 1783-0) [facility], [id number] 15:32:00 Test Item Value Reference Range Interpretation Comments bilirubin, serum, total (test code 0.2 mg/dL 0.0-1.2 = 1975-2) [facility]albumin/globulin ratio, [id number] 15:32:00 Test Item Value Reference Range Interpretation Comments albumin/globulin ratio, 1.5 (unknown unit) 1.2-2.2 serum (test code = 1759-0) [facility] Healthglob[facility], [id number] 15:32:00 Test Item Value Reference Range Interpretation Comments globulin, serum (test code 2.9 (unknown unit) 1.5-4.5 = 2336-6) [facility] Healthalbumin, [id number] 15:32:00 Test Item Value Reference Range Interpretation Comments albumin, serum (test code = 1751-7) 4.4 g/dL 3.8-4.9 [facility]protein, total, snjle5874-59-22 15:32:00 Test Item Value Reference Range Interpretation Comments protein, total, serum (test code = 7.3 g/dL 6.0-8.5 2885-2) [facility]calcium, [id number] 15:32:00 Test Item Value Reference Range Interpretation Comments calcium, serum (test code = 1999-8) 9.6 mg/dL 8.7-10.2 [facility]carbon dioxide, venous movaf2070-62-27 15:32:00 Test Item Value Reference Range Interpretation Comments carbon dioxide, venous blood (test 25 mmol/L code = 2027-1) [facility]chloride, [id number] 15:32:00 Test Item Value Reference Range Interpretation Comments chloride, serum (test code = 104 mmol/L 96-106 2075-0) [facility] Healthpotassium, [id number] 15:32:00 Test Item Value Reference Range Interpretation Comments potassium, serum (test code = 4.2 mmol/L 3.5-5.2 2823-3) [facility]alsodium, lfwam4051-29-19 15:32:00 Test Item Value Reference Range Interpretation Comments sodium, serum (test code = 2951-2) 143 mmol/L 134-144 [facility] Hospitalurea nitrogen/creatinine ratio, zqwoc0129-35-38 15:32:00 Test Item Value Reference Range Interpretation Comments urea nitrogen/creatinine 15 (unknown unit) 9-23 ratio, serum (test code = 3097-3) [facility] HospitaleGFR if Titnccpt6226-91-98 15:32:00 Test Item Value Reference Range Interpretation Comments eGFR if 89 mL/min/{1.73 m2} >59 (test code = 54205-6) [facility] HospitalEstimated Glomerular Filtration Rate (calc)2019-05-15 15:32:00 Test Item Value Reference Range Interpretation Comments Estimated Glomerular 77 mL/min/{1.73 m2} >59 Filtration Rate (calc) (test code = 88525-2) [facility]creatinine, [id number] 15:32:00 Test Item Value Reference Range Interpretation Comments creatinine, serum (test code = 0.85 mg/dL 0.57-1.00 2160-0) [facility] Hospitalurea nitrogen, mgipt7027-16-59 15:32:00 Test Item Value Reference Range Interpretation Comments urea nitrogen, blood (test code = 13 mg/dL 6-24 3094-0) [facility]blood glucose, vzvwpj1883-28-84 15:32:00 Test Item Value Reference Range Interpretation Comments blood glucose, random (test code = 93 mg/dL 65-99 2339-0) [facility] Hospitalimmature granulocytes, percentage of total cells, blood 2019-05-15 15:32:00 Test Item Value Reference Range Interpretation Comments immature granulocytes, percentage of 0 % total cells, blood (test code = 30296-0) [facility] Healthbasophil count, gdqrkgsw8306-78-88 15:32:00 Test Item Value Reference Range Interpretation Comments basophil count, absolute (test 0.0 x10E3/uL 0.0-0.2 code = 81038-7) [facility] HealthEosinophil Absolute Rymzr9433-37-22 15:32:00 Test Item Value Reference Range Interpretation Comments Eosinophil Absolute Count (test 0.1 X10E3/UL 0.0-0.4 code = 33224-2) [facility] Healthmonocyte count, blood, icdpzttfl5357-78-72 15:32:00 Test Item Value Reference Range Interpretation Comments monocyte count, blood, automated 0.5 X10E3/UL 0.1-0.9 (test code = 742-7) [facility]allymphocyte count, blood, ektztyfvn2428-89-97 15:32:00 Test Item Value Reference Range Interpretation Comments lymphocyte count, blood, 2.1 X10E3/UL 0.7-3.1 automated (test code = 731-0) [facility] HospitalAbsolute Zxlrneuoect1638-47-22 15:32:00 Test Item Value Reference Range Interpretation Comments Absolute Neutrophils (test code 2.4 X10E3/UL 1.4-7.0 = 33191-2) [facility] Healthbasophils as percent of blood rinegpzuup8281-50-91 15:32:00 Test Item Value Reference Range Interpretation Comments basophils as percent of blood 1 % leukocytes (test code = 707-0) [facility] Healtheosinophils as percent of blood yqwbffggtu7736-01-69 15:32:00 Test Item Value Reference Range Interpretation Comments eosinophils as percent of blood 2 % leukocytes (test code = 713-8) [facility] Healthmonocytes as percent of blood ymrpzpvvgi1739-95-49 15:32:00 Test Item Value Reference Range Interpretation Comments monocytes as percent of blood 10 % leukocytes (test code = 5905-5) [facility] Hospitallymphocytes as percent of blood yvkhaqswkv5250-97-91 15:32:00 Test Item Value Reference Range Interpretation Comments lymphocytes as percent of blood 41 % leukocytes (test code = 736-9) [facility] Hospitalneutrophils as percent of blood kalmijoyaw0145-68-58 15:32:00 Test Item Value Reference Range Interpretation Comments neutrophils as percent of blood 46 % leukocytes (test code = 770-8) [facility] Hospitalplatelet hptcl6770-18-01 15:32:00 Test Item Value Reference Range Interpretation Comments platelet count (test code = 356 X10E3/UL 150-450 777-3) [facility] Hospitalred blood cell distribution kongv7455-69-08 15:32:00 Test Item Value Reference Range Interpretation Comments red blood cell distribution width 13.3 % 11.7-15.4 (test code = 788-0) [facility] corpuscular hemoglobin concentration, [id number] 15:32:00 Test Item Value Reference Range Interpretation Comments mean corpuscular hemoglobin 33.1 G/DL 31.5-35.7 concentration, RBC (test code = 786-4) [facility] corpuscular hemoglobin, [id number] 15:32:00 Test Item Value Reference Range Interpretation Comments mean corpuscular hemoglobin, RBC 31.2 pg 26.6-33.0 (test code = 785-6) [facility] corpuscular volume, [id number] 15:32:00 Test Item Value Reference Range Interpretation Comments mean corpuscular volume, RBC (test code 94 fL 79-97 = 787-2) [facility] Hospitalhematocrit, xllfe6178-96-03 15:32:00 Test Item Value Reference Range Interpretation Comments hematocrit, blood (test code = 4544-3) 37.8 % 34.0-46.6 [facility] Hospitalhemoglobin, glnue9266-07-75 15:32:00 Test Item Value Reference Range Interpretation Comments hemoglobin, blood (test code = 12.5 g/dL 11.1-15.9 718-7) [facility] Hospitalerythrocyte (RBC) zesho6484-63-35 15:32:00 Test Item Value Reference Range Interpretation Comments erythrocyte (RBC) count (test 4.01 X10E6/UL 3.77-5.28 code = 789-8) [facility] Hospitalleukocyte count, rnnim2751-88-61 15:32:00 Test Item Value Reference Range Interpretation Comments leukocyte count, blood (test 5.1 X10E3/UL 3.4-10.8 code = 6690-2) [facility] HospitalT-helper cells (CD4) as percent of blood lymphocytes 2019-05-15 15:32:00 Test Item Value Reference Range Interpretation Comments T-helper cells (CD4) as percent of 45.1 % 30.8-58.5 blood lymphocytes (test code = 8123-2) [facility] HospitalT-helper cells (CD4) bfzbt9459-71-09 15:32:00 Test Item Value Reference Range Interpretation Comments T-helper cells (CD4) count (test code 947 /UL 359-1519 = 00318-2) [facility] HospitalHIV-1RNA, serum, by PCR, plzclrjraxrs1241-75-28 15:32:00 Test Item Value Reference Range Interpretation Comments HIV-1RNA, serum, by PCR, <20 copies/mL quantitative (test code = 82478) [facility] HospitalCD4/CD8 thiin3954-01-16 15:32:00 Test Item Value Reference Range Interpretation Comments CD4/CD8 ratio (test code 1.98 (unknown unit) 0.92-3.72 = 64052) [facility] HospitalT-suppressor cells (CD8) as percent of blood lymphocytes 2019-05-15 15:32:00 Test Item Value Reference Range Interpretation Comments T-suppressor cells (CD8) as percent of 22.8 % 12.0-35.5 blood lymphocytes (test code = 3517) [facility] Hospitalabsolute [id number] 15:32:00 Test Item Value Reference Range Interpretation Comments absolute CD8 (test code = 479 (unknown unit) [phone]) [facility] Hospitalmicroalbumin/creatinine ratio, kdqsq6432-72-75 14:28:00 Test Item Value Reference Range Interpretation Comments microalbumin/creatinine 25.4 MG/G CREAT 0.0-30.0 ratio, urine (test code = 59994-2) [facility] Hospitalmicroalbumin/total urine cpbfjn6042-76-14 14:28:00 Test Item Value Reference Range Interpretation Comments microalbumin/total urine volume 41.1 mg/L (test code = 58308-0) [facility] Hospitalcreatinine, random, kjyxk0536-85-39 14:28:00 Test Item Value Reference Range Interpretation Comments creatinine, random, urine (test 161.5 mg/dL code = 2161-8) [facility] Hospitalblood glucose, dpucyv1024-62-95 14:09:19 Test Item Value Reference Range Interpretation Comments blood glucose, random (test code = 131 mg/dL 2339-0) [facility] Hospitalrapid plasma reagin antibody, dplek0940-10-35 10:22:00 Test Item Value Reference Range Interpretation Comments rapid plasma reagin antibody, Non Reactive Non Reactive serum (test code = 5291-0) [facility] Hospitalhemoglobin A1C, blood, as % of total drgwfddknx6445-86-33 10:22:00 Test Item Value Reference Range Interpretation Comments hemoglobin A1C, blood, as % of total 6.5 % 4.8-5.6 H hemoglobin (test code = 4548-4) [facility] HospitalLDL cholesterol, [id number] 10:22:00 Test Item Value Reference Range Interpretation Comments LDL cholesterol, serum (test code = 175 mg/dL 0-99 H 2088-04) [facility] Hospitalvery low density rwaikrfnaktg9975-89-91 10:22:00 Test Item Value Reference Range Interpretation Comments very low density lipoproteins (test 13 mg/dL 5-40 code = 2091-7) [facility] HospitalHDL cholesterol, sdcag8645-20-01 10:22:00 Test Item Value Reference Range Interpretation Comments HDL cholesterol, serum (test code = 69 mg/dL >39 2084-9) [facility] Hospitaltriglyceride, serum, [id number] 10:22:00 Test Item Value Reference Range Interpretation Comments triglyceride, serum, fasting (test 67 mg/dL 0-149 code = 2571-8) [facility] Hospitalcholesterol, [id number] 10:22:00 Test Item Value Reference Range Interpretation Comments cholesterol, serum (test code = 257 mg/dL 100-199 H 2092-3) [facility] Hospitalalanine aminotransferase (SGPT), qorbb4130-08-79 10:22:00 Test Item Value Reference Range Interpretation Comments alanine aminotransferase (SGPT), serum 24 1/L 0-32 (test code = 1742-6) [facility] Healthaspartate aminotransferase (SGOT), oxnoo6577-74-80 10:22:00 Test Item Value Reference Range Interpretation Comments aspartate aminotransferase (SGOT), 21 1/L 0-40 serum (test code = 1920-8) [facility] Hospitalalkaline phosphatase, pejyg6314-97-85 10:22:00 Test Item Value Reference Range Interpretation Comments alkaline phosphatase, serum (test code 92 1/L 39-117 = 1783-0) [facility] Hospitalbilirubin, serum, [id number] 10:22:00 Test Item Value Reference Range Interpretation Comments bilirubin, serum, total (test code 0.3 mg/dL 0.0-1.2 = 1975-2) [facility] Healthalbumin/globulin ratio, zglgd3498-97-85 10:22:00 Test Item Value Reference Range Interpretation Comments albumin/globulin ratio, 1.4 (unknown unit) 1.2-2.2 serum (test code = 1759-0) [facility] Healthglobulin, wisih0286-94-65 10:22:00 Test Item Value Reference Range Interpretation Comments globulin, serum (test code 3.2 (unknown unit) 1.5-4.5 = 2336-6) [facility] Healthalbumin, dubho9624-22-04 10:22:00 Test Item Value Reference Range Interpretation Comments albumin, serum (test code = 1751-7) 4.6 g/dL 3.5-5.5 [facility] Hospitalprotein, total, [id number] 10:22:00 Test Item Value Reference Range Interpretation Comments protein, total, serum (test code = 7.8 g/dL 6.0-8.5 2885-2) [facility] Hospitalcalcium, oqnyr6428-48-01 10:22:00 Test Item Value Reference Range Interpretation Comments calcium, serum (test code = 10.0 mg/dL 8.7-10.2 1999-8) [facility] Hospitalcarbon dioxide, venous iapwu5221-61-19 10:22:00 Test Item Value Reference Range Interpretation Comments carbon dioxide, venous blood (test 22 mmol/L 20-29 code = 7-1) [facility] Hospitalchloride, jsscd4952-05-40 10:22:00 Test Item Value Reference Range Interpretation Comments chloride, serum (test code = 102 mmol/L 96-106 2075-0) [facility] Healthpotassium, yvhfw4636-38-42 10:22:00 Test Item Value Reference Range Interpretation Comments potassium, serum (test code = 4.2 mmol/L 3.5-5.2 2823-3) [facility]alsodium, yypjl4786-39-34 10:22:00 Test Item Value Reference Range Interpretation Comments sodium, serum (test code = 2951-2) 141 mmol/L 134-144 [facility] Hospitalurea nitrogen/creatinine ratio, wgjbx3683-66-54 10:22:00 Test Item Value Reference Range Interpretation Comments urea nitrogen/creatinine 22 (unknown unit) 9-23 ratio, serum (test code = 3097-3) [facility] HealtheGFR if Bevmtkbo7325-58-01 10:22:00 Test Item Value Reference Range Interpretation Comments eGFR if 97 mL/min/{1.73 m2} >59 (test code = 80837-7) [facility] HospitalEstimated Glomerular Filtration Rate (calc)2018-11-16 10:22:00 Test Item Value Reference Range Interpretation Comments Estimated Glomerular 84 mL/min/{1.73 m2} >59 Filtration Rate (calc) (test code = 43673-3) [facility] Hospitalcreatinine, mrqws2530-13-82 10:22:00 Test Item Value Reference Range Interpretation Comments creatinine, serum (test code = 0.79 mg/dL 0.57-1.00 2160-0) [facility] Hospitalurea nitrogen, zvpem1624-17-54 10:22:00 Test Item Value Reference Range Interpretation Comments urea nitrogen, blood (test code = 17 mg/dL 6-24 3094-0) [facility] Hospitalblood glucose, qrchjl1656-64-70 10:22:00 Test Item Value Reference Range Interpretation Comments blood glucose, random (test code = 122 mg/dL 65-99 H 2339-0) [facility] Hospitalimmature granulocytes, percentage of total cells, blood 2018-11-16 10:22:00 Test Item Value Reference Range Interpretation Comments immature granulocytes, percentage of 0 % total cells, blood (test code = 84736-6) [facility] Hospitalbasophil count, jwmmjpxu2185-54-06 10:22:00 Test Item Value Reference Range Interpretation Comments basophil count, absolute (test 0.0 x10E3/uL 0.0-0.2 code = 63697-8) [facility] HealthEosinophil Absolute [id number] 10:22:00 Test Item Value Reference Range Interpretation Comments Eosinophil Absolute Count (test 0.1 X10E3/UL 0.0-0.4 code = 19065-4) [facility] Hospitalmonocyte count, blood, fbddmcfhe4516-59-29 10:22:00 Test Item Value Reference Range Interpretation Comments monocyte count, blood, automated 0.3 X10E3/UL 0.1-0.9 (test code = 742-7) [facility] Hospitallymphocyte count, blood, byyqdcxsm7651-39-59 10:22:00 Test Item Value Reference Range Interpretation Comments lymphocyte count, blood, 2.0 X10E3/UL 0.7-3.1 automated (test code = 731-0) [facility] HospitalAbsolute Qdlepquvoss8405-73-82 10:22:00 Test Item Value Reference Range Interpretation Comments Absolute Neutrophils (test code 2.1 X10E3/UL 1.4-7.0 = 26013-3) [facility] Hospitalbasophils as percent of blood rascqokmqu5854-37-70 10:22:00 Test Item Value Reference Range Interpretation Comments basophils as percent of blood 1 % leukocytes (test code = 707-0) [facility] Hospitaleosinophils as percent of blood ilkherkcai5692-01-56 10:22:00 Test Item Value Reference Range Interpretation Comments eosinophils as percent of blood 3 % leukocytes (test code = 713-8) [facility] Healthmonocytes as percent of blood nctvofnmqq8861-84-30 10:22:00 Test Item Value Reference Range Interpretation Comments monocytes as percent of blood 7 % leukocytes (test code = 5905-5) [facility] Hospitallymphocytes as percent of blood ialjlfkwol3185-60-10 10:22:00 Test Item Value Reference Range Interpretation Comments lymphocytes as percent of blood 43 % leukocytes (test code = 736-9) [facility] Hospitalneutrophils as percent of blood gjzozkzgdx4652-96-30 10:22:00 Test Item Value Reference Range Interpretation Comments neutrophils as percent of blood 46 % leukocytes (test code = 770-8) [facility] Hospitalplatelet sjgeq1586-79-18 10:22:00 Test Item Value Reference Range Interpretation Comments platelet count (test code = 315 X10E3/UL 150-450 777-3) [facility] Hospitalred blood cell distribution qbfvj5855-57-33 10:22:00 Test Item Value Reference Range Interpretation Comments red blood cell distribution width 14.4 % 12.3-15.4 (test code = 788-0) [facility] corpuscular hemoglobin concentration, [id number] 10:22:00 Test Item Value Reference Range Interpretation Comments mean corpuscular hemoglobin 33.8 G/DL 31.5-35.7 concentration, RBC (test code = 786-4) [facility] corpuscular hemoglobin, [id number] 10:22:00 Test Item Value Reference Range Interpretation Comments mean corpuscular hemoglobin, RBC 32.1 pg 26.6-33.0 (test code = 785-6) [facility] corpuscular volume, [id number] 10:22:00 Test Item Value Reference Range Interpretation Comments mean corpuscular volume, RBC (test code 95 fL 79-97 = 787-2) [facility] Hospitalhematocrit, ijyyh8442-20-47 10:22:00 Test Item Value Reference Range Interpretation Comments hematocrit, blood (test code = 4544-3) 39.6 % 34.0-46.6 [facility] Hospitalhemoglobin, vwzyw5728-87-31 10:22:00 Test Item Value Reference Range Interpretation Comments hemoglobin, blood (test code = 13.4 g/dL 11.1-15.9 718-7) [facility] Hospitalerythrocyte (RBC) typzb2196-25-84 10:22:00 Test Item Value Reference Range Interpretation Comments erythrocyte (RBC) count (test 4.18 X10E6/UL 3.77-5.28 code = 789-8) [facility] Hospitalleukocyte count, xbdut4752-85-43 10:22:00 Test Item Value Reference Range Interpretation Comments leukocyte count, blood (test 4.5 X10E3/UL 3.4-10.8 code = 6690-2) [facility] HospitalT-helper cells (CD4) as percent of blood lymphocytes 2018-11-16 10:22:00 Test Item Value Reference Range Interpretation Comments T-helper cells (CD4) as percent of 39.4 % 30.8-58.5 blood lymphocytes (test code = 8123-2) [facility] HospitalT-helper cells (CD4) fzwrm5833-89-74 10:22:00 Test Item Value Reference Range Interpretation Comments T-helper cells (CD4) count (test code 788 /UL 359-1519 = 90230-6) [facility] HospitalHIV-1RNA, serum, by PCR, blwopghqjmte0392-54-55 10:22:00 Test Item Value Reference Range Interpretation Comments HIV-1RNA, serum, by PCR, <20 copies/mL quantitative (test code = 45416) [facility] HospitalCD4/CD8 qluub8663-62-90 10:22:00 Test Item Value Reference Range Interpretation Comments CD4/CD8 ratio (test code 1.37 (unknown unit) 0.92-3.72 = 50532) [facility] HospitalT-suppressor cells (CD8) as percent of blood lymphocytes 2018-11-16 10:22:00 Test Item Value Reference Range Interpretation Comments T-suppressor cells (CD8) as percent of 28.7 % 12.0-35.5 blood lymphocytes (test code = 3517) [facility] Hospitalabsolute [id number] 10:22:00 Test Item Value Reference Range Interpretation Comments absolute CD8 (test code = 574 (unknown unit) 806-805 62199) [facility] Hospitalrapid plasma reagin antibody, ffsyp7819-25-86 13:14:00 Test Item Value Reference Range Interpretation Comments rapid plasma reagin antibody, Non Reactive Non Reactive serum (test code = 5291-0) [facility] Hospitalhemoglobin A1C, blood, as % of total philsvyalq1829-42-77 13:14:00 Test Item Value Reference Range Interpretation Comments hemoglobin A1C, blood, as % of total 6.5 % 4.8-5.6 H hemoglobin (test code = 4548-4) [facility] HospitalLDL cholesterol, rdghq6038-00-91 13:14:00 Test Item Value Reference Range Interpretation Comments LDL cholesterol, serum (test code = 108 mg/dL 0-99 H 2088-04) [facility] Hospitalvery low density fzrlvisqnmiz2321-30-98 13:14:00 Test Item Value Reference Range Interpretation Comments very low density lipoproteins (test 11 mg/dL 5-40 code = 2091-7) [facility] HospitalHDL cholesterol, hdrbh2784-19-95 13:14:00 Test Item Value Reference Range Interpretation Comments HDL cholesterol, serum (test code = 63 mg/dL >39 5-9) [facility] Hospitaltriglyceride, serum, ngstwfn3207-76-31 13:14:00 Test Item Value Reference Range Interpretation Comments triglyceride, serum, fasting (test 53 mg/dL 0-149 code = 2571-8) [facility] Hospitalcholesterol, zvjyo2601-91-50 13:14:00 Test Item Value Reference Range Interpretation Comments cholesterol, serum (test code = 182 mg/dL 817-120 6602-3) [facility] Hospitalalanine aminotransferase (SGPT), myqrm6537-12-07 13:14:00 Test Item Value Reference Range Interpretation Comments alanine aminotransferase (SGPT), serum 16 1/L 0-32 (test code = 1742-6) [facility] Hospitalaspartate aminotransferase (SGOT), atwun5791-42-57 13:14:00 Test Item Value Reference Range Interpretation Comments aspartate aminotransferase (SGOT), 16 1/L 0-40 serum (test code = 1920-8) [facility] Hospitalalkaline phosphatase, hxtir0172-49-06 13:14:00 Test Item Value Reference Range Interpretation Comments alkaline phosphatase, serum (test code 82 1/L 39-117 = 1783-0) [facility] Hospitalbilirubin, serum, aatux4528-84-75 13:14:00 Test Item Value Reference Range Interpretation Comments bilirubin, serum, total (test code 0.2 mg/dL 0.0-1.2 = 1975-2) [facility] Hospitalalbumin/globulin ratio, dnnob8781-69-69 13:14:00 Test Item Value Reference Range Interpretation Comments albumin/globulin ratio, 1.7 (unknown unit) 1.2-2.2 serum (test code = 1759-0) [facility] Hospitalglobulin, ymduk8896-09-95 13:14:00 Test Item Value Reference Range Interpretation Comments globulin, serum (test code 2.6 (unknown unit) 1.5-4.5 = 2336-6) [facility] Healthalbumin, ahaxk4527-71-37 13:14:00 Test Item Value Reference Range Interpretation Comments albumin, serum (test code = 1751-7) 4.3 g/dL 3.5-5.5 [facility] Hospitalprotein, total, lwove9859-30-09 13:14:00 Test Item Value Reference Range Interpretation Comments protein, total, serum (test code = 6.9 g/dL 6.0-8.5 2885-2) [facility] Hospitalcalcium, gzoqq0626-26-26 13:14:00 Test Item Value Reference Range Interpretation Comments calcium, serum (test code = 1999-8) 9.4 mg/dL 8.7-10.2 [facility] Hospitalcarbon dioxide, venous vxfuz9582-42-38 13:14:00 Test Item Value Reference Range Interpretation Comments carbon dioxide, venous blood (test 23 mmol/L code = 7-1) [facility] Hospitalchloride, xvuys0808-84-80 13:14:00 Test Item Value Reference Range Interpretation Comments chloride, serum (test code = 104 mmol/L 96-106 5-0) [facility] Hospitalpotassium, [id number] 13:14:00 Test Item Value Reference Range Interpretation Comments potassium, serum (test code = 3.6 mmol/L 3.5-5.2 2823-3) [facility] Hospitalsodium, wvgej3614-72-24 13:14:00 Test Item Value Reference Range Interpretation Comments sodium, serum (test code = 2951-2) 142 mmol/L 134-144 [facility] Hospitalurea nitrogen/creatinine ratio, qlzld2660-96-62 13:14:00 Test Item Value Reference Range Interpretation Comments urea nitrogen/creatinine 16 (unknown unit) 9-23 ratio, serum (test code = 3097-3) [facility] HealtheGFR if Xnwysygq1424-47-43 13:14:00 Test Item Value Reference Range Interpretation Comments eGFR if 114 mL/min/{1.73 m2} >59 (test code = 51557-4) [facility] HospitalEstimated Glomerular Filtration Rate (calc)2018-03-09 13:14:00 Test Item Value Reference Range Interpretation Comments Estimated Glomerular 99 mL/min/{1.73 m2} >59 Filtration Rate (calc) (test code = 60435-4) [facility] Healthcreatinine, [id number] 13:14:00 Test Item Value Reference Range Interpretation Comments creatinine, serum (test code = 0.68 mg/dL 0.57-1.00 2160-0) [facility] Hospitalurea nitrogen, [id number] 13:14:00 Test Item Value Reference Range Interpretation Comments urea nitrogen, blood (test code = 11 mg/dL 6-24 3094-0) [facility] Hospitalblood glucose, orinsd9973-40-49 13:14:00 Test Item Value Reference Range Interpretation Comments blood glucose, random (test code = 122 mg/dL 65-99 H 2339-0) [facility] Hospitalimmature granulocytes, percentage of total cells, blood 2018-03-09 13:14:00 Test Item Value Reference Range Interpretation Comments immature granulocytes, percentage of 0 % total cells, blood (test code = 75544-0) [facility] Hospitalbasophil count, hrbkvxzb3761-79-64 13:14:00 Test Item Value Reference Range Interpretation Comments basophil count, absolute (test 0.0 x10E3/uL 0.0-0.2 code = 14262-6) [facility] HospitalEosinophil Absolute Mzhpj3990-09-97 13:14:00 Test Item Value Reference Range Interpretation Comments Eosinophil Absolute Count (test 0.1 X10E3/UL 0.0-0.4 code = 78671-8) [facility] Hospitalmonocyte count, blood, ybysfavpz8436-35-57 13:14:00 Test Item Value Reference Range Interpretation Comments monocyte count, blood, automated 0.5 X10E3/UL 0.1-0.9 (test code = 742-7) [facility] Hospitallymphocyte count, blood, zbwtvcelb8947-95-18 13:14:00 Test Item Value Reference Range Interpretation Comments lymphocyte count, blood, 1.9 X10E3/UL 0.7-3.1 automated (test code = 731-0) [facility] HospitalAbsolute Nmyujepzxcy9738-46-89 13:14:00 Test Item Value Reference Range Interpretation Comments Absolute Neutrophils (test code 3.1 X10E3/UL 1.4-7.0 = 56385-5) [facility] Hospitalbasophils as percent of blood vxrjfikwnb7263-56-81 13:14:00 Test Item Value Reference Range Interpretation Comments basophils as percent of blood 0 % leukocytes (test code = 707-0) [facility] Healtheosinophils as percent of blood knatoogujg5838-85-69 13:14:00 Test Item Value Reference Range Interpretation Comments eosinophils as percent of blood 2 % leukocytes (test code = 713-8) [facility] Healthmonocytes as percent of blood qjxkqkkgbz7702-70-79 13:14:00 Test Item Value Reference Range Interpretation Comments monocytes as percent of blood 9 % leukocytes (test code = 5905-5) [facility] Hospitallymphocytes as percent of blood imrqhnhzoh1351-23-21 13:14:00 Test Item Value Reference Range Interpretation Comments lymphocytes as percent of blood 34 % leukocytes (test code = 736-9) [facility] Hospitalneutrophils as percent of blood clvsiqpdro9576-30-15 13:14:00 Test Item Value Reference Range Interpretation Comments neutrophils as percent of blood 55 % leukocytes (test code = 770-8) [facility] Hospitalplatelet oizqw5451-19-73 13:14:00 Test Item Value Reference Range Interpretation Comments platelet count (test code = 272 X10E3/UL 150-379 777-3) [facility] Hospitalred blood cell distribution kdhzl4586-71-05 13:14:00 Test Item Value Reference Range Interpretation Comments red blood cell distribution width 14.8 % 12.3-15.4 (test code = 788-0) [facility] corpuscular hemoglobin concentration, [id number] 13:14:00 Test Item Value Reference Range Interpretation Comments mean corpuscular hemoglobin 33.7 G/DL 31.5-35.7 concentration, RBC (test code = 786-4) [facility], [id number] 13:14:00 Test Item Value Reference Range Interpretation Comments mean corpuscular hemoglobin, RBC 32.0 pg 26.6-33.0 (test code = 785-6) [facility] corpuscular volume, VRO2403-04-48 13:14:00 Test Item Value Reference Range Interpretation Comments mean corpuscular volume, RBC (test code 95 fL 79-97 = 787-2) [facility] Hospitalhematocrit, yapyv7807-68-22 13:14:00 Test Item Value Reference Range Interpretation Comments hematocrit, blood (test code = 4544-3) 36.5 % 34.0-46.6 [facility] Hospitalhemoglobin, reoby9825-69-40 13:14:00 Test Item Value Reference Range Interpretation Comments hemoglobin, blood (test code = 12.3 g/dL 11.1-15.9 718-7) [facility] Hospitalerythrocyte (RBC) excuj9944-56-96 13:14:00 Test Item Value Reference Range Interpretation Comments erythrocyte (RBC) count (test 3.84 X10E6/UL 3.77-5.28 code = 789-8) [facility] Hospitalleukocyte count, bxqdm3092-54-40 13:14:00 Test Item Value Reference Range Interpretation Comments leukocyte count, blood (test 5.6 X10E3/UL 3.4-10.8 code = 6690-2) [facility] HospitalT-helper cells (CD4) as percent of blood lymphocytes 2018-03-09 13:14:00 Test Item Value Reference Range Interpretation Comments T-helper cells (CD4) as percent of 42.6 % 30.8-58.5 blood lymphocytes (test code = 8123-2) [facility] HospitalT-helper cells (CD4) znqtm2801-81-49 13:14:00 Test Item Value Reference Range Interpretation Comments T-helper cells (CD4) count (test code 809 /UL 359-1519 = 56221-7) [facility] HospitalHIV-1RNA, serum, by PCR, muvsstrixtbl2393-53-28 13:14:00 Test Item Value Reference Range Interpretation Comments HIV-1RNA, serum, by PCR, <20 copies/mL quantitative (test code = 73705) [facility] HospitalCD4/CD8 tyban2567-82-87 13:14:00 Test Item Value Reference Range Interpretation Comments CD4/CD8 ratio (test code 1.63 (unknown unit) 0.92-3.72 = 89203) [facility] HospitalT-suppressor cells (CD8) as percent of blood lymphocytes 2018-03-09 13:14:00 Test Item Value Reference Range Interpretation Comments T-suppressor cells (CD8) as percent of 26.2 % 12.0-35.5 blood lymphocytes (test code = 3517) [facility] Healthabsolute [id number] 13:14:00 Test Item Value Reference Range Interpretation Comments absolute CD8 (test code = 498 (unknown unit) [phone]) [facility] Hospitalmicroalbumin/creatinine ratio, acufi2761-84-15 12:49:00 Test Item Value Reference Range Interpretation Comments microalbumin/creatinine 35.4 MG/G CREAT 0.0-30.0 H ratio, urine (test code = 06433-9) [facility] Hospitalmicroalbumin/total urine pnshlp3237-20-03 12:49:00 Test Item Value Reference Range Interpretation Comments microalbumin/total urine volume 28.4 mg/L (test code = 67056-5) [facility] Hospitalcreatinine, random, phfyd5280-19-34 12:49:00 Test Item Value Reference Range Interpretation Comments creatinine, random, urine (test 80.2 mg/dL code = 2161-8) [facility] Hospitalvitamin D 25-hydroxy, owkpb4162-45-13 11:04:00 Test Item Value Reference Range Interpretation Comments vitamin D 25-hydroxy, serum (test 36.8 ng/mL 30.0-100.0 code = 96364-1) [facility] Hospitalrad plasma reagin antibody, enped7550-99-16 11:04:00 Test Item Value Reference Range Interpretation Comments rapid plasma reagin antibody, Non Reactive Non Reactive serum (test code = 5291-0) [facility] Hospitalhemoglobin A1C, blood, as % of total uwlxoapqym5597-56-19 11:04:00 Test Item Value Reference Range Interpretation Comments hemoglobin A1C, blood, as % of total 6.7 % 4.8-5.6 H hemoglobin (test code = 4548-4) [facility] HospitalLDL cholesterol, nhzil3835-41-31 11:04:00 Test Item Value Reference Range Interpretation Comments LDL cholesterol, serum (test code = 134 mg/dL 0-99 H 2088-1) [facility] low density oacysavgejax5812-36-59 11:04:00 Test Item Value Reference Range Interpretation Comments very low density lipoproteins (test 11 mg/dL 5-40 code = 2091-7) [facility] HospitalHDL cholesterol, czmdd8017-89-41 11:04:00 Test Item Value Reference Range Interpretation Comments HDL cholesterol, serum (test code = 71 mg/dL >39 5-9) [facility] Hospitaltriglyceride, serum, iruoxzs3578-56-05 11:04:00 Test Item Value Reference Range Interpretation Comments triglyceride, serum, fasting (test 56 mg/dL 0-149 code = 2571-8) [facility] Hospitalcholesterol, zunui8060-88-06 11:04:00 Test Item Value Reference Range Interpretation Comments cholesterol, serum (test code = 216 mg/dL 100-199 H 2093-3) [facility] Hospitalalanine aminotransferase (SGPT), uswuv9241-29-10 11:04:00 Test Item Value Reference Range Interpretation Comments alanine aminotransferase (SGPT), serum 12 1/L 0-32 (test code = 1742-6) [facility] Hospitalaspartate aminotransferase (SGOT), zvxac7192-89-78 11:04:00 Test Item Value Reference Range Interpretation Comments aspartate aminotransferase (SGOT), 12 1/L 0-40 serum (test code = 1920-8) [facility] Hospitalalkaline phosphatase, vovje2413-23-89 11:04:00 Test Item Value Reference Range Interpretation Comments alkaline phosphatase, serum (test code 93 1/L 39-117 = 1783-0) [facility] Hospitalbilirubin, serum, polex1744-17-47 11:04:00 Test Item Value Reference Range Interpretation Comments bilirubin, serum, total (test code 0.3 mg/dL 0.0-1.2 = 1975-2) [facility] Hospitalalbumin/globulin ratio, tlbxu4797-57-19 11:04:00 Test Item Value Reference Range Interpretation Comments albumin/globulin ratio, 1.8 (unknown unit) 1.2-2.2 serum (test code = 1759-0) [facility] Healthglobulin, rfchf7918-97-68 11:04:00 Test Item Value Reference Range Interpretation Comments globulin, serum (test code 2.5 (unknown unit) 1.5-4.5 = 2336-6) [facility] Hospitalalbumin, zbigc5118-91-94 11:04:00 Test Item Value Reference Range Interpretation Comments albumin, serum (test code = 1751-7) 4.4 g/dL 3.5-5.5 [facility] Hospitalprotein, total, lsgab6950-03-77 11:04:00 Test Item Value Reference Range Interpretation Comments protein, total, serum (test code = 6.9 g/dL 6.0-8.5 2885-2) [facility] Hospitalcalcium, fqnbl5810-84-84 11:04:00 Test Item Value Reference Range Interpretation Comments calcium, serum (test code = 1999-8) 9.7 mg/dL 8.7-10.2 [facility] Hospitalcarbon dioxide, venous npevs9603-32-62 11:04:00 Test Item Value Reference Range Interpretation Comments carbon dioxide, venous blood (test 26 mmol/L 20-29 code = 2026-1) [facility] Hospitalchloride, xxnqm8102-96-50 11:04:00 Test Item Value Reference Range Interpretation Comments chloride, serum (test code = 100 mmol/L 96-106 5-0) [facility] Hospitalpotassium, mcjzs1555-49-42 11:04:00 Test Item Value Reference Range Interpretation Comments potassium, serum (test code = 4.0 mmol/L 3.5-5.2 2823-3) [facility] Hospitalsodium, ktgvf9237-36-60 11:04:00 Test Item Value Reference Range Interpretation Comments sodium, serum (test code = 2951-2) 140 mmol/L 134-144 [facility] Hospitalurea nitrogen/creatinine ratio, cqdpd9706-46-35 11:04:00 Test Item Value Reference Range Interpretation Comments urea nitrogen/creatinine 20 (unknown unit) 9-23 ratio, serum (test code = 3097-3) [facility] HealtheGFR if Yrivpozj8454-86-86 11:04:00 Test Item Value Reference Range Interpretation Comments eGFR if 96 mL/min/{1.73 m2} >59 (test code = 77742-9) [facility] HospitalEstimated Glomerular Filtration Rate (calc)2017-09-22 11:04:00 Test Item Value Reference Range Interpretation Comments Estimated Glomerular 83 mL/min/{1.73 m2} >59 Filtration Rate (calc) (test code = 51674-1) [facility] Hospitalcreatinine, acdgh6369-01-86 11:04:00 Test Item Value Reference Range Interpretation Comments creatinine, serum (test code = 0.80 mg/dL 0.57-1.00 2160-0) [facility] Healthurea nitrogen, oehja1832-51-56 11:04:00 Test Item Value Reference Range Interpretation Comments urea nitrogen, blood (test code = 16 mg/dL 6-24 3094-0) [facility] Hospitalblood glucose, tionzr0976-80-73 11:04:00 Test Item Value Reference Range Interpretation Comments blood glucose, random (test code = 122 mg/dL 65-99 H 2339-0) [facility] Hospitalimmature granulocytes, percentage of total cells, blood 2017-09-22 11:04:00 Test Item Value Reference Range Interpretation Comments immature granulocytes, percentage of 0 % total cells, blood (test code = 70699-7) [facility] Hospitalbasophil count, ymhkccqe5712-44-56 11:04:00 Test Item Value Reference Range Interpretation Comments basophil count, absolute (test 0.0 x10E3/uL 0.0-0.2 code = 87292-5) [facility] HospitalEosinophil Absolute Ruvro2688-19-79 11:04:00 Test Item Value Reference Range Interpretation Comments Eosinophil Absolute Count (test 0.1 X10E3/UL 0.0-0.4 code = 96091-6) [facility] Hospitalmonocyte count, blood, jfxcyafgt7246-39-32 11:04:00 Test Item Value Reference Range Interpretation Comments monocyte count, blood, automated 0.4 X10E3/UL 0.1-0.9 (test code = 742-7) [facility] Hospitallymphocyte count, blood, teibkxtzj4248-74-99 11:04:00 Test Item Value Reference Range Interpretation Comments lymphocyte count, blood, 1.5 X10E3/UL 0.7-3.1 automated (test code = 731-0) [facility] HospitalAbsolute Cgpzsetjyrq8944-15-56 11:04:00 Test Item Value Reference Range Interpretation Comments Absolute Neutrophils (test code 3.4 X10E3/UL 1.4-7.0 = 13399-4) [facility] Hospitalbasophils as percent of blood pssimorrpx0461-48-27 11:04:00 Test Item Value Reference Range Interpretation Comments basophils as percent of blood 1 % leukocytes (test code = 707-0) [facility] Healtheosinophils as percent of blood widjxksetw6420-35-58 11:04:00 Test Item Value Reference Range Interpretation Comments eosinophils as percent of blood 2 % leukocytes (test code = 713-8) [facility] Healthmonocytes as percent of blood wthoinlgqa9776-19-38 11:04:00 Test Item Value Reference Range Interpretation Comments monocytes as percent of blood 7 % leukocytes (test code = 5905-5) [facility] Hospitallymphocytes as percent of blood psqnmmtbam8337-32-10 11:04:00 Test Item Value Reference Range Interpretation Comments lymphocytes as percent of blood 28 % leukocytes (test code = 736-9) [facility] Healthneutrophils as percent of blood dykilswkgv4626-00-50 11:04:00 Test Item Value Reference Range Interpretation Comments neutrophils as percent of blood 62 % leukocytes (test code = 770-8) [facility] Hospitalplatelet tlokw6386-21-32 11:04:00 Test Item Value Reference Range Interpretation Comments platelet count (test code = 268 X10E3/UL 150-379 777-3) [facility] Hospitalred blood cell distribution plnbl4489-88-37 11:04:00 Test Item Value Reference Range Interpretation Comments red blood cell distribution width 16.2 % 12.3-15.4 H (test code = 788-0) [facility] corpuscular hemoglobin concentration, CLS6989-01-73 11:04:00 Test Item Value Reference Range Interpretation Comments mean corpuscular hemoglobin 34.0 G/DL 31.5-35.7 concentration, RBC (test code = 786-4) [facility] corpuscular hemoglobin, [id number] 11:04:00 Test Item Value Reference Range Interpretation Comments mean corpuscular hemoglobin, RBC 31.9 pg 26.6-33.0 (test code = 785-6) [facility] corpuscular volume, [id number] 11:04:00 Test Item Value Reference Range Interpretation Comments mean corpuscular volume, RBC (test code 94 fL 79-97 = 787-2) [facility] Hospitalhematocrit, ghcjp0342-14-09 11:04:00 Test Item Value Reference Range Interpretation Comments hematocrit, blood (test code = 4544-3) 37.9 % 34.0-46.6 [facility] Hospitalhemoglobin, gykph2591-71-05 11:04:00 Test Item Value Reference Range Interpretation Comments hemoglobin, blood (test code = 12.9 g/dL 11.1-15.9 718-7) [facility] Hospitalerythrocyte (RBC) qengt4741-77-58 11:04:00 Test Item Value Reference Range Interpretation Comments erythrocyte (RBC) count (test 4.04 X10E6/UL 3.77-5.28 code = 789-8) [facility] Hospitalleukocyte count, rcsis8510-65-11 11:04:00 Test Item Value Reference Range Interpretation Comments leukocyte count, blood (test 5.4 X10E3/UL 3.4-10.8 code = 6690-2) [facility] HospitalT-helper cells (CD4) as percent of blood lymphocytes 2017-09-22 11:04:00 Test Item Value Reference Range Interpretation Comments T-helper cells (CD4) as percent of 40.6 % 30.8-58.5 blood lymphocytes (test code = 8123-2) [facility] HospitalT-helper cells (CD4) vgrdk2974-76-87 11:04:00 Test Item Value Reference Range Interpretation Comments T-helper cells (CD4) count (test code 609 /UL 359-1519 = 51280-5) [facility] Hospitalmicroalbumin/total urine jjztlg1313-54-49 11:04:00 Test Item Value Reference Range Interpretation Comments microalbumin/total urine volume 39.5 mg/L (test code = 96651-0) [facility] Hospitalcreatinine, random, diecb3655-62-36 11:04:00 Test Item Value Reference Range Interpretation Comments creatinine, random, urine (test 116.0 mg/dL code = 2161-8) [facility] HospitalHIV-1RNA, serum, by PCR, rvmukyqejewu3977-20-43 11:04:00 Test Item Value Reference Range Interpretation Comments HIV-1RNA, serum, by PCR, <20 copies/mL quantitative (test code = 72273) [facility] HospitalCD4/CD8 snpwh2808-31-49 11:04:00 Test Item Value Reference Range Interpretation Comments CD4/CD8 ratio (test code 1.68 (unknown unit) 0.92-3.72 = 03049) [facility] HospitalT-suppressor cells (CD8) as percent of blood lymphocytes 2017-09-22 11:04:00 Test Item Value Reference Range Interpretation Comments T-suppressor cells (CD8) as percent of 24.2 % 12.0-35.5 blood lymphocytes (test code = 3517) [facility] Hospitalabsolute [id number] 11:04:00 Test Item Value Reference Range Interpretation Comments absolute CD8 (test code = 363 (unknown unit) [phone]) [facility] HospitalNeisseria gonorrhoeae DNA xaunw9958-08-01 11:12:00 Test Item Value Reference Range Interpretation Comments Neisseria gonorrhoeae DNA probe Negative Negative (test code = 81011-5) [facility] Hospitalchlamydia DNA rtjbg6274-85-18 11:12:00 Test Item Value Reference Range Interpretation Comments chlamydia DNA probe (test code = Negative Negative 47446-7) [facility] Hospitalblood glucose, lpiqxr7441-72-15 11:45:11 Test Item Value Reference Range Interpretation Comments blood glucose, random (test code = 87 mg/dL 2339-0) [facility] HospitalNon-nucleotide Reverse Transcriptase Wmketvefvx5683-20-59 11:45:11 Test Item Value Reference Range Interpretation Comments Non-nucleotide Reverse Transcriptase none Inhibitors (test code = 135442) [facility] HospitalNucleotide Reverse transcriptase civapojde3543-20-10 11:45:11 Test Item Value Reference Range Interpretation Comments Nucleotide Reverse transcriptase none inhibitor (test code = 715356) [facility] Hospitalrapid plasma reagin antibody, aezgh5819-24-75 10:54:00 Test Item Value Reference Range Interpretation Comments rapid plasma reagin antibody, Non Reactive Non Reactive serum (test code = 5291-0) [facility] HospitalLDL cholesterol, iqrkx3319-17-04 10:54:00 Test Item Value Reference Range Interpretation Comments LDL cholesterol, serum (test code = 135 mg/dL 0-99 H 9-1) [facility] vwdbendfuhhq6487-91-26 10:54:00 Test Item Value Reference Range Interpretation Comments very low density lipoproteins (test 12 mg/dL 5-40 code = 2091-7) [facility] HospitalHDL cholesterol, iskbl8982-83-79 10:54:00 Test Item Value Reference Range Interpretation Comments HDL cholesterol, serum (test code = 56 mg/dL >39 5-9) [facility] Hospitaltriglyceride, serum, srdljbl8872-44-50 10:54:00 Test Item Value Reference Range Interpretation Comments triglyceride, serum, fasting (test 60 mg/dL 0-149 code = 2571-8) [facility] Hospitalcholesterol, ogyxn1299-42-32 10:54:00 Test Item Value Reference Range Interpretation Comments cholesterol, serum (test code = 203 mg/dL 100-199 H 2093-3) [facility] Hospitalalanine aminotransferase (SGPT), mzkfd0230-48-24 10:54:00 Test Item Value Reference Range Interpretation Comments alanine aminotransferase (SGPT), serum 17 1/L 0-32 (test code = 1742-6) [facility] Hospitalaspartate aminotransferase (SGOT), acxqc7302-28-39 10:54:00 Test Item Value Reference Range Interpretation Comments aspartate aminotransferase (SGOT), 19 1/L 0-40 serum (test code = 1920-8) [facility] Hospitalalkaline phosphatase, xhobw9487-09-26 10:54:00 Test Item Value Reference Range Interpretation Comments alkaline phosphatase, serum (test code 91 1/L 39-117 = 1783-0) [facility] Hospitalbilirubin, serum, mdcrr8848-36-55 10:54:00 Test Item Value Reference Range Interpretation Comments bilirubin, serum, total (test code 0.2 mg/dL 0.0-1.2 = 1975-2) [facility] Hospitalalbumin/globulin ratio, uavmn6470-88-55 10:54:00 Test Item Value Reference Range Interpretation Comments albumin/globulin ratio, 1.6 (unknown unit) 1.2-2.2 serum (test code = 1759-0) [facility] Healthglobulin, evgsl2667-31-97 10:54:00 Test Item Value Reference Range Interpretation Comments globulin, serum (test code 2.7 (unknown unit) 1.5-4.5 = 2336-6) [facility] Hospitalalbumin, cgyem1921-64-75 10:54:00 Test Item Value Reference Range Interpretation Comments albumin, serum (test code = 1751-7) 4.3 g/dL 3.5-5.5 [facility] Hospitalprotein, total, uujlu7780-57-59 10:54:00 Test Item Value Reference Range Interpretation Comments protein, total, serum (test code = 7.0 g/dL 6.0-8.5 2885-2) [facility] Healthcalcium, lnkte2411-50-39 10:54:00 Test Item Value Reference Range Interpretation Comments calcium, serum (test code = 1999-) 9.3 mg/dL 8.7-10.2 [facility] Hospitalcarbon dioxide, venous pesxe9316-73-13 10:54:00 Test Item Value Reference Range Interpretation Comments carbon dioxide, venous blood (test 23 mmol/L 18- code = 2026-1) [facility] Hospitalchloride, kusnj7560-98-62 10:54:00 Test Item Value Reference Range Interpretation Comments chloride, serum (test code = 101 mmol/L 96-106 5-0) [facility] Healthpotassium, pxxxr3681-85-13 10:54:00 Test Item Value Reference Range Interpretation Comments potassium, serum (test code = 4.2 mmol/L 3.5-5.2 2823-3) [facility] Hospitalsodium, yrbpx5831-39-36 10:54:00 Test Item Value Reference Range Interpretation Comments sodium, serum (test code = 2951-2) 141 mmol/L 134-144 [facility] Hospitalurea nitrogen/creatinine ratio, mdljd6983-54-66 10:54:00 Test Item Value Reference Range Interpretation Comments urea nitrogen/creatinine 20 (unknown unit) 9-23 ratio, serum (test code = 3097-3) [facility] HealtheGFR if Etjohzrx2806-88-84 10:54:00 Test Item Value Reference Range Interpretation Comments eGFR if 115 mL/min/{1.73 m2} >59 (test code = 49944-9) [facility] HospitalEstimated Glomerular Filtration Rate (calc)2017-06-02 10:54:00 Test Item Value Reference Range Interpretation Comments Estimated Glomerular 100 mL/min/{1.73 m2} >59 Filtration Rate (calc) (test code = 09625-4) [facility] Hospitalcreatinine, lfdue8021-07-42 10:54:00 Test Item Value Reference Range Interpretation Comments creatinine, serum (test code = 0.66 mg/dL 0.57-1.00 0-0) [facility] Hospitalurea nitrogen, sioyy5310-93-06 10:54:00 Test Item Value Reference Range Interpretation Comments urea nitrogen, blood (test code = 13 mg/dL 09-30 3094-0) [facility], glahpf4287-37-52 10:54:00 Test Item Value Reference Range Interpretation Comments blood glucose, random (test code = 105 mg/dL 65-99 H 2339-0) [facility]immature granulocytes, percentage of total cells, blood 2017-06-02 10:54:00 Test Item Value Reference Range Interpretation Comments immature granulocytes, percentage of 0 % total cells, blood (test code = 85834-7) [facility]basophil count, iihkanep9883-53-73 10:54:00 Test Item Value Reference Range Interpretation Comments basophil count, absolute (test 0.0 x10E3/uL 0.0-0.2 code = 67240-0) [facility] HospitalEosinophil Absolute Uxaiv8546-08-60 10:54:00 Test Item Value Reference Range Interpretation Comments Eosinophil Absolute Count (test 0.1 X10E3/UL 0.0-0.4 code = 37263-0) [facility] Hospitalmonocyte count, blood, bclkgqhpg1380-40-14 10:54:00 Test Item Value Reference Range Interpretation Comments monocyte count, blood, automated 0.3 X10E3/UL 0.1-0.9 (test code = 742-7) [facility]allymphocyte count, blood, xnqijrvpl5178-53-13 10:54:00 Test Item Value Reference Range Interpretation Comments lymphocyte count, blood, 1.3 X10E3/UL 0.7-3.1 automated (test code = 731-0) [facility] HospitalAbsolute Bsrsyogqzku1390-35-86 10:54:00 Test Item Value Reference Range Interpretation Comments Absolute Neutrophils (test code 1.7 X10E3/UL 1.4-7.0 = 75070-4) [facility]basophils as percent of blood uflqltvdtw6822-08-16 10:54:00 Test Item Value Reference Range Interpretation Comments basophils as percent of blood 1 % leukocytes (test code = 707-0) [facility] Hospitaleosinophils as percent of blood ctwrbabsbe9672-42-78 10:54:00 Test Item Value Reference Range Interpretation Comments eosinophils as percent of blood 4 % leukocytes (test code = 713-8) [facility] Healthmon[facility] percent of blood hkfdnmeonf5842-06-31 10:54:00 Test Item Value Reference Range Interpretation Comments monocytes as percent of blood 9 % leukocytes (test code = 5905-5) [facility]allymphocytes as percent of blood cxnegprqwa3024-17-29 10:54:00 Test Item Value Reference Range Interpretation Comments lymphocytes as percent of blood 37 % leukocytes (test code = 736-9) [facility] Hospitalneutrophils as percent of blood mpmvobeunx2625-43-84 10:54:00 Test Item Value Reference Range Interpretation Comments neutrophils as percent of blood 49 % leukocytes (test code = 770-8) [facility] Hospitalplatelet ihuey4681-59-29 10:54:00 Test Item Value Reference Range Interpretation Comments platelet count (test code = 287 X10E3/UL 150-379 777-3) [facility] Hospitalred blood cell distribution dlxsd0418-23-24 10:54:00 Test Item Value Reference Range Interpretation Comments red blood cell distribution width 14.6 % 12.3-15.4 (test code = 788-0) [facility] corpuscular hemoglobin concentration, ECI8138-87-12 10:54:00 Test Item Value Reference Range Interpretation Comments mean corpuscular hemoglobin 31.6 G/DL 31.5-35.7 concentration, RBC (test code = 786-4) [facility] corpuscular hemoglobin, MHA7930-30-72 10:54:00 Test Item Value Reference Range Interpretation Comments mean corpuscular hemoglobin, RBC 29.8 pg 26.6-33.0 (test code = 785-6) [facility] corpuscular volume, HEV3475-93-94 10:54:00 Test Item Value Reference Range Interpretation Comments mean corpuscular volume, RBC (test code 94 fL 79-97 = 787-2) [facility] Hospitalhematocrit, hpeot5754-19-65 10:54:00 Test Item Value Reference Range Interpretation Comments hematocrit, blood (test code = 4544-3) 38.3 % 34.0-46.6 [facility] Hospitalhemoglobin, mddrj5151-36-95 10:54:00 Test Item Value Reference Range Interpretation Comments hemoglobin, blood (test code = 12.1 g/dL 11.1-15.9 718-7) [facility] Hospitalerythrocyte (RBC) zzkpy2463-63-60 10:54:00 Test Item Value Reference Range Interpretation Comments erythrocyte (RBC) count (test 4.06 X10E6/UL 3.77-5.28 code = 789-8) [facility] Hospitalleukocyte count, ifoba5629-11-20 10:54:00 Test Item Value Reference Range Interpretation Comments leukocyte count, blood (test 3.5 X10E3/UL 3.4-10.8 code = 6690-2) [facility] HospitalT-helper cells (CD4) as percent of blood lymphocytes 2017-06-02 10:54:00 Test Item Value Reference Range Interpretation Comments T-helper cells (CD4) as percent of 34.8 % 30.8-58.5 blood lymphocytes (test code = 8123-2) [facility] HospitalT-helper cells (CD4) nkzrd0213-55-17 10:54:00 Test Item Value Reference Range Interpretation Comments T-helper cells (CD4) count (test code 452 /UL 359-1519 = 20917-8) [facility] HospitalHIV-1RNA, serum, by PCR, dokzcyzzaaiv9117-18-34 10:54:00 Test Item Value Reference Range Interpretation Comments HIV-1RNA, serum, by PCR, quantitative 30 /mL (test code = 42317) [facility] HospitalCD4/CD8 xesep6896-95-89 10:54:00 Test Item Value Reference Range Interpretation Comments CD4/CD8 ratio (test code 0.97 (unknown unit) 0.92-3.72 = 32793) [facility] HospitalT-suppressor cells (CD8) as percent of blood lymphocytes 2017-06-02 10:54:00 Test Item Value Reference Range Interpretation Comments T-suppressor cells (CD8) as percent of 35.9 % 12.0-35.5 H blood lymphocytes (test code = 3517) [facility] Hospitalabsolute [id number] 10:54:00 Test Item Value Reference Range Interpretation Comments absolute CD8 (test code = 467 (unknown unit) [phone]) [facility] HospitalHIV genotype hgffgk3265-31-21 13:04:16 Test Item Value Reference Range Interpretation Comments HIV genotype result (test code = 84347) done [facility] HospitalQuantiferon Gold TB blood test for tuberculosis screening 2017-05-04 12:42:00 Test Item Value Reference Range Interpretation Comments Quantiferon Gold TB blood test for Negative Negative tuberculosis screening (test code = 60662-8) [facility] Hospitalhemoglobin A1C, blood, as % of total jqbadmwovk0845-17-82 12:35:00 Test Item Value Reference Range Interpretation Comments hemoglobin A1C, blood, as % of total 6.5 % 4.8-5.6 H hemoglobin (test code = 4548-4) [facility] Hospitalerythrocyte (RBC) dcwfb7654-98-47 12:35:00 Test Item Value Reference Range Interpretation Comments erythrocyte (RBC) count (test 4.20 X10E6/UL 3.77-5.28 code = 789-8) [facility] Hospitalmicroalbumin/total urine ptltcm9575-98-49 11:30:00 Test Item Value Reference Range Interpretation Comments microalbumin/total urine volume 100.2 mg/L (test code = 84794-7) [facility] Hospitalcreatinine, random, bhqxe8667-77-82 11:30:00 Test Item Value Reference Range Interpretation Comments creatinine, random, urine (test 230.4 mg/dL code = 2161-8) [facility] plasma reagin antibody, qafgw9728-24-23 10:24:00 Test Item Value Reference Range Interpretation Comments rapid plasma reagin antibody, Non Reactive Non Reactive serum (test code = 5291-0) [facility] Hospitalhepatitis C antibody, ovvft5073-37-53 10:24:00 Test Item Value Reference Range Interpretation Comments hepatitis C antibody, serum (test code <0.1 0.0-0.9 = 5199-5) [facility] HospitalNeisseria gonorrhoeae DNA gcbzp5324-02-91 10:24:00 Test Item Value Reference Range Interpretation Comments Neisseria gonorrhoeae DNA probe Negative Negative (test code = 95168-8) [facility] Hospitalchlamydia DNA lmknu8936-39-30 10:24:00 Test Item Value Reference Range Interpretation Comments chlamydia DNA probe (test code = Negative Negative 43107-7) [facility] HospitalLDL cholesterol, durbe1399-60-66 10:24:00 Test Item Value Reference Range Interpretation Comments LDL cholesterol, serum (test code = 168 mg/dL 0-99 H 2088-04) [facility] Hospitalvery low density sxkxtoaduouu6901-48-35 10:24:00 Test Item Value Reference Range Interpretation Comments very low density lipoproteins (test 20 mg/dL 5-40 code = 209-7) [facility] HospitalHDL cholesterol, boehw8893-68-58 10:24:00 Test Item Value Reference Range Interpretation Comments HDL cholesterol, serum (test code = 46 mg/dL >39 2084-12) [facility] Hospitaltriglyceride, serum, aihhagq7243-26-54 10:24:00 Test Item Value Reference Range Interpretation Comments triglyceride, serum, fasting (test 100 mg/dL 0-149 code = 2571-8) [facility] Hospitalcholesterol, gptun4727-83-90 10:24:00 Test Item Value Reference Range Interpretation Comments cholesterol, serum (test code = 234 mg/dL 100-199 H 2092-06) [facility] Hospitalalanine aminotransferase (SGPT), sezce4846-32-57 10:24:00 Test Item Value Reference Range Interpretation Comments alanine aminotransferase (SGPT), serum 23 1/L 0-32 (test code = 1742-6) [facility] Hospitalaspartate aminotransferase (SGOT), vluax7551-56-19 10:24:00 Test Item Value Reference Range Interpretation Comments aspartate aminotransferase (SGOT), 21 1/L 0-40 serum (test code = 1920-8) [facility] Hospitalalkaline phosphatase, lsopl0777-92-67 10:24:00 Test Item Value Reference Range Interpretation Comments alkaline phosphatase, serum (test code 65 1/L 39-117 = 1783-0) [facility] Hospitalbilirubin, serum, iztrc4276-08-06 10:24:00 Test Item Value Reference Range Interpretation Comments bilirubin, serum, total (test code 0.3 mg/dL 0.0-1.2 = 1974-2) [facility] Hospitalalbumin/globulin ratio, tyvug6637-33-72 10:24:00 Test Item Value Reference Range Interpretation Comments albumin/globulin ratio, 1.6 (unknown unit) 1.2-2.2 serum (test code = 1759-0) [facility] Hospitalglobulin, ebwni2057-00-26 10:24:00 Test Item Value Reference Range Interpretation Comments globulin, serum (test code 2.7 (unknown unit) 1.5-4.5 = 2336-6) [facility] Healthalbumin, lmwsx4640-07-90 10:24:00 Test Item Value Reference Range Interpretation Comments albumin, serum (test code = 1751-7) 4.4 g/dL 3.5-5.5 [facility] Healthprotein, total, sbipy8131-03-23 10:24:00 Test Item Value Reference Range Interpretation Comments protein, total, serum (test code = 7.1 g/dL 6.0-8.5 2885-2) [facility] Hospitalcalcium, brunf7784-79-89 10:24:00 Test Item Value Reference Range Interpretation Comments calcium, serum (test code = 1999-8) 9.5 mg/dL 8.7-10.2 [facility] Hospitalcarbon dioxide, venous kewjr6927-83-41 10:24:00 Test Item Value Reference Range Interpretation Comments carbon dioxide, venous blood (test 25 mmol/L 18-29 code = 2026-1) [facility] Hospitalchloride, prttj9707-73-11 10:24:00 Test Item Value Reference Range Interpretation Comments chloride, serum (test code = 102 mmol/L 96-106 5-0) [facility] Hospitalpotassium, lkmhf1037-52-53 10:24:00 Test Item Value Reference Range Interpretation Comments potassium, serum (test code = 4.0 mmol/L 3.5-5.2 2823-3) [facility] Hospitalsodium, rblvj5235-83-11 10:24:00 Test Item Value Reference Range Interpretation Comments sodium, serum (test code = 2951-2) 141 mmol/L 134-144 [facility] Hospitalurea nitrogen/creatinine ratio, acben7216-74-68 10:24:00 Test Item Value Reference Range Interpretation Comments urea nitrogen/creatinine 14 (unknown unit) 9-23 ratio, serum (test code = 3097-3) [facility] HealtheGFR if Faelskst3883-49-83 10:24:00 Test Item Value Reference Range Interpretation Comments eGFR if 95 mL/min/{1.73 m2} >59 (test code = 33483-9) [facility] HospitalEstimated Glomerular Filtration Rate (calc)2017-04-13 10:24:00 Test Item Value Reference Range Interpretation Comments Estimated Glomerular 83 mL/min/{1.73 m2} >59 Filtration Rate (calc) (test code = 12766-2) [facility] Hospitalcreatinine, lznsc7077-02-51 10:24:00 Test Item Value Reference Range Interpretation Comments creatinine, serum (test code = 0.81 mg/dL 0.57-1.00 2160-0) [facility] Hospitalurea nitrogen, gwcrf1029-85-06 10:24:00 Test Item Value Reference Range Interpretation Comments urea nitrogen, blood (test code = 11 mg/dL 624 3094-0) [facility] Hospitalblood glucose, fzpitk2159-98-53 10:24:00 Test Item Value Reference Range Interpretation Comments blood glucose, random (test code = 86 mg/dL 65-99 2339-0) [facility] Hospitalimmature granulocytes, percentage of total cells, blood 2017-04-13 10:24:00 Test Item Value Reference Range Interpretation Comments immature granulocytes, percentage of 0 % total cells, blood (test code = 92096-3) [facility] Hospitalbasophil count, nijfrzim9211-01-63 10:24:00 Test Item Value Reference Range Interpretation Comments basophil count, absolute (test 0.0 x10E3/uL 0.0-0.2 code = 60108-1) [facility] HospitalEosinophil Absolute Bjohc3767-07-85 10:24:00 Test Item Value Reference Range Interpretation Comments Eosinophil Absolute Count (test 0.0 X10E3/UL 0.0-0.4 code = 48174-9) [facility] Hospitalmonocyte count, blood, aqepmiotd7271-11-88 10:24:00 Test Item Value Reference Range Interpretation Comments monocyte count, blood, automated 0.4 X10E3/UL 0.1-0.9 (test code = 742-7) [facility] Hospitallymphocyte count, blood, xqauqxzgd8704-20-23 10:24:00 Test Item Value Reference Range Interpretation Comments lymphocyte count, blood, 1.5 X10E3/UL 0.7-3.1 automated (test code = 731-0) [facility] HospitalAbsolute Kwhoqlsaywf0241-33-77 10:24:00 Test Item Value Reference Range Interpretation Comments Absolute Neutrophils (test code 1.3 X10E3/UL 1.4-7.0 L = 78736-8) [facility] Healthbasophils as percent of blood mglrmxetam2428-96-16 10:24:00 Test Item Value Reference Range Interpretation Comments basophils as percent of blood 1 % leukocytes (test code = 707-0) [facility] Hospitaleosinophils as percent of blood hxtkxjmknn0450-28-07 10:24:00 Test Item Value Reference Range Interpretation Comments eosinophils as percent of blood 1 % leukocytes (test code = 713-8) [facility] Healthmonocytes as percent of blood obudztdkhd2585-22-62 10:24:00 Test Item Value Reference Range Interpretation Comments monocytes as percent of blood 13 % leukocytes (test code = 5905-5) [facility] Hospitallymphocytes as percent of blood vnoatufgzy6089-65-54 10:24:00 Test Item Value Reference Range Interpretation Comments lymphocytes as percent of blood 45 % leukocytes (test code = 736-9) [facility] Hospitalneutrophils as percent of blood nzpdngzbic1054-61-53 10:24:00 Test Item Value Reference Range Interpretation Comments neutrophils as percent of blood 40 % leukocytes (test code = 770-8) [facility] Hospitalplatelet qxdnb0408-77-59 10:24:00 Test Item Value Reference Range Interpretation Comments platelet count (test code = 244 X10E3/UL 150-379 777-3) [facility] Hospitalred blood cell distribution wjisl2511-23-51 10:24:00 Test Item Value Reference Range Interpretation Comments red blood cell distribution width 14.3 % 12.3-15.4 (test code = 788-0) [facility] corpuscular hemoglobin concentration, [id number] 10:24:00 Test Item Value Reference Range Interpretation Comments mean corpuscular hemoglobin 33.0 G/DL 31.5-35.7 concentration, RBC (test code = 786-4) [facility] corpuscular hemoglobin, XON9069-02-08 10:24:00 Test Item Value Reference Range Interpretation Comments mean corpuscular hemoglobin, RBC 30.0 pg 26.6-33.0 (test code = 785-6) [facility] corpuscular volume, [id number] 10:24:00 Test Item Value Reference Range Interpretation Comments mean corpuscular volume, RBC (test code 91 fL 79-97 = 787-2) [facility] Hospitalhematocrit, qorib3167-35-01 10:24:00 Test Item Value Reference Range Interpretation Comments hematocrit, blood (test code = 4544-3) 38.8 % 34.0-46.6 [facility] Hospitalhemoglobin, wzjbg8100-78-02 10:24:00 Test Item Value Reference Range Interpretation Comments hemoglobin, blood (test code = 12.8 g/dL 11.1-15.9 718-7) [facility] Hospitalerythrocyte (RBC) ngswh1105-38-49 10:24:00 Test Item Value Reference Range Interpretation Comments erythrocyte (RBC) count (test 4.26 X10E6/UL 3.77-5.28 code = 789-8) [facility] Hospitalleukocyte count, fdqsz7931-33-54 10:24:00 Test Item Value Reference Range Interpretation Comments leukocyte count, blood (test 3.3 X10E3/UL 3.4-10.8 L code = 6690-2) [facility] HospitalT-helper cells (CD4) as percent of blood lymphocytes 2017-04-13 10:24:00 Test Item Value Reference Range Interpretation Comments T-helper cells (CD4) as percent of 24.6 % 30.8-58.5 L blood lymphocytes (test code = 8123-2) [facility] HospitalT-helper cells (CD4) ytskg5594-14-16 10:24:00 Test Item Value Reference Range Interpretation Comments T-helper cells (CD4) count (test code 369 /UL 359-1519 = 99696-5) [facility] Hospitalhepatitis B core antibody, fsagw2615-05-03 10:24:00 Test Item Value Reference Range Interpretation Comments hepatitis B core antibody, total Negative Negative (test code = 77) [facility] Hospitalhepatitis B surface xymcheq8533-57-80 10:24:00 Test Item Value Reference Range Interpretation Comments hepatitis B surface antigen (test Negative Negative code = 79) [facility] HospitalHIV-2 antibodies, western gzhg7979-78-25 10:24:00 Test Item Value Reference Range Interpretation Comments HIV-2 antibodies, western blot (test Negative Negative code = 55506) [facility] HospitalHIV-1/HIV-2 Ab, hqqfx6003-72-44 10:24:00 Test Item Value Reference Range Interpretation Comments HIV-1/HIV-2 Ab, serum (test code = Positive Negative A 3399) [facility] (Chemilumines[facility] Microparticle Immuno Assay) 2017-04-13 10:24:00 Test Item Value Reference Range Interpretation Comments HIV-CMIA (Chemiluminescent REAALG Non Reactive A Microparticle Immuno Assay) (test code = 628667) [facility] Hospitalhuman leukocyte antigen [id number] 10:24:00 Test Item Value Reference Range Interpretation Comments human leukocyte antigen B57 (test Negative code = 340210) [facility] Hospitaltoxoplasma gondii antibody, FdT9694-79-06 10:24:00 Test Item Value Reference Range Interpretation Comments toxoplasma gondii antibody, IgG (test <3.0 0.0-7.1 code = 2430) [facility] Carepatitis B surface cisksyqk3809-73-82 10:24:00 Test Item Value Reference Range Interpretation Comments hepatitis B surface antibody Non Reactive (test code = 78) [facility]V-1RNA, serum, by PCR, ncrwzllgwwpn0053-74-95 10:24:00 Test Item Value Reference Range Interpretation Comments HIV-1RNA, serum, by PCR, 53256 /mL quantitative (test code = 11908) [facility] HospitalCD4/CD8 iadhx2501-08-70 10:24:00 Test Item Value Reference Range Interpretation Comments CD4/CD8 ratio (test code 0.41 (unknown unit) 0.92-3.72 L = 88205) [facility] HospitalT-suppressor cells (CD8) as percent of blood lymphocytes 2017-04-13 10:24:00 Test Item Value Reference Range Interpretation Comments T-suppressor cells (CD8) as percent of 60.0 % 12.0-35.5 H blood lymphocytes (test code = 3517) [facility] Hospitalabsolute [id number] 10:24:00 Test Item Value Reference Range Interpretation Comments absolute CD8 (test code = 900 (unknown unit) 109-897 H 87074) [facility] Carepatitis A antibody, wqxta5774-51-05 10:24:00 Test Item Value Reference Range Interpretation Comments hepatitis A antibody, total (test Negative Negative code = 75) [facility]
[2021-04-01] MEDS ORDERED: NA CHLORIDE 0.9% 0 ML ONE (19:45)
[2021-04-01] MEDS ORDERED: FENTANYL CITR 100 MCG/2 ML ONE ×2 (19:45→19:58)
[2021-04-01] MEDS ORDERED: ONDANSETRON 4 MG/2 ML VIAL ONE ×2 (19:51→19:58)
[2021-04-01 19:59] LABS: Absolute Lymphocytes (CBC) 0.3 K/uL (0.7-4.9); Basophils % 0.2 % (0-1.3); Hematocrit 38.3 % (36.0-45.0); Lymphocytes % 4.1 % (15.3-44.8); MPV 8.4 fL (7.6-11.3); RBC Red Blood Cell Count 4.06 M/uL (3.86-4.86)
[2021-04-01] MEDS ORDERED: NA CHLORIDE 0.9% 1,000 ML ONE (19:59)
[2021-04-01] MEDS ORDERED: FAMOTIDINE 20 MG/2 ML VIAL IV ONE (19:59)
[2021-04-01 20:17] LABS: Albumin 3.7 g/dL (3.4-5.0); Bilirubin Direct 0.1 mg/dL (0-0.2); Bilirubin Total 0.4 mg/dL (0.2-1.0); Potassium 3.7 mmol/L (3.5-5.1); Protein, Total 7.7 g/dL (6.4-8.2)
[2021-04-01 20:36] LABS: SARS-COV-2 RT PCR NEGATIVE (NEGATIVE)
[2021-04-01 20:41] LABS: Urine Blood Negative (Negative); Urine Glucose Negative (Negative); Urine Protein 1+ (Negative); Urine Specific Gravity >=1.030 (1.005-1.030)
--- NOTE | 2021-04-01 20:45 | RAD REPORT ---
EXAM DESCRIPTION: CTAbdomen Pelvis W Contrast - 04/01/2021 8:36 pm CLINICAL HISTORY: Abdominal pain. ABD PAIN COMPARISON: No comparisons TECHNIQUE: Biphasic CT imaging of the abdomen and pelvis was performed with 100 ml non-ionic IV cont rast. All CT scans are performed using dose optimization technique as appropriate and may include automated exposure control or mA/KV adjustment according to patient size. FINDINGS: The lung bases are clear.Small hiatal hernia. The liver, spleen, pancreas, adrenal glands and kidneys are within normal limits. No bowel obstruction, free air, free fluid or abscess. The appendix is not identified as a discrete structure, however, no secondary findings of appendicitis are identified. No evidence of significan t lymphadenopathy. No suspicious bony findings. IMPRESSION: No acute intra-abdominal or pelvic finding.
[2021-04-01] MEDS ORDERED: NA CHLORIDE 0.9% 500 ML ONE (20:52)
[2021-04-01 21:06] LABS: Urine Bacteria >50 /HPF (<20); Urine RBC NONE SEEN /HPF (NONE SEEN)
[2021-04-01] MEDS ORDERED: NA CHLORIDE 0.9% 50 ML ONE (22:07)
[2021-04-01] MEDS ORDERED: CIPROFLOXACIN HCL 500 MG TAB ONE (22:07)
[2021-04-01] MEDS ORDERED: CEFTRIAXONE 1000 MG/VIAL ONE (22:07)
--- NOTE | 2021-04-01 22:32 | EDPHYS ---
Physician Documentation [facility] Name: Tana Pérez Age: 60 yrs Sex: Female : 1960 Arrival Date: 04/01/2021 Time: 18:33 Bed 6 Private MD: ED Physician Scot Doll HPI: 04/01 19:30 This 60 yrs old Black Female presents to ER via Ambulatory with complaints of Abdominal cp Pain, Vomiting/Diarrhea. 19:30 The patient presents with abdominal pain mid abdomen. Associated signs and symptoms: cp Pertinent positives: nausea, vomiting, and diarrhea, fever, Pertinent negatives: blood in stools, constipation, vomiting blood. 19:30 Onset: The symptoms/episode began/occurred today. cp 19:30 The symptoms are described as achy. cp Historical: - Allergies: 18:52 Morphine; ss 18:52 Vistaril; ss - PMHx: 18:52 Anxiety; depressive disorder; Diabetes - NIDDM; Hypertension; HIV; Hyperlipidemia; ss - PSHx: 18:52 Exploratory laparotomy; hysterectomy; left knee; ss - Immunization history:: Adult Immunizations up to date. - Social history:: Smoking status: Patient denies any tobacco usage or history of. ROS: 19:35 Constitutional: Positive for chills, fever, Negative for poor PO intake. cp 19:35 Eyes: Negative for injury, pain, redness, and discharge. cp 19:35 ENT: Negative for ear pain, sore throat, difficulty swallowing, difficulty handling secretions. 19:35 Cardiovascular: Negative for chest pain, edema, palpitations. 19:35 Respiratory: Negative for cough, shortness of breath, wheezing. 19:35 Abdomen/GI: Positive for abdominal pain, nausea, vomiting, and diarrhea, Negative for hematemesis, black/tarry stool, rectal bleeding. 19:35 Back: Positive for pain at rest. 19:35 : Negative for urinary symptoms. 19:35 Neuro: Negative for altered mental status, weakness. 19:35 All other systems are negative. Exam: 19:40 Constitutional: The patient appears in no acute distress, alert, awake, cp non-diaphoretic, non-toxic, well developed, well nourished, obese. 19:40 Head/Face: Normocephalic, atraumatic. cp 19:40 Eyes: Periorbital structures: appear normal, Conjunctiva: normal, no exudate, no injection, Sclera: no appreciated abnormality, Lids and lashes: appear normal, bilaterally. 19:40 ENT: External ear(s): are unremarkable, Nose: is normal, Posterior pharynx: Airway: no evidence of obstruction, patent. 19:40 Neck: ROM/movement: is normal, is supple, without pain, no range of motions limitations, no meningismus. 19:40 Chest/axilla: Inspection: normal. 19:40 Cardiovascular: Rate: tachycardic, Rhythm: regular, Edema: is not appreciated, JVD: is not appreciated. 19:40 Respiratory: the patient does not display signs of respiratory distress, Respirations: normal, no use of accessory muscles, no retractions, labored breathing, is not present, Breath sounds: are clear throughout, no decreased breath sounds, no stridor, no wheezing. 19:40 Abdomen/GI: Inspection: obese Bowel sounds: active, all quadrants, Palpation: soft, in all quadrants, moderate abdominal tenderness, in the mid abdomen, rebound tenderness, is not appreciated, involuntary guarding, is not appreciated. 19:40 Back: pain, that is mild, of the mid back area, ROM is normal. 19:40 Neuro: Orientation: to person, place \\T\\ time. Mentation: is normal. Vital Signs: 18:49 BP 155 / 102; Pulse 115; Resp 20; Temp 99.0; Pulse Ox 99% on R/A; Weight 113.4 kg; ss Height 5 ft. 2 in. (157.48 cm); 19:27 BP 151 / 83; Pulse 109; Resp 24; Temp 100.1; Pulse Ox 99% on R/A; Weight 97.52 kg; pauly Height 5 ft. 2 in. (157.48 cm); Pain 5/10; 20:12 Pain 0/10; pauly 20:56 BP 145 / 85; Pulse 102; Resp 23; Temp 98.7; Pulse Ox 100% on R/A; pauly 22:04 BP 146 / 91; Pulse 102; Resp 20; Temp 98.7; Pulse Ox 100% on R/A; pauly 22:22 BP 147 / 85; Pulse 102; Resp 20; Temp 98.5; Pulse Ox 100% on R/A; pauly 19:27 Body Mass Index 39.32 (97.52 kg, 157.48 cm) pauly MDM: 19:01 Patient medically screened. cp 20:00 Differential diagnosis: appendicitis, bowel obstruction, cholecystitis, Cholelithiasis, cp diverticulitis, gastritis, pancreatitis, Pyelonephritis, urinary tract infection. 22:30 Data reviewed: vital signs, nurses notes, lab test result(s), radiologic studies, CT cp scan. 22:30 Counseling: I had a detailed discussion with the patient and/or guardian regarding: the cp historical points, exam findings, and any diagnostic results supporting the discharge/admit diagnosis, lab results, radiology results, to return to the emergency department if symptoms worsen or persist or if there are any questions or concerns that arise at home. Response to treatment: the patient's symptoms have markedly improved after treatment. ED course: VSS. Nausea and pain markedly improved. No vomiting observed while monitoring patient. Patient tolerating po fluids. Will discharge to home for continued monitoring. 04/01 19:23 Order name: Basic Metabolic Panel 04/01 19: Order name: CBC with Diff; Complete Time: 20:10 cp 04/01 20:10 Interpretation: Normal except: HAY% 92.1; LYM% 4.1; LYMA 0.3. 04/01 19:23 Order name: Hepatic Function; Complete Time: 20:49 cp 04/01 20:49 Interpretation: Normal except: AST 14; GLOB 4.0; A/G 0.9. 04/01 19:23 Order name: Lipase; Complete Time: 20:49 04/01 20:50 Interpretation: LIP 43; Reviewed. 04/01 19:23 Order name: Urine Microscopic Only; Complete Time: 21:08 cp 04/01 21:08 Interpretation: Normal except: UBACT >50. 04/01 19:23 Order name: COVID-19/FLU A+B (Document "Date of Onset" if Symptomatic); Complete Time: cp 20:49 04/01 21:30 Interpretation: Reviewed. 04/01 19:23 Order name: CT Abd/Pelvis - IV Contrast Only; Complete Time: 20:49 04/01 19:23 Order name: Basic Metabolic Panel; Complete Time: 20:49 EDMS 04/01 20:50 Interpretation: Normal except: GLUC 160; GFR 81. 04/01 20:40 Order name: Urine Dipstick-Ancillary; Complete Time: 20:49 EDMS 04/01 20:44 Order name: Urine --Ancillary (enter results); Complete Time: 20:49 cs9 04/01 21:07 Order name: Urine Culture EDCO 04/01 19:23 Order name: IV Saline Lock; Complete Time: 19:54 cp 04/01 19:23 Order name: Labs collected and sent; Complete Time: 19:54 cp 04/01 19:23 Order name: Urine Dipstick-Ancillary (obtain specimen); Complete Time: 20:46 cp 04/01 19:23 Order name: Urine Test (obtain specimen); Complete Time: 20:46 cp 04/01 21:09 Order name: PO challenge; Complete Time: 22:14 cp Administered Medications: 20:03 Drug: Pepcid (famotidine) 20 mg Route: IVP; Site: right antecubital; mr2 20:13 Follow up: Response: Pain is decreased; Nausea is decreased pauly 20:03 Drug: NS 0.9% 500 ml Route: IV; Rate: bolus; Site: right antecubital; mr2 20:45 Follow up: IV Status: Completed infusion; IV Intake: 500ml pauly 20:03 Drug: NS 0.9% 500 ml Route: IV; Rate: 125 ml/hr; Site: right antecubital; mr2 20:56 Follow up: Rate change 125 ml/hr pauly 23:22 Follow up: Response: No adverse reaction; IV Status: Completed infusion; IV Intake: pauly 500ml 20:03 Drug: fentaNYL (PF) 25 mcg Route: IVP; Site: right antecubital; mr2 20:12 Follow up: Pain 0/10 Adult; Response: No adverse reaction; Pain is decreased pauly 20:04 Drug: Zofran (Ondansetron) 4 mg Route: IVP; Site: right antecubital; mr2 20:13 Follow up: Response: No adverse reaction; Pain is decreased; Nausea is decreased pauly 22:11 Drug: Cipro (ciprofloxacin) 500 mg Route: PO; pauly 22:38 Follow up: Response: No adverse reaction pauly 22:20 Drug: Rocephin 1 grams - ((cefTRIAXone) 1 grams, NS 0.9% 50 ml) Route: IVPB; Rate: 100 pauly calculated rate; Infused Over: 30 mins; Site: right antecubital; Delivery: Secondary tubing; 22:38 Follow up: Response: No adverse reaction pauly Disposition Summary: 04/01/21 22:31 Discharge Ordered Location: Home cp Problem: new cp Symptoms: have improved cp Condition: Stable cp Diagnosis - UTI/ Urinary tract infection, site not specified cp - Diarrhea, unspecified cp - Nausea with vomiting, unspecified cp Followup: cp - With: Private Physician - When: 2 - 3 days - Reason: Recheck today's complaints Discharge Instructions: - Discharge Summary Sheet cp - Food Choices to Help Relieve Diarrhea, Adult cp - Diarrhea, Adult cp - Nausea and Vomiting, Adult cp - Urinary Tract Infection, Adult cp Forms: - Medication Reconciliation Form cp - Thank You Letter cp - Antibiotic Education cp - Prescription Opioid Use cp Prescriptions: - Zofran 4 mg Oral Tablet - take 1 tablet by ORAL route every 12 hours As needed; 20 tablet; Refills: 0, cp Product Selection Permitted - Cipro 500 mg Oral Tablet - take 1 tablet by ORAL route every 12 hours for 7 days; 14 tablet; Refills: 0, cp Product Selection Permitted Addendum: 04/05/2021 12:43 Co-signature as Attending Physician, Scot Doll MD I agree with the assessment and c rodarte plan of care. Signatures: Dispatcher [employer] Scot Gonzalez MD MD cha Smirch, Shelby RN RN Scot Peter PA PA cp Reynard, Mike, RN RN mr2 Jackie Busby RN RN pauly
--- NOTE | 2021-04-01 22:32 | ER ---
Nurse's Notes [facility] Name: Tana Pérez Age: 60 yrs Sex: Female : 1960 Arrival Date: 04/01/2021 Time: 18:33 Bed 6 Private MD: Diagnosis: UTI/ Urinary tract infection, site not specified;Diarrhea, unspecified;Nausea with vomiting, unspecified Presentation: 04/01 18:49 Chief complaint: Patient states: vomiting and diarrhea multiple times since 1330 today. ss Tested negative COVID on Sunday. HIV positive. Coronavirus screen: Vaccine status: Patient reports receiving the 2nd dose of the covid vaccine. Client denies travel out of the [place] in the last 14 days. Ebola Screen: Patient negative for fever greater than or equal to 101.5 degrees Fahrenheit, and additional compatible Ebola Virus Disease symptoms Patient denies exposure to infectious person. Patient denies travel to an Ebola-affected area in the 21 days before illness onset. Initial Sepsis Screen: Does the patient meet any 2 criteria? HR > 90 bpm. Does the patient have a suspected source of infection? No. Patient's initial sepsis screen is negative. Risk Assessment: Do you want to hurt yourself or someone else? Patient reports no desire to harm self or others. Onset of symptoms was April 01, 2021. 18:49 Method Of Arrival: Ambulatory ss 18:49 Acuity: JUANITA 3 ss Triage Assessment: 18:53 General: Appears uncomfortable, Behavior is calm, cooperative, appropriate for age. ss Pain: Denies pain. GI: Reports diarrhea, nausea, vomiting. Historical: - Allergies: 18:52 Morphine; ss 18:52 Vistaril; ss - PMHx: 18:52 Anxiety; depressive disorder; Diabetes - NIDDM; Hypertension; HIV; Hyperlipidemia; ss - PSHx: 18:52 Exploratory laparotomy; hysterectomy; left knee; ss - Immunization history:: Adult Immunizations up to date. - Social history:: Smoking status: Patient denies any tobacco usage or history of. Screenin:53 Abuse screen: Denies threats or abuse. Denies injuries from another. Nutritional ss screening: No deficits noted. Tuberculosis screening: No symptoms or risk factors identified. Fall Risk None identified. Assessment: 19:19 Reassessment: No changes from previously documented assessment. General: Appears pauly uncomfortable, obese. Pain: Denies pain. Neuro: No deficits noted. Cardiovascular: No deficits noted. Rhythm is sinus tachycardia Pt placed on monitor. Respiratory: Breath sounds are clear. GI: Abd is soft Pt reports pain to epigastric area, but not noted on palpitation. : No signs and/or symptoms were reported regarding the genitourinary system. EENT: Reports nasal congestion. Derm: No deficits noted. Musculoskeletal: No signs and/or symptoms reported regarding the musculoskeletal system. 23:19 GI: Bowel sounds present X 4 quads. hyperactive in right upper quadrant, left upper pauly quadrant, right lower quadrant and left lower quadrant. Vital Signs: 18:49 BP 155 / 102; Pulse 115; Resp 20; Temp 99.0; Pulse Ox 99% on R/A; Weight 113.4 kg; ss Height 5 ft. 2 in. (157.48 cm); 19:27 BP 151 / 83; Pulse 109; Resp 24; Temp 100.1; Pulse Ox 99% on R/A; Weight 97.52 kg; pauly Height 5 ft. 2 in. (157.48 cm); Pain 5/10; 20:12 Pain 0/10; pauly 20:56 BP 145 / 85; Pulse 102; Resp 23; Temp 98.7; Pulse Ox 100% on R/A; pauly 22:04 BP 146 / 91; Pulse 102; Resp 20; Temp 98.7; Pulse Ox 100% on R/A; pauly 22:22 BP 147 / 85; Pulse 102; Resp 20; Temp 98.5; Pulse Ox 100% on R/A; pauly 19:27 Body Mass Index 39.32 (97.52 kg, 157.48 cm) pauly Vitals: 19:27 Cardiac Rhythm Assessment Sinus tach. pauly ED Course: 18:33 Patient arrived in ED. mr 18:52 Triage completed. ss 18:54 Arm band placed on right wrist. ss 18:54 Patient has correct armband on for positive identification. Bed in low position. Call ss light in reach. Side rails up X 1. 18:59 Scot Perez PA is PHCP. cp 18:59 Jean Paul Toure MD is Attending Physician. cp 19:01 Neal Silver, RAJI is Primary Nurse. as6 19:02 Scot Doll MD is Attending Physician. cp 19:19 Primary Nurse role handed off by Neal Silver, RAJI pauly 19:19 Jackie Busby, RN is Primary Nurse. pauly 19:54 Basic Metabolic Panel Sent. pauly 19:54 COVID-19/FLU A+B (Document "Date of Onset" if Symptomatic) Sent. pauly 19:54 Basic Metabolic Panel Sent. pauly 19:54 CBC with Diff Sent. pauly 19:54 Hepatic Function Sent. pauly 19:55 Lipase Sent. pauly 20:03 compliance monitor on. Pulse ox on. NIBP on. Door closed. Verbal reassurance given. pauly 20:14 Bedside commode placed at bedside, for pt's convenience and urine specimen. pauly 20:36 CT Abd/Pelvis - IV Contrast Only In Process Unspecified. EDMS 20:46 Urine Microscopic Only Sent. pauly 20:47 No apparent distress. Pt returned from CT. pauly 22:04 No apparent distress. Pt ambulated to the bathroom and was able to void. pauly 22:22 No apparent distress. Pt tolerated po well. pauly 23:18 No provider procedures requiring assistance completed. intact, bleeding controlled, No pauly redness/swelling at site. Pressure dressing applied. Administered Medications: 20:03 Drug: Pepcid (famotidine) 20 mg Route: IVP; Site: right antecubital; mr2 20:13 Follow up: Response: Pain is decreased; Nausea is decreased pauly 20:03 Drug: NS 0.9% 500 ml Route: IV; Rate: bolus; Site: right antecubital; mr2 20:45 Follow up: IV Status: Completed infusion; IV Intake: 500ml pauly 20:03 Drug: NS 0.9% 500 ml Route: IV; Rate: 125 ml/hr; Site: right antecubital; mr2 20:56 Follow up: Rate change 125 ml/hr pauly 23:22 Follow up: Response: No adverse reaction; IV Status: Completed infusion; IV Intake: pauly 500ml 20:03 Drug: fentaNYL (PF) 25 mcg Route: IVP; Site: right antecubital; mr2 20:12 Follow up: Pain 0/10 Adult; Response: No adverse reaction; Pain is decreased pauly 20:04 Drug: Zofran (Ondansetron) 4 mg Route: IVP; Site: right antecubital; mr2 20:13 Follow up: Response: No adverse reaction; Pain is decreased; Nausea is decreased pauly 22:11 Drug: Cipro (ciprofloxacin) 500 mg Route: PO; pauly 22:38 Follow up: Response: No adverse reaction pauly 22:20 Drug: Rocephin 1 grams - ((cefTRIAXone) 1 grams, NS 0.9% 50 ml) Route: IVPB; Rate: 100 pauly calculated rate; Infused Over: 30 mins; Site: right antecubital; Delivery: Secondary tubing; 22:38 Follow up: Response: No adverse reaction pauly Intake: 20:45 IV: 500ml; Total: 500ml. pauly 23:22 IV: 500ml; Total: 1000ml. pauly Outcome: 22:31 Discharge ordered by MD. cp 23:19 Discharged to home ambulatory. pauly 23:19 Condition: stable 23:19 Discharge instructions given to patient, Instructed on discharge instructions, follow up and referral plans. medication usage, Demonstrated understanding of instructions, follow-up care, medications, Prescriptions given X 2. 23:21 Patient left the ED. pauly Signatures: Dispatcher [employer] DIPAKCA Vesta Valladares mr Karina Arango, RN RN Scot Peter, JANET PA cp Wilton Morales RN RN mr2 Neal Silver RN RN as6 Jackie Busby RN RN pauly
[2021-04-01 23:39] VITALS: O2SAT 100
[2021-04-01 23:43] VITALS: BP 147/85; TEMP 98.5
== END 2021-04-01 23:21 | disposition home or self-care (01) ==
LOC: ER 18:26
DX: N39.0 Urinary tract infection, site not specified (principal); R19.7 Diarrhea, unspecified; R11.2 Nausea with vomiting, unspecified; I10 Essential (primary) hypertension; Z20.822 Contact with and (suspected) exposure to COVID-19; Z88.5 Allergy status to narcotic agent; Z88.8 Allergy status to other drugs, medicaments and biological substances
CPT/HCPCS: 96361; 87088; 85025; 87086; 80048; 36415; 81025; 80076; 87077; 87186; 83690; 0240U; 74177; 96375; 96374; 99284; Q9967; J3010 ×2; J7040; J7030; J2405; 81003; 81015

== ENCOUNTER 2022-05-14 17:58 | Emergency (ER) | payer BC ==
--- OUTSIDE RECORDS SUMMARY | 2022-05-14 18:08 | XMS REPORT | Continuity of Care Document ---
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 08:36:03 97 /min [facility] oximetry Health pulse rate 2017-05-04 08:36:03 96 /min [facility] temperature E&M 2017-05-04 08:36:03 98.0 [degF] [facility] weight E&M 2017-05-04 08:36:03 197 [lb_av] [facility] weight in kilograms 2017-05-04 08:36:03 89.55 kg L [facility] E& Health height in 2017-05-04 08:36:03 157.48 cm [facility] centimeters E&M [facility] temperature site 2017-05-04 08:36:03 tympanic [facility] Procedures Procedure Date / Time Performing Clinician Source Performed [id number] Most recent 2021-12-31 08:52:51 [facility] hemoglobin A1c (HbA1c) Health level less than 7.0% (DM) Venipuncture 2021-06-11 08:17:49 Lalitha Whitney nitying Health Case Mgmt Visit, 2021-04-26 08:11:04 Alberto Arredondo [place] Non-Billable [id number] Health Outreach - Phone contact 2021-03-01 13:15:18 Alberto Arredondo [facility] with (or on behalf of) Health Client Outreach - Phone contact 2021-02-08 12:59:44 Alberto Arredondo [facility] with (or on behalf of) Health Client Primary Care Service 2019-05-23 11:36:27 Donna Matsonence [facility] Health First Vx - Ix admin via ID 2019-05-23 11:20:03 Lalitha Whitney [facility] IM or jet injects without Health counseling by physician Twinrix Intramuscular 2019-05-23 11:20:03 Lalitha Whitney [facility] Suspension 720-20 Health Vaccines Ordered - Print 2019-05-23 10:54:17 Lalitha Whitney [facility] Consent/Declination Forms Health Primary Care [facility] Meeting W 2019-02-06 17:23:45 Hector White [facility] Other CM Health Primary Care Service 2019-01-31 16:04:53 Obed Teresa [facility] Health Addl Vx - Ix admin via ID 2019-01-22 17:43:02 Nona Todd [facility] IM or jet injects without Health counseling by physician Fluzone Quadrivalent IM 2019-01-22 17:43:02 Nona Todd [facility] Prefilled Syringe 0.5 mL Health (PF) First Vx - Ix admin via ID 2019-01-22 17:40:14 Nona Todd [facility] IM or jet injects without Health counseling by physician Twinrix Intramuscular 2019-01-22 17:40:14 Nona Todd [facility] Suspension 720-20 Health Primary Care - 2019-01-22 16:25:11 Hector White [facility] munity Assesment-Brief - [facility] Health Primary Care Service 2019-01-22 16:25:11 Hector White [facility] Linkage Health Vaccines Ordered - Print 2019-01-22 14:41:22 Lalitha Whitney [facility] Consent/Declination Forms Health Dispensing Visit (UNLIVSTED 2017-11-09 08:27:47 Lori Valdez OPHTHALMOLOGICAL Health SERVICE/PROCEDURE) Sphere, SV, plano to plus 2017-11-01 13:41:48 Lori Valdez or minus 4.00, per lens Health Frames, purchases deluxe 2017-11-01 13:41:24 Omari Valdezie Leg amandeepying [facility] Patient Intermediate 2017-11-01 09:07:13 EvangelistaJuice deal [facility] 16338 Health Health Education/Supportive 2017-10-15 16:08:28 Provider, [facility] Patient Comprehensive 2017-10-15 10:49:56 AlexandrKhoi [facility] 82432 Health Health Education/Supportive 2017-08-06 11:31:05 Provider, [facility] Primary Care Service 2017-07-02 15:40:14 Teresa Clay [facility] Health Health Education/Supportive 2017-05-24 09:01:[address] [facility] Health Education/Supportive 2017-05-21 11:12:59 [facility] Primary Care - 2017-05-16 12:10:15 Teresa Clay On License Of [facility] heide Assesment-Brief - [facility] Service 2017-05-16 12:10:15 Teresa Clay [facility] Health Health Education/Supportive 2017-05-14 13:11:16 [facility] Education/Supportive 2017-05-14 10:35:[address] [facility] Health Venipuncture 2017-05-04 10:05:49 Lalitha Whitney Commromaine nitying Health Health Education/Supportive 2017-05-04 09:05:45 Provider, [facility] Health Health Education/Supportive 2017-05-03 12:31:23 Provider, [facility] Health Venipuncture 2017-04-13 10:19:00 Lalitha Whitney nitying Health Plan of Care Planned Activity Planned Date Details Comments Source Future Scheduled Test 2026-11-09 00:00:00 Screening for [facility] malignant neoplasm of colon (procedure) [code = 510432081] Future Scheduled Test 2026-11-09 00:00:00 Screening for [facility] malignant neoplasm of colon (procedure) [code = 643131036] Future Scheduled Test 2026-11-09 00:00:00 Screening for [facility] malignant neoplasm of colon (procedure) [code = 262024716] Future Scheduled Test 2026-11-09 00:00:00 Screening for [facility] malignant neoplasm of colon (procedure) [code = 503713643] Future Scheduled Test 2019-03-10 00:00:00 Screening for [facility] malignant neoplasm of cervix (procedure) [code = 231243128] Future Scheduled Test 2019-03-10 00:00:00 Screening for [facility] malignant neoplasm of cervix (procedure) [code = 449240261] Future Scheduled Test 2017-08-24 00:00:00 Breast Cancer Scrn [facility] (Yearly) [code = Breast Cancer Scrn (Yearly)] Future Scheduled Test 2017-08-24 00:00:00 Breast Cancer Scrn [facility] (Yearly) [code = Breast Cancer Scrn (Yearly)] Future Scheduled Test 2012 00:00:00 Screening for [facility] malignant neoplasm of colon (procedure) [code = 934933393] Future Scheduled Test 2012 00:00:00 Screening for [facility] malignant neoplasm of colon (procedure) [code = 201998473] Future Scheduled Test 2012 00:00:00 Screening for [facility] malignant neoplasm of colon (procedure) [code = 762396766] Future Scheduled Test 2012 00:00:00 Screening for [facility] malignant neoplasm of colon (procedure) [code = 274311516] Future Scheduled Test 2012 00:00:00 Screening for [facility] malignant neoplasm of colon (procedure) [code = 920664764] Future Scheduled Test 2012 00:00:00 Screening for [facility] malignant neoplasm of colon (procedure) [code = 008113317] Future Scheduled Test 1992 00:00:00 Screening for [facility] malignant neoplasm of cervix (procedure) [code = 922883828] Future Scheduled Test 1992 00:00:00 Screening for [facility] malignant neoplasm of cervix (procedure) [code = 511768544] Future Scheduled Test 1962 00:00:00 COVID-19 Vaccine (#1) [facility] [code = COVID-19 Vaccine (#1)] Future Scheduled Test 1962 00:00:00 COVID-19 Vaccine (#1) [facility] [code = COVID-19 Vaccine (#1)] Encounters Start End Encounter Admission Attending Care Care Encounter Source Date/Time Date/Time Type Type Clinicians Facility Department ID 2022-01-27 Outpatient [email or web address] [facility] [id number] Legacy 10:31:04 [id number] [facility] 2022-05-13 2022-05-13 Outpatient [facility] [id number] Kulwant 13:39:19 13:39:19 0[address] [place] 2022-01-09 2022-01-09 Outpatient [facility] [id number] Kulwant 10:04:53 10:04:53 1003 [address] [place] 2021-12-31 2021-12-31 Office Lalitha Whitney [facility] Enc ounter/ Legacy 00:00:00 00:00:00 Visit Deann Miller [id number] [facility] 632798 [facility] 2021-07-01 2021-07-01 [facility] Legacy 00:00:00 00:00:00 Visit Nona Todd [id number] [facility] [id number] [facility] 2021-02-16 2021-02-16 Outpatient [facility] [id number] [facility] 06:06:00 06:06:00 T_I [id number] Family Practic e 2020-06-15 2020-06-15 Office MARIELA Knig [facility] Encounter / Legacy 00:00:00 00:00:00 Visit Anastasiya [id number] Neisha ommuni [id number] [facility] 2020-06-14 2020-06-14 Office [facility] Legacy 00:00:00 00:00:00 Visit Charisma [id number] Com brandy [place] [id number] [facility] 2020-05-08 2020-05-08 Office Lalitha Whitney [facility] Enc ounter/ Legacy 00:00:00 00:00:00 Visit Vivienne Multani [id number] [facility] 572837 [facility] 2020-05-08 2020-05-08 Office MARIELA Eller [facility] Encounter / Legacy 00:00:00 00:00:00 Visit Jessica [id number] Mo mmuni [id number] [facility] 2020-04-27 2020-04-27 Office Lalitha Whitney Enc ounter/ Legacy 00:00:00 00:00:00 Visit OlunamrataAmanda Nix [id number] Communi [id number] Health 2020-04-16 2020-04-16 Office Lalitha Whitney Enc ounter/ Legacy 00:00:00 00:00:00 Visit Jacob HernandezAdherruperto Vesta [id number] Communi [id number] Health 2020-04-15 2020-04-15 Office Lalitha Whitney Enc ounter/ Legacy 00:00:00 00:00:00 Visit Edouard HernandezAdherNilam hickey [id number] [facility] Singh MedAdherence, [place] 241901 [facility] 2020-04-13 2020-04-13 Office Lalitha Whitney Enc ounter/ Legacy 00:00:00 00:00:00 Visit Edouard HernandezAdherNilam hickey [id number] [facility] Singh MedAdherence, [place] 957734 [facility] 2020-04-12 2020-04-12 Office MARIELA Whitney [facility] Encounter/ Legacy 00:00:00 00:00:00 Visit Lalitha [id number] Com brandy 857319 Health 2020-04-12 2020-04-12 Office Lalitha Whitney [facility] Enc ounter/ Legacy 00:00:00 00:00:00 Visit Izaiah Thornton [id number] Communi [id number] Health 2020-04-06 2020-04-06 Office MARIELA Eckert [facility] Encounte r/ Legacy 00:00:00 00:00:00 Visit Maged [id number] Com brandy 380409 Health 2020-04-06 2020-04-06 Office MARIELA Whitney Encounter/ Legacy 00:00:00 00:00:00 Visit Lalitha [id number] Com brandy 731077 Health 2020-04-01 2020-04-01 Office Lalitha Whitney Enc ounter/ Legacy 00:00:00 00:00:00 Visit Singh MedAdherence, Neva [id number] Communi 374623 ty Health 2020-03-30 2020-03-30 Office Lalitha Whitney Enc ounter/ Legacy 00:00:00 00:00:00 Visit Neva Tyler [id number] Communi 783858 ty Health 2020-03-09 2020-03-09 Office Lalitha Whitney Enc ounter/ Legacy 00:00:00 00:00:00 Visit Jacob TruongVesta hickey [id number] Communi 185349 ty Health 2020-02-27 2020-02-27 Office MARIELA Whitney Encounter/ Legacy 00:00:00 00:00:00 Visit Lalitha [id number] Com brandy 021237 ty Health 2020-02-26 2020-02-26 Office MARIELA Whitney Encounter/ Legacy 00:00:00 00:00:00 Visit Lalitha [id number] Com brandy 533960 ty Health 2019-11-19 2019-11-19 Office MARIELA Koroma Encount er/ Legacy 00:00:00 00:00:00 Visit Cassandra [id number] Com brandy 815833 ty Health 2019-11-07 2019-11-07 Office MARIELA Mayorga Encounter/ Legacy 00:00:00 00:00:00 Visit Arlen [id number] C ommuni 985747 ty Health 2019-09-13 2019-09-13 Office Lalitha Whitney Enc ounter/ Legacy 00:00:00 00:00:00 Visit Yael Gamez [id number] Communi 948647 ty Health 2019-09-10 2019-09-10 [facility]/ Legacy 00:00:00 00:00:00 Visit [id number] Com brandy 857815 ty Health 2019-09-09 2019-09-09 Office Lalitha Whitney Enc ounter/ Legacy 00:00:00 00:00:00 Visit Crowell Nique [id number] Communi 014242 ty Health 2019-08-25 2019-08-25 Office MARIELA Alvarez Encounter/ Legacy 00:00:00 00:00:00 Visit Amy [id number] Com brandy 885118 ty Health 2019-08-16 2019-08-16 Office MARIELA Whitney Encounter/ Legacy 00:00:00 00:00:00 Visit aLlitha [id number] Com brandy 411681 ty Health 2019-08-15 2019-08-15 Office Lalitha Whitney Enc ounter/ Legacy 00:00:00 00:00:00 Visit Harmeet Aquino [id number] Communi 391629 ty Health 2019-08-05 2019-08-05 Office Lalitha Whitney Enc ounter/ Legacy 00:00:00 00:00:00 Visit Neva Tyler [id number] Communi 583561 ty Health 2019-07-08 2019-07-08 Office Lalitha Whitney Enc ounter/ Legacy 00:00:00 00:00:00 Visit Harmeet Aquino [id number] Communi 811449 ty Health 2019-05-23 2019-05-23 Office MARIELA Whitney Encounter/ Legacy 00:00:00 00:00:00 Visit Lalitha [id number] Com brandy 408055 ty Health 2019-05-23 2019-05-23 Office MARIELA Matson Encounter/ Legacy 00:00:00 00:00:00 Visit Lino [id number] Co mmuni 272958 ty Health 2019-05-23 2019-05-23 Office MARIELA Todd Encounter / Legacy 00:00:00 00:00:00 Visit Nona [id number] Co mmuni 089291 ty Health 2019-05-23 2019-05-23 Office MARIELA Whitney Encounter/ Legacy 00:00:00 00:00:00 Visit Lalitha [id number] Com brandy 267703 ty Health 2019-05-23 2019-05-23 Office MARIELA Whitney Encounter/ Legacy 00:00:00 00:00:00 Visit Lalitha [id number] Com brandy 967419 ty Health 2019-05-23 2019-05-23 Office [facility] Legacy 00:00:00 00:00:00 Visit Lalitha [id number] Com brandy 302214 ty Health 2019-05-23 2019-05-23 Office Lalitha Whitney KRIS Enc ounter/ Legacy 00:00:00 00:00:00 Visit Nona Todd [id number] Vivienne Cueva 763973 y Health 2019-05-22 2019-05-22 Office [facility]/ Legacy 00:00:00 00:00:00 Visit Raine Raímrez [id number] Juan Manuel Martin 641757 ty Health 2019-05-15 2019-05-15 Office [facility]/ Legacy 00:00:00 00:00:00 Visit Lalitha [id number] Com brandy 125565 ty Health 2019-05-15 2019-05-15 Office Xiomy Perez KRIS Encoun ter/ Legacy 00:00:00 00:00:00 Visit [id number] Com brandy 303071 ty Health 2019-05-15 2019-05-15 Office MARIELA Whitney Encounter/ Legacy 00:00:00 00:00:00 Visit Lalitha [id number] Com brandy 931711 ty Health 2019-05-15 2019-05-15 Office MARIELA Whitney Encounter/ Legacy 00:00:00 00:00:00 Visit Lalitha [id number] Com brandy 466969 ty Health 2019-02-19 2019-02-19 Office MARIELA Todd Encounter / Legacy 00:00:00 00:00:00 Visit Nona [id number] Co mmuni 143384 ty Health 2019-02-10 2019-02-10 Office Lalitha Whitney [facility] Enc ounter/ Legacy 00:00:00 00:00:00 Visit Crowell Nique [id number] Communi 050685 Health 2019-01-31 2019-01-31 Office MARIELA Jackson Encounte r/ Legacy 00:00:00 00:00:00 Visit Johnna [id number] Com brandy 135366 ty Health 2019-01-24 2019-01-24 Office MARIELA White Encounte r/ Legacy 00:00:00 00:00:00 Visit Hector [id number] Com brandy 080989 ty Health 2019-01-24 2019-01-24 Office [facility] / Legacy 00:00:00 00:00:00 Visit Lizet [id number] Com brandy 505500 ty Health 2019-01-22 2019-01-22 Office MAIRELA White Encounte r/ Legacy 00:00:00 00:00:00 Visit Hector [id number] Com brandy 119011 ty Health 2019-01-22 2019-01-22 Office [facility] Legacy 00:00:00 00:00:00 Visit [id number] Com brandy 132879 ty Health 2019-01-22 2019-01-22 Office [facility]/ Legacy 00:00:00 00:00:00 Visit Lalitha [id number] Com brandy 460001 ty Health 2019-01-22 2019-01-22 Office [facility] Legacy 00:00:00 00:00:00 Visit Lalitha [id number] Com brandy 456978 ty Health 2019-01-22 2019-01-22 Office [facility] Legacy 00:00:00 00:00:00 Visit Lalitha [id number] Com brandy 284238 ty Health 2019-01-22 2019-01-22 Office [facility] / Legacy 00:00:00 00:00:00 Visit Nona [id number] Co mmuni 793852 ty Health 2019-01-22 2019-01-22 Office [facility] / Legacy 00:00:00 00:00:00 Visit Nona [id number] Co mmuni 667967 ty Health 2019-01-22 2019-01-22 Office [facility] Legacy 00:00:00 00:00:00 Visit Lalitha [id number] Com brandy 514104 ty Health 2019-01-22 2019-01-22 Office KRIS Whitney KRIS Encounter/ Legacy 00:00:00 00:00:00 Visit Lalitha [id number] Com brandy 836496 ty Health 2019-01-22 2019-01-22 Office [facility]/ Legacy 00:00:00 00:00:00 Visit Hector [id number] Com brandy 765420 ty Health 2019-01-22 2019-01-22 Office Lalitha Whitney [facility] Enc ounter/ Legacy 00:00:00 00:00:00 Visit Nona Todd [id number] Communi 191426 ty Health 2019-01-21 2019-01-21 Office [facility]/ Legacy 00:00:00 00:00:00 Visit [id number] Com brandy 411869 ty Health 2019-01-06 2019-01-06 Office Lalitha Whitney Enc ounter/ Legacy 00:00:00 00:00:00 Visit Crowell Nique [id number] Communi 288860 ty Health 2018-12-11 2018-12-11 Office Lalitha Whitney Enc ounter/ Legacy 00:00:00 00:00:00 Visit Amanad Chahal [id number] Communi 853322 ty Health 2018-12-11 2018-12-11 Office Amanda Brown [facility] Encount er/ Legacy 00:00:00 00:00:00 Visit Dorcas Sanchez [id number] Communi 617953 ty Health 2018-12-02 2018-12-02 Office [facility]/ Legacy 00:00:00 00:00:00 Visit Segun [id number] Com brandy 636435 ty Health 2018-11-25 2018-11-25 Office [facility] En[facility]/ Legacy 00:00:00 00:00:00 Visit Vivienne [id number] Com brandy 810257 ty Health 2018-11-16 2018-11-16 Office MARIELA Whitney Encounter/ Legacy 00:00:00 00:00:00 Visit Lalitha [id number] Com brandy 533862 ty Health 2018-11-12 2018-11-12 Office Lalitha Whitney MARIELA Enc ounter/ Legacy 00:00:00 00:00:00 Visit Cesar Cox Marley Ean [id number] Communi 235560 ty Health 2018-06-03 2018-06-03 Office Mukesh, MARIELA [facility] Encounter/ Legacy 00:00:00 00:00:00 Visit Arlen [id number] C ommuni 397690 ty Health 2018-05-22 2018-05-22 Office Corby, KRIS [facility] Encounter/ Legacy 00:00:00 00:00:00 Visit Isabella [id number] C ommuni 031575 ty Health 2018-04-22 2018-04-22 Office Valdez, KRIS [facility] Encounter / Legacy 00:00:00 00:00:00 Visit Lori [id number] Com brandy 303456 ty Health 2018-04-19 2018-04-19 Office Valdez, KRIS LC Encounter / Legacy 00:00:00 00:00:00 Visit Lori [id number] Com brandy 687312 ty Health 2018-03-23 2018-03-23 Office MARIELA Whitney LC Encounter/ Legacy 00:00:00 00:00:00 Visit Lalitha [id number] Com brandy 252291 ty Health 2018-03-23 2018-03-23 Office MARIELA Whitney Encounter/ Legacy 00:00:00 00:00:00 Visit Lalitha [id number] Com brandy 147932 ty Health 2018-03-23 2018-03-23 Office MARIELA Whitney LC Encounter/ Legacy 00:00:00 00:00:00 Visit Llaitha [id number] Com brandy 033051 ty Health 2018-03-23 2018-03-23 Office MARIELA Whitney LC Encounter/ Legacy 00:00:00 00:00:00 Visit Lalitha [id number] Com brandy 015282 ty Health 2018-03-23 2018-03-23 Office MARIELA Whitney Encounter/ Legacy 00:00:00 00:00:00 Visit Lalitha [id number] Com brandy 926564 ty Health 2018-03-23 2018-03-23 Office MARIELA Todd Encounter / Legacy 00:00:00 00:00:00 Visit Nona [id number] Co mmuni 574382 ty Health 2018-03-23 2018-03-23 Office Lalitha Whitney [facility] Enc ounter/ Legacy 00:00:00 00:00:00 Visit Calli Mancia [id number] Nona Vu 446362 ty Health 2018-03-22 2018-03-22 Office KRIS Kat [facility] Encounter/ Legacy 00:00:00 00:00:00 Visit Gianni [id number] Com brandy 508369 ty Health 2018-03-09 2018-03-09 Office MARIELA Whitney LC Encounter/ Legacy 00:00:00 00:00:00 Visit Lalitha [id number] Com brandy 183395 ty Health 2018-03-09 2018-03-09 Office MARIELA Whitney LC Encounter/ Legacy 00:00:00 00:00:00 Visit Lalitha [id number] Com brandy 725445 ty Health 2018-03-09 2018-03-09 Office MARIELA Whitney LC Encounter/ Legacy 00:00:00 00:00:00 Visit Lalitha [id number] Com brandy 978866 ty Health 2018-03-09 2018-03-09 Office MARIELA Whitney LC Encounter/ Legacy 00:00:00 00:00:00 Visit Lalitha [id number] Com brandy 799602 ty Health 2017-12-05 2017-12-05 Office MARIELA Duran [facility] Encount er/ Legacy 00:00:00 00:00:00 Visit Erika [id number] Com brandy 807606 ty Health 2017-11-09 2017-11-09 Office ValdezMARIELA [facility] Encounter / Legacy 00:00:00 00:00:00 Visit Lori [id number] Com brandy 897934 ty Health 2017-11-09 2017-11-09 Office Valdez, KRIS [facility] Encounter / Legacy 00:00:00 00:00:00 Visit Lori [id number] Com brandy 058060 ty Health 2017-11-01 2017-11-01 Office Valdez, LC [facility] Encounter / Legacy 00:00:00 00:00:00 Visit Lori [id number] Com brandy 187402 ty Health 2017-11-01 2017-11-01 Office Evangelista, LC LC Encount er/ Legacy 00:00:00 00:00:00 Visit Juice [id number] Com brandy 339287 ty Health 2017-11-01 2017-11-01 Office Evangelista, KRIS LC Encount er/ Legacy 00:00:00 00:00:00 Visit Juice [id number] Com brandy 563887 ty Health 2017-11-01 2017-11-01 Office Evangelista, [facility] LC Encount er/ Legacy 00:00:00 00:00:00 Visit Juice [id number] Com brandy 460462 ty Health 2017-11-01 2017-11-01 Office Evangelista, Juice [facility] LC Encounter/ Legacy 00:00:00 00:00:00 Visit Lori Valdez [id number] Communi 847693 ty Health 2017-10-27 2017-10-27 Office Devonte, [facility] LC Encounter/ Legacy 00:00:00 00:00:00 Visit Lalitha [id number] Com brandy 623699 ty Health 2017-10-27 2017-10-27 Office Devonte, KRIS LC Encounter/ Legacy 00:00:00 00:00:00 Visit Lalitha [id number] Com brandy [id number] ty Health 2017-10-27 2017-10-27 Office Lalitha Whitney [facility] Enc ounter/ Legacy 00:00:00 00:00:00 Visit Raine Ramírez [id number] Communi 907265 ty Health 2017-10-17 2017-10-17 Office Devonte, KRIS LC Encounter/ Legacy 00:00:00 00:00:00 Visit Lalitha [id number] Com brandy 278454 ty Health 2017-10-15 2017-10-15 Office Provider, Public Health Services [facility] Encounter/ Legacy 00:00:00 00:00:00 Visit Pillo Whitley [id number] [id number] Communi 194417 ty Health 2017-10-15 2017-10-15 Office KRIS Strange LC Encounter/ Legacy 00:00:00 00:00:00 Visit Khoi Mckoy [id number] Co mmuni 459707 ty Health 2017-10-15 2017-10-15 Office Khoi Strange LC E ncounter/ Legacy 00:00:00 00:00:00 Visit Estella Stahl [id number] Communi 482658 ty Health 2017-10-03 2017-10-03 Office KRIS Westfall KRIS Encounter/ Legacy 00:00:00 00:00:00 Visit Becka [id number] Com brandy 834407 ty Health 2017-10-02 2017-10-02 Office MARIELA Westfall Encounter/ Legacy 00:00:00 00:00:00 Visit Becka [id number] Com brandy 344783 ty Health 2017-09-22 2017-09-22 Office KRIS Whitney KRIS Encounter/ Legacy 00:00:00 00:00:00 Visit Lalitha [id number] Com brandy 277685 ty Health 2017-09-22 2017-09-22 Office KRIS Whitney LC Encounter/ Legacy 00:00:00 00:00:00 Visit Lalitha [id number] Com brandy 931134 ty Health 2017-09-22 2017-09-22 Office KRIS Whitney KRIS Encounter/ Legacy 00:00:00 00:00:00 Visit Lalitha [id number] Com brandy 102769 ty Health 2017-09-22 2017-09-22 Office KRIS Whitney LC Encounter/ Legacy 00:00:00 00:00:00 Visit Lalitha [id number] Com brandy 290419 ty Health 2017-09-22 2017-09-22 Office KRIS Whitney LC Encounter/ Legacy 00:00:00 00:00:00 Visit Lalitha [id number] Com brandy 798169 ty Health 2017-09-22 2017-09-22 Office KRIS Whitney LC Encounter/ Legacy 00:00:00 00:00:00 Visit Lalitha [id number] Com brandy 197931 ty Health 2017-09-22 2017-09-22 Office KRIS Whitney KRISH Encounter/ Legacy 00:00:00 00:00:00 Visit Lalitha [id number] Com brandy 786383 ty Health 2017-08-28 2017-08-28 Office KhoiMARIELA [facility] Encounter/ Legacy 00:00:00 00:00:00 Visit Becka [id number] Com brandy 519107 ty Health 2017-08-28 2017-08-28 Office KhoiMARIELA [facility] Encounter/ Legacy 00:00:00 00:00:00 Visit Becka [id number] Com brandy 901085 ty Health 2017-08-28 2017-08-28 Office Status, Fax [facility] Encoun ter/ Legacy 00:00:00 00:00:00 Visit [id number] Com brandy 523772 ty Health 2017-08-28 2017-08-28 Office Status, Fax [facility] Encoun ter/ Legacy 00:00:00 00:00:00 Visit [id number] Com brandy 567357 ty Health 2017-08-28 2017-08-28 Office Prabhjot [facility] Encounter/ Legacy 00:00:00 00:00:00 Visit Stephanie [id number] Com brandy 828991 ty Health 2017-08-28 2017-08-28 Office Prabhjot [facility] Encounter/ Legacy 00:00:00 00:00:00 Visit Stephanie [id number] Com brandy 410743 ty Health 2017-08-28 2017-08-28 Office KhoiMARIELA [facility] Encounter/ Legacy 00:00:00 00:00:00 Visit eBcka [id number] Com brandy 929560 ty Health 2017-08-28 2017-08-28 Office KhoiBecka [facility] Enc ounter/ Legacy 00:00:00 00:00:00 Visit Calli Mancia [id number] Raine Hernandez 88436 0 ty Health 2017-08-09 2017-08-[address] [facility] [id number] [place] 00:00:00 00:00:00 Health 2017-07-12 2017-07-12 Office Gutierrez [facility] Encounte r/ Legacy 00:00:00 00:00:00 Visit Pillo [id number] Com brandy 830778 ty Health 2017-07-12 2017-07-12 Office Provider, Public Health Services [facility] Encounter/ Legacy 00:00:00 00:00:00 Visit Pillo Whitley [id number] Communi 917583 ty Health 2017-06-29 2017-06-29 Office Teresa Clay [facility] Encoun ter/ Legacy 00:00:00 00:00:00 Visit [id number] Com brandy 755216 ty Health 2017-06-29 2017-06-29 Office MARIELA Whitney [facility] Encounter/ Legacy 00:00:00 00:00:00 Visit Lalitha [id number] Com brandy 578270 ty Health 2017-06-29 2017-06-29 Office Lalitha Whitney [facility] Enc ounter/ Legacy 00:00:00 00:00:00 Visit Silvia Doll [id number] Communi 225765 ty Health 2017-06-26 2017-06-26 Office MARIELA Kat [facility] Encounter/ Legacy 00:00:00 00:00:00 Visit Gianni [id number] Com brandy 190095 ty Health 2017-06-02 2017-06-02 Office MARIELA Whitney [facility] Encounter/ Legacy 00:00:00 00:00:00 Visit Lalitha [id number] Com brandy 301668 ty Health 2017-06-02 2017-06-02 Office Lalitha Whitney [facility] Enc ounter/ Legacy 00:00:00 00:00:00 Visit Savanna Fox [id number] Communi 990886 ty Health 2017-05-22 2017-05-22 Office Provider, Public Health Services [facility] Encounter/ Legacy 00:00:00 00:00:00 Visit Pillo Whitley [id number] Communi 705203 ty Health 2017-05-21 2017-05-21 Office Provider, Public Health Services [facility] Encounter/ Legacy 00:00:00 00:00:00 Visit Pillo Whitley [id number] [id number] Communi 049696 ty Health 2017-05-14 2017-05-14 Office Provider, Public Health Services [facility] Encounter/ Legacy 00:00:00 00:00:00 Visit Pillo Whitley 93408 80764 Communi 109686 ty Health 2017-05-10 2017-05-10 [facility]:00:00 00:00:00 Visit Silvia Doll [id number] Communi 043683 ty Health 2017-05-04 2017-05-04 [facility] Legacy 00:00:00 00:00:00 Visit [id number] Com brandy 454492 ty Health 2017-05-04 2017-05-04 [facility] Legacy 00:00:00 00:00:00 Visit Lalitha [id number] Com brandy 656830 ty Health 2017-05-04 2017-05-04 [facility] Legacy 00:00:00 00:00:00 Visit [id number] Com brandy 501157 ty Health 2017-05-04 2017-05-04 Office MARIELA Whitney [facility] Encounter/ Legacy 00:00:00 00:00:00 Visit Lalitha [id number] Com brandy 504962 ty Health 2017-05-04 2017-05-04 [facility] Legacy 00:00:00 00:00:00 Visit Lalitha [id number] Com brandy 296456 ty Health 2017-05-04 2017-05-04 [facility] Legacy 00:00:00 00:00:00 Visit Lalitha [id number] Com brandy 753433 ty Health 2017-05-04 2017-05-04 [facility] Legacy 00:00:00 00:00:00 Visit Jayjay Sales [id number] [facility] 876372 ty Health 2017-05-04 2017-05-04 [facility] Legacy 00:00:00 00:00:00 Visit Lalitha [id number] Com brandy 685289 ty Health 2017-05-04 2017-05-04 [facility] Legacy 00:00:00 00:00:00 Visit [id number] Com brandy 215475 ty Health 2017-05-04 2017-05-04 Office Provider, Public Health Services [facility] Encounter/ Legacy 00:00:00 00:00:00 Visit Pillo Whitley [id number] [facility] 036032 [facility] 2017-05-04 2017-05-04 Office Lalitha Whitney LC Enc ounter/ Legacy 00:00:00 00:00:00 Visit Lavon Silvia [phone] [id number] [facility] Jayjay Sales [id number] ty Calli Mancia [facility] 2017-05-01 2017-05-01 Office Provider, Public Health Services [facility] Encounter/ Legacy 00:00:00 00:00:00 Visit Pillo Whitley [id number] [facility] [id number] [facility] 2017-04-13 2017-04-13 Office MARIELA Whitney LC Encounter/ Legacy 00:00:00 00:00:00 Visit Lalitha [id number] [facility] [id number] [facility] 2017-04-13 2017-04-13 Office Lalitha Whitney [facility] Enc ounter/ Legacy 00:00:00 00:00:00 Visit Nadine Koroma [id number] [facility] 060307 [facility] 2017-04-13 2017-04-13 Office Provider, Public Health Services [facility] Encounter/ Legacy 00:00:00 00:00:00 Visit Pillo Whitley [id number] 43703 [facility] 575383 [facility] 2016-12-12 2016-12-[address] [facility] [id number] [place] 00:00:00 00:00:00 Health 2016-11-22 2016-11-[address] [facility] [id number] [place] 00:00:00 00:00:00 Health 2016-11-09 2016-11-[address] [facility] [id number] [place] 00:00:00 00:00:00 Health 2016-10-17 2016-10-[address] [facility] [id number] [place] 15:10:56 15:10:56 Health 2016-10-11 2016-10-[address] [facility] [id number] [place] 14:55:25 14:55:25 Health 2016-08-24 2016-08-[address] [facility] [id number] [place] 10:43:37 10:43:37 Health 2016-08-24 2016-08-[address] [facility] [id number] [place] 09:34:08 09:34:08 Health 2016-08-24 2016-08-[address] [facility] [id number] [place] 09:10:58 09:10:58 Health 2016-08-24 2016-08-[address] [facility] [id number] [place] 08:00:37 08:00:37 Health Results Test Description Test Time Test Comments Results Result Comments Source HIV-1RNA, serum, by PCR, quantitative 2021-12-17 09:30:00 Test Item Value Reference Range Interpretation Comme nts HIV-1RNA, serum, by PCR, quantitative (test NOT DETECTED copies/ mL NOT DETECTED N code = 96800-5) [facility]hemoglobin A1C, blood, as % of total [id number] 09:30:00 Test Item Value Reference Range Interpretation Comments hemoglobin A1C, blood, as 6.5 % OF TOTAL HGB <5.7 H % of total hemoglobin (test code = 4548-4) [facility] Healthlymphocytes, [id number] 09:30:00 Test Item Value Reference Range Interpretation Comments lymphocytes, absolute (test 1373 CELLS/UL 850-3900 N code = 22126-7) Community HealthCD4/CD8 [id number] 09:30:00 Test Item Value Reference Range Interpretation Comments CD4/CD8 ratio (test code 2.03 (unknown unit) 0.86-5.00 N = 06493) Community Healthabsolute [id number] 09:30:00 Test Item Value Reference Range Interpretation Comments absolute CD8 (test code = 309 (unknown unit) 180-1170 N 56988) Community HealthT-suppressor cells (CD8) as percent of blood lymphocytes 2021-12-17 09:30:00 Test Item Value Reference Range Interpretation Comments T-suppressor cells (CD8) as percent of 23 % 12-42 N blood lymphocytes (test code = 3517) Community HealthT-helper cells (CD4) [id number] 09:30:00 Test Item Value Reference Range Interpretation Comments T-helper cells (CD4) count (test 630 CELLS/UL 490-1740 N code = 90668-8) Community HealthT-helper cells (CD4) as percent of blood lymphocytes 2021-12-17 09:30:00 Test Item Value Reference Range Interpretation Comments T-helper cells (CD4) as percent of 46 % 30-61 N blood lymphocytes (test code = 8123-2) Community Healthalanine aminotransferase (SGPT), [id number] 09:30:00 Test Item Value Reference Range Interpretation Comments alanine aminotransferase (SGPT), serum 13 1/L 6-29 N (test code = 1742-6) Community Healthaspartate aminotransferase (SGOT), [id number] 09:30:00 Test Item Value Reference Range Interpretation Comments aspartate aminotransferase (SGOT), 15 1/L 10-35 N serum (test code = 1920-8) Community Healthalkaline phosphatase, [id number] 09:30:00 Test Item Value Reference Range Interpretation Comments alkaline phosphatase, serum (test code 75 1/L 37-153 N = 1783-0) [facility] Healthbilirubin, serum, [id number] 09:30:00 Test Item Value Reference Range Interpretation Comments bilirubin, serum, total (test code 0.4 mg/dL 0.2-1.2 N = 1975-2) [facility] Healthalbumin/globulin ratio, [id number] 09:30:00 Test Item Value Reference Range Interpretation Comments albumin/globulin ratio, serum 1.5 (calc) 1.0-2.5 N (test code = 1759-0) Community Healthglobulins, serum, [id number] 09:30:00 Test Item Value Reference Range Interpretation Comments globulins, serum, total (test 2.8 G/DL (CALC) 1.9-3.7 N code = 2336-6) Community Healthalbumin, [id number] 09:30:00 Test Item Value Reference Range Interpretation Comments albumin, serum (test code = 1751-7) 4.3 g/dL 3.6-5.1 N Community Healthprotein, total, [id number] 09:30:00 Test Item Value Reference Range Interpretation Comments protein, total, serum (test code = 7.1 g/dL 6.1-8.1 N 2885-2) Community Healthcalcium, [id number] 09:30:00 Test Item Value Reference Range Interpretation Comments calcium, serum (test code = 1999-8) 9.4 mg/dL 8.6-10.4 N Community Healthcarbon dioxide, venous [id number] 09:30:00 Test Item Value Reference Range Interpretation Comments carbon dioxide, venous blood (test 30 mmol/L 20-32 N code = 2026-1) Community Healthchloride, [id number] 09:30:00 Test Item Value Reference Range Interpretation Comments chloride, serum (test code = 107 mmol/L 98-110 N 2075-0) [facility] Healthpotassium, [id number] 09:30:00 Test Item Value Reference Range Interpretation Comments potassium, serum (test code = 4.2 mmol/L 3.5-5.3 N 2823-3) [facility] Healthsodium, [id number] 09:30:00 Test Item Value Reference Range Interpretation Comments sodium, serum (test code = 2951-2) 141 mmol/L 135-146 N Community Healthurea nitrogen/creatinine ratio, [id number] 09:30:00 Test Item Value Reference Range Interpretation Comments urea NOT APPLICABLE (calc) 6-22 nitrogen/creatinine ratio, serum (test code = 3097-3) Community HealthEstimated Glomerular Filtration Rate (calc)2021-12-17 09:30:00 Test Item Value Reference Range Interpretation Comments Estimated Glomerular 93 See_Comment N [Autom ated message] Filtration Rate mL/min/{1.73 The system w [facility] (calc) (test code = m2} generate d this 00909-1) result transmit aracely reference range : > OR = 60. The reference range was not used to interpret this result as normal/abnormal . Community Healthcreatinine, [id number] 09:30:00 Test Item Value Reference Range Interpretation Comments creatinine, serum (test code = 0.74 mg/dL 0.50-1.03 N 2160-0) Community Healthurea nitrogen, [id number] 09:30:00 Test Item Value Reference Range Interpretation Comments urea nitrogen, blood (test code = 12 mg/dL 7-25 N 3094-0) Community Healthblood glucose, [id number] 09:30:00 Test Item Value Reference Range Interpretation Comments blood glucose, random (test code = 99 mg/dL 65-99 N 2339-0) Community Healthmicroalbumin/creatinine ratio, [id number] 09:30:00 Test Item Value Reference Range Interpretation Comments microalbumin/creatinine 20 MCG/MG CREAT <30 N ratio, urine (test code = 97594-1) Community Healthmicroalbumin, random, [id number] 09:30:00 Test Item Value Reference Range Interpretation Comments microalbumin, random, urine (test 3.2 mg/dL See Note: N code = 09147-8) Community Healthcreatinine, random, [id number] 09:30:00 Test Item Value Reference Range Interpretation Comments creatinine, random, urine (test 164 mg/dL 20-275 N code = 2161-8) Community Healthcholesterol, non-HDL, [id number] 09:30:00 Test Item Value Reference Range Interpretation Comments cholesterol, non-HDL, total 127 MG/DL (CALC) <130 N (test code = 15210) Community Healthcholesterol/HDL ratio, serum, [id number] 09:30:00 Test Item Value Reference Range Interpretation Comments cholesterol/HDL ratio, serum, 3.1 (calc) <5.0 N percent (test code = 2404) Community HealthLDL cholesterol, [id number] 09:30:00 Test Item Value Reference Range Interpretation Comments LDL cholesterol, serum (test 112 MG/DL (CALC) H code = 2089-1) Community Healthtriglyceride, serum, [id number] 09:30:00 Test Item Value Reference Range Interpretation Comments triglyceride, serum, fasting (test 66 mg/dL <150 N code = 2571-8) Community HealthHDL cholesterol, [id number] 09:30:00 Test Item Value Reference Range Interpretation Comments HDL cholesterol, 60 mg/dL See_Comment N [Automated message] The serum (test code = system [facility] generated 5-9) this result tra nsmitted reference range : > OR = 50. The referen ce range was not used to interpret this result as normal/abnormal . Community Healthcholesterol, [id number] 09:30:00 Test Item Value Reference Range Interpretation Comments cholesterol, serum (test code = 187 mg/dL <200 N 2093-3) Community HealthCD4/CD8 [id number] 09:30:00 Test Item Value Reference Range Interpretation Comments CD4/CD8 ratio (test code 2.03 (unknown unit) 0.86-5.00 N = 64583) Community Healthabsolute [id number] 09:30:00 Test Item Value Reference Range Interpretation Comments absolute CD8 (test code = 309 (unknown unit) 180-1170 N 75476) Community HealthT-suppressor cells (CD8) as percent of blood lymphocytes 2021-12-17 09:30:00 Test Item Value Reference Range Interpretation Comments T-suppressor cells (CD8) as percent of 23 % 12-42 N blood lymphocytes (test code = 3517) Community Healthcholesterol, non-HDL, [id number] 09:30:00 Test Item Value Reference Range Interpretation Comments cholesterol, non-HDL, total 127 MG/DL (CALC) <130 N (test code = 20631) Community Healthcholesterol/HDL ratio, serum, [id number] 09:30:00 Test Item Value Reference Range Interpretation Comments cholesterol/HDL ratio, serum, 3.1 (calc) <5.0 N percent (test code = 2404) Community HealthHEMOGLOBIN [id number] 05:40:01 Test Item Value Reference Range Interpretation Comments HEMOGLOBIN A1c (test 6.8 % 4.2-5.6 H AMERI CAN DIABETES code = 82327) ASSOCIATION IDELINES FOR HGB A1C: PREDIABETES/INC REASED RISK . . . . . . . 5.7 -6.4% DIAGNOSIS OF DI ABETES . . . . . . . . . >=6 .5% WITH CONFIRMATION OR APPROPRIATE SYMPTOMS NOTE: ASSAY MAY BE AFFECTED BY HEMOGLOBINOPATH IES (SICKLE CELL ANEMIA, S- C DISEASE, OTHERS) OR ANGELA FICIALLY LOWERED BY DECR EASED RED CELL SURVIVAL ( HEMOLYTIC ANEMIAS, BLOOD LOSS, ETC.). CONSIDER ALTERN ATE TESTING OR LABORATORY C ONSULTATION. LIPID [id number] 05:30:57 Test Item Value Reference Range Interpretation Comments CHOLESTEROL (test 192 MG/DL <200 code = 2210) TRIGLYCERIDES (test 74 MG/DL <150 code = 2232) HDL CHOLESTEROL (test 54 MG/DL >39 code = 2220) CALC LDL CHOL (test 121 MG/DL <100 H NOTE: C ALCULATED LDL code = 2237) IS BASED ON PREETI-GAYLE METHOD WHICHINCLUDES ADJUSTABLE TRIGLYCERIDE:VL DL CHOLESTEROL RAT IO.THIS FACTOR VARIES B Y MEASURED TRIGLY CERIDE AND NON-HDLCHOL ESTEROL CONCENTRATIONS WITH INCREASED CALCU LATED LDL SEENIN HIGH ER TRIGLYCERIDE OR LOWER NON-HDL SPECIME NS. FOR MOREINFORMATION , SEE CLIENT ANNOUNCE MENT AT [email or web address] RATIO LDL/HDL 2.24 RATIO <3.22 UNLESS O THERWISE (test code = 2238) INDICATED , ALL TESTING PERFORMED [facility], [id number] [place] [address] DIRECTOR: SHAYNE MARTINEZ M.D. CLIA NUMBER [id number] CAP ACCREDITATION N O. [id number] bilirubin, serum, [id number] 08:35:00 Test Item Value Reference Range Interpretation Comments bilirubin, serum, direct (test <0.10 mg/dL 0.00-0.40 code = 1968-7) Community Healthrad plasma reagin antibody, [id number] 08:35:00 Test Item Value Reference Range Interpretation Comments rapid plasma reagin antibody, Non Reactive Non Reactive serum (test code = 5291-0) [facility] leukocyte antigen [id number] 08:35:00 Test Item Value Reference Range Interpretation Comments human leukocyte antigen B57 (test Negative code = 419301) Community Healthcreatinine, random, [id number] 08:35:00 Test Item Value Reference Range Interpretation Comments creatinine, random, urine (test 148.5 mg/dL code = 2161-8) Community HealthNeisseria gonorrhoeae DNA [id number] 08:35:00 Test Item Value Reference Range Interpretation Comments Neisseria gonorrhoeae DNA probe Negative Negative (test code = 56761-9) Community Healthchlamydia DNA [id number] 08:35:00 Test Item Value Reference Range Interpretation Comments chlamydia DNA probe (test code = Negative Negative 34529-1) Community HealthLDL cholesterol, [id number] 08:35:00 Test Item Value Reference Range Interpretation Comments LDL cholesterol, serum (test code = 143 mg/dL 0-99 H 2088-04) Community Healthvery low density [id number] 08:35:00 Test Item Value Reference Range Interpretation Comments very low density lipoproteins (test 11 mg/dL 5-40 code = 1-7) Community HealthHDL cholesterol, [id number] 08:35:00 Test Item Value Reference Range Interpretation Comments HDL cholesterol, serum (test code = 56 mg/dL >39 2084-12) [facility] Healthtriglyceride, serum, [id number] 08:35:00 Test Item Value Reference Range Interpretation Comments triglyceride, serum, fasting (test 61 mg/dL 0-149 code = 2571-8) Community Healthcholesterol, [id number] 08:35:00 Test Item Value Reference Range Interpretation Comments cholesterol, serum (test code = 210 mg/dL 100-199 H 2092-06) Community Healthbacteria, urine [id number] 08:35:00 Test Item Value Reference Range Interpretation Comments bacteria, urine microscopy (test code = Few None seen/Few 5769-5) Community Healthcasts, [id number] 08:35:00 Test Item Value Reference Range Interpretation Comments casts, urine (test code = 5626) None seen None seen Community Healthepithelial cells, [id number] 08:35:00 Test Item Value Reference Range Interpretation Comments epithelial cells, urine (test code = 0-10 0-10 5787-7) Community HealthRBC, [id number] 08:35:00 Test Item Value Reference Range Interpretation Comments RBC, Urine (test code = 10616-5) 0-2 /hpf 0-2 [facility] [id number] 08:35:00 Test Item Value Reference Range Interpretation Comments WBC urine on microscopy (test code = >30 /hpf 0-5 A 1016) Community Healthurinalysis, microscopic [id number] 08:35:00 Test Item Value Reference Range Interpretation Comments urinalysis, microscopic See below: examination (test code = 78949-1) Community Healthnitrate, [id number] 08:35:00 Test Item Value Reference Range Interpretation Comments nitrate, urine (test code = 39133-0) Positive Negative A Community Healthurobilinogen, urine, semiquantitative (dipstick) 2021-06-11 08:35:00 Test Item Value Reference Range Interpretation Comments urobilinogen, urine, 0.2 (unknown 0.2-1.0 semiquantitative (dipstick) unit) (test code = 5818-0) Community Healthbilirubin, [id number] 08:35:00 Test Item Value Reference Range Interpretation Comments bilirubin, urine (test code = Negative Negative 5770-3) Community Healthketones, urine, by test [id number] 08:35:00 Test Item Value Reference Range Interpretation Comments ketones, urine, by test strip (test Negative Negative code = 5797-6) Community Healthglucose, urine, plfogabxxqfeycym7239-17-55 08:35:00 Test Item Value Reference Range Interpretation Comments glucose, urine, semiquantitative Negative Negative (test code = 5792-7) Community Healthprotein, urine, semiquantitative (dipstick)2021-06-11 08:35:00 Test Item Value Reference Range Interpretation Comments protein, urine, 34.6 (unknown semiquantitative (dipstick) unit) (test code = 1753-3) Community Healthleukocyte esterase, urine, by [id number] 08:35:00 Test Item Value Reference Range Interpretation Comments leukocyte esterase, urine, by dipstick 2+ Negative A (test code = 5799-2) Community Healthappearance, [id number] 08:35:00 Test Item Value Reference Range Interpretation Comments appearance, urine (test code = 5767-9) Clear Clear Community Healthurine [id number] 08:35:00 Test Item Value Reference Range Interpretation Comments urine color (test code = 5778-6) Yellow Yellow Community HealthpH, urine, [id number]8 08:35:00 Test Item Value Reference Range Interpretation Comments pH, urine, semiquantitative 6.0 (unknown 5.0-7.5 (test code = 5803-2) unit) Community Healthspecific gravity, body [id number] 08:35:00 Test Item Value Reference Range Interpretation Comments specific gravity, body 1.026 (unknown unit) 1.005-1.030 fluid (test code = 2964-5) Community Healthalanine aminotransferase (SGPT), [id number] 08:35:00 Test Item Value Reference Range Interpretation Comments alanine aminotransferase (SGPT), serum 12 1/L 0-32 (test code = 1742-6) Community Healthaspartate aminotransferase (SGOT), [id number] 08:35:00 Test Item Value Reference Range Interpretation Comments aspartate aminotransferase (SGOT), 14 1/L 0-40 serum (test code = 1920-8) Community Healthalkaline phosphatase, [id number] 08:35:00 Test Item Value Reference Range Interpretation Comments alkaline phosphatase, serum (test code 89 1/L 44-121 = 1783-0) [facility]bilirubin, serum, umbii3498-24-12 08:35:00 Test Item Value Reference Range Interpretation Comments bilirubin, serum, total (test code 0.2 mg/dL 0.0-1.2 = 1975-2) [facility]albumin/globulin ratio, [id number] 08:35:00 Test Item Value Reference Range Interpretation Comments albumin/globulin ratio, 1.9 (unknown unit) 1.2-2.2 serum (test code = 1759-0) [facility] Healthglobulin, zrjeo3233-52-54 08:35:00 Test Item Value Reference Range Interpretation Comments globulin, serum (test code 2.4 (unknown unit) 1.5-4.5 = 2336-6) [facility]albumin, [id number] 08:35:00 Test Item Value Reference Range Interpretation Comments albumin, serum (test code = 1751-7) 4.5 g/dL 3.8-4.9 [facility]protein, total, [id number] 08:35:00 Test Item Value Reference Range Interpretation Comments protein, total, serum (test code = 6.9 g/dL 6.0-8.5 2885-2) [facility]calcium, [id number] 08:35:00 Test Item Value Reference Range Interpretation Comments calcium, serum (test code = 1999-8) 9.6 mg/dL 8.7-10.2 [facility]carbon dioxide, venous yqsca6826-74-58 08:35:00 Test Item Value Reference Range Interpretation Comments carbon dioxide, venous blood (test 23 mmol/L 20- code = 2027-1) [facility]chloride, zslxg6825-49-07 08:35:00 Test Item Value Reference Range Interpretation Comments chloride, serum (test code = 103 mmol/L 96-106 2075-0) [facility] Healthpotassium, zwros7835-17-60 08:35:00 Test Item Value Reference Range Interpretation Comments potassium, serum (test code = 4.1 mmol/L 3.5-5.2 2823-3) [facility]sodium, igvwb9524-87-61 08:35:00 Test Item Value Reference Range Interpretation Comments sodium, serum (test code = 2951-2) 143 mmol/L 134-144 [facility]urea nitrogen/creatinine ratio, hhfrs6308-41-19 08:35:00 Test Item Value Reference Range Interpretation Comments urea nitrogen/creatinine 20 (unknown unit) 9-23 ratio, serum (test code = 3097-3) [facility] HealthEstimated Glomerular Filtration Rate (calc)2021-06-11 08:35:00 Test Item Value Reference Range Interpretation Comments Estimated Glomerular 103 mL/min/{1.73 m2} >59 Filtration Rate (calc) (test code = 26127-6) [facility]creatinine, gexak5931-76-44 08:35:00 Test Item Value Reference Range Interpretation Comments creatinine, serum (test code = 0.61 mg/dL 0.57-1.00 2160-0) [facility]urea nitrogen, swrzy9018-35-24 08:35:00 Test Item Value Reference Range Interpretation Comments urea nitrogen, blood (test code = 12 mg/dL 6-24 3094-0) [facility]blood glucose, nlghid2328-73-16 08:35:00 Test Item Value Reference Range Interpretation Comments blood glucose, random (test code = 104 mg/dL 65-99 H 2339-0) [facility] Healthimmature granulocytes, percentage of total cells, blood 2021-06-11 08:35:00 Test Item Value Reference Range Interpretation Comments immature granulocytes, percentage of 0 % total cells, blood (test code = 85541-1) [facility] Healthbasophil count, jiolxdxe0249-73-48 08:35:00 Test Item Value Reference Range Interpretation Comments basophil count, absolute (test 0.1 x10E3/uL 0.0-0.2 code = 42745-5) [facility] HealthEosinophil Absolute Cwxwq3360-60-56 08:35:00 Test Item Value Reference Range Interpretation Comments Eosinophil Absolute Count (test 0.1 X10E3/UL 0.0-0.4 code = 48349-7) [facility] Healthmonocyte count, blood, zbkcowlyh2080-25-56 08:35:00 Test Item Value Reference Range Interpretation Comments monocyte count, blood, automated 0.3 X10E3/UL 0.1-0.9 (test code = 742-7) [facility]lymphocyte count, blood, nuqmogigc8488-06-37 08:35:00 Test Item Value Reference Range Interpretation Comments lymphocyte count, blood, 1.5 X10E3/UL 0.7-3.1 automated (test code = 731-0) [facility] HealthAbsolute Eiqprjvmcse5055-31-12 08:35:00 Test Item Value Reference Range Interpretation Comments Absolute Neutrophils (test code 1.8 X10E3/UL 1.4-7.0 = 58281-1) [facility]basophils as percent of blood cqcwttsfzn0448-16-26 08:35:00 Test Item Value Reference Range Interpretation Comments basophils as percent of blood 2 % leukocytes (test code = 707-0) [facility] Healtheosinophils as percent of blood fcsrloyipb2758-12-50 08:35:00 Test Item Value Reference Range Interpretation Comments eosinophils as percent of blood 3 % leukocytes (test code = 713-8) [facility] Healthmonocytes as percent of blood ebvjmxcikm6870-46-86 08:35:00 Test Item Value Reference Range Interpretation Comments monocytes as percent of blood 8 % leukocytes (test code = 5905-5) [facility]lymphocytes as percent of blood zioddltabn7848-82-25 08:35:00 Test Item Value Reference Range Interpretation Comments lymphocytes as percent of blood 40 % leukocytes (test code = 736-9) [facility] Healthneutrophils as percent of blood zgjgrnfjct9728-32-55 08:35:00 Test Item Value Reference Range Interpretation Comments neutrophils as percent of blood 47 % leukocytes (test code = 770-8) [facility]platelet ahafb5801-98-02 08:35:00 Test Item Value Reference Range Interpretation Comments platelet count (test code = 308 X10E3/UL 150-450 777-3) [facility]red blood cell distribution lucqz4835-54-24 08:35:00 Test Item Value Reference Range Interpretation Comments red blood cell distribution width 13.0 % 11.7-15.4 (test code = 788-0) [facility] corpuscular hemoglobin concentration, [id number] 08:35:00 Test Item Value Reference Range Interpretation Comments mean corpuscular hemoglobin 33.9 G/DL 31.5-35.7 concentration, RBC (test code = 786-4) [facility] corpuscular hemoglobin, NJW8213-77-60 08:35:00 Test Item Value Reference Range Interpretation Comments mean corpuscular hemoglobin, RBC 31.1 pg 26.6-33.0 (test code = 785-6) [facility] corpuscular volume, TYZ5669-09-56 08:35:00 Test Item Value Reference Range Interpretation Comments mean corpuscular volume, RBC (test code 92 fL 79-97 = 787-2) [facility]hematocrit, mccio2331-38-60 08:35:00 Test Item Value Reference Range Interpretation Comments hematocrit, blood (test code = 4544-3) 38.4 % 34.0-46.6 [facility]hemoglobin, aeirl3179-05-77 08:35:00 Test Item Value Reference Range Interpretation Comments hemoglobin, blood (test code = 13.0 g/dL 11.1-15.9 718-7) [facility]altherythrocyte (RBC) ekfgj3820-54-73 08:35:00 Test Item Value Reference Range Interpretation Comments erythrocyte (RBC) count (test 4.18 X10E6/UL 3.77-5.28 code = 789-8) [facility]leukocyte count, txiqb6675-46-37 08:35:00 Test Item Value Reference Range Interpretation Comments leukocyte count, blood (test 3.8 X10E3/UL 3.4-10.8 code = 6690-2) [facility] HealthCD4/CD8 rimef6329-17-96 08:35:00 Test Item Value Reference Range Interpretation Comments CD4/CD8 ratio (test code 1.66 (unknown unit) 0.92-3.72 = 17461) [facility] HealthT-suppressor cells (CD8) as percent of blood lymphocytes 2021-06-11 08:35:00 Test Item Value Reference Range Interpretation Comments T-suppressor cells (CD8) as percent of 25.8 % 12.0-35.5 blood lymphocytes (test code = 3517) [facility] Healthabsolute [id number] 08:35:00 Test Item Value Reference Range Interpretation Comments absolute CD8 (test code = 387 (unknown unit) 333-540 84392) [facility] HealthT-helper cells (CD4) as percent of blood lymphocytes 2021-06-11 08:35:00 Test Item Value Reference Range Interpretation Comments T-helper cells (CD4) as percent of 42.7 % 30.8-58.5 blood lymphocytes (test code = 8123-2) [facility] HealthT-helper cells (CD4) mvwca4590-86-28 08:35:00 Test Item Value Reference Range Interpretation Comments T-helper cells (CD4) count (test code 641 /UL 359-1519 = 92467-7) [facility] Healthhepatitis A antibody, gslrj8015-00-84 08:35:00 Test Item Value Reference Range Interpretation Comments hepatitis A antibody, total (test Positive Negative A code = 46498-1) [facility] Healthhepatitis B core antibody, ekodl3602-51-28 08:35:00 Test Item Value Reference Range Interpretation Comments hepatitis B core antibody, total Negative Negative (test code = 33422-0) [facility]hepatitis B surface yztnfwd7935-07-33 08:35:00 Test Item Value Reference Range Interpretation Comments hepatitis B surface antigen (test Negative Negative code = 06465-3) [facility] mkgpe8099[facility]13 08:35:00 Test Item Value Reference Range Interpretation Comments hepatitis C antibody, serum (test code <0.1 0.0-0.9 = 51391-6) [facility] HealthHIV-2 antibodies, western otuw2446-38-30 08:35:00 Test Item Value Reference Range Interpretation Comments HIV-2 antibodies, western blot Non Reactive Non Reactive (test code = 27491-6) [facility] HealthHIV-1/HIV-2 Ab, knagv3822-06-75 08:35:00 Test Item Value Reference Range Interpretation Comments HIV-1/HIV-2 Ab, serum (test code = Reactive Non Reactive 60384-6) [facility] HealthHIV-CMIA (Chemiluminescent Microparticle Immuno Assay) 2021-06-11 08:35:00 Test Item Value Reference Range Interpretation Comments HIV-CMIA Preliminary Reactive Non Reactive (Chemiluminescent Microparticle Immuno Assay) (test code = 25410-7) [facility]althtoxoplasma gondii antibody, ZjH1827-56-43 08:35:00 Test Item Value Reference Range Interpretation Comments toxoplasma gondii antibody, IgG (test <3.0 0.0-7.1 code = 5389-2) [facility] Healthhepatitis B surface yddrpmgb3289-70-56 08:35:00 Test Item Value Reference Range Interpretation Comments hepatitis B surface antibody (test Reactive code = 66608-7) [facility] HealthHIV-1RNA, serum, by PCR, osdrzwgcywrr2840-54-35 08:35:00 Test Item Value Reference Range Interpretation Comments HIV-1RNA, serum, by PCR, <20 copies/mL quantitative (test code = 46043-2) [facility] antigen [id number] 08:35:00 Test Item Value Reference Range Interpretation Comments human leukocyte antigen B57 (test Negative code = 977924) [facility] Healthcasts, dbckc6547-59-36 08:35:00 Test Item Value Reference Range Interpretation Comments casts, urine (test code = 5626) None seen None seen [facility] urine on dylnsfybwp9282-24-66 08:35:00 Test Item Value Reference Range Interpretation Comments WBC urine on microscopy (test code = >30 /hpf 0-5 A 1016) [facility] HealthOccult Blood, vnsxd7731-22-40 08:35:00 Test Item Value Reference Range Interpretation Comments Occult Blood, urine (test code = Negative Negative ) [facility] HealthCD4/CD8 isern3180-78-87 08:35:00 Test Item Value Reference Range Interpretation Comments CD4/CD8 ratio (test code 1.66 (unknown unit) 0.92-3.72 = 08388) [facility] HealthT-suppressor cells (CD8) as percent of blood lymphocytes 2021-06-11 08:35:00 Test Item Value Reference Range Interpretation Comments T-suppressor cells (CD8) as percent of 25.8 % 12.0-35.5 blood lymphocytes (test code = 3517) [facility]absolute [id number] 08:35:00 Test Item Value Reference Range Interpretation Comments absolute CD8 (test code = 387 (unknown unit) [phone]) [facility]hemoglobin A1C, blood, as % of total grgnfloybb8730-44-92 09:15:00 Test Item Value Reference Range Interpretation Comments hemoglobin A1C, blood, as % of total 7.3 % 4.8-5.6 H hemoglobin (test code = 4548-4) [facility]microalbumin/creatinine ratio, lfxei8153-32-60 09:15:00 Test Item Value Reference Range Interpretation Comments microalbumin/creatinine ratio, 25 MG/G CREAT 0-29 urine (test code = 90124-5) [facility]microalbumin/total urine aephyf9371-29-85 09:15:00 Test Item Value Reference Range Interpretation Comments microalbumin/total urine volume 43.4 mg/L (test code = 91589-5) [facility] Healthcreatinine, random, azcfz6882-59-96 09:15:00 Test Item Value Reference Range Interpretation Comments creatinine, random, urine (test 171.7 mg/dL code = 2161-8) [facility] HealthLDL cholesterol, fzhcn4795-51-46 09:15:00 Test Item Value Reference Range Interpretation Comments LDL cholesterol, serum (test code = 150 mg/dL 0-99 H 2088-1) [facility] Healthvery low density ehchutsabgjr9396-97-34 09:15:00 Test Item Value Reference Range Interpretation Comments very low density lipoproteins (test 16 mg/dL 5-40 code = 2091-7) [facility] HealthHDL cholesterol, bayaw0117-84-44 09:15:00 Test Item Value Reference Range Interpretation Comments HDL cholesterol, serum (test code = 56 mg/dL >39 5-9) [facility]althtriglyceride, serum, ggqdazm2098-50-86 09:15:00 Test Item Value Reference Range Interpretation Comments triglyceride, serum, fasting (test 91 mg/dL 0-149 code = 2571-8) [facility]cholesterol, mhvdn6193-61-22 09:15:00 Test Item Value Reference Range Interpretation Comments cholesterol, serum (test code = 222 mg/dL 100-199 H 2093-3) [facility] Healthalanine aminotransferase (SGPT), [id number] 09:15:00 Test Item Value Reference Range Interpretation Comments alanine aminotransferase (SGPT), serum 13 1/L 0-32 (test code = 1742-6) [facility] Healthaspartate aminotransferase (SGOT), anxzf4281-75-60 09:15:00 Test Item Value Reference Range Interpretation Comments aspartate aminotransferase (SGOT), 15 1/L 0-40 serum (test code = 1920-8) [facility] Healthalkaline phosphatase, opxbm9628-58-62 09:15:00 Test Item Value Reference Range Interpretation Comments alkaline phosphatase, serum (test code 90 1/L 39-117 = 1783-0) [facility]bilirubin, serum, wyhxx1368-15-34 09:15:00 Test Item Value Reference Range Interpretation Comments bilirubin, serum, total (test code 0.3 mg/dL 0.0-1.2 = 1975-2) [facility]albumin/globulin ratio, wttmc0443-52-32 09:15:00 Test Item Value Reference Range Interpretation Comments albumin/globulin ratio, 1.6 (unknown unit) 1.2-2.2 serum (test code = 1759-0) [facility] Healthglobulin, kgtvr6532-30-77 09:15:00 Test Item Value Reference Range Interpretation Comments globulin, serum (test code 2.7 (unknown unit) 1.5-4.5 = 2336-6) [facility]albumin, oxpcu0733-88-49 09:15:00 Test Item Value Reference Range Interpretation Comments albumin, serum (test code = 1751-7) 4.2 g/dL 3.8-4.9 [facility]protein, total, oepsr9419-79-09 09:15:00 Test Item Value Reference Range Interpretation Comments protein, total, serum (test code = 6.9 g/dL 6.0-8.5 2885-2) [facility]calcium, umehv4539-86-79 09:15:00 Test Item Value Reference Range Interpretation Comments calcium, serum (test code = 1999-8) 9.4 mg/dL 8.7-10.2 [facility] Healthcarbon dioxide, venous lyrme3549-65-53 09:15:00 Test Item Value Reference Range Interpretation Comments carbon dioxide, venous blood (test 25 mmol/L code = 2026-1) [facility] Healthchloride, ewegi5138-82-92 09:15:00 Test Item Value Reference Range Interpretation Comments chloride, serum (test code = 101 mmol/L 96-106 5-0) [facility]potassium, lfqce1644-98-12 09:15:00 Test Item Value Reference Range Interpretation Comments potassium, serum (test code = 3.8 mmol/L 3.5-5.2 2823-3) [facility]sodium, fwnbm7664-23-71 09:15:00 Test Item Value Reference Range Interpretation Comments sodium, serum (test code = 2951-2) 139 mmol/L 134-144 [facility] Healthurea nitrogen/creatinine ratio, nnpfx8334-07-55 09:15:00 Test Item Value Reference Range Interpretation Comments urea nitrogen/creatinine 19 (unknown unit) 9-23 ratio, serum (test code = 3097-3) [facility] HealtheGFR if Xnzaujca0161-21-90 09:15:00 Test Item Value Reference Range Interpretation Comments eGFR if 98 mL/min/{1.73 m2} >59 (test code = 53639-2) [facility] HealthEstimated Glomerular Filtration Rate (calc)2020-04-06 09:15:00 Test Item Value Reference Range Interpretation Comments Estimated Glomerular 85 mL/min/{1.73 m2} >59 Filtration Rate (calc) (test code = 44429-9) [facility] Healthcreatinine, ibbgg4512-47-66 09:15:00 Test Item Value Reference Range Interpretation Comments creatinine, serum (test code = 0.78 mg/dL 0.57-1.00 0-0) [facility] Healthurea nitrogen, lyyvk7199-41-26 09:15:00 Test Item Value Reference Range Interpretation Comments urea nitrogen, blood (test code = 15 mg/dL 6-24 3094-0) [facility] Healthblood glucose, zwpaps2705-36-81 09:15:00 Test Item Value Reference Range Interpretation Comments blood glucose, random (test code = 122 mg/dL 65-99 H 2339-0) [facility] Healthimmature granulocytes, percentage of total cells, blood 2020-04-06 09:15:00 Test Item Value Reference Range Interpretation Comments immature granulocytes, percentage of 0 % total cells, blood (test code = 87888-9) [facility] Healthbasophil count, vetenmep4364-50-65 09:15:00 Test Item Value Reference Range Interpretation Comments basophil count, absolute (test 0.0 x10E3/uL 0.0-0.2 code = 32012-6) [facility] HealthEosinophil Absolute Fauld1467-64-90 09:15:00 Test Item Value Reference Range Interpretation Comments Eosinophil Absolute Count (test 0.1 X10E3/UL 0.0-0.4 code = 80257-3) [facility] Healthmonocyte count, blood, vvealvvbe3095-52-96 09:15:00 Test Item Value Reference Range Interpretation Comments monocyte count, blood, automated 0.4 X10E3/UL 0.1-0.9 (test code = 742-7) [facility]lymphocyte count, blood, jmicdbjng3994-15-53 09:15:00 Test Item Value Reference Range Interpretation Comments lymphocyte count, blood, 1.5 X10E3/UL 0.7-3.1 automated (test code = 731-0) [facility] HealthAbsolute Wkgivnuszao7226-80-67 09:15:00 Test Item Value Reference Range Interpretation Comments Absolute Neutrophils (test code 2.4 X10E3/UL 1.4-7.0 = 84210-6) [facility]basophils as percent of blood ryhbmgizyg8942-09-62 09:15:00 Test Item Value Reference Range Interpretation Comments basophils as percent of blood 1 % leukocytes (test code = 707-0) [facility] Healtheosinophils as percent of blood eogjfmsaha5238-38-40 09:15:00 Test Item Value Reference Range Interpretation Comments eosinophils as percent of blood 2 % leukocytes (test code = 713-8) [facility] Healthmonocytes as percent of blood xmbxohwqqq1731-39-87 09:15:00 Test Item Value Reference Range Interpretation Comments monocytes as percent of blood 9 % leukocytes (test code = 5905-5) [facility] Healthlymphocytes as percent of blood gqewitqpdu9404-16-13 09:15:00 Test Item Value Reference Range Interpretation Comments lymphocytes as percent of blood 33 % leukocytes (test code = 736-9) [facility] Healthneutrophils as percent of blood qrvsmxysoa1282-58-01 09:15:00 Test Item Value Reference Range Interpretation Comments neutrophils as percent of blood 55 % leukocytes (test code = 770-8) [facility] Healthplatelet fgdzi8838-65-02 09:15:00 Test Item Value Reference Range Interpretation Comments platelet count (test code = 295 X10E3/UL 150-450 777-3) [facility]red blood cell distribution ueqjr2025-77-20 09:15:00 Test Item Value Reference Range Interpretation Comments red blood cell distribution width 12.9 % 11.7-15.4 (test code = 788-0) [facility] corpuscular hemoglobin concentration, CMK6581-20-32 09:15:00 Test Item Value Reference Range Interpretation Comments mean corpuscular hemoglobin 33.3 G/DL 31.5-35.7 concentration, RBC (test code = 786-4) [facility] corpuscular hemoglobin, WMO4974-79-02 09:15:00 Test Item Value Reference Range Interpretation Comments mean corpuscular hemoglobin, RBC 31.6 pg 26.6-33.0 (test code = 785-6) [facility] corpuscular volume, EKZ0612-47-91 09:15:00 Test Item Value Reference Range Interpretation Comments mean corpuscular volume, RBC (test code 95 fL 79-97 = 787-2) [facility] Healthhematocrit, izdry4761-77-51 09:15:00 Test Item Value Reference Range Interpretation Comments hematocrit, blood (test code = 4544-3) 37.5 % 34.0-46.6 [facility]hemoglobin, brwob3146-88-99 09:15:00 Test Item Value Reference Range Interpretation Comments hemoglobin, blood (test code = 12.5 g/dL 11.1-15.9 718-7) [facility] Healtherythrocyte (RBC) gryjd5810-60-32 09:15:00 Test Item Value Reference Range Interpretation Comments erythrocyte (RBC) count (test 3.95 X10E6/UL 3.77-5.28 code = 789-8) [facility] Healthleukocyte count, wxkos2403-24-54 09:15:00 Test Item Value Reference Range Interpretation Comments leukocyte count, blood (test 4.3 X10E3/UL 3.4-10.8 code = 6690-2) [facility] HealthT-helper cells (CD4) as percent of blood lymphocytes 2020-04-06 09:15:00 Test Item Value Reference Range Interpretation Comments T-helper cells (CD4) as percent of 44.9 % 30.8-58.5 blood lymphocytes (test code = 8123-2) [facility] HealthT-helper cells (CD4) ijgwy2269-23-77 09:15:00 Test Item Value Reference Range Interpretation Comments T-helper cells (CD4) count (test code 674 /UL 359-1519 = 06897-8) [facility] Healthhepatitis A antibody, gucxi6623-31-57 09:15:00 Test Item Value Reference Range Interpretation Comments hepatitis A antibody, total (test Positive Negative A code = 00276-2) [facility] juzxz5516-23-13 09:15:00 Test Item Value Reference Range Interpretation Comments hepatitis B core antibody, total Negative Negative (test code = 48586-7) [facility] Healthhepatitis B surface fnaxtkk0937-53-51 09:15:00 Test Item Value Reference Range Interpretation Comments hepatitis B surface antigen (test Negative Negative code = 21292-2) [facility] Healthhepatitis C antibody, ygppa9205-68-30 09:15:00 Test Item Value Reference Range Interpretation Comments hepatitis C antibody, 0.1 (unknown unit) 0.0-0.9 serum (test code = 71459-9) [facility] Healthhepatitis B surface eyykueun8896-94-35 09:15:00 Test Item Value Reference Range Interpretation Comments hepatitis B surface >1000.0 See_Comment [Automa aracely message] The antibody (test code = system which generated 34640-4) this result tra nsmitted reference range : Immunity>9.9. T he reference range was not used to interpr et this result as normal/abnormal . [facility] HealthHIV-1RNA, serum, by PCR, zyanmrsnkavb9988-21-29 09:15:00 Test Item Value Reference Range Interpretation Comments HIV-1RNA, serum, by PCR, <20 copies/mL quantitative (test code = 02903-8) [facility] HealthCD4/CD8 yagai9922-35-98 09:15:00 Test Item Value Reference Range Interpretation Comments CD4/CD8 ratio (test code 1.96 (unknown unit) 0.92-3.72 = 34848) [facility] HealthT-suppressor cells (CD8) as percent of blood lymphocytes 2020-04-06 09:15:00 Test Item Value Reference Range Interpretation Comments T-suppressor cells (CD8) as percent of 22.9 % 12.0-35.5 blood lymphocytes (test code = 3517) [facility]absolute [id number] 09:15:00 Test Item Value Reference Range Interpretation Comments absolute CD8 (test code = 344 (unknown unit) 750-064 02126) [facility] HealthCD4/CD8 qqvps6552-57-47 09:15:00 Test Item Value Reference Range Interpretation Comments CD4/CD8 ratio (test code 1.96 (unknown unit) 0.92-3.72 = 30301) [facility] HealthT-suppressor cells (CD8) as percent of blood lymphocytes 2020-04-06 09:15:00 Test Item Value Reference Range Interpretation Comments T-suppressor cells (CD8) as percent of 22.9 % 12.0-35.5 blood lymphocytes (test code = 3517) [facility] Healthabsolute WQ39906-31-90 09:15:00 Test Item Value Reference Range Interpretation Comments absolute CD8 (test code = 344 (unknown unit) 467-920 25498) [facility] Healthrapid plasma reagin antibody, thmfn2847-42-35 09:41:00 Test Item Value Reference Range Interpretation Comments rapid plasma reagin antibody, Non Reactive Non Reactive serum (test code = 5291-0) [facility]hemoglobin A1C, blood, as % of total zdhjvobkzr0031-37-18 09:41:00 Test Item Value Reference Range Interpretation Comments hemoglobin A1C, blood, as % of total 7.1 % 4.8-5.6 H hemoglobin (test code = 4548-4) [facility] HealthLDL cholesterol, osbkn7542-27-08 09:41:00 Test Item Value Reference Range Interpretation Comments LDL cholesterol, serum (test code = 136 mg/dL 0-99 H 2088-1) [facility] Healthvery low density qfctlxbaxyqm9095-78-60 09:41:00 Test Item Value Reference Range Interpretation Comments very low density lipoproteins (test 14 mg/dL 5-40 code = 2091-7) [facility] HealthHDL cholesterol, pmmlu5728-30-96 09:41:00 Test Item Value Reference Range Interpretation Comments HDL cholesterol, serum (test code = 59 mg/dL >39 2084-9) [facility]althtriglyceride, serum, hpsiybq8831-78-08 09:41:00 Test Item Value Reference Range Interpretation Comments triglyceride, serum, fasting (test 72 mg/dL 0-149 code = 2571-8) [facility]cholesterol, xiqdz7680-62-83 09:41:00 Test Item Value Reference Range Interpretation Comments cholesterol, serum (test code = 209 mg/dL 100-199 H 2092-3) [facility]alanine aminotransferase (SGPT), wlgbi1654-33-48 09:41:00 Test Item Value Reference Range Interpretation Comments alanine aminotransferase (SGPT), serum 16 1/L 0-32 (test code = 1742-6) [facility] Healthaspartate aminotransferase (SGOT), spwue0409-95-55 09:41:00 Test Item Value Reference Range Interpretation Comments aspartate aminotransferase (SGOT), 17 1/L 0-40 serum (test code = 1920-8) [facility]alkaline phosphatase, xhaig8573-81-96 09:41:00 Test Item Value Reference Range Interpretation Comments alkaline phosphatase, serum (test code 93 1/L 39-117 = 1783-0) [facility]bilirubin, serum, slgeb2811-94-14 09:41:00 Test Item Value Reference Range Interpretation Comments bilirubin, serum, total (test code 0.3 mg/dL 0.0-1.2 = 1975-2) [facility]albumin/globulin ratio, knpve3056-54-02 09:41:00 Test Item Value Reference Range Interpretation Comments albumin/globulin ratio, 1.9 (unknown unit) 1.2-2.2 serum (test code = 1759-0) [facility] Healthglobulin, lawwx2509-30-40 09:41:00 Test Item Value Reference Range Interpretation Comments globulin, serum (test code 2.4 (unknown unit) 1.5-4.5 = 2336-6) [facility] Healthalbumin, borre0959-33-73 09:41:00 Test Item Value Reference Range Interpretation Comments albumin, serum (test code = 1751-7) 4.5 g/dL 3.8-4.9 [facility]protein, total, wajjn7655-02-02 09:41:00 Test Item Value Reference Range Interpretation Comments protein, total, serum (test code = 6.9 g/dL 6.0-8.5 2885-2) [facility]calcium, rhpot5710-65-36 09:41:00 Test Item Value Reference Range Interpretation Comments calcium, serum (test code = 1999-8) 9.7 mg/dL 8.7-10.2 [facility]carbon dioxide, venous omzzl1858-31-08 09:41:00 Test Item Value Reference Range Interpretation Comments carbon dioxide, venous blood (test 24 mmol/L 20-29 code = 2027-1) [facility]chloride, bnxze6672-63-81 09:41:00 Test Item Value Reference Range Interpretation Comments chloride, serum (test code = 104 mmol/L 96-106 5-0) [facility]potassium, ortki6938-41-70 09:41:00 Test Item Value Reference Range Interpretation Comments potassium, serum (test code = 4.3 mmol/L 3.5-5.2 2823-3) [facility]sodium, uktnl9966-59-29 09:41:00 Test Item Value Reference Range Interpretation Comments sodium, serum (test code = 2951-2) 143 mmol/L 134-144 [facility]urea nitrogen/creatinine ratio, xfhxu8833-90-60 09:41:00 Test Item Value Reference Range Interpretation Comments urea nitrogen/creatinine 18 (unknown unit) 9-23 ratio, serum (test code = 3097-3) [facility]altheGFR if Sigluudp5653-49-08 09:41:00 Test Item Value Reference Range Interpretation Comments eGFR if 95 mL/min/{1.73 m2} >59 (test code = 84976-7) [facility] HealthEstimated Glomerular Filtration Rate (calc)2019-08-16 09:41:00 Test Item Value Reference Range Interpretation Comments Estimated Glomerular 82 mL/min/{1.73 m2} >59 Filtration Rate (calc) (test code = 83498-3) [facility] Healthcreatinine, zvowj1649-93-47 09:41:00 Test Item Value Reference Range Interpretation Comments creatinine, serum (test code = 0.80 mg/dL 0.57-1.00 2160-0) [facility] Healthurea nitrogen, arvpo7253-79-45 09:41:00 Test Item Value Reference Range Interpretation Comments urea nitrogen, blood (test code = 14 mg/dL 6-24 3094-0) [facility]blood glucose, fpqwns1133-25-39 09:41:00 Test Item Value Reference Range Interpretation Comments blood glucose, random (test code = 115 mg/dL 65-99 H 2339-0) [facility] Healthimmature granulocytes, percentage of total cells, blood 2019-08-16 09:41:00 Test Item Value Reference Range Interpretation Comments immature granulocytes, percentage of 0 % total cells, blood (test code = 73964-8) [facility]basophil count, uxemkyqm7732-08-70 09:41:00 Test Item Value Reference Range Interpretation Comments basophil count, absolute (test 0.0 x10E3/uL 0.0-0.2 code = 36250-0) [facility] HealthEosinophil Absolute Gbewa0984-10-87 09:41:00 Test Item Value Reference Range Interpretation Comments Eosinophil Absolute Count (test 0.1 X10E3/UL 0.0-0.4 code = 84766-0) [facility] Healthmonocyte count, blood, gcgjghemn3915-39-40 09:41:00 Test Item Value Reference Range Interpretation Comments monocyte count, blood, automated 0.3 X10E3/UL 0.1-0.9 (test code = 742-7) [facility]lymphocyte count, blood, ykvbljhmc9743-98-86 09:41:00 Test Item Value Reference Range Interpretation Comments lymphocyte count, blood, 1.8 X10E3/UL 0.7-3.1 automated (test code = 731-0) [facility] HealthAbsolute Uddnxtirpjl4647-69-95 09:41:00 Test Item Value Reference Range Interpretation Comments Absolute Neutrophils (test code 2.2 X10E3/UL 1.4-7.0 = 28678-8) [facility] Healthbasophils as percent of blood bmpfsawdzv3330-58-37 09:41:00 Test Item Value Reference Range Interpretation Comments basophils as percent of blood 1 % leukocytes (test code = 707-0) [facility]altheosinophils as percent of blood ypggjszkzv6853-57-25 09:41:00 Test Item Value Reference Range Interpretation Comments eosinophils as percent of blood 3 % leukocytes (test code = 713-8) [facility] Healthmonocytes as percent of blood yonwnvzxys9044-63-40 09:41:00 Test Item Value Reference Range Interpretation Comments monocytes as percent of blood 7 % leukocytes (test code = 5905-5) [facility] Healthlymphocytes as percent of blood ffvpmjrbah8866-82-07 09:41:00 Test Item Value Reference Range Interpretation Comments lymphocytes as percent of blood 41 % leukocytes (test code = 736-9) [facility] Healthneutrophils as percent of blood bxvftjwlhi3382-20-93 09:41:00 Test Item Value Reference Range Interpretation Comments neutrophils as percent of blood 48 % leukocytes (test code = 770-8) [facility]platelet mgckz3899-89-12 09:41:00 Test Item Value Reference Range Interpretation Comments platelet count (test code = 311 X10E3/UL 150-450 777-3) [facility]red blood cell distribution tiftj3374-68-10 09:41:00 Test Item Value Reference Range Interpretation Comments red blood cell distribution width 14.4 % 11.7-15.4 (test code = 788-0) [facility] corpuscular hemoglobin concentration, NLM1478-88-49 09:41:00 Test Item Value Reference Range Interpretation Comments mean corpuscular hemoglobin 31.1 G/DL 31.5-35.7 L concentration, RBC (test code = 786-4) [facility]mean corpuscular hemoglobin, UER1079-51-09 09:41:00 Test Item Value Reference Range Interpretation Comments mean corpuscular hemoglobin, RBC 30.6 pg 26.6-33.0 (test code = 785-6) [facility] corpuscular volume, LXY6633-03-67 09:41:00 Test Item Value Reference Range Interpretation Comments mean corpuscular volume, RBC (test code 99 fL 79-97 H = 787-2) [facility] Healthhematocrit, rmxgw9373-46-17 09:41:00 Test Item Value Reference Range Interpretation Comments hematocrit, blood (test code = 4544-3) 40.2 % 34.0-46.6 [facility]hemoglobin, qxgoc2214-87-90 09:41:00 Test Item Value Reference Range Interpretation Comments hemoglobin, blood (test code = 12.5 g/dL 11.1-15.9 718-7) [facility] Healtherythrocyte (RBC) dafkj2867-62-46 09:41:00 Test Item Value Reference Range Interpretation Comments erythrocyte (RBC) count (test 4.08 X10E6/UL 3.77-5.28 code = 789-8) [facility] Healthleukocyte count, fznvk7144-63-37 09:41:00 Test Item Value Reference Range Interpretation Comments leukocyte count, blood (test 4.5 X10E3/UL 3.4-10.8 code = 6690-2) [facility] HealthT-helper cells (CD4) as percent of blood lymphocytes 2019-08-16 09:41:00 Test Item Value Reference Range Interpretation Comments T-helper cells (CD4) as percent of 43.5 % 30.8-58.5 blood lymphocytes (test code = 8123-2) [facility] HealthT-helper cells (CD4) plnrm1819-02-22 09:41:00 Test Item Value Reference Range Interpretation Comments T-helper cells (CD4) count (test code 783 /UL 359-1519 = 87670-9) [facility] HealthHIV-1RNA, serum, by PCR, ppjlcjqlivrv4383-28-18 09:41:00 Test Item Value Reference Range Interpretation Comments HIV-1RNA, serum, by PCR, <20 copies/mL quantitative (test code = 76778-6) [facility] HealthCD4/CD8 bnnuc6413-17-78 09:41:00 Test Item Value Reference Range Interpretation Comments CD4/CD8 ratio (test code 1.78 (unknown unit) 0.92-3.72 = 31641) [facility] HealthT-suppressor cells (CD8) as percent of blood lymphocytes 2019-08-16 09:41:00 Test Item Value Reference Range Interpretation Comments T-suppressor cells (CD8) as percent of 24.4 % 12.0-35.5 blood lymphocytes (test code = 3517) [facility]abs[place] IB23418-85-31 09:41:00 Test Item Value Reference Range Interpretation Comments absolute CD8 (test code = 439 (unknown unit) 493-637 59649) [facility] HealthCD4/CD8 fsule8781-42-55 09:41:00 Test Item Value Reference Range Interpretation Comments CD4/CD8 ratio (test code 1.78 (unknown unit) 0.92-3.72 = 13969) [facility] HealthT-suppressor cells (CD8) as percent of blood lymphocytes 2019-08-16 09:41:00 Test Item Value Reference Range Interpretation Comments T-suppressor cells (CD8) as percent of 24.4 % 12.0-35.5 blood lymphocytes (test code = 3517) [facility] QB84636-71-02 09:41:00 Test Item Value Reference Range Interpretation Comments absolute CD8 (test code = 439 (unknown unit) 852-584 02899) [facility] Healthmicroalbumin/creatinine ratio, zdsex6158-84-82 15:32:00 Test Item Value Reference Range Interpretation Comments microalbumin/creatinine ratio, 54 MG/G CREAT 0-29 H urine (test code = 08465-5) [facility]microalbumin/total urine iwvgru2711-93-29 15:32:00 Test Item Value Reference Range Interpretation Comments microalbumin/total urine volume 79.8 mg/L (test code = 67730-0) [facility] Healthcreatinine, random, ljpou0938-68-10 15:32:00 Test Item Value Reference Range Interpretation Comments creatinine, random, urine (test 148.6 mg/dL code = 2161-8) [facility]rapid plasma reagin antibody, furjx3027-17-95 15:32:00 Test Item Value Reference Range Interpretation Comments rapid plasma reagin antibody, Non Reactive Non Reactive serum (test code = 5291-0) [facility]hemoglobin A1C, blood, as % of total agehanbvdx0415-50-10 15:32:00 Test Item Value Reference Range Interpretation Comments hemoglobin A1C, blood, as % of total 7.1 % 4.8-5.6 H hemoglobin (test code = 4548-4) [facility] HealthLDL cholesterol, comcq3800-30-33 15:32:00 Test Item Value Reference Range Interpretation Comments LDL cholesterol, serum (test code = 125 mg/dL 0-99 H 2088-1) [facility] Healthvery low density qrkfuqvjnxfk8675-12-73 15:32:00 Test Item Value Reference Range Interpretation Comments very low density lipoproteins (test 24 mg/dL 5-40 code = 1-7) [facility] HealthHDL cholesterol, hljmu1769-37-74 15:32:00 Test Item Value Reference Range Interpretation Comments HDL cholesterol, serum (test code = 63 mg/dL >39 2084-9) [facility] Healthtriglyceride, serum, tmalfnu0408-40-43 15:32:00 Test Item Value Reference Range Interpretation Comments triglyceride, serum, fasting (test 122 mg/dL 0-149 code = 2571-8) [facility]cholesterol, zxvhx9300-54-47 15:32:00 Test Item Value Reference Range Interpretation Comments cholesterol, serum (test code = 212 mg/dL 100-199 H 2092-3) [facility]alanine aminotransferase (SGPT), whytw7539-07-36 15:32:00 Test Item Value Reference Range Interpretation Comments alanine aminotransferase (SGPT), serum 12 1/L 0-32 (test code = 1742-6) [facility] Healthaspartate aminotransferase (SGOT), erohj0542-60-64 15:32:00 Test Item Value Reference Range Interpretation Comments aspartate aminotransferase (SGOT), 14 1/L 0-40 serum (test code = 1920-8) [facility]alkaline phosphatase, psmmn9262-75-40 15:32:00 Test Item Value Reference Range Interpretation Comments alkaline phosphatase, serum (test code 85 1/L 39-117 = 1783-0) [facility]bilirubin, serum, lyqwr5022-61-17 15:32:00 Test Item Value Reference Range Interpretation Comments bilirubin, serum, total (test code 0.2 mg/dL 0.0-1.2 = 1974-2) [facility] Healthalbumin/globulin ratio, fdglc5147-21-36 15:32:00 Test Item Value Reference Range Interpretation Comments albumin/globulin ratio, 1.5 (unknown unit) 1.2-2.2 serum (test code = 1759-0) [facility] Healthglobulin, rhhtr8493-57-49 15:32:00 Test Item Value Reference Range Interpretation Comments globulin, serum (test code 2.9 (unknown unit) 1.5-4.5 = 2336-6) [facility] Healthalbumin, ltucw4438-74-19 15:32:00 Test Item Value Reference Range Interpretation Comments albumin, serum (test code = 1751-7) 4.4 g/dL 3.8-4.9 [facility] Healthprotein, total, mgbmy0748-61-76 15:32:00 Test Item Value Reference Range Interpretation Comments protein, total, serum (test code = 7.3 g/dL 6.0-8.5 2885-2) [facility] Healthcalcium, aafar8168-25-03 15:32:00 Test Item Value Reference Range Interpretation Comments calcium, serum (test code = 1999-8) 9.6 mg/dL 8.7-10.2 [facility] Healthcarbon dioxide, venous bbwro3138-02-77 15:32:00 Test Item Value Reference Range Interpretation Comments carbon dioxide, venous blood (test 25 mmol/L - code = 2026-1) [facility] Healthchloride, iqpij9422-65-41 15:32:00 Test Item Value Reference Range Interpretation Comments chloride, serum (test code = 104 mmol/L 96-106 5-0) [facility]potassium, eheex4425-05-04 15:32:00 Test Item Value Reference Range Interpretation Comments potassium, serum (test code = 4.2 mmol/L 3.5-5.2 2823-3) [facility]sodium, lgshs7633-83-55 15:32:00 Test Item Value Reference Range Interpretation Comments sodium, serum (test code = 2951-2) 143 mmol/L 134-144 [facility] Healthurea nitrogen/creatinine ratio, oqjdm3888-90-12 15:32:00 Test Item Value Reference Range Interpretation Comments urea nitrogen/creatinine 15 (unknown unit) 9-23 ratio, serum (test code = 3097-3) [facility] HealtheGFR if Sguoderx4450-46-66 15:32:00 Test Item Value Reference Range Interpretation Comments eGFR if 89 mL/min/{1.73 m2} >59 (test code = 05789-5) [facility] HealthEstimated Glomerular Filtration Rate (calc)2019-05-15 15:32:00 Test Item Value Reference Range Interpretation Comments Estimated Glomerular 77 mL/min/{1.73 m2} >59 Filtration Rate (calc) (test code = 74846-2) [facility] Healthcreatinine, xfvrg6178-70-27 15:32:00 Test Item Value Reference Range Interpretation Comments creatinine, serum (test code = 0.85 mg/dL 0.57-1.00 2160-0) [facility] Healthurea nitrogen, ughzp6102-80-62 15:32:00 Test Item Value Reference Range Interpretation Comments urea nitrogen, blood (test code = 13 mg/dL 6-24 3094-0) [facility] Healthblood glucose, ywwwnp5337-59-86 15:32:00 Test Item Value Reference Range Interpretation Comments blood glucose, random (test code = 93 mg/dL 65-99 2339-0) [facility] Healthimmature granulocytes, percentage of total cells, blood 2019-05-15 15:32:00 Test Item Value Reference Range Interpretation Comments immature granulocytes, percentage of 0 % total cells, blood (test code = 67315-1) [facility] Healthbasophil count, bwjsuycf3216-04-38 15:32:00 Test Item Value Reference Range Interpretation Comments basophil count, absolute (test 0.0 x10E3/uL 0.0-0.2 code = 85894-9) [facility] HealthEosinophil Absolute Icrss2891-66-90 15:32:00 Test Item Value Reference Range Interpretation Comments Eosinophil Absolute Count (test 0.1 X10E3/UL 0.0-0.4 code = 61068-4) [facility] Healthmonocyte count, blood, mawueiiqq3601-48-47 15:32:00 Test Item Value Reference Range Interpretation Comments monocyte count, blood, automated 0.5 X10E3/UL 0.1-0.9 (test code = 742-7) [facility] Healthlymphocyte count, blood, phbgdbjce7121-74-60 15:32:00 Test Item Value Reference Range Interpretation Comments lymphocyte count, blood, 2.1 X10E3/UL 0.7-3.1 automated (test code = 731-0) [facility] HealthAbsolute Tfmkpvhwtah4016-51-61 15:32:00 Test Item Value Reference Range Interpretation Comments Absolute Neutrophils (test code 2.4 X10E3/UL 1.4-7.0 = 29103-5) [facility] Healthbasophils as percent of blood yefiboxeos1645-19-02 15:32:00 Test Item Value Reference Range Interpretation Comments basophils as percent of blood 1 % leukocytes (test code = 707-0) [facility] Healtheosinophils as percent of blood iwqckkbebl4891-04-09 15:32:00 Test Item Value Reference Range Interpretation Comments eosinophils as percent of blood 2 % leukocytes (test code = 713-8) [facility] Healthmonocytes as percent of blood pebkcwmhed9554-77-47 15:32:00 Test Item Value Reference Range Interpretation Comments monocytes as percent of blood 10 % leukocytes (test code = 5905-5) [facility] Healthlymphocytes as percent of blood aavgetvzvb4455-87-28 15:32:00 Test Item Value Reference Range Interpretation Comments lymphocytes as percent of blood 41 % leukocytes (test code = 736-9) [facility] Healthneutrophils as percent of blood wyzobkiwtl0271-65-52 15:32:00 Test Item Value Reference Range Interpretation Comments neutrophils as percent of blood 46 % leukocytes (test code = 770-8) [facility] Healthplatelet npjdr4640-89-75 15:32:00 Test Item Value Reference Range Interpretation Comments platelet count (test code = 356 X10E3/UL 150-450 777-3) [facility] Healthred blood cell distribution okkvr2092-96-16 15:32:00 Test Item Value Reference Range Interpretation Comments red blood cell distribution width 13.3 % 11.7-15.4 (test code = 788-0) [facility] Healthmean corpuscular hemoglobin concentration, [id number] 15:32:00 Test Item Value Reference Range Interpretation Comments mean corpuscular hemoglobin 33.1 G/DL 31.5-35.7 concentration, RBC (test code = 786-4) [facility]mean corpuscular hemoglobin, [id number] 15:32:00 Test Item Value Reference Range Interpretation Comments mean corpuscular hemoglobin, RBC 31.2 pg 26.6-33.0 (test code = 785-6) [facility] Healthmean corpuscular volume, WKC1141-46-57 15:32:00 Test Item Value Reference Range Interpretation Comments mean corpuscular volume, RBC (test code 94 fL 79-97 = 787-2) [facility] Healthhematocrit, ojunr0400-54-29 15:32:00 Test Item Value Reference Range Interpretation Comments hematocrit, blood (test code = 4544-3) 37.8 % 34.0-46.6 [facility]hemoglobin, rbbxe4314-11-74 15:32:00 Test Item Value Reference Range Interpretation Comments hemoglobin, blood (test code = 12.5 g/dL 11.1-15.9 718-7) [facility] Healtherythrocyte (RBC) xjaes6366-86-62 15:32:00 Test Item Value Reference Range Interpretation Comments erythrocyte (RBC) count (test 4.01 X10E6/UL 3.77-5.28 code = 789-8) [facility] Healthleukocyte count, vphhw3588-58-84 15:32:00 Test Item Value Reference Range Interpretation Comments leukocyte count, blood (test 5.1 X10E3/UL 3.4-10.8 code = 6690-2) Community HealthT-helper cells (CD4) as percent of blood lymphocytes 2019-05-15 15:32:00 Test Item Value Reference Range Interpretation Comments T-helper cells (CD4) as percent of 45.1 % 30.8-58.5 blood lymphocytes (test code = 8123-2) Community HealthT-helper cells (CD4) athuz3926-61-90 15:32:00 Test Item Value Reference Range Interpretation Comments T-helper cells (CD4) count (test code 947 /UL 359-1519 = 62931-2) [facility] HealthHIV-1RNA, serum, by PCR, lgkliqzmrptz4615-36-00 15:32:00 Test Item Value Reference Range Interpretation Comments HIV-1RNA, serum, by PCR, <20 copies/mL quantitative (test code = 46544-9) [facility] HealthCD4/CD8 mzhwi8266-72-58 15:32:00 Test Item Value Reference Range Interpretation Comments CD4/CD8 ratio (test code 1.98 (unknown unit) 0.92-3.72 = 30662) Community HealthT-suppressor cells (CD8) as percent of blood lymphocytes 2019-05-15 15:32:00 Test Item Value Reference Range Interpretation Comments T-suppressor cells (CD8) as percent of 22.8 % 12.0-35.5 blood lymphocytes (test code = 3517) [facility] Healthabsolute [id number] 15:32:00 Test Item Value Reference Range Interpretation Comments absolute CD8 (test code = 479 (unknown unit) 042-269 32837) [facility] HealthCD4/CD8 melze8435-29-51 15:32:00 Test Item Value Reference Range Interpretation Comments CD4/CD8 ratio (test code 1.98 (unknown unit) 0.92-3.72 = 29479) Community HealthT-suppressor cells (CD8) as percent of blood lymphocytes 2019-05-15 15:32:00 Test Item Value Reference Range Interpretation Comments T-suppressor cells (CD8) as percent of 22.8 % 12.0-35.5 blood lymphocytes (test code = 3517) [facility] Healthabsolute [id number] 15:32:00 Test Item Value Reference Range Interpretation Comments absolute CD8 (test code = 479 (unknown unit) 854-436 58013) [facility] Healthmicroalbumin/creatinine ratio, ocooh5167-53-71 14:28:00 Test Item Value Reference Range Interpretation Comments microalbumin/creatinine 25.4 MG/G CREAT 0.0-30.0 ratio, urine (test code = 72881-2) [facility] Healthmicroalbumin/total urine pzrerr2898-26-40 14:28:00 Test Item Value Reference Range Interpretation Comments microalbumin/total urine volume 41.1 mg/L (test code = 83836-3) [facility] Healthcreatinine, random, mybfh5843-82-80 14:28:00 Test Item Value Reference Range Interpretation Comments creatinine, random, urine (test 161.5 mg/dL code = 2161-8) [facility] Healthblood glucose, jejhij2515-35-48 14:09:19 Test Item Value Reference Range Interpretation Comments blood glucose, random (test code = 131 mg/dL 2339-0) [facility] Healthrapid plasma reagin antibody, arpyj4452-50-32 10:22:00 Test Item Value Reference Range Interpretation Comments rapid plasma reagin antibody, Non Reactive Non Reactive serum (test code = 5291-0) [facility] Healthhemoglobin A1C, blood, as % of total siztndcpgl2380-39-37 10:22:00 Test Item Value Reference Range Interpretation Comments hemoglobin A1C, blood, as % of total 6.5 % 4.8-5.6 H hemoglobin (test code = 4548-4) [facility] HealthLDL cholesterol, dtjwb2307-95-10 10:22:00 Test Item Value Reference Range Interpretation Comments LDL cholesterol, serum (test code = 175 mg/dL 0-99 H 2088-04) [facility] Healthvery low density vtejybiunrtz6813-98-93 10:22:00 Test Item Value Reference Range Interpretation Comments very low density lipoproteins (test 13 mg/dL 5-40 code = 2090-7) [facility] HealthHDL cholesterol, mtifc8998-53-36 10:22:00 Test Item Value Reference Range Interpretation Comments HDL cholesterol, serum (test code = 69 mg/dL >39 2084-9) [facility] Healthtriglyceride, serum, tjurtxv6261-13-16 10:22:00 Test Item Value Reference Range Interpretation Comments triglyceride, serum, fasting (test 67 mg/dL 0-149 code = 2571-8) [facility] Healthcholesterol, axsve1428-66-66 10:22:00 Test Item Value Reference Range Interpretation Comments cholesterol, serum (test code = 257 mg/dL 100-199 H 2092-3) [facility] Healthalanine aminotransferase (SGPT), iyqqi9110-43-48 10:22:00 Test Item Value Reference Range Interpretation Comments alanine aminotransferase (SGPT), serum 24 1/L 0-32 (test code = 1742-6) Community Healthaspartate aminotransferase (SGOT), whftd4845-03-31 10:22:00 Test Item Value Reference Range Interpretation Comments aspartate aminotransferase (SGOT), 21 1/L 0-40 serum (test code = 1920-8) [facility] Healthalkaline phosphatase, mifon2815-02-93 10:22:00 Test Item Value Reference Range Interpretation Comments alkaline phosphatase, serum (test code 92 1/L 39-117 = 1783-0) [facility] Healthbilirubin, serum, fzddk4513-00-03 10:22:00 Test Item Value Reference Range Interpretation Comments bilirubin, serum, total (test code 0.3 mg/dL 0.0-1.2 = 1975-2) [facility] Healthalbumin/globulin ratio, tnjjv0851-60-07 10:22:00 Test Item Value Reference Range Interpretation Comments albumin/globulin ratio, 1.4 (unknown unit) 1.2-2.2 serum (test code = 1759-0) [facility] Healthglobulin, uzvru7931-38-95 10:22:00 Test Item Value Reference Range Interpretation Comments globulin, serum (test code 3.2 (unknown unit) 1.5-4.5 = 2336-6) [facility] Healthalbumin, iwbmg5778-53-92 10:22:00 Test Item Value Reference Range Interpretation Comments albumin, serum (test code = 1751-7) 4.6 g/dL 3.5-5.5 [facility] Healthprotein, total, tvdqw9972-24-07 10:22:00 Test Item Value Reference Range Interpretation Comments protein, total, serum (test code = 7.8 g/dL 6.0-8.5 2885-2) [facility] Healthcalcium, [id number] 10:22:00 Test Item Value Reference Range Interpretation Comments calcium, serum (test code = 10.0 mg/dL 8.7-10.2 1999-) [facility]carbon dioxide, venous snmhp6936-39-18 10:22:00 Test Item Value Reference Range Interpretation Comments carbon dioxide, venous blood (test 22 mmol/L code = 2026-1) [facility] Healthchloride, prgwm7043-12-21 10:22:00 Test Item Value Reference Range Interpretation Comments chloride, serum (test code = 102 mmol/L 96-106 5-0) [facility] Healthpotassium, hhugn7586-37-35 10:22:00 Test Item Value Reference Range Interpretation Comments potassium, serum (test code = 4.2 mmol/L 3.5-5.2 2823-3) [facility]sodium, jhzrs3684-50-40 10:22:00 Test Item Value Reference Range Interpretation Comments sodium, serum (test code = 2951-2) 141 mmol/L 134-144 [facility] Healthurea nitrogen/creatinine ratio, ndakm2119-92-86 10:22:00 Test Item Value Reference Range Interpretation Comments urea nitrogen/creatinine 22 (unknown unit) 9-23 ratio, serum (test code = 3097-3) [facility] HealtheGFR if Sofoqijg4269-94-00 10:22:00 Test Item Value Reference Range Interpretation Comments eGFR if 97 mL/min/{1.73 m2} >59 (test code = 58335-0) [facility] HealthEstimated Glomerular Filtration Rate (calc)2018-11-16 10:22:00 Test Item Value Reference Range Interpretation Comments Estimated Glomerular 84 mL/min/{1.73 m2} >59 Filtration Rate (calc) (test code = 37450-4) [facility] Healthcreatinine, [id number] 10:22:00 Test Item Value Reference Range Interpretation Comments creatinine, serum (test code = 0.79 mg/dL 0.57-1.00 2160-0) [facility] Healthurea nitrogen, yqxfd9038-69-26 10:22:00 Test Item Value Reference Range Interpretation Comments urea nitrogen, blood (test code = 17 mg/dL 6-24 3094-0) [facility]blood glucose, tdhlgt1884-47-25 10:22:00 Test Item Value Reference Range Interpretation Comments blood glucose, random (test code = 122 mg/dL 65-99 H 2339-0) [facility] Healthimmature granulocytes, percentage of total cells, blood 2018-11-16 10:22:00 Test Item Value Reference Range Interpretation Comments immature granulocytes, percentage of 0 % total cells, blood (test code = 16739-5) [facility]basophil count, zlnyagtp3692-94-32 10:22:00 Test Item Value Reference Range Interpretation Comments basophil count, absolute (test 0.0 x10E3/uL 0.0-0.2 code = 17749-4) [facility] HealthEosinophil Absolute Cghuz7883-52-66 10:22:00 Test Item Value Reference Range Interpretation Comments Eosinophil Absolute Count (test 0.1 X10E3/UL 0.0-0.4 code = 93828-1) [facility] Healthmonocyte count, blood, hvxnjykyd6934-50-66 10:22:00 Test Item Value Reference Range Interpretation Comments monocyte count, blood, automated 0.3 X10E3/UL 0.1-0.9 (test code = 742-7) [facility] Healthlymphocyte count, blood, kzrjjrzql1438-25-43 10:22:00 Test Item Value Reference Range Interpretation Comments lymphocyte count, blood, 2.0 X10E3/UL 0.7-3.1 automated (test code = 731-0) [facility] HealthAbsolute Smiwvshzdar5372-69-56 10:22:00 Test Item Value Reference Range Interpretation Comments Absolute Neutrophils (test code 2.1 X10E3/UL 1.4-7.0 = 69941-9) [facility] Healthbasophils as percent of blood rowrhkxmvx9970-33-24 10:22:00 Test Item Value Reference Range Interpretation Comments basophils as percent of blood 1 % leukocytes (test code = 707-0) [facility] Healtheosinophils as percent of blood cfkzahodjj0082-33-30 10:22:00 Test Item Value Reference Range Interpretation Comments eosinophils as percent of blood 3 % leukocytes (test code = 713-8) [facility] Healthmonocytes as percent of blood ekibktaemv9162-50-68 10:22:00 Test Item Value Reference Range Interpretation Comments monocytes as percent of blood 7 % leukocytes (test code = 5905-5) [facility] Healthlymphocytes as percent of blood zuruzuzhxo6745-51-66 10:22:00 Test Item Value Reference Range Interpretation Comments lymphocytes as percent of blood 43 % leukocytes (test code = 736-9) [facility] Healthneutrophils as percent of blood enudwxskeu9966-26-20 10:22:00 Test Item Value Reference Range Interpretation Comments neutrophils as percent of blood 46 % leukocytes (test code = 770-8) [facility] Healthplatelet fxoib7587-90-95 10:22:00 Test Item Value Reference Range Interpretation Comments platelet count (test code = 315 X10E3/UL 150-450 777-3) [facility]red blood cell distribution ypawj5204-59-75 10:22:00 Test Item Value Reference Range Interpretation Comments red blood cell distribution width 14.4 % 12.3-15.4 (test code = 788-0) [facility] corpuscular hemoglobin concentration, [id number] 10:22:00 Test Item Value Reference Range Interpretation Comments mean corpuscular hemoglobin 33.8 G/DL 31.5-35.7 concentration, RBC (test code = 786-4) [facility] corpuscular hemoglobin, KYJ7675-86-56 10:22:00 Test Item Value Reference Range Interpretation Comments mean corpuscular hemoglobin, RBC 32.1 pg 26.6-33.0 (test code = 785-6) [facility] corpuscular volume, [id number] 10:22:00 Test Item Value Reference Range Interpretation Comments mean corpuscular volume, RBC (test code 95 fL 79-97 = 787-2) [facility]hematocrit, cdrwp7817-75-25 10:22:00 Test Item Value Reference Range Interpretation Comments hematocrit, blood (test code = 4544-3) 39.6 % 34.0-46.6 [facility]hemoglobin, anllv7184-88-70 10:22:00 Test Item Value Reference Range Interpretation Comments hemoglobin, blood (test code = 13.4 g/dL 11.1-15.9 718-7) [facility] Healtherythrocyte (RBC) ojizu1203-57-32 10:22:00 Test Item Value Reference Range Interpretation Comments erythrocyte (RBC) count (test 4.18 X10E6/UL 3.77-5.28 code = 789-8) [facility] Healthleukocyte count, blbem1498-02-45 10:22:00 Test Item Value Reference Range Interpretation Comments leukocyte count, blood (test 4.5 X10E3/UL 3.4-10.8 code = 6690-2) [facility] HealthT-helper cells (CD4) as percent of blood lymphocytes 2018-11-16 10:22:00 Test Item Value Reference Range Interpretation Comments T-helper cells (CD4) as percent of 39.4 % 30.8-58.5 blood lymphocytes (test code = 8123-2) [facility] HealthT-helper cells (CD4) zbuby1155-41-80 10:22:00 Test Item Value Reference Range Interpretation Comments T-helper cells (CD4) count (test code 788 /UL 359-1519 = 03094-8) [facility] HealthHIV-1RNA, serum, by PCR, ofewkalznnpp8108-59-17 10:22:00 Test Item Value Reference Range Interpretation Comments HIV-1RNA, serum, by PCR, <20 copies/mL quantitative (test code = 85315-2) [facility] HealthCD4/CD8 xpyax7467-15-86 10:22:00 Test Item Value Reference Range Interpretation Comments CD4/CD8 ratio (test code 1.37 (unknown unit) 0.92-3.72 = 24042) [facility] HealthT-suppressor cells (CD8) as percent of blood lymphocytes 2018-11-16 10:22:00 Test Item Value Reference Range Interpretation Comments T-suppressor cells (CD8) as percent of 28.7 % 12.0-35.5 blood lymphocytes (test code = 3517) [facility] [place] GH52922-26-51 10:22:00 Test Item Value Reference Range Interpretation Comments absolute CD8 (test code = 574 (unknown unit) [phone]) [facility] HealthCD4/CD8 pskwl0924-47-77 10:22:00 Test Item Value Reference Range Interpretation Comments CD4/CD8 ratio (test code 1.37 (unknown unit) 0.92-3.72 = 07638) [facility] HealthT-suppressor cells (CD8) as percent of blood lymphocytes 2018-11-16 10:22:00 Test Item Value Reference Range Interpretation Comments T-suppressor cells (CD8) as percent of 28.7 % 12.0-35.5 blood lymphocytes (test code = 3517) [facility] [id number] 10:22:00 Test Item Value Reference Range Interpretation Comments absolute CD8 (test code = 574 (unknown unit) [phone]) [facility] Healthrapid plasma reagin antibody, uhbpv1486-52-19 13:14:00 Test Item Value Reference Range Interpretation Comments rapid plasma reagin antibody, Non Reactive Non Reactive serum (test code = 5291-0) [facility]hemoglobin A1C, blood, as % of total ycuegnbcgd3535-16-22 13:14:00 Test Item Value Reference Range Interpretation Comments hemoglobin A1C, blood, as % of total 6.5 % 4.8-5.6 H hemoglobin (test code = 4548-4) [facility] HealthLDL cholesterol, mqiyi6801-31-82 13:14:00 Test Item Value Reference Range Interpretation Comments LDL cholesterol, serum (test code = 108 mg/dL 0-99 H 2088-1) [facility] Healthvery low density ksyxchftpwds9473-04-32 13:14:00 Test Item Value Reference Range Interpretation Comments very low density lipoproteins (test 11 mg/dL 5-40 code = 1-7) [facility] HealthHDL cholesterol, lbdcu1119-96-34 13:14:00 Test Item Value Reference Range Interpretation Comments HDL cholesterol, serum (test code = 63 mg/dL >39 2084-9) [facility]althtriglyceride, serum, bdwsyqs0348-29-26 13:14:00 Test Item Value Reference Range Interpretation Comments triglyceride, serum, fasting (test 53 mg/dL 0-149 code = 2571-8) [facility]cholesterol, kmzrj2879-64-43 13:14:00 Test Item Value Reference Range Interpretation Comments cholesterol, serum (test code = 182 mg/dL 935-607 2443-3) [facility]alanine aminotransferase (SGPT), iaguq1615-96-33 13:14:00 Test Item Value Reference Range Interpretation Comments alanine aminotransferase (SGPT), serum 16 1/L 0-32 (test code = 1742-6) [facility] Healthaspartate aminotransferase (SGOT), ielbh7551-10-09 13:14:00 Test Item Value Reference Range Interpretation Comments aspartate aminotransferase (SGOT), 16 1/L 0-40 serum (test code = 1920-8) [facility] Healthalkaline phosphatase, gruyq5295-15-11 13:14:00 Test Item Value Reference Range Interpretation Comments alkaline phosphatase, serum (test code 82 1/L 39-117 = 1783-0) [facility]bilirubin, serum, uauek7794-16-91 13:14:00 Test Item Value Reference Range Interpretation Comments bilirubin, serum, total (test code 0.2 mg/dL 0.0-1.2 = 1975-2) [facility] Healthalbumin/globulin ratio, rlcpf7575-98-88 13:14:00 Test Item Value Reference Range Interpretation Comments albumin/globulin ratio, 1.7 (unknown unit) 1.2-2.2 serum (test code = 1759-0) [facility] Healthglobulin, usykk4210-86-72 13:14:00 Test Item Value Reference Range Interpretation Comments globulin, serum (test code 2.6 (unknown unit) 1.5-4.5 = 2336-6) [facility] Healthalbumin, ztdno6441-42-49 13:14:00 Test Item Value Reference Range Interpretation Comments albumin, serum (test code = 1751-7) 4.3 g/dL 3.5-5.5 [facility]protein, total, [id number] 13:14:00 Test Item Value Reference Range Interpretation Comments protein, total, serum (test code = 6.9 g/dL 6.0-8.5 2885-2) [facility] Healthcalcium, cufvy7383-27-25 13:14:00 Test Item Value Reference Range Interpretation Comments calcium, serum (test code = 1999-8) 9.4 mg/dL 8.7-10.2 [facility] Healthcarbon dioxide, venous ybjeo3356-88-18 13:14:00 Test Item Value Reference Range Interpretation Comments carbon dioxide, venous blood (test 23 mmol/L 20-29 code = 2026-1) [facility] Healthchloride, ecpvn4327-93-47 13:14:00 Test Item Value Reference Range Interpretation Comments chloride, serum (test code = 104 mmol/L 96-106 5-0) [facility]potassium, raepo0308-36-07 13:14:00 Test Item Value Reference Range Interpretation Comments potassium, serum (test code = 3.6 mmol/L 3.5-5.2 2823-3) [facility]sodium, ltjtn6325-87-98 13:14:00 Test Item Value Reference Range Interpretation Comments sodium, serum (test code = 2951-2) 142 mmol/L 134-144 [facility] Healthurea nitrogen/creatinine ratio, xchib4082-45-87 13:14:00 Test Item Value Reference Range Interpretation Comments urea nitrogen/creatinine 16 (unknown unit) 9-23 ratio, serum (test code = 3097-3) [facility] HealtheGFR if Yayhddeh4200-91-37 13:14:00 Test Item Value Reference Range Interpretation Comments eGFR if 114 mL/min/{1.73 m2} >59 (test code = 59380-7) [facility] HealthEstimated Glomerular Filtration Rate (calc)2018-03-09 13:14:00 Test Item Value Reference Range Interpretation Comments Estimated Glomerular 99 mL/min/{1.73 m2} >59 Filtration Rate (calc) (test code = 74649-7) [facility] Healthcreatinine, jlaay6838-27-17 13:14:00 Test Item Value Reference Range Interpretation Comments creatinine, serum (test code = 0.68 mg/dL 0.57-1.00 2160-0) [facility] Healthurea nitrogen, xelqd4226-89-20 13:14:00 Test Item Value Reference Range Interpretation Comments urea nitrogen, blood (test code = 11 mg/dL 6-24 3094-0) [facility] Healthblood glucose, rgmrjv0705-63-97 13:14:00 Test Item Value Reference Range Interpretation Comments blood glucose, random (test code = 122 mg/dL 65-99 H 2339-0) [facility] Healthimmature granulocytes, percentage of total cells, blood 2018-03-09 13:14:00 Test Item Value Reference Range Interpretation Comments immature granulocytes, percentage of 0 % total cells, blood (test code = 38387-0) [facility] Healthbasophil count, vkfmbaxr4686-10-89 13:14:00 Test Item Value Reference Range Interpretation Comments basophil count, absolute (test 0.0 x10E3/uL 0.0-0.2 code = 37147-5) [facility] HealthEosinophil Absolute Fwfxb1267-62-69 13:14:00 Test Item Value Reference Range Interpretation Comments Eosinophil Absolute Count (test 0.1 X10E3/UL 0.0-0.4 code = 53040-3) [facility] Healthmonocyte count, blood, ktctqbtvn4714-07-92 13:14:00 Test Item Value Reference Range Interpretation Comments monocyte count, blood, automated 0.5 X10E3/UL 0.1-0.9 (test code = 742-7) [facility] Healthlymphocyte count, blood, btigowxvp0612-76-53 13:14:00 Test Item Value Reference Range Interpretation Comments lymphocyte count, blood, 1.9 X10E3/UL 0.7-3.1 automated (test code = 731-0) [facility] HealthAbsolute Fqxcfmwfsop2654-58-58 13:14:00 Test Item Value Reference Range Interpretation Comments Absolute Neutrophils (test code 3.1 X10E3/UL 1.4-7.0 = 15740-6) [facility] Healthbasophils as percent of blood pgmwjaasyh7543-44-93 13:14:00 Test Item Value Reference Range Interpretation Comments basophils as percent of blood 0 % leukocytes (test code = 707-0) [facility] Healtheosinophils as percent of blood ubsibpxtys8423-84-70 13:14:00 Test Item Value Reference Range Interpretation Comments eosinophils as percent of blood 2 % leukocytes (test code = 713-8) [facility] Healthmonocytes as percent of blood nuokqnwqqe0884-51-08 13:14:00 Test Item Value Reference Range Interpretation Comments monocytes as percent of blood 9 % leukocytes (test code = 5905-5) [facility] Healthlymphocytes as percent of blood zqrdnjmflw5077-44-29 13:14:00 Test Item Value Reference Range Interpretation Comments lymphocytes as percent of blood 34 % leukocytes (test code = 736-9) [facility] Healthneutrophils as percent of blood bezcrqeyhu4674-64-41 13:14:00 Test Item Value Reference Range Interpretation Comments neutrophils as percent of blood 55 % leukocytes (test code = 770-8) [facility] Healthplatelet cgmxu9961-32-69 13:14:00 Test Item Value Reference Range Interpretation Comments platelet count (test code = 272 X10E3/UL 150-379 777-3) [facility] Healthred blood cell distribution hzrdu7313-69-67 13:14:00 Test Item Value Reference Range Interpretation Comments red blood cell distribution width 14.8 % 12.3-15.4 (test code = 788-0) [facility] Healthmean corpuscular hemoglobin concentration, [id number] 13:14:00 Test Item Value Reference Range Interpretation Comments mean corpuscular hemoglobin 33.7 G/DL 31.5-35.7 concentration, RBC (test code = 786-4) [facility] Healthmean corpuscular hemoglobin, FPQ7735-16-74 13:14:00 Test Item Value Reference Range Interpretation Comments mean corpuscular hemoglobin, RBC 32.0 pg 26.6-33.0 (test code = 785-6) [facility] Healthmean corpuscular volume, QSV8557-74-14 13:14:00 Test Item Value Reference Range Interpretation Comments mean corpuscular volume, RBC (test code 95 fL 79-97 = 787-2) [facility] Healthhematocrit, cyzzk6606-01-28 13:14:00 Test Item Value Reference Range Interpretation Comments hematocrit, blood (test code = 4544-3) 36.5 % 34.0-46.6 [facility] Healthhemoglobin, upvdr1176-59-39 13:14:00 Test Item Value Reference Range Interpretation Comments hemoglobin, blood (test code = 12.3 g/dL 11.1-15.9 718-7) [facility] Healtherythrocyte (RBC) gegnv4020-32-89 13:14:00 Test Item Value Reference Range Interpretation Comments erythrocyte (RBC) count (test 3.84 X10E6/UL 3.77-5.28 code = 789-8) [facility] Healthleukocyte count, fsncm5399-16-88 13:14:00 Test Item Value Reference Range Interpretation Comments leukocyte count, blood (test 5.6 X10E3/UL 3.4-10.8 code = 6690-2) [facility] HealthT-helper cells (CD4) as percent of blood lymphocytes 2018-03-09 13:14:00 Test Item Value Reference Range Interpretation Comments T-helper cells (CD4) as percent of 42.6 % 30.8-58.5 blood lymphocytes (test code = 8123-2) [facility] HealthT-helper cells (CD4) lujon7888-68-64 13:14:00 Test Item Value Reference Range Interpretation Comments T-helper cells (CD4) count (test code 809 /UL 359-1519 = 59931-3) [facility] HealthHIV-1RNA, serum, by PCR, jzabaiianyxe2388-04-09 13:14:00 Test Item Value Reference Range Interpretation Comments HIV-1RNA, serum, by PCR, <20 copies/mL quantitative (test code = 59254-2) [facility] HealthCD4/CD8 ylnkv0943-92-38 13:14:00 Test Item Value Reference Range Interpretation Comments CD4/CD8 ratio (test code 1.63 (unknown unit) 0.92-3.72 = 20723) [facility] HealthT-suppressor cells (CD8) as percent of blood lymphocytes 2018-03-09 13:14:00 Test Item Value Reference Range Interpretation Comments T-suppressor cells (CD8) as percent of 26.2 % 12.0-35.5 blood lymphocytes (test code = 3517) [facility] [id number] 13:14:00 Test Item Value Reference Range Interpretation Comments absolute CD8 (test code = 498 (unknown unit) 806-927 02803) [facility] HealthCD4/CD8 azhvq8945-92-31 13:14:00 Test Item Value Reference Range Interpretation Comments CD4/CD8 ratio (test code 1.63 (unknown unit) 0.92-3.72 = 11634) [facility] HealthT-suppressor cells (CD8) as percent of blood lymphocytes 2018-03-09 13:14:00 Test Item Value Reference Range Interpretation Comments T-suppressor cells (CD8) as percent of 26.2 % 12.0-35.5 blood lymphocytes (test code = 3517) [facility] [id number] 13:14:00 Test Item Value Reference Range Interpretation Comments absolute CD8 (test code = 498 (unknown unit) 492-963 06937) [facility] Healthmicroalbumin/creatinine ratio, bzngr6658-30-58 12:49:00 Test Item Value Reference Range Interpretation Comments microalbumin/creatinine 35.4 MG/G CREAT 0.0-30.0 H ratio, urine (test code = 78651-5) [facility] Healthmicroalbumin/total urine lccmnk6366-87-55 12:49:00 Test Item Value Reference Range Interpretation Comments microalbumin/total urine volume 28.4 mg/L (test code = 10979-2) [facility] Healthcreatinine, random, lscau3310-55-43 12:49:00 Test Item Value Reference Range Interpretation Comments creatinine, random, urine (test 80.2 mg/dL code = 2161-8) [facility] Healthvitamin D 25-hydroxy, yumgu1948-72-42 11:04:00 Test Item Value Reference Range Interpretation Comments vitamin D 25-hydroxy, serum (test 36.8 ng/mL 30.0-100.0 code = 65917-3) [facility] Healthrapid plasma reagin antibody, nzcmk6833-29-03 11:04:00 Test Item Value Reference Range Interpretation Comments rapid plasma reagin antibody, Non Reactive Non Reactive serum (test code = 5291-0) [facility] Healthhemoglobin A1C, blood, as % of total kzznjqkerv9186-92-02 11:04:00 Test Item Value Reference Range Interpretation Comments hemoglobin A1C, blood, as % of total 6.7 % 4.8-5.6 H hemoglobin (test code = 4548-4) [facility] HealthLDL cholesterol, zbqyn5707-19-22 11:04:00 Test Item Value Reference Range Interpretation Comments LDL cholesterol, serum (test code = 134 mg/dL 0-99 H 2088-04) [facility] Healthvery low density hbnekbloxvmi1234-13-10 11:04:00 Test Item Value Reference Range Interpretation Comments very low density lipoproteins (test 11 mg/dL 5-40 code = 2091-7) [facility] HealthHDL cholesterol, acheu0740-67-22 11:04:00 Test Item Value Reference Range Interpretation Comments HDL cholesterol, serum (test code = 71 mg/dL >39 2084-9) [facility] Healthtriglyceride, serum, wqhswhc0384-89-78 11:04:00 Test Item Value Reference Range Interpretation Comments triglyceride, serum, fasting (test 56 mg/dL 0-149 code = 2571-8) [facility] Healthcholesterol, tuvat2184-60-74 11:04:00 Test Item Value Reference Range Interpretation Comments cholesterol, serum (test code = 216 mg/dL 100-199 H 2092-3) [facility] Healthalanine aminotransferase (SGPT), bdhhl2282-52-67 11:04:00 Test Item Value Reference Range Interpretation Comments alanine aminotransferase (SGPT), serum 12 1/L 0-32 (test code = 1742-6) Community Healthaspartate aminotransferase (SGOT), vaqxp3954-92-31 11:04:00 Test Item Value Reference Range Interpretation Comments aspartate aminotransferase (SGOT), 12 1/L 0-40 serum (test code = 1920-8) [facility] Healthalkaline phosphatase, ryfrw1451-56-38 11:04:00 Test Item Value Reference Range Interpretation Comments alkaline phosphatase, serum (test code 93 1/L 39-117 = 1783-0) [facility] Healthbilirubin, serum, vtpha2787-00-79 11:04:00 Test Item Value Reference Range Interpretation Comments bilirubin, serum, total (test code 0.3 mg/dL 0.0-1.2 = 1975-2) [facility] Healthalbumin/globulin ratio, rhjpa2721-56-75 11:04:00 Test Item Value Reference Range Interpretation Comments albumin/globulin ratio, 1.8 (unknown unit) 1.2-2.2 serum (test code = 1759-0) [facility] Healthglobulin, faele9685-69-22 11:04:00 Test Item Value Reference Range Interpretation Comments globulin, serum (test code 2.5 (unknown unit) 1.5-4.5 = 2336-6) [facility] Healthalbumin, prpkk9537-41-98 11:04:00 Test Item Value Reference Range Interpretation Comments albumin, serum (test code = 1751-7) 4.4 g/dL 3.5-5.5 [facility]protein, total, wqtvl0692-12-16 11:04:00 Test Item Value Reference Range Interpretation Comments protein, total, serum (test code = 6.9 g/dL 6.0-8.5 2885-2) [facility] Healthcalcium, hdgct6368-97-03 11:04:00 Test Item Value Reference Range Interpretation Comments calcium, serum (test code = 1999-8) 9.7 mg/dL 8.7-10.2 [facility] Healthcarbon dioxide, venous dzmdu5589-53-31 11:04:00 Test Item Value Reference Range Interpretation Comments carbon dioxide, venous blood (test 26 mmol/L 20-29 code = 2026-1) [facility] Healthchloride, cexls6763-17-39 11:04:00 Test Item Value Reference Range Interpretation Comments chloride, serum (test code = 100 mmol/L 96-106 2075-0) [facility] Healthpotassium, ekufj7523-71-67 11:04:00 Test Item Value Reference Range Interpretation Comments potassium, serum (test code = 4.0 mmol/L 3.5-5.2 2823-3) [facility]sodium, mgdbs9097-63-23 11:04:00 Test Item Value Reference Range Interpretation Comments sodium, serum (test code = 2951-2) 140 mmol/L 134-144 Community Healthurea nitrogen/creatinine ratio, efdpt4902-68-66 11:04:00 Test Item Value Reference Range Interpretation Comments urea nitrogen/creatinine 20 (unknown unit) 9-23 ratio, serum (test code = 3097-3) [facility] HealtheGFR if Orrbdxpi4911-23-67 11:04:00 Test Item Value Reference Range Interpretation Comments eGFR if 96 mL/min/{1.73 m2} >59 (test code = 18000-4) [facility] HealthEstimated Glomerular Filtration Rate (calc)2017-09-22 11:04:00 Test Item Value Reference Range Interpretation Comments Estimated Glomerular 83 mL/min/{1.73 m2} >59 Filtration Rate (calc) (test code = 84415-6) [facility] Healthcreatinine, vrepk2694-26-91 11:04:00 Test Item Value Reference Range Interpretation Comments creatinine, serum (test code = 0.80 mg/dL 0.57-1.00 2160-0) [facility] Healthurea nitrogen, mmser2297-31-82 11:04:00 Test Item Value Reference Range Interpretation Comments urea nitrogen, blood (test code = 16 mg/dL 6-24 3094-0) [facility] Healthblood glucose, qasgzi3410-70-48 11:04:00 Test Item Value Reference Range Interpretation Comments blood glucose, random (test code = 122 mg/dL 65-99 H 2339-0) [facility] Healthimmature granulocytes, percentage of total cells, blood 2017-09-22 11:04:00 Test Item Value Reference Range Interpretation Comments immature granulocytes, percentage of 0 % total cells, blood (test code = 81762-0) [facility] Healthbasophil count, reazrico2250-90-98 11:04:00 Test Item Value Reference Range Interpretation Comments basophil count, absolute (test 0.0 x10E3/uL 0.0-0.2 code = 35783-8) [facility] HealthEosinophil Absolute Lidyy0765-74-72 11:04:00 Test Item Value Reference Range Interpretation Comments Eosinophil Absolute Count (test 0.1 X10E3/UL 0.0-0.4 code = 99620-2) [facility] Healthmonocyte count, blood, rfplmkrzs3294-40-05 11:04:00 Test Item Value Reference Range Interpretation Comments monocyte count, blood, automated 0.4 X10E3/UL 0.1-0.9 (test code = 742-7) [facility] Healthlymphocyte count, blood, ulrfscqwr8884-11-31 11:04:00 Test Item Value Reference Range Interpretation Comments lymphocyte count, blood, 1.5 X10E3/UL 0.7-3.1 automated (test code = 731-0) [facility] HealthAbsolute Cqmkmftyjse4044-07-19 11:04:00 Test Item Value Reference Range Interpretation Comments Absolute Neutrophils (test code 3.4 X10E3/UL 1.4-7.0 = 34345-6) [facility] Healthbasophils as percent of blood otocjjsrzv8720-53-78 11:04:00 Test Item Value Reference Range Interpretation Comments basophils as percent of blood 1 % leukocytes (test code = 707-0) [facility] Healtheosinophils as percent of blood szewaukkwa5949-05-55 11:04:00 Test Item Value Reference Range Interpretation Comments eosinophils as percent of blood 2 % leukocytes (test code = 713-8) [facility] Healthmonocytes as percent of blood onohnkzauv2220-17-33 11:04:00 Test Item Value Reference Range Interpretation Comments monocytes as percent of blood 7 % leukocytes (test code = 5905-5) [facility] Healthlymphocytes as percent of blood gszhlwxihi5125-04-89 11:04:00 Test Item Value Reference Range Interpretation Comments lymphocytes as percent of blood 28 % leukocytes (test code = 736-9) [facility] Healthneutrophils as percent of blood hxsdyqcecm9878-59-93 11:04:00 Test Item Value Reference Range Interpretation Comments neutrophils as percent of blood 62 % leukocytes (test code = 770-8) [facility]platelet hkjrx9087-13-18 11:04:00 Test Item Value Reference Range Interpretation Comments platelet count (test code = 268 X10E3/UL 150-379 777-3) [facility]red blood cell distribution htkir2353-44-54 11:04:00 Test Item Value Reference Range Interpretation Comments red blood cell distribution width 16.2 % 12.3-15.4 H (test code = 788-0) [facility] corpuscular hemoglobin concentration, QLF0246-80-13 11:04:00 Test Item Value Reference Range Interpretation Comments mean corpuscular hemoglobin 34.0 G/DL 31.5-35.7 concentration, RBC (test code = 786-4) [facility] corpuscular hemoglobin, KAZ9468-75-65 11:04:00 Test Item Value Reference Range Interpretation Comments mean corpuscular hemoglobin, RBC 31.9 pg 26.6-33.0 (test code = 785-6) [facility] corpuscular volume, GQE8494-95-87 11:04:00 Test Item Value Reference Range Interpretation Comments mean corpuscular volume, RBC (test code 94 fL 79-97 = 787-2) [facility]hematocrit, ybngr4519-90-56 11:04:00 Test Item Value Reference Range Interpretation Comments hematocrit, blood (test code = 4544-3) 37.9 % 34.0-46.6 [facility]hemoglobin, ebkal4938-99-91 11:04:00 Test Item Value Reference Range Interpretation Comments hemoglobin, blood (test code = 12.9 g/dL 11.1-15.9 718-7) [facility] Healtherythrocyte (RBC) blhrm9951-13-99 11:04:00 Test Item Value Reference Range Interpretation Comments erythrocyte (RBC) count (test 4.04 X10E6/UL 3.77-5.28 code = 789-8) [facility]leukocyte count, bqabr3038-35-62 11:04:00 Test Item Value Reference Range Interpretation Comments leukocyte count, blood (test 5.4 X10E3/UL 3.4-10.8 code = 6690-2) [facility] HealthT-helper cells (CD4) as percent of blood lymphocytes 2017-09-22 11:04:00 Test Item Value Reference Range Interpretation Comments T-helper cells (CD4) as percent of 40.6 % 30.8-58.5 blood lymphocytes (test code = 8123-2) [facility] HealthT-helper cells (CD4) zjilx1382-98-44 11:04:00 Test Item Value Reference Range Interpretation Comments T-helper cells (CD4) count (test code 609 /UL 359-1519 = 61397-2) [facility]microalbumin/total urine cxpaqr4418-03-36 11:04:00 Test Item Value Reference Range Interpretation Comments microalbumin/total urine volume 39.5 mg/L (test code = 78597-2) [facility]creatinine, random, fwyob5663-86-08 11:04:00 Test Item Value Reference Range Interpretation Comments creatinine, random, urine (test 116.0 mg/dL code = 2161-8) [facility]HIV-1RNA, serum, by PCR, aakqlzwwrfdt4218-44-25 11:04:00 Test Item Value Reference Range Interpretation Comments HIV-1RNA, serum, by PCR, <20 copies/mL quantitative (test code = 43113-1) [facility] HealthCD4/CD8 ulbeo3531-51-85 11:04:00 Test Item Value Reference Range Interpretation Comments CD4/CD8 ratio (test code 1.68 (unknown unit) 0.92-3.72 = 64522) [facility] HealthT-suppressor cells (CD8) as percent of blood lymphocytes 2017-09-22 11:04:00 Test Item Value Reference Range Interpretation Comments T-suppressor cells (CD8) as percent of 24.2 % 12.0-35.5 blood lymphocytes (test code = 3517) [facility]absolute [id number] 11:04:00 Test Item Value Reference Range Interpretation Comments absolute CD8 (test code = 363 (unknown unit) 969-995 15122) [facility] HealthCD4/CD8 sricz5599-75-31 11:04:00 Test Item Value Reference Range Interpretation Comments CD4/CD8 ratio (test code 1.68 (unknown unit) 0.92-3.72 = 09955) [facility] HealthT-suppressor cells (CD8) as percent of blood lymphocytes 2017-09-22 11:04:00 Test Item Value Reference Range Interpretation Comments T-suppressor cells (CD8) as percent of 24.2 % 12.0-35.5 blood lymphocytes (test code = 3517) [facility]absolute XB85530-06-18 11:04:00 Test Item Value Reference Range Interpretation Comments absolute CD8 (test code = 363 (unknown unit) [phone]) [facility] HealthNeisseria gonorrhoeae DNA jlaiq1731-70-27 11:12:00 Test Item Value Reference Range Interpretation Comments Neisseria gonorrhoeae DNA probe Negative Negative (test code = 40959-3) [facility] Healthchlamydia DNA huhvb5953-58-54 11:12:00 Test Item Value Reference Range Interpretation Comments chlamydia DNA probe (test code = Negative Negative 71620-5) [facility] Healthblood glucose, loiaek3307-79-62 11:45:11 Test Item Value Reference Range Interpretation Comments blood glucose, random (test code = 87 mg/dL 9-0) [facility] HealthNon-nucleotide Reverse Transcriptase Tpgrsuidce6825-36-08 11:45:11 Test Item Value Reference Range Interpretation Comments Non-nucleotide Reverse Transcriptase none Inhibitors (test code = 157258) [facility] HealthNon-nucleotide Reverse Transcriptase Glkynvgosl1425-65-47 11:45:11 Test Item Value Reference Range Interpretation Comments Non-nucleotide Reverse Transcriptase none Inhibitors (test code = 151065) [facility] HealthNucleotide Reverse transcriptase fmihgkymu1632-74-37 11:45:11 Test Item Value Reference Range Interpretation Comments Nucleotide Reverse transcriptase none inhibitor (test code = 635926) [facility] Healthrapid plasma reagin antibody, caczm4440-28-29 10:54:00 Test Item Value Reference Range Interpretation Comments rapid plasma reagin antibody, Non Reactive Non Reactive serum (test code = 5291-0) [facility] HealthLDL cholesterol, ptvub8275-34-56 10:54:00 Test Item Value Reference Range Interpretation Comments LDL cholesterol, serum (test code = 135 mg/dL 0-99 H 2088[facility] invaogxsqzht1055-92-25 10:54:00 Test Item Value Reference Range Interpretation Comments very low density lipoproteins (test 12 mg/dL 5-40 code = 2091-7) [facility] HealthHDL cholesterol, whyxm6509-41-71 10:54:00 Test Item Value Reference Range Interpretation Comments HDL cholesterol, serum (test code = 56 mg/dL >39 2085-9) [facility]althtriglyceride, serum, njzruds5774-93-94 10:54:00 Test Item Value Reference Range Interpretation Comments triglyceride, serum, fasting (test 60 mg/dL 0-149 code = 2571-8) [facility]cholesterol, qfvev4576-63-91 10:54:00 Test Item Value Reference Range Interpretation Comments cholesterol, serum (test code = 203 mg/dL 100-199 H 2093-3) [facility] Healthalanine aminotransferase (SGPT), vtgbo8280-40-77 10:54:00 Test Item Value Reference Range Interpretation Comments alanine aminotransferase (SGPT), serum 17 1/L 0-32 (test code = 1742-6) [facility] Healthaspartate aminotransferase (SGOT), rcgng2407-66-38 10:54:00 Test Item Value Reference Range Interpretation Comments aspartate aminotransferase (SGOT), 19 1/L 0-40 serum (test code = 1920-8) [facility] Healthalkaline phosphatase, wvpoe0236-30-92 10:54:00 Test Item Value Reference Range Interpretation Comments alkaline phosphatase, serum (test code 91 1/L 39-117 = 1783-0) [facility]bilirubin, serum, etiem2245-79-97 10:54:00 Test Item Value Reference Range Interpretation Comments bilirubin, serum, total (test code 0.2 mg/dL 0.0-1.2 = 1974-2) [facility] Healthalbumin/globulin ratio, jhztb3902-93-91 10:54:00 Test Item Value Reference Range Interpretation Comments albumin/globulin ratio, 1.6 (unknown unit) 1.2-2.2 serum (test code = 1759-0) [facility] Healthglobulin, tzxin5077-82-51 10:54:00 Test Item Value Reference Range Interpretation Comments globulin, serum (test code 2.7 (unknown unit) 1.5-4.5 = 2336-6) [facility] Healthalbumin, xlngl7945-64-75 10:54:00 Test Item Value Reference Range Interpretation Comments albumin, serum (test code = 1751-7) 4.3 g/dL 3.5-5.5 [facility]protein, total, yhlwk4770-08-49 10:54:00 Test Item Value Reference Range Interpretation Comments protein, total, serum (test code = 7.0 g/dL 6.0-8.5 2885-2) [facility] Healthcalcium, gnbkv9963-23-25 10:54:00 Test Item Value Reference Range Interpretation Comments calcium, serum (test code = 1999-8) 9.3 mg/dL 8.7-10.2 [facility]carbon dioxide, venous diwgt1893-55-72 10:54:00 Test Item Value Reference Range Interpretation Comments carbon dioxide, venous blood (test 23 mmol/L 18- code = 2026-1) [facility] Healthchloride, fgihe9771-26-25 10:54:00 Test Item Value Reference Range Interpretation Comments chloride, serum (test code = 101 mmol/L 96-106 5-0) [facility] Healthpotassium, xzuyf5885-22-93 10:54:00 Test Item Value Reference Range Interpretation Comments potassium, serum (test code = 4.2 mmol/L 3.5-5.2 2823-3) [facility]sodium, wsgly0474-34-05 10:54:00 Test Item Value Reference Range Interpretation Comments sodium, serum (test code = 2951-2) 141 mmol/L 134-144 [facility] Healthurea nitrogen/creatinine ratio, vrple7593-74-30 10:54:00 Test Item Value Reference Range Interpretation Comments urea nitrogen/creatinine 20 (unknown unit) 9-23 ratio, serum (test code = 3097-3) [facility] HealtheGFR if Dmtxxdhv0811-59-38 10:54:00 Test Item Value Reference Range Interpretation Comments eGFR if 115 mL/min/{1.73 m2} >59 (test code = 45136-8) [facility] HealthEstimated Glomerular Filtration Rate (calc)2017-06-02 10:54:00 Test Item Value Reference Range Interpretation Comments Estimated Glomerular 100 mL/min/{1.73 m2} >59 Filtration Rate (calc) (test code = 36681-9) [facility] Healthcreatinine, kmidg7196-28-49 10:54:00 Test Item Value Reference Range Interpretation Comments creatinine, serum (test code = 0.66 mg/dL 0.57-1.00 0-0) [facility] Healthurea nitrogen, llvjx8269-92-68 10:54:00 Test Item Value Reference Range Interpretation Comments urea nitrogen, blood (test code = 13 mg/dL 09-30 3094-0) [facility] Healthblood glucose, ozksit5062-60-40 10:54:00 Test Item Value Reference Range Interpretation Comments blood glucose, random (test code = 105 mg/dL 65-99 H 2339-0) [facility] Healthimmature granulocytes, percentage of total cells, blood 2017-06-02 10:54:00 Test Item Value Reference Range Interpretation Comments immature granulocytes, percentage of 0 % total cells, blood (test code = 19953-2) [facility] Healthbasophil count, ohehvdqt5706-04-12 10:54:00 Test Item Value Reference Range Interpretation Comments basophil count, absolute (test 0.0 x10E3/uL 0.0-0.2 code = 01346-5) [facility] HealthEosinophil Absolute Yaawv1131-97-61 10:54:00 Test Item Value Reference Range Interpretation Comments Eosinophil Absolute Count (test 0.1 X10E3/UL 0.0-0.4 code = 71340-5) [facility] Healthmonocyte count, blood, knfajttlc0515-06-83 10:54:00 Test Item Value Reference Range Interpretation Comments monocyte count, blood, automated 0.3 X10E3/UL 0.1-0.9 (test code = 742-7) [facility]lymphocyte count, blood, hzfbnsvje1234-74-10 10:54:00 Test Item Value Reference Range Interpretation Comments lymphocyte count, blood, 1.3 X10E3/UL 0.7-3.1 automated (test code = 731-0) [facility] HealthAbsolute Xwqlpcplrqb4233-51-05 10:54:00 Test Item Value Reference Range Interpretation Comments Absolute Neutrophils (test code 1.7 X10E3/UL 1.4-7.0 = 57855-3) [facility] Healthbasophils as percent of blood iflbgqsarp5368-95-59 10:54:00 Test Item Value Reference Range Interpretation Comments basophils as percent of blood 1 % leukocytes (test code = 707-0) [facility] Healtheosinophils as percent of blood abpakpkhrd9747-44-96 10:54:00 Test Item Value Reference Range Interpretation Comments eosinophils as percent of blood 4 % leukocytes (test code = 713-8) [facility] Healthmonocytes as percent of blood wpphtxzwek9960-98-12 10:54:00 Test Item Value Reference Range Interpretation Comments monocytes as percent of blood 9 % leukocytes (test code = 5905-5) [facility] Healthlymphocytes as percent of blood dzjvovgxxx8294-91-25 10:54:00 Test Item Value Reference Range Interpretation Comments lymphocytes as percent of blood 37 % leukocytes (test code = 736-9) [facility] Healthneutrophils as percent of blood puehspvrho8668-02-14 10:54:00 Test Item Value Reference Range Interpretation Comments neutrophils as percent of blood 49 % leukocytes (test code = 770-8) [facility] Healthplatelet pcowv0436-97-27 10:54:00 Test Item Value Reference Range Interpretation Comments platelet count (test code = 287 X10E3/UL 150-379 777-3) [facility] Healthred blood cell distribution rhgak7038-72-89 10:54:00 Test Item Value Reference Range Interpretation Comments red blood cell distribution width 14.6 % 12.3-15.4 (test code = 788-0) [facility] corpuscular hemoglobin concentration, AYW0171-45-76 10:54:00 Test Item Value Reference Range Interpretation Comments mean corpuscular hemoglobin 31.6 G/DL 31.5-35.7 concentration, RBC (test code = 786-4) [facility] corpuscular hemoglobin, DIU7287-12-79 10:54:00 Test Item Value Reference Range Interpretation Comments mean corpuscular hemoglobin, RBC 29.8 pg 26.6-33.0 (test code = 785-6) [facility] corpuscular volume, NIA0519-72-55 10:54:00 Test Item Value Reference Range Interpretation Comments mean corpuscular volume, RBC (test code 94 fL 79-97 = 787-2) [facility] Healthhematocrit, ohvpo7772-64-56 10:54:00 Test Item Value Reference Range Interpretation Comments hematocrit, blood (test code = 4544-3) 38.3 % 34.0-46.6 [facility] Healthhemoglobin, egfmx9610-29-87 10:54:00 Test Item Value Reference Range Interpretation Comments hemoglobin, blood (test code = 12.1 g/dL 11.1-15.9 718-7) [facility] Healtherythrocyte (RBC) taskc1256-61-65 10:54:00 Test Item Value Reference Range Interpretation Comments erythrocyte (RBC) count (test 4.06 X10E6/UL 3.77-5.28 code = 789-8) [facility] Healthleukocyte count, fmznc9292-18-32 10:54:00 Test Item Value Reference Range Interpretation Comments leukocyte count, blood (test 3.5 X10E3/UL 3.4-10.8 code = 6690-2) [facility] HealthT-helper cells (CD4) as percent of blood lymphocytes 2017-06-02 10:54:00 Test Item Value Reference Range Interpretation Comments T-helper cells (CD4) as percent of 34.8 % 30.8-58.5 blood lymphocytes (test code = 8123-2) [facility] HealthT-helper cells (CD4) auuhn2137-41-42 10:54:00 Test Item Value Reference Range Interpretation Comments T-helper cells (CD4) count (test code 452 /UL 359-1519 = 99050-1) [facility] HealthHIV-1RNA, serum, by PCR, typxzwfzbxoe7564-78-85 10:54:00 Test Item Value Reference Range Interpretation Comments HIV-1RNA, serum, by PCR, quantitative 30 /mL (test code = 44244-7) [facility] HealthCD4/CD8 jtufg9350-21-62 10:54:00 Test Item Value Reference Range Interpretation Comments CD4/CD8 ratio (test code 0.97 (unknown unit) 0.92-3.72 = 74062) [facility] HealthT-suppressor cells (CD8) as percent of blood lymphocytes 2017-06-02 10:54:00 Test Item Value Reference Range Interpretation Comments T-suppressor cells (CD8) as percent of 35.9 % 12.0-35.5 H blood lymphocytes (test code = 3517) [facility] Healthabsolute DD55130-30-27 10:54:00 Test Item Value Reference Range Interpretation Comments absolute CD8 (test code = 467 (unknown unit) 127-420 90576) [facility] HealthCD4/CD8 zdsyp5393-26-03 10:54:00 Test Item Value Reference Range Interpretation Comments CD4/CD8 ratio (test code 0.97 (unknown unit) 0.92-3.72 = 92412) [facility] HealthT-suppressor cells (CD8) as percent of blood lymphocytes 2017-06-02 10:54:00 Test Item Value Reference Range Interpretation Comments T-suppressor cells (CD8) as percent of 35.9 % 12.0-35.5 H blood lymphocytes (test code = 3517) [facility] Healthabsolute [id number] 10:54:00 Test Item Value Reference Range Interpretation Comments absolute CD8 (test code = 467 (unknown unit) 612-150 08377) [facility] HealthHIV genotype brmvov5146-84-53 13:04:16 Test Item Value Reference Range Interpretation Comments HIV genotype result (test code = done 57292-8) [facility] HealthQuantiferon Gold TB blood test for tuberculosis screening 2017-05-04 12:42:00 Test Item Value Reference Range Interpretation Comments Quantiferon Gold TB blood test for Negative Negative tuberculosis screening (test code = 51736-1) [facility] Healthhemoglobin A1C, blood, as % of total wuroefuvcy8851-69-18 12:35:00 Test Item Value Reference Range Interpretation Comments hemoglobin A1C, blood, as % of total 6.5 % 4.8-5.6 H hemoglobin (test code = 4548-4) [facility] Healtherythrocyte (RBC) iqmjo9117-30-75 12:35:00 Test Item Value Reference Range Interpretation Comments erythrocyte (RBC) count (test 4.20 X10E6/UL 3.77-5.28 code = 789-8) [facility] Healthmicroalbumin/total urine xkmyex5316-57-59 11:30:00 Test Item Value Reference Range Interpretation Comments microalbumin/total urine volume 100.2 mg/L (test code = 51443-1) [facility] Healthcreatinine, random, ovvjj2219-81-92 11:30:00 Test Item Value Reference Range Interpretation Comments creatinine, random, urine (test 230.4 mg/dL code = 2161-8) [facility] Healthrapid plasma reagin antibody, qyhqp2893-62-85 10:24:00 Test Item Value Reference Range Interpretation Comments rapid plasma reagin antibody, Non Reactive Non Reactive serum (test code = 5291-0) [facility] HealthNeisseria gonorrhoeae DNA pxfcv1954-39-30 10:24:00 Test Item Value Reference Range Interpretation Comments Neisseria gonorrhoeae DNA probe Negative Negative (test code = 53761-0) [facility] Healthchlamydia DNA emezy4731-11-12 10:24:00 Test Item Value Reference Range Interpretation Comments chlamydia DNA probe (test code = Negative Negative 10174-1) [facility] HealthLDL cholesterol, uelkb7905-83-55 10:24:00 Test Item Value Reference Range Interpretation Comments LDL cholesterol, serum (test code = 168 mg/dL 0-99 H 2088-) [facility] Healthvery low density otxakuvmqgoy7293-19-49 10:24:00 Test Item Value Reference Range Interpretation Comments very low density lipoproteins (test 20 mg/dL 5-40 code = 2091-7) [facility] HealthHDL cholesterol, zkzfg8332-96-27 10:24:00 Test Item Value Reference Range Interpretation Comments HDL cholesterol, serum (test code = 46 mg/dL >39 2084-) [facility] Healthtriglyceride, serum, jzpkfrb3529-71-13 10:24:00 Test Item Value Reference Range Interpretation Comments triglyceride, serum, fasting (test 100 mg/dL 0-149 code = 2571-8) [facility]cholesterol, iejec8048-93-47 10:24:00 Test Item Value Reference Range Interpretation Comments cholesterol, serum (test code = 234 mg/dL 100-199 H 2092-3) [facility] Healthalanine aminotransferase (SGPT), pnxyc2468-57-51 10:24:00 Test Item Value Reference Range Interpretation Comments alanine aminotransferase (SGPT), serum 23 1/L 0-32 (test code = 1742-6) [facility] Healthaspartate aminotransferase (SGOT), fujdv0893-78-08 10:24:00 Test Item Value Reference Range Interpretation Comments aspartate aminotransferase (SGOT), 21 1/L 0-40 serum (test code = 1920-8) [facility] Healthalkaline phosphatase, ysdvb4338-57-82 10:24:00 Test Item Value Reference Range Interpretation Comments alkaline phosphatase, serum (test code 65 1/L 39-117 = 1783-0) [facility]bilirubin, serum, hngki3564-02-22 10:24:00 Test Item Value Reference Range Interpretation Comments bilirubin, serum, total (test code 0.3 mg/dL 0.0-1.2 = 1974-2) [facility] Healthalbumin/globulin ratio, bhbpy9187-47-15 10:24:00 Test Item Value Reference Range Interpretation Comments albumin/globulin ratio, 1.6 (unknown unit) 1.2-2.2 serum (test code = 1759-0) [facility] Healthglobulin, nbdqh3527-50-18 10:24:00 Test Item Value Reference Range Interpretation Comments globulin, serum (test code 2.7 (unknown unit) 1.5-4.5 = 2336-6) [facility] Healthalbumin, prjyt2383-16-22 10:24:00 Test Item Value Reference Range Interpretation Comments albumin, serum (test code = 1751-7) 4.4 g/dL 3.5-5.5 [facility] Healthprotein, total, qyeff3644-96-18 10:24:00 Test Item Value Reference Range Interpretation Comments protein, total, serum (test code = 7.1 g/dL 6.0-8.5 2885-2) [facility] Healthcalcium, nhayg2810-83-38 10:24:00 Test Item Value Reference Range Interpretation Comments calcium, serum (test code = 1999-8) 9.5 mg/dL 8.7-10.2 [facility] Healthcarbon dioxide, venous duouh8726-16-89 10:24:00 Test Item Value Reference Range Interpretation Comments carbon dioxide, venous blood (test 25 mmol/L 18-29 code = 2026-1) [facility] Healthchloride, rowat5394-46-05 10:24:00 Test Item Value Reference Range Interpretation Comments chloride, serum (test code = 102 mmol/L 96-106 5-0) [facility] Healthpotassium, vwdye6653-76-03 10:24:00 Test Item Value Reference Range Interpretation Comments potassium, serum (test code = 4.0 mmol/L 3.5-5.2 2823-3) [facility] Healthsodium, bpyxp9113-88-45 10:24:00 Test Item Value Reference Range Interpretation Comments sodium, serum (test code = 2951-2) 141 mmol/L 134-144 [facility] Healthurea nitrogen/creatinine ratio, tgfun1634-43-27 10:24:00 Test Item Value Reference Range Interpretation Comments urea nitrogen/creatinine 14 (unknown unit) 9 ratio, serum (test code = 3097-3) [facility] HealtheGFR if Pfarboyk9028-55-91 10:24:00 Test Item Value Reference Range Interpretation Comments eGFR if 95 mL/min/{1.73 m2} >59 (test code = 35723-2) [facility] HealthEstimated Glomerular Filtration Rate (calc)2017-04-13 10:24:00 Test Item Value Reference Range Interpretation Comments Estimated Glomerular 83 mL/min/{1.73 m2} >59 Filtration Rate (calc) (test code = 36120-4) [facility] Healthcreatinine, djbbn7461-14-45 10:24:00 Test Item Value Reference Range Interpretation Comments creatinine, serum (test code = 0.81 mg/dL 0.57-1.00 2160-0) [facility] Healthurea nitrogen, kybhs6361-43-41 10:24:00 Test Item Value Reference Range Interpretation Comments urea nitrogen, blood (test code = 11 mg/dL 09-30 3094-0) [facility] Healthblood glucose, ztclhe9243-88-10 10:24:00 Test Item Value Reference Range Interpretation Comments blood glucose, random (test code = 86 mg/dL 65-99 2339-0) [facility] Healthimmature granulocytes, percentage of total cells, blood 2017-04-13 10:24:00 Test Item Value Reference Range Interpretation Comments immature granulocytes, percentage of 0 % total cells, blood (test code = 00340-9) [facility] Healthbasophil count, bbrbqdrv5122-05-80 10:24:00 Test Item Value Reference Range Interpretation Comments basophil count, absolute (test 0.0 x10E3/uL 0.0-0.2 code = 64923-6) [facility] HealthEosinophil Absolute Brvwe4539-88-31 10:24:00 Test Item Value Reference Range Interpretation Comments Eosinophil Absolute Count (test 0.0 X10E3/UL 0.0-0.4 code = 23816-2) [facility] Healthmonocyte count, blood, vxxldlrer2342-99-54 10:24:00 Test Item Value Reference Range Interpretation Comments monocyte count, blood, automated 0.4 X10E3/UL 0.1-0.9 (test code = 742-7) [facility] Healthlymphocyte count, blood, [id number] 10:24:00 Test Item Value Reference Range Interpretation Comments lymphocyte count, blood, 1.5 X10E3/UL 0.7-3.1 automated (test code = 731-0) [facility]Absolute [id number] 10:24:00 Test Item Value Reference Range Interpretation Comments Absolute Neutrophils (test code 1.3 X10E3/UL 1.4-7.0 L = 67154-4) [facility] Healthbasophils as percent of blood [id number] 10:24:00 Test Item Value Reference Range Interpretation Comments basophils as percent of blood 1 % leukocytes (test code = 707-0) [facility]theosinophils as percent of blood qlusidnsqk5590-96-48 10:24:00 Test Item Value Reference Range Interpretation Comments eosinophils as percent of blood 1 % leukocytes (test code = 713-8) [facility] Healthmonocytes as percent of blood [id number] 10:24:00 Test Item Value Reference Range Interpretation Comments monocytes as percent of blood 13 % leukocytes (test code = 5905-5) [facility]lymphocytes as percent of blood [id number] 10:24:00 Test Item Value Reference Range Interpretation Comments lymphocytes as percent of blood 45 % leukocytes (test code = 736-9) [facility] Healthneutrophils as percent of blood [id number] 10:24:00 Test Item Value Reference Range Interpretation Comments neutrophils as percent of blood 40 % leukocytes (test code = 770-8) [facility] Healthplatelet [id number] 10:24:00 Test Item Value Reference Range Interpretation Comments platelet count (test code = 244 X10E3/UL 150-379 777-3) [facility]red blood cell distribution [id number] 10:24:00 Test Item Value Reference Range Interpretation Comments red blood cell distribution width 14.3 % 12.3-15.4 (test code = 788-0) [facility] Healthmean corpuscular hemoglobin concentration, [id number] 10:24:00 Test Item Value Reference Range Interpretation Comments mean corpuscular hemoglobin 33.0 G/DL 31.5-35.7 concentration, RBC (test code = 786-4) [facility] corpuscular hemoglobin, [id number] 10:24:00 Test Item Value Reference Range Interpretation Comments mean corpuscular hemoglobin, RBC 30.0 pg 26.6-33.0 (test code = 785-6) [facility]mean corpuscular volume, [id number] 10:24:00 Test Item Value Reference Range Interpretation Comments mean corpuscular volume, RBC (test code 91 fL 79-97 = 787-2) [facility] Healthhematocrit, [id number] 10:24:00 Test Item Value Reference Range Interpretation Comments hematocrit, blood (test code = 4544-3) 38.8 % 34.0-46.6 [facility]hemoglobin, [id number] 10:24:00 Test Item Value Reference Range Interpretation Comments hemoglobin, blood (test code = 12.8 g/dL 11.1-15.9 718-7) [facility]altherythrocyte (RBC) [id number] 10:24:00 Test Item Value Reference Range Interpretation Comments erythrocyte (RBC) count (test 4.26 X10E6/UL 3.77-5.28 code = 789-8) [facility] Healthleukocyte count, [id number] 10:24:00 Test Item Value Reference Range Interpretation Comments leukocyte count, blood (test 3.3 X10E3/UL 3.4-10.8 L code = 6690-2) [facility] HealthT-helper cells (CD4) as percent of blood lymphocytes 2017-04-13 10:24:00 Test Item Value Reference Range Interpretation Comments T-helper cells (CD4) as percent of 24.6 % 30.8-58.5 L blood lymphocytes (test code = 8123-2) [facility] HealthT-helper cells (CD4) [id number] 10:24:00 Test Item Value Reference Range Interpretation Comments T-helper cells (CD4) count (test code 369 /UL 359-1519 = 10401-0) [facility] antigen [id number] 10:24:00 Test Item Value Reference Range Interpretation Comments human leukocyte antigen B57 (test Negative code = 099664) [facility] HealthCD4/CD8 [id number] 10:24:00 Test Item Value Reference Range Interpretation Comments CD4/CD8 ratio (test code 0.41 (unknown unit) 0.92-3.72 L = 42547) [facility] HealthT-suppressor cells (CD8) as percent of blood lymphocytes 2017-04-13 10:24:00 Test Item Value Reference Range Interpretation Comments T-suppressor cells (CD8) as percent of 60.0 % 12.0-35.5 H blood lymphocytes (test code = 3517) [facility] Healthabsolute [id number] 10:24:00 Test Item Value Reference Range Interpretation Comments absolute CD8 (test code = 900 (unknown unit) 109-897 H 49066) [facility] Healthhepatitis A antibody, [id number] 10:24:00 Test Item Value Reference Range Interpretation Comments hepatitis A antibody, total (test Negative Negative code = 66354-7) [facility]hepatitis B core antibody, [id number] 10:24:00 Test Item Value Reference Range Interpretation Comments hepatitis B core antibody, total Negative Negative (test code = 94221-0) [facility]hepatitis B surface [id number] 10:24:00 Test Item Value Reference Range Interpretation Comments hepatitis B surface antigen (test Negative Negative code = 46553-9) [facility], [id number] 10:24:00 Test Item Value Reference Range Interpretation Comments hepatitis C antibody, serum (test code <0.1 0.0-0.9 = 95962-8) [facility] HealthHIV-2 antibodies, western [id number] 10:24:00 Test Item Value Reference Range Interpretation Comments HIV-2 antibodies, western blot (test Negative Negative code = 22964-4) [facility] HealthHIV-1/HIV-2 Ab, [id number] 10:24:00 Test Item Value Reference Range Interpretation Comments HIV-1/HIV-2 Ab, serum (test code = Positive Negative A 61087-1) [facility] HealthHIV-CMIA (Chemiluminescent Microparticle Immuno Assay) 2017-04-13 10:24:00 Test Item Value Reference Range Interpretation Comments HIV-CMIA (Chemiluminescent REAALG Non Reactive A Microparticle Immuno Assay) (test code = 77773-9) [facility]althtoxoplasma gondii antibody, [id number] 10:24:00 Test Item Value Reference Range Interpretation Comments toxoplasma gondii antibody, IgG (test <3.0 0.0-7.1 code = 5389-2) [facility] Healthhepatitis B surface [id number] 10:24:00 Test Item Value Reference Range Interpretation Comments hepatitis B surface antibody Non Reactive (test code = 57993-9) [facility] HealthHIV-1RNA, serum, by PCR, [id number] 10:24:00 Test Item Value Reference Range Interpretation Comments HIV-1RNA, serum, by PCR, 26387 /mL quantitative (test code = 86382-7) [facility] Healthhuman leukocyte antigen [id number] 10:24:00 Test Item Value Reference Range Interpretation Comments human leukocyte antigen B57 (test Negative code = 209843) [facility] HealthCD4/CD8 [id number] 10:24:00 Test Item Value Reference Range Interpretation Comments CD4/CD8 ratio (test code 0.41 (unknown unit) 0.92-3.72 L = 20189) [facility] HealthT-suppressor cells (CD8) as percent of blood lymphocytes 2017-04-13 10:24:00 Test Item Value Reference Range Interpretation Comments T-suppressor cells (CD8) as percent of 60.0 % 12.0-35.5 H blood lymphocytes (test code = 3517) [facility]absolute [id number] 10:24:00 Test Item Value Reference Range Interpretation Comments absolute CD8 (test code = 900 (unknown unit) 109-897 H 76411) [facility]
[2022-05-14 20:09] LABS: Absolute Lymphocytes (CBC) 1.4 K/uL (0.7-4.9); Hematocrit 43.1 % (36.0-45.0); Lymphocytes % 22.9 % (15.3-44.8); MCV 97.8 fL (80-100); MPV 8.5 fL (7.6-11.3); RBC Red Blood Cell Count 4.41 M/uL (3.86-4.86)
[2022-05-14 20:24] LABS: Albumin 4.1 g/dL (3.4-5.0); Bilirubin Total 0.3 mg/dL (0.2-1.0); Potassium 3.8 mmol/L (3.5-5.1); Protein, Total 8.7 g/dL (6.4-8.2)
--- NOTE | 2022-05-14 20:26 | RAD REPORT ---
EXAM DESCRIPTION: CT - Head Brain Wo Cont - 05/14/2022 7:57 pm CLINICAL HISTORY: headache, fatigue COMPARISON: No comparisons TECHNIQUE: Axial 5 mm thick images of the head were obtained without IV contrast. All CT scans are performed using dose optimization technique as appropriate and may include automated exposure control or mA/KV adjustment according to patient size. FINDINGS: No intracranial hemorrhage, mass, edema or shift of mid-line structures. No acute infarcti on changes seen. No abnormal extra-axial fluid collections. Ventricles are normal. Mastoid air cells and visualized portions of the paranasal sinuses are clear. No acute bony findings. IMPRESSION: Negative non-contrast CT head examination. Sinuses are clear.
--- NOTE | 2022-05-14 20:55 | RAD REPORT ---
EXAM DESCRIPTION: RAD - Chest Pa And Lat (2 Views) - 05/14/2022 8:48 pm CLINICAL HISTORY: CONGESTION Chest pain. COMPARISON: Chest Pa And Lat (2 Views) dated 11/01/2020 FINDINGS: The lungs are clear. The heart is upper limit of normal in size. No displaced fractures. IMPRESSION: No acute or concerning finding suspected.
--- NOTE | 2022-05-14 21:34 | EDPHYS ---
Physician Documentation [facility] Name: Tana Pérez Age: 61 yrs Sex: Female : 1960 Arrival Date: 05/14/2022 Time: 18:00 Bed 23 Private MD: ED Physician Farhat Hayden HPI: 05/14 18:26 This 61 yrs old Black Female presents to ER via Ambulatory with complaints of Sinus jmm Congestion, gum pain, General Weakness. 18:26 The patient or guardian reports cough. Onset: The symptoms/episode began/occurred jmm gradually, 1 week(s) ago. This is a 61-year-old female with history of diabetes mellitus, HIV, hyperlipidemia the presents emerged department complaints of sinus congestion, body aches beginning approximately a week ago but worsening over the past 3 days. Patient was prescribed some oral amoxicillin without any relief yesterday.. 21:15 Patient reports left upper tooth and gum pain. cp Historical: - Allergies: 18:01 Vistaril; ll1 - PMHx: 18:01 Anxiety; depressive disorder; Diabetes - NIDDM; HIV; Hyperlipidemia; Hypertension; ll1 - PSHx: 18:01 Exploratory laparotomy; hysterectomy; left knee; ll1 - Immunization history:: Client reports receiving the 2nd dose of the Covid vaccine. - Social history:: Smoking status: Patient denies any tobacco usage or history of. ROS: 18:26 Constitutional: Positive for body aches. jmm 18:26 ENT: Positive for sinus congestion. 18:26 All other systems are negative. Exam: 18:26 Constitutional: This is a well developed, well nourished patient who is awake, alert, jmm and in no acute distress. Head/Face: atraumatic. Eyes: EOMI, no conjunctival erythema appreciated ENT: Moist Mucus Membranes Neck: Trachea midline, Supple Chest/axilla: Normal chest wall appearance and motion. Cardiovascular: Regular rate and rhythm. No edema appreciated Respiratory: Normal respirations, no respiratory distress appreciated Abdomen/GI: Non distended Back: Normal ROM Skin: General appearance color normal MS/ Extremity: Moves all extremities, no obvious deformities appreciated, no edema noted to the lower extremities Neuro: Awake and alert Psych: Behavior is normal, Mood is normal, Patient is cooperative and pleasant 21:17 ENT: Posterior pharynx: Airway: no evidence of obstruction, patent, Tonsils: are normal cp in appearance, Dental exam: abscess, is not appreciated, dental caries, that is mild, diffusely, pain, that is moderate, specifically in the upper left second molar (#15), Voice: is normal. Vital Signs: 18:05 BP 166 / 101; Pulse 99; Resp 18; Temp 98.9; Pulse Ox 97% on R/A; Weight 90.72 kg; ll1 Height 5 ft. 1 in. (154.94 cm); Pain 9/10; 20:29 BP 179 / 95; Pulse 92; Resp 17 S; Pulse Ox 98% on R/A; lg3 21:16 BP 175 / 99; Pulse 92; Resp 16; Temp 98.8; Pulse Ox 98% on R/A; Weight 90.72 kg; Height rv1 5 ft. 1 in. (154.94 cm); Pain 10/10; 22:07 BP 164 / 88; Pulse 89; Resp 17 S; Pulse Ox 99% on R/A; lg3 21:16 Body Mass Index 37.79 (90.72 kg, 154.94 cm) rv1 MDM: 18:26 [facility] 21:32 Data reviewed: vital signs, nurses notes, lab test result(s), radiologic studies, CT cp scan. 21:32 Consideration of Admission/Observation Escalation of care including cp admission/observation considered. I considered the following discharge prescriptions or medication management in the emergency department Medications were administered in the Emergency Department. See MAR. Care significantly affected by the following chronic conditions: Diabetes, HIV. Counseling: I had a detailed discussion with the patient and/or guardian regarding: the historical points, exam findings, and any diagnostic results supporting the discharge/admit diagnosis, lab results, radiology results, to return to the emergency department if symptoms worsen or persist or if there are any questions or concerns that arise at home. ED course: VSS. Discussed results of labs and radiology studies. Patient concerned Amoxicillin not working, will change antibiotic to Clindamycin. Patient instructed to take OTC decongestant, continue use of Flonase NS and recommend dental f/u. 05/14 18:29 Order name: CBC with Diff; Complete Time: 21:10 jm 05/14 21:10 Interpretation: Reviewed. cp 05/14 18:29 Order name: CMP; Complete [facility]: 21:10 [facility] 05/14 21:10 Interpretation: Normal except: GLUC 171; GFR 66; TP 8.7; GLOB 4.6; A/G 0.9. 05/14 18:30 Order name: CT Head Brain wo Cont; Complete Time: 21:10 [facility] 05/14 21:10 Interpretation: Report reviewed. 05/14 19:53 Order name: XRAY Chest Pa And Lat (2 Views); Complete Time: 21:10 05/14 21:10 Interpretation: Report reviewed. 05/14 18:29 Order name: Saline Lock; Complete Time: 20:01 [facility] Administered Medications: 21:59 Drug: Clindamycin 300 mg Route: PO; lg3 22:07 Follow up: Response: No adverse reaction lg3 22:03 Drug: Ketorolac 15 mg Route: IVP; Site: left antecubital; lg3 22:07 Follow up: Response: No adverse reaction; Marked relief of symptoms lg3 22:03 Drug: HYDROcodone-acetaminophen 10 mg-325 mg 1 tabs Route: PO; lg3 22:07 Follow up: Response: No adverse reaction; Marked relief of symptoms lg3 Disposition Summary: 05/14/22 21:33 Discharge Ordered Location: Home cp Problem: new cp Symptoms: have improved cp Condition: Stable cp Diagnosis - Disorder of teeth and supporting structures, unspecified cp - Weakness cp - Nasal congestion cp Followup: cp - With: Private Physician - When: 2 - 3 days - Reason: Recheck today's complaints Discharge Instructions: - Discharge Summary Sheet cp - Dental Pain cp - Weakness cp - How to Perform a Sinus Rinse cp Forms: - Medication Reconciliation Form cp - Thank You Letter cp - Antibiotic Education cp - Prescription Opioid Use cp - Work release form lg3 Prescriptions: - Clindamycin HCl 300 mg Oral Capsule - take 1 capsule by ORAL route every 6 hours for 10 days; 40 capsule; Refills: 0, cp Product Selection Permitted - Diclofenac Sodium 75 mg Oral tablet,delayed release (DR/EC) - take 1 tablet by ORAL route 2 times per day; 20 tablet; Refills: 0, Product cp Selection Permitted Signatures: Dispatcher [employer] EDAvinash Kapoor PA PA jmm Page, Corey, PA PA cp Suzanna Dao RN RN lg3 Scott, Lynsay, RN RN ll1 Corrections: (The following items were deleted from the chart) 18:08 18:01 Allergies: Morphine; ll1 ll1 05/15 16:12 16:11 Patient reports left upper tooth and gum pain. cp cp
--- NOTE | 2022-05-14 21:34 | ER ---
Nurse's Notes [facility] Name: Tana Pérez Age: 61 yrs Sex: Female : 1960 Arrival Date: 05/14/2022 Time: 18:00 Bed 23 Private MD: Diagnosis: Disorder of teeth and supporting structures, unspecified;Weakness;Nasal congestion Presentation: 05/14 18:05 Chief complaint: Patient states: Sinus congestion, on amoxicillin and Flonase for 3 ll1 weeks. L upper jaw gum pain for 3 days. + weakness, fatigue. Coronavirus screen: Vaccine status: Patient reports receiving the 2nd dose of the covid vaccine. Client denies travel out of the [place] in the last 14 days. congestion, fatigue, headache, nausea, Client presents with at least one sign or symptom that may indicate coronavirus-19. Standard/surgical mask placed on the client. Ebola Screen: Patient denies travel to an Ebola-affected area in the 21 days before illness onset. Initial Sepsis Screen: Does the patient meet any 2 criteria? No. Patient's initial sepsis screen is negative. Does the patient have a suspected source of infection? Yes: Other: sinus congestion. Risk Assessment: Do you want to hurt yourself or someone else? Patient reports no desire to harm self or others. Onset of symptoms was April 18, 2022. 18:05 Method Of Arrival: Ambulatory ll1 18:05 Acuity: JUANITA 3 ll1 Historical: - Allergies: 18:01 Vistaril; ll1 - PMHx: 18:01 Anxiety; depressive disorder; Diabetes - NIDDM; HIV; Hyperlipidemia; Hypertension; ll1 - PSHx: 18:01 Exploratory laparotomy; hysterectomy; left knee; ll1 - Immunization history:: Client reports receiving the 2nd dose of the Covid vaccine. - Social history:: Smoking status: Patient denies any tobacco usage or history of. Screenin:29 [facility] ED Fall Risk Assessment (Adult) History of falling in the last 3 months, lg3 including since admission No falls in past 3 months (0 pts). Abuse screen: Denies threats or abuse. Denies injuries from another. Nutritional screening: No deficits noted. Tuberculosis screening: No symptoms or risk factors identified. Assessment: 20:29 General: Appears in no apparent distress. comfortable, Behavior is calm, cooperative. lg3 Pain: Complains of pain in jaw and head. Neuro: No deficits noted. Allen Agitation-Sedation Scale (RASS): 0 - Alert and Calm Level of Consciousness is awake, alert, obeys commands, Oriented to person, place, time, situation. Cardiovascular: No deficits noted. Denies chest pain, shortness of breath, Capillary refill < 3 seconds Clubbing of nail beds is absent JVD is absent Patient's skin is warm and dry. Respiratory: Reports cough that is Airway is patent Trachea midline Respiratory effort is even, unlabored, Respiratory pattern is regular, symmetrical. GI: No deficits noted. No signs and/or symptoms were reported involving the gastrointestinal system. Abdomen is round non-distended. : No deficits noted. No signs and/or symptoms were reported regarding the genitourinary system. EENT: Reports nasal congestion nasal discharge. Derm: No deficits noted. No signs and/or symptoms reported regarding the dermatologic system. Skin is intact, is healthy with good turgor, Skin is dry, Skin is normal. Musculoskeletal: No deficits noted. Circulation, motion, and sensation intact. Range of motion: intact in all extremities. 22:07 Reassessment: Patient appears in no apparent distress at this time. No changes from lg3 previously documented assessment. Patient and/or family updated on plan of care and expected duration. Pain level reassessed. Patient is alert, oriented x 3, equal unlabored respirations, skin warm/dry/pink. Vital Signs: 18:05 BP 166 / 101; Pulse 99; Resp 18; Temp 98.9; Pulse Ox 97% on R/A; Weight 90.72 kg; ll1 Height 5 ft. 1 in. (154.94 cm); Pain 9/10; 20:29 BP 179 / 95; Pulse 92; Resp 17 S; Pulse Ox 98% on R/A; lg3 21:16 BP 175 / 99; Pulse 92; Resp 16; Temp 98.8; Pulse Ox 98% on R/A; Weight 90.72 kg; Height rv1 5 ft. 1 in. (154.94 cm); Pain 10/10; 22:07 BP 164 / 88; Pulse 89; Resp 17 S; Pulse Ox 99% on R/A; lg3 21:16 Body Mass Index 37.79 (90.72 kg, 154.94 cm) rv1 ED Course: 18:00 Patient arrived in ED. am2 18:07 Triage completed. ll1 18:12 Avinash Mckeon PA is PHCP. [facility] 18:12 Farhat Hayden MD is Attending Physician. [facility] 19:54 PHCP role handed off by Avinash Mckeon PA cp 19:54 Scot Perez PA is PHCP. cp 19:58 CT Head Brain wo Cont In Process Unspecified. EDMS 20:01 CBC with Diff Sent. ls5 20:01 CMP Sent. ls5 20:01 Inserted saline lock: 20 gauge in left antecubital area, using aseptic technique. Blood ls5 collected. 20:29 Patient has correct armband on for positive identification. Placed in gown. Bed in low lg3 position. Call light in reach. Side rails up X 1. Client placed on continuous cardiac and pulse oximetry monitoring. NIBP monitoring applied. Door closed. Noise minimized. Warm blanket given. 20:50 XRAY Chest Pa And Lat (2 Views) In Process Unspecified. EDMS 22:08 No provider procedures requiring assistance completed. IV discontinued, intact, lg3 bleeding controlled, No redness/swelling at site. Pressure dressing applied. Administered Medications: 21:59 Drug: Clindamycin 300 mg Route: PO; lg3 22:07 Follow up: Response: No adverse reaction lg3 22:03 Drug: Ketorolac 15 mg Route: IVP; Site: left antecubital; lg3 22:07 Follow up: Response: No adverse reaction; Marked relief of symptoms lg3 22:03 Drug: HYDROcodone-acetaminophen 10 mg-325 mg 1 tabs Route: PO; lg3 22:07 Follow up: Response: No adverse reaction; Marked relief of symptoms lg3 Medication: 20:29 VIS not applicable for this client. lg3 Outcome: 21:33 Discharge ordered by . cp 22:08 Discharged to home ambulatory. lg3 22:08 Condition: stable 22:08 Discharge instructions given to patient, Instructed on discharge instructions, follow up and referral plans. medication usage, Demonstrated understanding of instructions, follow-up care, medications, Prescriptions given X 2. 22:08 Patient left the ED. lg3 Signatures: Dispatcher [employer] EDMS Avinash Mckeon PA PA Scot Fregoso PA PA cp Moreno, Amanda am2 Suzanna Dao, RN RN lg3 Tabby Chavez RN RN ll1 Daija Antonio rv1 Alvarez Burton ls5 Corrections: (The following items were deleted from the chart) 18:08 18:01 Allergies: Morphine; ll1 ll1
[2022-05-14] MEDS ORDERED: HYDROCODONE/APAP 10/325 TAB ONE (22:04)
[2022-05-14] MEDS ORDERED: KETOROLAC 30 MG/ML INJ ONE (22:04)
[2022-05-14 22:37] VITALS: TEMP 98.8
[2022-05-14 22:38] VITALS: BP 164/88; O2SAT 99
== END 2022-05-14 22:08 | disposition home or self-care (01) ==
LOC: ER 17:58
DX: K08.9 Disorder of teeth and supporting structures, unspecified (principal); R53.1 Weakness; R09.81 Nasal congestion; I10 Essential (primary) hypertension; Z88.8 Allergy status to other drugs, medicaments and biological substances
CPT/HCPCS: 36415; 70450; 71046; 80053; 85025; 96374; 99284

== ENCOUNTER 2023-02-24 16:35 | Emergency (ER) | payer BC ==
--- OUTSIDE RECORDS SUMMARY | 2023-02-24 16:42 | XMS REPORT | Continuity of Care Document ---
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 ValdezLori triplett [facility] OPHTHALMOLOGICAL Health SERVICE/PROCEDURE) Sphere, SV, plano to plus 2017-11-01 13:41:48 Lori Valdez Cherie mihaela [facility] or minus 4.00, per lens Health Frames, purchases deluxe 2017-11-01 13:41:24 CourtneyLori [facility] Health Est Patient Intermediate 2017-11-01 09:07:13 Juice Naidu [facility] [address] Health Health Education/Supportive 2017-10-15 16:08:28 Provider, [facility] Health [facility] Patient Comprehensive 2017-10-15 10:49:56 Khoi Strange [facility] - [address] Health Health Education/Supportive 2017-08-06 11:31:05 Provider, [facility] Health Services Health Primary Care Service 2017-07-02 15:40:14 Teresa Clay [facility] [place] [place] Health Health Education/Supportive 2017-05-24 09:01:07 [facility] Health Education/Supportive 2017-05-21 11:12:59 Pillo [facility] Health Primary Care - 2017-05-16 12:10:15 Teresa [facility] Assesment-Brief - [facility] Health Primary Care Service 2017-05-16 12:10:15 Teresa Clay [facility] [place] [place] Health Health Education/Supportive 2017-05-14 13:11:16 Pillo Whit[facility] Health Health Education/Supportive 2017-05-14 10:35:17 [facility]ierrez [facility] Health Venipuncture 2017-05-04 10:05:49 Frank Whitney nitying Health Health Education/Supportive 2017-05-04 09:05:45 Provider, [facility] Health Services Health Health Education/Supportive 2017-05-03 12:31:[address] [facility] Health Venipuncture 2017-04-13 10:19:00 Frank Whitney nitying Health Plan of Care Planned Activity Planned Date Details Comments Source Future Scheduled Test 2026-11-09 00:00:00 Screening for [facility] malignant neoplasm of colon (procedure) [code = 168971104] Future Scheduled Test 2026-11-09 00:00:00 Screening for [facility] malignant neoplasm of colon (procedure) [code = 343377076] Future Scheduled Test 2026-11-09 00:00:00 Screening for [facility] malignant neoplasm of colon (procedure) [code = 371491060] Future Scheduled Test 2026-11-09 00:00:00 Screening for [facility] malignant neoplasm of colon (procedure) [code = 804257965] Future Scheduled Test 2026-11-09 00:00:00 Screening for [facility] malignant neoplasm of colon (procedure) [code = 229951926] Future Scheduled Test 2026-11-09 00:00:00 Screening for [facility] malignant neoplasm of colon (procedure) [code = 080109284] Future Scheduled Test 2026-11-09 00:00:00 Screening for [facility] malignant neoplasm of colon (procedure) [code = 496775980] Future Scheduled Test 2026-11-09 00:00:00 Screening for [facility] malignant neoplasm of colon (procedure) [code = 367362710] Future Scheduled Test 2019-03-10 00:00:00 Screening for [facility] malignant neoplasm of cervix (procedure) [code = 435955593] Future Scheduled Test 2019-03-10 00:00:00 Screening for [facility] malignant neoplasm of cervix (procedure) [code = 388036198] Future Scheduled Test 2019-03-10 00:00:00 Screening for [facility] malignant neoplasm of cervix (procedure) [code = 505411652] Future Scheduled Test 2019-03-10 00:00:00 Screening for [facility] malignant neoplasm of cervix (procedure) [code = 532335199] Future Scheduled Test 2017-08-24 00:00:00 Breast Cancer [...] malignant neoplasm of colon (procedure) [code = 515951780] Future Scheduled Test 2012 00:00:00 Screening for [facility] malignant neoplasm of colon (procedure) [code = 747248725] Future Scheduled Test 2012 00:00:00 Screening for [facility] malignant neoplasm of colon (procedure) [code = 438082256] Future Scheduled Test 2012 00:00:00 Screening for [facility] malignant neoplasm of colon (procedure) [code = 813650070] Future Scheduled Test 2012 00:00:00 Screening for [facility] malignant neoplasm of colon (procedure) [code = 424788754] Future Scheduled Test 2012 00:00:00 Screening for [facility] malignant neoplasm of colon (procedure) [code = 999215298] Future Scheduled Test 2012 00:00:00 Screening for [facility] malignant neoplasm of colon (procedure) [code = 904936042] Future Scheduled Test 2012 00:00:00 Screening for [facility] malignant neoplasm of colon (procedure) [code = 844878525] Future Scheduled Test 2012 00:00:00 Screening for [facility] malignant neoplasm of colon (procedure) [code = 320818864] Future Scheduled Test 2012 00:00:00 Screening for [facility] malignant neoplasm of colon (procedure) [code = 464678765] Future Scheduled Test 2012 00:00:00 Screening for [facility] malignant neoplasm of colon (procedure) [code = 861857517] Future Scheduled Test 2012 00:00:00 Screening for [facility] malignant neoplasm of colon (procedure) [code = 233065745] Future Scheduled Test 1992 00:00:00 Screening for [facility] malignant neoplasm of cervix (procedure) [code = 717205674] Future Scheduled Test 1992 00:00:00 Screening for [facility] malignant neoplasm of cervix (procedure) [code = 615588113] Future Scheduled Test 1992 00:00:00 Screening for [facility] malignant neoplasm of cervix (procedure) [code = 215535681] Future Scheduled Test 1992 00:00:00 Screening for [facility] malignant neoplasm of cervix (procedure) [code = 596288576] Future Scheduled Test 1962 00:00:00 COVID-19 Vaccine (#1) [facility] [code = COVID-19 Vaccine (#1)] Future Scheduled Test 1962 00:00:00 COVID-19 Vaccine (#1) [facility] [code = COVID-19 Vaccine (#1)] Future Scheduled Test 1962 00:00:00 COVID-19 Vaccine (#1) [facility] [code = COVID-19 Vaccine (#1)] Future Scheduled Test 1962 00:00:00 COVID-19 Vaccine (#1) [facility] [code = COVID-19 Vaccine (#1)] Encounters Start End Encounter Admission Attending Care Care Encounter Source Date/Time Date/Time Type Type Clinicians Facility Department ID 2023-02-24 Outpatient NATO WHITNEY Estela [id number] [facility] 07:20:21 [facility] 2022-11-04 Outpatient lc.[email or web address] [facility] [id number] Legacy 20:03:29 [id number] [facility] 2022-07-22 Outpatient lc.[email or web address] [facility] [id number] Legacy 08:43:02 [id number] [facility] 2022-07-11 Outpatient lc.[email or web address] [facility] [id number] Legacy 09:19:14 [id number] [facility] 2022-06-03 Outpatient lc.[email or web address] [facility] [id number] Legacy 13:20:45 [id number] [facility] 2022-05-29 Outpatient lc.[email or web address] [facility] [id number] Legacy 11:55:02 [id number] [facility] 2022-05-28 Outpatient lc.[email or web address] [facility] [id number] Legacy 05:03:14 [id number] [facility] 2022-01-27 Outpatient lc.nilson [facility] [id number] Legacy 10:31:04 [id number] [facility] 2023-02-24 2023-02-24 Telephone MARIELA Whitney [id number] 00:00:00 00:00:00 Frank Hoskins [id number] [place] [id number] [facility] [id number] 1 2022-11-03 2022-11-03 In-person Frank Whitney [facility] Adult [id number] Legacy 00:00:00 00:00:00 encounter Deann Miller [facility]28 [facility] 2022-11-03 2022-11-03 In-person Frank Whitney [facility] Adult Encounter/ Legacy 00:00:00 00:00:00 encounter Deann Miller Medicine 20 [id number] Communi [id number] Health 2022-09-28 2022-09-28 Outpatient SFA [facility] [id number] Kulwant 09:33:28 09:33:28 0622 F [place] 2022-06-24 2022-06-24 In-person Frank Whitney [facility] Adult Encounter/ Legacy 00:00:00 00:00:00 encounter GaTiana delgadilloa Medicine 1 [id number] Communi [id number] Health 2022-06-24 2022-06-24 In-person Frank Whitney [facility] Adult [id number] Legacy 00:00:00 00:00:00 encounter GaSaud delgadillonca Medicine 3 0318 [facility] Health 2022-05-13 2022-05-13 Outpatient SFA [facility] [id number] Kulwant 13:39:19 13:39:19 [id number] F [place] 2022-01-09 2022-01-09 Outpatient SFA SFA [id number] Kulwant 10:04:53 10:04:53 1003 F [place] 2021-12-31 2021-12-31 Office Frank Whitney [facility] Enc ounter/ Legacy 00:00:00 00:00:00 Visit Deann Miller [id number] Communi [id number] Health 2021-12-31 2021-12-31 In-person Frank Whitney [facility] Adult [id number] Legacy 00:00:00 00:00:00 encounter Deann Miller Medicine 20 924 [facility] 2021-07-01 2021-07-01 [facility]/ Legacy 00:00:00 00:00:00 Visit Nona Todd [id number] [facility] [id number] [facility] 2021-07-01 2021-07-01 [facility] [id number] Legacy 00:00:00 00:00:00 encounter Nona Todd Medicine 2 0325 [facility] 2021-02-16 2021-02-16 Outpatient [facility] VFP [id number] Village 06:06:00 06:06:00 T_I [id number] Family Practic e 2020-06-15 2020-06-15 Office MARIELA King [facility] Encounter / Legacy 00:00:00 00:00:00 Visit Anastasiya [id number] Neisha ommuni [id number] [facility] 2020-06-14 2020-06-14 Office [facility] Encounter/ Legacy 00:00:00 00:00:00 Visit Charisma [id number] Com brandy Yesi [id number] [facility] 2020-05-08 2020-05-08 Office Frank Whitney [facility] Enc ounter/ Legacy 00:00:00 00:00:00 Visit Vivienne Multani [id number] [facility] 803401 [facility] 2020-05-08 2020-05-08 Office MARIELA Eller [facility] Encounter / Legacy 00:00:00 00:00:00 Visit Jessica [id number] Co mmuni [id number] [facility] 2020-05-08 2020-05-08 In-person Frank Whitney [facility] Adult [id number] Legacy 00:00:00 00:00:00 encounter Vivienne Multani Medicine 1013 [id number] [facility] 2020-04-27 2020-04-27 Office [facility]/ Legacy 00:00:00 00:00:00 Visit Amanda Chahal [id number] [facility] 777180 [facility] 2020-04-16 2020-04-16 Office [facility]/ Legacy 00:00:00 00:00:00 Visit Jacob Kenny Vesta [id number] Communi [id number] Health 2020-04-15 2020-04-15 Office [facility]/ Legacy 00:00:00 00:00:00 Visit Nilam Rodriguez [id number] [facility] [place] 459378 Health 2020-04-13 2020-04-13 Office [facility]/ Legacy 00:00:00 00:00:00 Visit Nilam Rodriguez [id number] [facility] [place] Med[place]herence[place] 356678 Health 2020-04-12 2020-04-12 Office [facility] Encounter/ Legacy 00:00:00 00:00:00 Visit Frank [id number] Com brandy 079173 Health 2020-04-12 2020-04-12 Office [facility]/ Legacy 00:00:00 00:00:00 Visit Izaiah Thornton [id number] Communi [id number] Health 2020-04-06 2020-04-06 Office [facility] Encoun[facility]/ Legacy 00:00:00 00:00:00 Visit Maged [id number] Com brandy 337785 Health 2020-04-06 2020-04-06 Office [facility] Encounter/ Legacy 00:00:00 00:00:00 Visit Frank [id number] Com brandy 564179 ty Health 2020-04-01 2020-04-01 Office [facility] Enc [facility]ter/ Legacy 00:00:00 00:00:00 Visit [place] MedAdherence, Nev[place] [id number] Communi [id number] Health 2020-03-30 2020-03-30 Office [facility]/ Legacy 00:00:00 00:00:00 Visit [place] [facility] Neva [id number] Communi 415378 ty Health 2020-03-09 2020-03-09 Office Frank Whitney Enc ounter/ Legacy 00:00:00 00:00:00 Visit Jacob HernandezAdherVesta hickey [id number] Communi 257055 ty Health 2020-02-27 2020-02-27 Office MARIELA Whitney Encounter/ Legacy 00:00:00 00:00:00 Visit Frank [id number] Com brandy 915832 ty Health 2020-02-26 2020-02-26 Office MARIELA Whitney Encounter/ Legacy 00:00:00 00:00:00 Visit Frank [id number] Com brandy 539829 ty Health 2019-11-19 2019-11-19 Office MARIELA Koroma Encount er/ Legacy 00:00:00 00:00:00 Visit Cassandra [id number] Com brandy 147640 ty Health 2019-11-07 2019-11-07 Office MARIELA Mayorga Encounter/ Legacy 00:00:00 00:00:00 Visit Arlen [id number] C ommuni 314565 ty Health 2019-09-13 2019-09-13 Office [facility]/ Legacy 00:00:00 00:00:00 Visit Yael Gamez [id number] Communi 288078 ty Health 2019-09-13 2019-09-13 In-person Frank Whitney [facility] Adult [id number] Legacy 00:00:00 00:00:00 encounter Yael Gamez Medicine 86173 Communi ty Health 2019-09-10 2019-09-10 Office Amanda Brown [facility] Encount er/ Legacy 00:00:00 00:00:00 Visit [id number] Com brandy 848746 ty Health 2019-09-09 2019-09-09 Office Frank Whitney [facility] Enc ounter/ Legacy 00:00:00 00:00:00 Visit Crowell Nique [id number] Communi 219266 ty Health 2019-08-25 2019-08-25 Office MARIELA Alvarez Encounter/ Legacy 00:00:00 00:00:00 Visit Amy [id number] Com brandy 029054 ty Health 2019-08-16 2019-08-16 Office MARIELA Whitney Encounter/ Legacy 00:00:00 00:00:00 Visit Frank [id number] Com brandy 290261 ty Health 2019-08-15 2019-08-15 Office Frank Whitney Enc ounter/ Legacy 00:00:00 00:00:00 Visit Harmeet Aquino [id number] Communi 313030 ty Health 2019-08-05 2019-08-05 Office Frank Whitney Enc ounter/ Legacy 00:00:00 00:00:00 Visit Neva Tyler [id number] Communi 797471 ty Health 2019-07-08 2019-07-08 Office Frank Whitney Enc ounter/ Legacy 00:00:00 00:00:00 Visit Harmeet Aquino [id number] Communi 900010 ty Health 2019-05-23 2019-05-23 Office MARIELA Whitney Encounter/ Legacy 00:00:00 00:00:00 Visit Frank [id number] Com brandy 401427 ty Health 2019-05-23 2019-05-23 Office MARIELA Matson Encounter/ Legacy 00:00:00 00:00:00 Visit Lino [id number] Co mmuni 660042 ty Health 2019-05-23 2019-05-23 Office MARIELA Todd Encounter / Legacy 00:00:00 00:00:00 Visit Nona [id number] Co mmuni 345059 ty Health 2019-05-23 2019-05-23 Office MARIELA Whitney Encounter/ Legacy 00:00:00 00:00:00 Visit Frank [id number] Com brandy 932175 ty Health 2019-05-23 2019-05-23 Office MARIELA Whitney Encounter/ Legacy 00:00:00 00:00:00 Visit Frank [id number] Com brandy 377968 ty Health 2019-05-23 2019-05-23 Office MARIELA Whitney Encounter/ Legacy 00:00:00 00:00:00 Visit Frank [id number] Com brandy 257612 Health 2019-05-23 2019-05-23 Office Frank Whitney Enc ounter/ Legacy 00:00:00 00:00:00 Visit Nona Todd [id number] Vivienne Cueva [id number] [facility] Health 2019-05-23 2019-05-23 In-[facility] [id number] Legacy 00:00:00 00:00:00 encounter Nona Todd Medicine 0 [id number] Vivienne Cueva [facility] Health 2019-05-22 2019-05-22 Office Nona Todd Encounter/ Legacy 00:00:00 00:00:00 Visit Raine Ramírez [id number] Juan Manuel Martin [id number] Health 2019-05-15 2019-05-15 Office MARIELA Whitney Encounter/ Legacy 00:00:00 00:00:00 Visit Frank [id number] Com brandy 773082 ty Health 2019-05-15 2019-05-15 Office MARIELA Whitney Encounter/ Legacy 00:00:00 00:00:00 Visit Frank [id number] Com brandy 634621 ty Health 2019-05-15 2019-05-15 Office MARIELA Whitney Encounter/ Legacy 00:00:00 00:00:00 Visit Frank [id number] Com brandy 641891 ty Health 2019-05-15 2019-05-15 Office [address] Encoun ter/ Legacy 00:00:00 00:00:00 Visit [id number] Com brandy 780966 Health 2019-02-19 2019-02-19 Office MARIELA Todd Encounter / Legacy 00:00:00 00:00:00 Visit Nona [id number] Co mmuni [id number] Health 2019-02-10 2019-02-10 Office Frank Whitney Enc ounter/ Legacy 00:00:00 00:00:00 [id number] [facility] 620[facility] 2019-01-31 2019-01-31 Office [facility]/ Legacy 00:00:00 00:00:00 Visit Johnna [id number] Com brandy 611893 ty Health 2019-01-24 2019-01-24 Office [facility] En[facility]/ Legacy 00:00:00 00:00:00 Visit Hector [id number] Com brandy 481445 ty Health 2019-01-24 2019-01-24 Office Houston [facility] Encounter / Legacy 00:00:00 00:00:00 Visit Lizet [id number] Com brandy 176938 ty Health 2019-01-22 2019-01-22 Office [facility] En[facility]/ Legacy 00:00:00 00:00:00 Visit Hector [id number] Com brandy 700707 ty Health 2019-01-22 2019-01-22 Office Teresa Clay [facility] Encoun ter/ Legacy 00:00:00 00:00:00 Visit [id number] Com brandy 836448 ty Health 2019-01-22 2019-01-22 Office [facility] Encounter/ Legacy 00:00:00 00:00:00 Visit Frank [id number] Com brandy 865019 ty Health 2019-01-22 2019-01-22 Office [facility] Encounter/ Legacy 00:00:00 00:00:00 Visit Frank [id number] Com brandy 547474 ty Health 2019-01-22 2019-01-22 Office Devonte [facility] Encounter/ Legacy 00:00:00 00:00:00 Visit Frank [id number] Com brandy 835652 ty Health 2019-01-22 2019-01-22 Office [facility] En[facility] / Legacy 00:00:00 00:00:00 Visit Nona [id number] Co mmuni 554140 ty Health 2019-01-22 2019-01-22 Office [facility] Encounter / Legacy 00:00:00 00:00:00 Visit Nona [id number] Co mmuni 225313 ty Health 2019-01-22 2019-01-22 Office MARIELA Whitney [facility] Encounter/ Legacy 00:00:00 00:00:00 Visit Frank [id number] Com brandy 192724 ty Health 2019-01-22 2019-01-22 Office MARIELA Whitney Encounter/ Legacy 00:00:00 00:00:00 Visit Frank [id number] Com brandy 242531 ty Health 2019-01-22 2019-01-22 Office [facility] En[facility]/ Legacy 00:00:00 00:00:00 Visit Hector [id number] Com brandy 618993 ty Health 2019-01-22 2019-01-22 Office Frank Whitney [facility] Enc ounter/ Legacy 00:00:00 00:00:00 Visit Nona Todd [id number] Communi 612429 ty Health 2019-01-22 2019-01-22 In-person Frank Whitney [facility] Adult [id number] Legacy 00:00:00 00:00:00 encounter Nona Todd [facility] 9 1016 Communi ty Health 2019-01-21 2019-01-21 Office Amanda Brown [facility] Encount er/ Legacy 00:00:00 00:00:00 Visit [id number] Com brandy 067270 ty Health 2019-01-06 2019-01-06 Office [facility]/ Legacy 00:00:00 00:00:00 Visit Crowell Nique [id number] Communi 945158 ty Health 2018-12-11 2018-12-11 Office Frank Whitney [facility] Enc ounter/ Legacy 00:00:00 00:00:00 Visit Amanda Chahal [id number] Communi 790206 ty Health 2018-12-11 2018-12-11 Office [facility] er/ Legacy 00:00:00 00:00:00 Visit Dorcas Sanchez [id number] Communi 298381 ty Health 2018-12-02 2018-12-02 Office Watkins, LC [facility] Encounter/ Legacy 00:00:00 00:00:00 Visit Segun [id number] Com brandy 283689 ty Health 2018-11-25 2018-11-25 Office Sánchez, LC [facility] Encounter/ Legacy 00:00:00 00:00:00 Visit Vivienne [id number] Com brandy 049721 ty Health 2018-11-16 2018-11-16 Office Devonte, LC [facility] Encounter/ Legacy 00:00:00 00:00:00 Visit Frank [id number] Com brandy 169436 ty Health 2018-11-12 2018-11-12 Office Frank Whitney [facility] Enc ounter/ Legacy 00:00:00 00:00:00 Visit Marley Chavira [id number] Communi 116267 ty Health 2018-06-03 2018-06-03 Office Mukesh, [facility] Encounter/ Legacy 00:00:00 00:00:00 Visit Arlen [id number] C ommuni 923672 ty Health 2018-05-22 2018-05-22 Office Corby, [facility] Encounter/ Legacy 00:00:00 00:00:00 Visit Isabella [id number] C ommuni 094981 ty Health 2018-04-22 2018-04-22 Office Valdez, [facility] Encounter / Legacy 00:00:00 00:00:00 Visit Lori [id number] Com brandy 949780 ty Health 2018-04-19 2018-04-19 Office Vadlez, [facility] Encounter / Legacy 00:00:00 00:00:00 Visit Lori [id number] Com brandy 465408 ty Health 2018-03-23 2018-03-23 Office Devonte, MARIELA [facility] Encounter/ Legacy 00:00:00 00:00:00 Visit Frank [id number] Com brandy 580096 ty Health 2018-03-23 2018-03-23 Office Devonte, KRIS [facility] Encounter/ Legacy 00:00:00 00:00:00 Visit Frank [id number] Com brandy 452206 ty Health 2018-03-23 2018-03-23 Office Devonte, KRISAlek PONCE Encounter/ Legacy 00:00:00 00:00:00 Visit Frank [id number] Com brandy 378597 ty Health 2018-03-23 2018-03-23 Office MARIELA Whitney Encounter/ Legacy 00:00:00 00:00:00 Visit Frank [id number] Com brandy 998775 ty Health 2018-03-23 2018-03-23 Office MARIELA Whitney Encounter/ Legacy 00:00:00 00:00:00 Visit Frank [id number] Com brandy 044142 ty Health 2018-03-23 2018-03-23 Office MARIELA Todd Encounter / Legacy 00:00:00 00:00:00 Visit Nona [id number] Co mmuni 065742 ty Health 2018-03-23 2018-03-23 Office Frank Whitney Enc ounter/ Legacy 00:00:00 00:00:00 Visit Calli Mancia [id number] Nona Vu [id number] [facility] 2018-03-23 2018-03-23 In-person Frank Whitney [facility] Adult [id number] Legacy 00:00:00 00:00:00 encounter Calli Mancia Medicine 81 [phone] Nona Vu ty [facility] 2018-03-22 2018-03-22 Office MARIELA Kat Encounter/ Legacy 00:00:00 00:00:00 Visit Gianni [id number] Com brandy 027043 ty Health 2018-03-09 2018-03-09 Office MARIELA Whitney Encounter/ Legacy 00:00:00 00:00:00 Visit Frank [id number] Com brandy 105748 ty Health 2018-03-09 2018-03-09 Office MARIELA Whitney Encounter/ Legacy 00:00:00 00:00:00 Visit Frank [id number] Com brandy 389832 ty Health 2018-03-09 2018-03-09 Office MARIELA Whitney Encounter/ Legacy 00:00:00 00:00:00 Visit Frank [id number] Com brandy 165096 ty Health 2018-03-09 2018-03-09 Office Devonte, [facility] Encounter/ Legacy 00:00:00 00:00:00 Visit Frank [id number] Com brandy 973341 Health 2017-12-05 2017-12-05 Office Duran, [facility] Encount er/ Legacy 00:00:00 00:00:00 Visit Erika [id number] Com brandy 120261 ty Health 2017-11-09 2017-11-09 Office Valdez, LC [facility] Encounter / Legacy 00:00:00 00:00:00 Visit Lori [id number] Com brandy 949684 Health 2017-11-09 2017-11-09 Office Valdez, LC [facility] Encounter / Legacy 00:00:00 00:00:00 Visit Lori [id number] Com brandy [id number] [facility] 2017-11-01 2017-11-01 Office Valdez, LC [facility] Encounter / Legacy 00:00:00 00:00:00 Visit Lori [id number] Com brandy [id number] [facility] 2017-11-01 2017-11-01 Office Evangelista, LC [facility] Encount er/ Legacy 00:00:00 00:00:00 Visit Juice [id number] Com brandy [id number] [facility] 2017-11-01 2017-11-01 Office Evangelista, LC [facility] Encount er/ Legacy 00:00:00 00:00:00 Visit Juice [id number] Com brandy [id number] [facility] 2017-11-01 2017-11-01 Office Evangelista, LC LC Encount er/ Legacy 00:00:00 00:00:00 Visit Juice [id number] Com brandy [id number] [facility] 2017-11-01 2017-11-01 Office Evangelista, Juice LC LC Encounter/ Legacy 00:00:00 00:00:00 Visit Lori Valdez [id number] Commun [id number] [facility] 2017-11-01 2017-11-01 In-person Evangelista, Juice [facility] Vi gordy [phone] Legacy 00:00:00 00:00:00 encounter Lori Valdez [phone] 6 Communi Health 2017-10-27 2017-10-27 Office Devonte, LCAlek PONCE Encounter/ Legacy 00:00:00 00:00:00 Visit Frank [id number] Com brandy 962061 ty Health 2017-10-27 2017-10-27 Office MARIELA Whitney Encounter/ Legacy 00:00:00 00:00:00 Visit Frank [id number] Com brandy 295752 ty Health 2017-10-27 2017-10-27 Office Frank Whitney Enc ounter/ Legacy 00:00:00 00:00:00 Visit Raine Ramírez [id number] Communi 226937 ty Health 2017-10-27 2017-10-27 In-person Frank Whitney [facility] Adult [id number] Legacy 00:00:00 00:00:00 encounter Raine Ramírez [facility] 15352 Communi ty Health 2017-10-17 2017-10-17 Office MARIELA Whitney Encounter/ Legacy 00:00:00 00:00:00 Visit Frank [id number] Com brandy 043425 ty Health 2017-10-15 2017-10-15 Office Provider, Public Health Services [facility] Encounter/ Legacy 00:00:00 00:00:00 Visit Pillo Whitley [id number] Communi 872627 ty Health 2017-10-15 2017-10-15 Office MARIELA Strange Encounter/ Legacy 00:00:00 00:00:00 Visit Khoi Aguayo [id number] Co mmuni 429970 ty Health 2017-10-15 2017-10-15 Office Khoi Strange [facility] E ncounter/ Legacy 00:00:00 00:00:00 Visit Estella Stahl [id number] Communi 477321 ty Health 2017-10-15 2017-10-15 In-person Khoi Strange [facility] Vis ion [phone] Legacy 00:00:00 00:00:00 encounter Estella Stahl 8070 9 Communi ty Health 2017-10-03 2017-10-03 Office MARIELA Westfall Encounter/ Legacy 00:00:00 00:00:00 Visit Becka [id number] Com brandy 703396 ty Health 2017-10-02 2017-10-02 Office MARIELA Westfall Encounter/ Legacy 00:00:00 00:00:00 Visit Becka [id number] Com brandy 596210 ty Health 2017-09-22 2017-09-22 Office MARIELA Whitney Encounter/ Legacy 00:00:00 00:00:00 Visit Frank [id number] Com brandy 925412 ty Health 2017-09-22 2017-09-22 [facility] Legacy 00:00:00 00:00:00 Visit Frank [id number] Com brandy 815775 ty Health 2017-09-22 2017-09-22 Office KRIS Whitney KRIS Encounter/ Legacy 00:00:00 00:00:00 Visit Frank [id number] Com brandy 380678 ty Health 2017-09-22 2017-09-22 Office KRIS Whitney KRIS Encounter/ Legacy 00:00:00 00:00:00 Visit Frank [id number] Com brandy 530565 ty Health 2017-09-22 2017-09-22 [facility]/ Legacy 00:00:00 00:00:00 Visit Frank [id number] Com brandy 873021 ty Health 2017-09-22 2017-09-22 [facility] En[facility]/ Legacy 00:00:00 00:00:00 Visit Frank [id number] Com brandy 446905 ty Health 2017-09-22 2017-09-22 [facility]/ Legacy 00:00:00 00:00:00 Visit Frank [id number] Com brandy 415724 ty Health 2017-08-28 2017-08-29 [facility] [id number] Legacy 00:00:00 00:00:00 encounter Calli Mancia 805 22 Raine Hernandez ty Health 2017-08-28 2017-08-28 Office MARIELA Westfall Encounter/ Legacy 00:00:00 00:00:00 Visit Becka [id number] Com brandy 092942 ty Health 2017-08-28 2017-08-28 Office MARIELA Westfall Encounter/ Legacy 00:00:00 00:00:00 Visit Becka [id number] Com brandy 441633 ty Health 2017-08-28 2017-08-28 Office Status, Fax [facility] Encoun ter/ Legacy 00:00:00 00:00:00 Visit [id number] Com brandy 500247 ty Health 2017-08-28 2017-08-28 Office Status, Fax [facility] Encoun ter/ Legacy 00:00:00 00:00:00 Visit [id number] Com brandy 727759 ty Health 2017-08-28 2017-08-28 Office Benson, [facility] Encounter/ Legacy 00:00:00 00:00:00 Visit Stephanie [id number] Com brandy 818125 ty Health 2017-08-28 2017-08-28 Office Prabhjot, [facility] Encounter/ Legacy 00:00:00 00:00:00 Visit Stephanie [id number] Com brandy 175933 ty Health 2017-08-28 2017-08-28 Office MARIELA Westfall [facility] Encounter/ Legacy 00:00:00 00:00:00 Visit Becka [id number] Com brandy 738065 ty Health 2017-08-28 2017-08-28 Office Becka Westfall [facility] Enc ounter/ Legacy 00:00:00 00:00:00 Visit Calli Mancia [id number] Raine Hernandez 93147 0 ty Health 2017-08-09 2017-08-09 Outpatient [facility] [id number] Mims 00:00:00 00:00:00 Health 2017-07-12 2017-07-12 Office MARIELA Whitley [facility] Encounte r/ Legacy 00:00:00 00:00:00 Visit Pillo [id number] Com brandy 403716 ty Health 2017-07-12 2017-07-12 Office Provider, Public Health Services Nikky [facility] Encounter/ Legacy 00:00:00 00:00:00 Visit Pillo Whitley [id number] [id number] Communi 051608 ty Health 2017-06-29 2017-06-29 [facility] Legacy 00:00:00 00:00:00 Visit [id number] Com brandy 006652 ty Health 2017-06-29 2017-06-29 Office KRIS Whitney LC Encounter/ Legacy 00:00:00 00:00:00 Visit Frank [id number] Com brandy 898037 ty Health 2017-06-29 2017-06-29 Office Frank Whitney [facility] Enc ounter/ Legacy 00:00:00 00:00:00 Visit Silvia Doll [id number] Communi 785488 ty Health 2017-06-29 2017-06-29 [facility] [id number] Legacy 00:00:00 00:00:00 encounter Silvia Doll Medicine 80 323 Communi ty Health 2017-06-26 2017-06-26 Office KRIS Kat LC Encounter/ Legacy 00:00:00 00:00:00 Visit Gianni [id number] Com brandy 755632 ty Health 2017-06-02 2017-06-02 Office MARIELA Whitney [facility] Encounter/ Legacy 00:00:00 00:00:00 Visit Frank [id number] Com brandy 915942 ty Health 2017-06-02 2017-06-02 [facility]/ Legacy 00:00:00 00:00:00 Visit Savanna Fox [id number] Communi 428594 ty Health 2017-05-22 2017-05-22 Office Provider, Public Health Services [facility] Encounter/ Legacy 00:00:00 00:00:00 Visit Pillo Whitley 55801 02938 Communi 713280 ty Health 2017-05-21 2017-05-21 Office Provider, Public Health Services [facility] Encounter/ Legacy 00:00:00 00:00:00 Visit Pillo Whitley 88619 10726 Communi 101709 ty Health 2017-05-14 2017-05-14 Office Provider, Public Health Services [facility] Encounter/ Legacy 00:00:00 00:00:00 Visit Pillo Whitley 61560 76639 Communi 474703 ty Health 2017-05-10 2017-05-10 Office Frank Whitney [facility] Enc ounter/ Legacy 00:00:00 00:00:00 Visit Silvia Doll 50942 90400 Communi 939208 ty Health 2017-05-04 2017-05-05 In-person Frank Whitney [facility] Adult [id number] Legacy 00:00:00 00:00:00 encounter Silvia Doll Medicine 80 126 Gladysi Jayjay Sales ty [facility] 2017-05-04 2017-05-04 Office Clay, [facility]/ Legacy 00:00:00 00:00:00 Visit [id number] Com brandy 448211 ty Health 2017-05-04 2017-05-04 Office [facility] En[facility]/ Legacy 00:00:00 00:00:00 Visit Frank [id number] Com brandy 565782 ty Health 2017-05-04 2017-05-04 [facility]/ Legacy 00:00:00 00:00:00 Visit [id number] Com brandy 485912 ty Health 2017-05-04 2017-05-04 Office [facility] En[facility]/ Legacy 00:00:00 00:00:00 Visit Frank [id number] Com brandy 261823 ty Health 2017-05-04 2017-05-04 Office [facility] En[facility]/ Legacy 00:00:00 00:00:00 Visit Frank [id number] Com brandy 474973 ty Health 2017-05-04 2017-05-04 Office [facility] Encounter/ Legacy 00:00:00 00:00:00 Visit Frank [id number] Com brandy 894041 ty Health 2017-05-04 2017-05-04 Office Frank Whitney [facility] Enc ounter/ Legacy 00:00:00 00:00:00 Visit Jayjay Sales [id number] Communi 457709 ty Health 2017-05-04 2017-05-04 Office [facility] En[facility]/ Legacy 00:00:00 00:00:00 Visit Frank [id number] Com brandy 839434 ty Health 2017-05-04 2017-05-04 [facility]/ Legacy 00:00:00 00:00:00 Visit [id number] Com brandy 320069 ty Health 2017-05-04 2017-05-04 Office Provider, Public Health Services [facility] Encounter/ Legacy 00:00:00 00:00:00 Visit Pillo Whitley 85585 97311 Communi 091500 Health 2017-05-04 2017-05-04 Office Frank Whitney LC Enc ounter/ Legacy 00:00:00 00:00:00 [facility] [id number] [facility] 173514 [facility] 2017-05-01 2017-05-01 Office Provider, Public Health Services [facility] Encounter/ Legacy 00:00:00 00:00:00 Visit Pillo Whitley 49664 56872 Communi 727535 [facility] 2017-04-13 2017-04-13 Office KRIS Whitney LC Encounter/ Legacy 00:00:00 00:00:00 Visit Frank [id number] [facility] brandy [id number] [facility] 2017-04-13 2017-04-13 Office Frank Whitnye [facility] LC Enc ounter/ Legacy 00:00:00 00:00:00 Visit Nadine Koroma [id number] Communi [id number] [facility] 2017-04-13 2017-04-13 Office Provider, Public Health Services [facility] Encounter/ Legacy 00:00:00 00:00:00 Visit Pillo Whitley 78126 98932 Communi 227222 [facility] 2016-12-12 2016-12-12 Outpatient [facility] [id number] Mims 00:00:00 00:00:00 Health 2016-11-22 2016-11-22 Outpatient [facility] [id number] Mims 00:00:00 00:00:00 Health 2016-11-09 2016-11-09 Outpatient [facility] [id number] Mims 00:00:00 00:00:00 Health 2016-10-17 2016-10-17 Outpatient [facility] [id number] Mims 15:10:56 15:10:56 Health 2016-10-11 2016-10-11 Outpatient [facility] [id number] Mims 14:55:25 14:55:25 Health 2016-08-24 2016-08-24 Outpatient [facility] [id number] [place] 10:43:37 10:43:37 Health 2016-08-24 2016-08-24 Outpatient [facility] [id number] [place] 09:34:08 09:34:08 Health 2016-08-24 2016-08-24 Outpatient [facility] [id number] [place] 09:10:58 09:10:58 Health 2016-08-24 2016-08-24 Outpatient [facility] [id number] [place] 08:00:37 08:00:37 Health Results Test Description Test Time Test Comments Results Result Comments Source rapid plasma reagin antibody, serum 2022-10-12 11:05:00 Test Item Value Reference Range Interpretation Comme nts rapid plasma reagin antibody, serum (test code = NON-REACTIVE NON-R EACTIVE N 5291-0) [facility]HIV-1RNA, serum, by PCR, [id number] 11:05:00 Test Item Value Reference Range Interpretation Comments HIV-1RNA, serum, by PCR, NOT DETECTED NOT DETECTED N quantitative (test code = copies/mL 41431-2) [facility] Regionalhemoglobin A1C, blood, as % of total [id number] 11:05:00 Test Item Value Reference Range Interpretation Comments hemoglobin A1C, blood, as 7.0 % OF TOTAL HGB <5.7 H % of total hemoglobin (test code = 4548-4) [facility] Regionalbasophils as percent of blood [id number] 11:05:00 Test Item Value Reference Range Interpretation Comments basophils as percent of blood 1.2 % N leukocytes (test code = 707-0) [facility] Regionaleosinophils as percent of blood [id number] 11:05:00 Test Item Value Reference Range Interpretation Comments eosinophils as percent of blood 3.2 % N leukocytes (test code = 714-6) [facility] Healthmonocytes as percent of blood [id number] 11:05:00 Test Item Value Reference Range Interpretation Comments monocytes as percent of blood 8.8 % N leukocytes (test code = 5905-5) [facility] Regionallymphocytes as percent of blood irehviycqt8634-23-84 11:05:00 Test Item Value Reference Range Interpretation Comments lymphocytes as percent of blood 39.9 % N leukocytes (test code = 736-9) [facility] Regionalneutrophils as percent of blood [id number] 11:05:00 Test Item Value Reference Range Interpretation Comments neutrophils as percent of blood 46.9 % N leukocytes (test code = 770-8) [facility] Regionalbasophil count, [id number] 11:05:00 Test Item Value Reference Range Interpretation Comments basophil count, absolute (test 49 cells/uL 0-200 N code = 87668-9) [facility] RegionalAbsolute Eosinophil [id number] 11:05:00 Test Item Value Reference Range Interpretation Comments Absolute Eosinophil count (test 131 cells/mcL 15-500 N code = 17642-2) [facility] RegionalAbsolute Monocyte [id number] 11:05:00 Test Item Value Reference Range Interpretation Comments Absolute Monocyte count (test 361 cells/mcL 200-950 N code = 89556-9) [facility]il [id number] 11:05:00 Test Item Value Reference Range Interpretation Comments Absolute Neutrophil count 1923 cells/mcL 0827-0797 N (test code = 03863-5) [facility] [id number] 11:05:00 Test Item Value Reference Range Interpretation Comments mean platelet volume (test code = 11.1 fL 7.5-12.5 N 776-5) [facility] Regionalplatelet [id number] 11:05:00 Test Item Value Reference Range Interpretation Comments platelet count (test code = 281 THOUSAND/UL 140-400 N 777-3) [facility] Regionalred blood cell distribution [id number] 11:05:00 Test Item Value Reference Range Interpretation Comments red blood cell distribution width 13.1 % 11.0-15.0 N (test code = 788-0) [facility] corpuscular hemoglobin concentration, [id number] 11:05:00 Test Item Value Reference Range Interpretation Comments mean corpuscular hemoglobin 33.4 G/DL 32.0-36.0 N concentration, RBC (test code = 786-4) [facility] corpuscular hemoglobin, [id number] 11:05:00 Test Item Value Reference Range Interpretation Comments mean corpuscular hemoglobin, RBC 31.8 pg 27.0-33.0 N (test code = 785-6) [facility], [id number] 11:05:00 Test Item Value Reference Range Interpretation Comments mean corpuscular volume, RBC (test 95.2 fL 80.0-100.0 N code = 787-2) [facility] Regionalhematocrit, [id number] 11:05:00 Test Item Value Reference Range Interpretation Comments hematocrit, blood (test code = 4544-3) 37.7 % 35.0-45.0 N [facility] Regionalhemoglobin, [id number] 11:05:00 Test Item Value Reference Range Interpretation Comments hemoglobin, blood (test code = 12.6 g/dL 11.7-15.5 N 718-7) [facility] Regionalerythrocyte (RBC) [id number] 11:05:00 Test Item Value Reference Range Interpretation Comments erythrocyte (RBC) count (test 3.96 MILLION/UL 3.80-5.10 N code = 789-8) [facility] Regionalleukocyte count, [id number] 11:05:00 Test Item Value Reference Range Interpretation Comments leukocyte count, blood (test 4.1 THOUSAND/UL 3.8-10.8 N code = 6690-2) [facility] Regionallymphocytes, [id number] 11:05:00 Test Item Value Reference Range Interpretation Comments lymphocytes, absolute (test 1636 CELLS/UL 850-3900 N code = 82998-8) [facility] RegionalCD4/CD8 [id number] 11:05:00 Test Item Value Reference Range Interpretation Comments CD4/CD8 ratio (test code 2.00 (unknown unit) 0.86-5.00 N = 27172) [facility] Regionalabsolute [id number] 11:05:00 Test Item Value Reference Range Interpretation Comments absolute CD8 (test code = 386 (unknown unit) 180-1170 N 38679) [facility] RegionalT-suppressor cells (CD8) as percent of blood lymphocytes 2022-10-12 11:05:00 Test Item Value Reference Range Interpretation Comments T-suppressor cells (CD8) as percent of 23 % 12-42 N blood lymphocytes (test code = 3517) [facility] RegionalT-helper cells (CD4) [id number] 11:05:00 Test Item Value Reference Range Interpretation Comments T-helper cells (CD4) count (test 771 CELLS/UL 490-1740 N code = 90368-1) [facility] RegionalT-helper cells (CD4) as percent of blood lymphocytes 2022-10-12 11:05:00 Test Item Value Reference Range Interpretation Comments T-helper cells (CD4) as percent of 45 % 30-61 N blood lymphocytes (test code = 8123-2) [facility] Regionalalanine aminotransferase (SGPT), [id number] 11:05:00 Test Item Value Reference Range Interpretation Comments alanine aminotransferase (SGPT), serum 11 1/L 6-29 N (test code = 1742-6) [facility] Regionalaspartate aminotransferase (SGOT), [id number] 11:05:00 Test Item Value Reference Range Interpretation Comments aspartate aminotransferase (SGOT), 12 1/L 10-35 N serum (test code = 1920-8) [facility] Regionalalkaline phosphatase, [id number] 11:05:00 Test Item Value Reference Range Interpretation Comments alkaline phosphatase, serum (test code 78 1/L 37-153 N = 1783-0) [facility] Regionalbilirubin, serum, [id number] 11:05:00 Test Item Value Reference Range Interpretation Comments bilirubin, serum, total (test code 0.4 mg/dL 0.2-1.2 N = 1975-2) [facility] Regionalalbumin/globulin ratio, [id number] 11:05:00 Test Item Value Reference Range Interpretation Comments albumin/globulin ratio, serum 1.4 (calc) 1.0-2.5 N (test code = 1759-0) [facility] Regionalglobulins, serum, [id number] 11:05:00 Test Item Value Reference Range Interpretation Comments globulins, serum, total (test 2.9 G/DL (CALC) 1.9-3.7 N code = 2336-6) [facility] Regionalalbumin, [id number] 11:05:00 Test Item Value Reference Range Interpretation Comments albumin, serum (test code = 1751-7) 4.2 g/dL 3.6-5.1 N [facility] Regionalprotein, total, [id number] 11:05:00 Test Item Value Reference Range Interpretation Comments protein, total, serum (test code = 7.1 g/dL 6.1-8.1 N 2885-2) [facility] Regionalcalcium, [id number] 11:05:00 Test Item Value Reference Range Interpretation Comments calcium, serum (test code = 1999-11) 9.7 mg/dL 8.6-10.4 N [facility] Regionalcarbon dioxide, venous [id number] 11:05:00 Test Item Value Reference Range Interpretation Comments carbon dioxide, venous blood (test 31 mmol/L 20-32 N code = 2026-1) [facility] Regionalchloride, [id number] 11:05:00 Test Item Value Reference Range Interpretation Comments chloride, serum (test code = 104 mmol/L 98-110 N 2074-0) [facility] Regionalpotassium, [id number] 11:05:00 Test Item Value Reference Range Interpretation Comments potassium, serum (test code = 4.4 mmol/L 3.5-5.3 N 2822-3) [facility] Regionalsodium, [id number] 11:05:00 Test Item Value Reference Range Interpretation Comments sodium, serum (test code = 2951-2) 142 mmol/L 135-146 N [facility] Regionalurea nitrogen/creatinine ratio, [id number] 11:05:00 Test Item Value Reference Range Interpretation Comments urea NOT APPLICABLE (calc) 6-22 nitrogen/creatinine ratio, serum (test code = 3097-3) [facility] RegionalEstimated Glomerular Filtration Rate (calc)2022-10-12 11:05:00 Test Item Value Reference Range Interpretation Comments Estimated Glomerular 97 See_Comment N [Autom ated message] Filtration Rate mL/min/{1.[address] [facility] (calc) (test code = m2} generate d this 07137-1) result transmit aracely reference range : > OR = 60. The reference range was not used to interpret this result as normal/abnormal . [facility] Regionalcreatinine, [id number] 11:05:00 Test Item Value Reference Range Interpretation Comments creatinine, serum (test code = 0.71 mg/dL 0.50-1.05 N 0-0) [facility] Regionalurea nitrogen, [id number] 11:05:00 Test Item Value Reference Range Interpretation Comments urea nitrogen, blood (test code = 14 mg/dL 7-25 N 3094-0) [facility] Regionalblood glucose, [id number] 11:05:00 Test Item Value Reference Range Interpretation Comments blood glucose, random (test code = 112 mg/dL 65-99 H 2339-0) [facility] Regionalmicroalbumin/creatinine ratio, [id number] 11:05:00 Test Item Value Reference Range Interpretation Comments microalbumin/creatinine 17 MCG/MG CREAT <30 N ratio, urine (test code = 29070-7) [facility] Regionalmicroalbumin, random, [id number] 11:05:00 Test Item Value Reference Range Interpretation Comments microalbumin, random, urine (test 1.9 mg/dL See Note: N code = 53323-1) [facility] Regionalcreatinine, random, [id number] 11:05:00 Test Item Value Reference Range Interpretation Comments creatinine, random, urine (test 110 mg/dL 20-275 N code = 2161-8) [facility] Regionalcholesterol, non-HDL, [id number] 11:05:00 Test Item Value Reference Range Interpretation Comments cholesterol, non-HDL, total 134 MG/DL (CALC) <130 H (test code = 48907) [facility] Regionalcholesterol/HDL ratio, serum, [id number] 11:05:00 Test Item Value Reference Range Interpretation Comments cholesterol/HDL ratio, serum, 3.2 (calc) <5.0 N percent (test code = 2404) [facility] RegionalLDL cholesterol, [id number] 11:05:00 Test Item Value Reference Range Interpretation Comments LDL cholesterol, serum (test 118 MG/DL (CALC) H code = 2089-1) [facility] Regionaltriglyceride, serum, [id number] 11:05:00 Test Item Value Reference Range Interpretation Comments triglyceride, serum, fasting (test 65 mg/dL <150 N code = 2571-8) [facility] RegionalHDL cholesterol, [id number] 11:05:00 Test Item Value Reference Range Interpretation Comments HDL cholesterol, 61 mg/dL See_Comment N [Automated message] The serum (test code = system wh ich generated 2084-12) this result tra nsmitted reference range : > OR = 50. The referen ce range was not used to interpret this result as normal/abnormal . [facility] Regionalcholesterol, [id number] 11:05:00 Test Item Value Reference Range Interpretation Comments cholesterol, serum (test code = 195 mg/dL <200 N 2092-3) [facility] RegionalOCCULT BLD,FECAL,IMMUNOASSAY [id number] 14:14:31 Test Item Value Reference Range Interpretation Comments OCCULT BLD, FECAL NEGATIVE NEGATIVE CPL h as important (test code = 93291) patholog y staff changes effective 06/07. New patholo gy staff will provide uninterrupted, excellent patient care an d clinical consul tation. See URL: [email or web address] /[email or web address]-team. UNLESS OTHERWISE INDICATED, ALL TESTING PERFORMED AT [facility] PATHOLOGY LABOR ATORKeenjar, [facility]. [address] [place] [address] CLIA : [id number], CAP : [id number] HIV-1RNA, serum, by PCR, [id number] 09:30:00 Test Item Value Reference Range Interpretation Comments HIV-1RNA, serum, by PCR, NOT DETECTED NOT DETECTED N quantitative (test code = copies/mL 88021-1) [facility]hemoglobin A1C, blood, as % of total [id number] 09:30:00 Test Item Value Reference Range Interpretation Comments hemoglobin A1C, blood, as 6.5 % OF TOTAL HGB <5.7 H % of total hemoglobin (test code = 4548-4) [facility] Regionallymphocytes, [id number] 09:30:00 Test Item Value Reference Range Interpretation Comments lymphocytes, absolute (test 1373 CELLS/UL 850-3900 N code = 52041-8) [facility] RegionalCD4/CD8 [id number] 09:30:00 Test Item Value Reference Range Interpretation Comments CD4/CD8 ratio (test code 2.03 (unknown unit) 0.86-5.00 N = 81796) [facility] Regionalabsolute [id number] 09:30:00 Test Item Value Reference Range Interpretation Comments absolute CD8 (test code = 309 (unknown unit) 180-1170 N 46997) [facility] RegionalT-suppressor cells (CD8) as percent of blood lymphocytes 2021-12-17 09:30:00 Test Item Value Reference Range Interpretation Comments T-suppressor cells (CD8) as percent of 23 % 12-42 N blood lymphocytes (test code = 3517) [facility] RegionalT-helper cells (CD4) [id number] 09:30:00 Test Item Value Reference Range Interpretation Comments T-helper cells (CD4) count (test 630 CELLS/UL 490-1740 N code = 92287-2) [facility] RegionalT-helper cells (CD4) as percent of blood lymphocytes 2021-12-17 09:30:00 Test Item Value Reference Range Interpretation Comments T-helper cells (CD4) as percent of 46 % 30-61 N blood lymphocytes (test code = 8123-2) [facility] Regionalalanine aminotransferase (SGPT), uoder3689-03-28 09:30:00 Test Item Value Reference Range Interpretation Comments alanine aminotransferase (SGPT), serum 13 1/L 6-29 N (test code = 1742-6) [facility] Regionalaspartate aminotransferase (SGOT), [id number] 09:30:00 Test Item Value Reference Range Interpretation Comments aspartate aminotransferase (SGOT), 15 1/L 10-35 N serum (test code = 1920-8) [facility] Regionalalkaline phosphatase, [id number] 09:30:00 Test Item Value Reference Range Interpretation Comments alkaline phosphatase, serum (test code 75 1/L 37-153 N = 1783-0) [facility] Regionalbilirubin, serum, [id number] 09:30:00 Test Item Value Reference Range Interpretation Comments bilirubin, serum, total (test code 0.4 mg/dL 0.2-1.2 N = 1975-2) [facility] Regionalalbumin/globulin ratio, [id number] 09:30:00 Test Item Value Reference Range Interpretation Comments albumin/globulin ratio, serum 1.5 (calc) 1.0-2.5 N (test code = 1759-0) [facility] Regionalglobulins, serum, [id number] 09:30:00 Test Item Value Reference Range Interpretation Comments globulins, serum, total (test 2.8 G/DL (CALC) 1.9-3.7 N code = 2336-6) [facility] Healthalbumin, [id number] 09:30:00 Test Item Value Reference Range Interpretation Comments albumin, serum (test code = 1751-7) 4.3 g/dL 3.6-5.1 N [facility] Regionalprotein, total, [id number] 09:30:00 Test Item Value Reference Range Interpretation Comments protein, total, serum (test code = 7.1 g/dL 6.1-8.1 N 2885-2) [facility] Regionalcalcium, [id number] 09:30:00 Test Item Value Reference Range Interpretation Comments calcium, serum (test code = 1999-8) 9.4 mg/dL 8.6-10.4 N [facility] Regionalcarbon dioxide, venous [id number] 09:30:00 Test Item Value Reference Range Interpretation Comments carbon dioxide, venous blood (test 30 mmol/L 20-32 N code = 7-1) [facility] Regionalchloride, [id number] 09:30:00 Test Item Value Reference Range Interpretation Comments chloride, serum (test code = 107 mmol/L 98-110 N 2075-0) [facility] Regionalpotassium, [id number] 09:30:00 Test Item Value Reference Range Interpretation Comments potassium, serum (test code = 4.2 mmol/L 3.5-5.3 N 2823-3) [facility] Regionalsodium, [id number] 09:30:00 Test Item Value Reference Range Interpretation Comments sodium, serum (test code = 2951-2) 141 mmol/L 135-146 N [facility] Regionalurea nitrogen/creatinine ratio, [id number] 09:30:00 Test Item Value Reference Range Interpretation Comments urea NOT APPLICABLE (calc) 6-22 nitrogen/creatinine ratio, serum (test code = 3097-3) [facility] RegionalEstimated Glomerular Filtration Rate (calc)2021-12-17 09:30:00 Test Item Value Reference Range Interpretation Comments Estimated Glomerular 93 See_Comment N [Autom ated message] Filtration Rate mL/min/{1.73 The system w hich (calc) (test code = m2} generate d this 06394-2) result transmit aracely reference range : > OR = 60. The reference range was not used to interpret this result as normal/abnormal . [facility] Healthcreatinine, [id number] 09:30:00 Test Item Value Reference Range Interpretation Comments creatinine, serum (test code = 0.74 mg/dL 0.50-1.03 N 2160-0) [facility] Regionalurea nitrogen, [id number] 09:30:00 Test Item Value Reference Range Interpretation Comments urea nitrogen, blood (test code = 12 mg/dL 7-25 N 3094-0) [facility] Regionalblood glucose, [id number] 09:30:00 Test Item Value Reference Range Interpretation Comments blood glucose, random (test code = 99 mg/dL 65-99 N 2339-0) [facility] Regionalmicroalbumin/creatinine ratio, [id number] 09:30:00 Test Item Value Reference Range Interpretation Comments microalbumin/creatinine 20 MCG/MG CREAT <30 N ratio, urine (test code = 56413-1) [facility] Regionalmicroalbumin, random, [id number] 09:30:00 Test Item Value Reference Range Interpretation Comments microalbumin, random, urine (test 3.2 mg/dL See Note: N code = 00398-3) [facility] Regionalcreatinine, random, [id number] 09:30:00 Test Item Value Reference Range Interpretation Comments creatinine, random, urine (test 164 mg/dL 20-275 N code = 2161-8) [facility] Regionalcholesterol, non-HDL, [id number] 09:30:00 Test Item Value Reference Range Interpretation Comments cholesterol, non-HDL, total 127 MG/DL (CALC) <130 N (test code = 00103) [facility] Regionalcholesterol/HDL ratio, serum, [id number] 09:30:00 Test Item Value Reference Range Interpretation Comments cholesterol/HDL ratio, serum, 3.1 (calc) <5.0 N percent (test code = 2404) [facility] RegionalLDL cholesterol, [id number] 09:30:00 Test Item Value Reference Range Interpretation Comments LDL cholesterol, serum (test 112 MG/DL (CALC) H code = 2089-1) [facility] Regionaltriglyceride, serum, [id number] 09:30:00 Test Item Value Reference Range Interpretation Comments triglyceride, serum, fasting (test 66 mg/dL <150 N code = 2571-8) [facility] RegionalHDL cholesterol, [id number] 09:30:00 Test Item Value Reference Range Interpretation Comments HDL cholesterol, 60 mg/dL See_Comment N [Automated message] The serum (test code = system ich generated 2084-12) this result tra nsmitted reference range : > OR = 50. The referen ce range was not used to interpret this result as normal/abnormal . [facility] Regionalcholesterol, [id number] 09:30:00 Test Item Value Reference Range Interpretation Comments cholesterol, serum (test code = 187 mg/dL <200 N 3-3) [facility] RegionalCD4/CD8 [id number] 09:30:00 Test Item Value Reference Range Interpretation Comments CD4/CD8 ratio (test code 2.03 (unknown unit) 0.86-5.00 N = 92213) [facility] Regionalabsolute [id number] 09:30:00 Test Item Value Reference Range Interpretation Comments absolute CD8 (test code = 309 (unknown unit) 180-1170 N 25656) [facility] RegionalT-suppressor cells (CD8) as percent of blood lymphocytes 2021-12-17 09:30:00 Test Item Value Reference Range Interpretation Comments T-suppressor cells (CD8) as percent of 23 % 12-42 N blood lymphocytes (test code = 3517) [facility] Regionalcholesterol, non-HDL, [id number] 09:30:00 Test Item Value Reference Range Interpretation Comments cholesterol, non-HDL, total 127 MG/DL (CALC) <130 N (test code = 84021) [facility] Regionalcholesterol/HDL ratio, serum, [id number] 09:30:00 Test Item Value Reference Range Interpretation Comments cholesterol/HDL ratio, serum, 3.1 (calc) <5.0 N percent (test code = 2404) [facility] RegionalHEMOGLOBIN [id number] 05:40:01 Test Item Value Reference Range Interpretation Comments HEMOGLOBIN A1c (test 6.8 % 4.2-5.6 H [employer] AN DIABETES code = 78124) ASSOCIATION [employer] FOR HGB A1C: PREDIABETES/INC REASED [...] ATE TESTING OR LABORATORY C ONSULTATION. LIPID [id number] 05:30:57 Test Item Value Reference Range Interpretation [...] MOREINFORMATION , SEE CLIENT ANNOUNCE MENT AT [email or web address] RISK RATIO LDL/HDL 2.24 RATIO <3.22 UNLESS O THERWISE (test code = 2238) INDICATED , ALL TESTING PERFORMED [facility], [id number] [place] [address] DIRECTOR: SHAYNE MARTINEZ M.D. CLIA NUMBER [id number] CAP ACCREDITATION N O. [id number] bilirubin, serum, [id number] 08:35:00 Test Item Value Reference Range Interpretation Comments bilirubin, serum, direct (test <0.10 mg/dL 0.00-0.40 code = 1968-7) [facility] plasma reagin antibody, [id number] 08:35:00 Test Item Value Reference Range Interpretation Comments rapid plasma reagin antibody, Non Reactive Non Reactive serum (test code = 5291-0) [facility] leukocyte antigen [id number] 08:35:00 Test Item Value Reference Range Interpretation Comments human leukocyte antigen B57 (test Negative code = 869068) [facility] Regionalcreatinine, random, [id number] 08:35:00 Test Item Value Reference Range Interpretation Comments creatinine, random, urine (test 148.5 mg/dL code = 2161-8) [facility] RegionalNeisseria gonorrhoeae DNA [id number] 08:35:00 Test Item Value Reference Range Interpretation Comments Neisseria gonorrhoeae DNA probe Negative Negative (test code = 36106-7) [facility] Regionalchlamydia DNA [id number] 08:35:00 Test Item Value Reference Range Interpretation Comments chlamydia DNA probe (test code = Negative Negative 89715-9) [facility] RegionalLDL cholesterol, [id number] 08:35:00 Test Item Value Reference Range Interpretation Comments LDL cholesterol, serum (test code = 143 mg/dL 0-99 H 2088-04) [facility] Regionalvery low density pdwelsujdvck3377-49-17 08:35:00 Test Item Value Reference Range Interpretation Comments very low density lipoproteins (test 11 mg/dL 5-40 code = 1-7) [facility] RegionalHDL cholesterol, [id number] 08:35:00 Test Item Value Reference Range Interpretation Comments HDL cholesterol, serum (test code = 56 mg/dL >39 2084-12) [facility] Regionaltriglyceride, serum, [id number] 08:35:00 Test Item Value Reference Range Interpretation Comments triglyceride, serum, fasting (test 61 mg/dL 0-149 code = 2571-8) [facility] Regionalcholesterol, [id number] 08:35:00 Test Item Value Reference Range Interpretation Comments cholesterol, serum (test code = 210 mg/dL 100-199 H 2092-06) [facility] Regionalbacteria, urine [id number] 08:35:00 Test Item Value Reference Range Interpretation Comments bacteria, urine microscopy (test code = Few None seen/Few 5769-5) [facility] Healthcasts, [id number] 08:35:00 Test Item Value Reference Range Interpretation Comments casts, urine (test code = 5626) None seen None seen [facility] Regionalepithelial cells, [id number] 08:35:00 Test Item Value Reference Range Interpretation Comments epithelial cells, urine (test code = 0-10 0-10 5787-7) [facility] RegionalRBC, [id number] 08:35:00 Test Item Value Reference Range Interpretation Comments RBC, Urine (test code = 33421-1) 0-2 /hpf 0-2 [facility] on ztdaycezdz8382-17-28 08:35:00 Test Item Value Reference Range Interpretation Comments WBC urine on microscopy (test code = >30 /hpf 0-5 A 1016) [facility] Regionalurinalysis, microscopic katsyzuxrgf6915-38-17 08:35:00 Test Item Value Reference Range Interpretation Comments urinalysis, microscopic See below: examination (test code = 63815-4) [facility] Regionalnitrate, [id number] 08:35:00 Test Item Value Reference Range Interpretation Comments nitrate, urine (test code = 70974-5) Positive Negative A [facility] Regionalurobilinogen, urine, semiquantitative (dipstick) 2021-06-11 08:35:00 Test Item Value Reference Range Interpretation Comments urobilinogen, urine, 0.2 (unknown 0.2-1.0 semiquantitative (dipstick) unit) (test code = 5818-0) [facility] Regionalbilirubin, [id number] 08:35:00 Test Item Value Reference Range Interpretation Comments bilirubin, urine (test code = Negative Negative 5770-3) [facility] Regionalketones, urine, by test [id number] 08:35:00 Test Item Value Reference Range Interpretation Comments ketones, urine, by test strip (test Negative Negative code = 5797-6) [facility] Regionalglucose, urine, nvvzxdnkshecoqms4024-21-38 08:35:00 Test Item Value Reference Range Interpretation Comments glucose, urine, semiquantitative Negative Negative (test code = 5792-7) [facility] Regionalprotein, urine, semiquantitative (dipstick)2021-06-11 08:35:00 Test Item Value Reference Range Interpretation Comments protein, urine, 34.6 (unknown semiquantitative (dipstick) unit) (test code = 1753-3) [facility] Regionalleukocyte esterase, urine, by ernumyxs8509-15-85 08:35:00 Test Item Value Reference Range Interpretation Comments leukocyte esterase, urine, by dipstick 2+ Negative A (test code = 5799-2) [facility] Regionalappearance, [id number] 08:35:00 Test Item Value Reference Range Interpretation Comments appearance, urine (test code = 5767-9) Clear Clear [facility] Regionalurine [id number] 08:35:00 Test Item Value Reference Range Interpretation Comments urine color (test code = 5778-6) Yellow Yellow [facility] RegionalpH, urine, yuqrqovyepalpisa3175-76-92 08:35:00 Test Item Value Reference Range Interpretation Comments pH, urine, semiquantitative 6.0 (unknown 5.0-7.5 (test code = 5803-2) unit) [facility] Regionalspecific gravity, body [id number] 08:35:00 Test Item Value Reference Range Interpretation Comments specific gravity, body 1.026 (unknown unit) 1.005-1.030 fluid (test code = 2964-5) [facility] Regionalalanine aminotransferase (SGPT), [id number] 08:35:00 Test Item Value Reference Range Interpretation Comments alanine aminotransferase (SGPT), serum 12 1/L 0-32 (test code = 1742-6) [facility] Regionalaspartate aminotransferase (SGOT), [id number] 08:35:00 Test Item Value Reference Range Interpretation Comments aspartate aminotransferase (SGOT), 14 1/L 0-40 serum (test code = 1920-8) [facility] Regionalalkaline phosphatase, [id number] 08:35:00 Test Item Value Reference Range Interpretation Comments alkaline phosphatase, serum (test code 89 1/L 44-121 = 1783-0) [facility] Regionalbilirubin, serum, [id number] 08:35:00 Test Item Value Reference Range Interpretation Comments bilirubin, serum, total (test code 0.2 mg/dL 0.0-1.2 = 1975-2) [facility] Regionalalbumin/globulin ratio, [id number] 08:35:00 Test Item Value Reference Range Interpretation Comments albumin/globulin ratio, 1.9 (unknown unit) 1.2-2.2 serum (test code = 1759-0) [facility] Regionalglobulin, [id number] 08:35:00 Test Item Value Reference Range Interpretation Comments globulin, serum (test code 2.4 (unknown unit) 1.5-4.5 = 2336-6) [facility] Healthalbumin, [id number] 08:35:00 Test Item Value Reference Range Interpretation Comments albumin, serum (test code = 1751-7) 4.5 g/dL 3.8-4.9 [facility] Regionalprotein, total, [id number] 08:35:00 Test Item Value Reference Range Interpretation Comments protein, total, serum (test code = 6.9 g/dL 6.0-8.5 2885-2) [facility] Regionalcalcium, [id number] 08:35:00 Test Item Value Reference Range Interpretation Comments calcium, serum (test code = 1999-8) 9.6 mg/dL 8.7-10.2 [facility] Regionalcarbon dioxide, venous [id number] 08:35:00 Test Item Value Reference Range Interpretation Comments carbon dioxide, venous blood (test 23 mmol/L 20-29 code = 2027-1) [facility] Regionalchloride, [id number] 08:35:00 Test Item Value Reference Range Interpretation Comments chloride, serum (test code = 103 mmol/L 96-106 5-0) [facility] Regionalpotassium, itouc2745-13-11 08:35:00 Test Item Value Reference Range Interpretation Comments potassium, serum (test code = 4.1 mmol/L 3.5-5.2 2823-3) [facility] Regionalsodium, [id number] 08:35:00 Test Item Value Reference Range Interpretation Comments sodium, serum (test code = 2951-2) 143 mmol/L 134-144 [facility] Regionalurea nitrogen/creatinine ratio, [id number] 08:35:00 Test Item Value Reference Range Interpretation Comments urea nitrogen/creatinine 20 (unknown unit) 9-23 ratio, serum (test code = 3097-3) [facility] RegionalEstimated Glomerular Filtration Rate (calc)2021-06-11 08:35:00 Test Item Value Reference Range Interpretation Comments Estimated Glomerular 103 mL/min/{1.73 m2} >59 Filtration Rate (calc) (test code = 70305-2) [facility] Regionalcreatinine, [id number] 08:35:00 Test Item Value Reference Range Interpretation Comments creatinine, serum (test code = 0.61 mg/dL 0.57-1.00 2160-0) [facility] Healthurea nitrogen, [id number] 08:35:00 Test Item Value Reference Range Interpretation Comments urea nitrogen, blood (test code = 12 mg/dL 6-24 3094-0) [facility] Regionalblood glucose, [id number] 08:35:00 Test Item Value Reference Range Interpretation Comments blood glucose, random (test code = 104 mg/dL 65-99 H 2339-0) [facility] Regionalimmature granulocytes, percentage of total cells, blood 2021-06-11 08:35:00 Test Item Value Reference Range Interpretation Comments immature granulocytes, percentage of 0 % total cells, blood (test code = 04167-1) [facility] Regionalbasophil count, zjvnhtlz8327-83-89 08:35:00 Test Item Value Reference Range Interpretation Comments basophil count, absolute (test 0.1 x10E3/uL 0.0-0.2 code = 75028-8) [facility] RegionalEosinophil Absolute [id number] 08:35:00 Test Item Value Reference Range Interpretation Comments Eosinophil Absolute Count (test 0.1 X10E3/UL 0.0-0.4 code = 30911-4) [facility] Regionalmonocyte count, blood, ijokladau2861-28-57 08:35:00 Test Item Value Reference Range Interpretation Comments monocyte count, blood, automated 0.3 X10E3/UL 0.1-0.9 (test code = 742-7) [facility] Regionallymphocyte count, blood, uvhfkavsh1172-55-45 08:35:00 Test Item Value Reference Range Interpretation Comments lymphocyte count, blood, 1.5 X10E3/UL 0.7-3.1 automated (test code = 731-0) [facility] RegionalAbsolute Pvrheiqzaqi1763-75-96 08:35:00 Test Item Value Reference Range Interpretation Comments Absolute Neutrophils (test code 1.8 X10E3/UL 1.4-7.0 = 99334-1) [facility] Regionalbasophils as percent of blood ofnytfybay5819-86-04 08:35:00 Test Item Value Reference Range Interpretation Comments basophils as percent of blood 2 % leukocytes (test code = 707-0) [facility] Regionaleosinophils as percent of blood thurzomqhz0461-77-24 08:35:00 Test Item Value Reference Range Interpretation Comments eosinophils as percent of blood 3 % leukocytes (test code = 713-8) [facility] Healthmonocytes as percent of blood brarswmcod9989-42-68 08:35:00 Test Item Value Reference Range Interpretation Comments monocytes as percent of blood 8 % leukocytes (test code = 5905-5) [facility] Regionallymphocytes as percent of blood newdofciel9195-14-76 08:35:00 Test Item Value Reference Range Interpretation Comments lymphocytes as percent of blood 40 % leukocytes (test code = 736-9) [facility] Regionalneutrophils as percent of blood riyknvhxtj1353-30-17 08:35:00 Test Item Value Reference Range Interpretation Comments neutrophils as percent of blood 47 % leukocytes (test code = 770-8) [facility] Regionalplatelet kobvc7508-77-21 08:35:00 Test Item Value Reference Range Interpretation Comments platelet count (test code = 308 X10E3/UL 150-450 777-3) [facility] Regionalred blood cell distribution csaal9256-21-11 08:35:00 Test Item Value Reference Range Interpretation Comments red blood cell distribution width 13.0 % 11.7-15.4 (test code = 788-0) [facility] corpuscular hemoglobin concentration, [id number] 08:35:00 Test Item Value Reference Range Interpretation Comments mean corpuscular hemoglobin 33.9 G/DL 31.5-35.7 concentration, RBC (test code = 786-4) [facility] corpuscular hemoglobin, [id number] 08:35:00 Test Item Value Reference Range Interpretation Comments mean corpuscular hemoglobin, RBC 31.1 pg 26.6-33.0 (test code = 785-6) [facility] corpuscular volume, [id number] 08:35:00 Test Item Value Reference Range Interpretation Comments mean corpuscular volume, RBC (test code 92 fL 79-97 = 787-2) [facility] Regionalhematocrit, zwiul1272-16-33 08:35:00 Test Item Value Reference Range Interpretation Comments hematocrit, blood (test code = 4544-3) 38.4 % 34.0-46.6 [facility] Regionalhemoglobin, [id number] 08:35:00 Test Item Value Reference Range Interpretation Comments hemoglobin, blood (test code = 13.0 g/dL 11.1-15.9 718-7) [facility] Regionalerythrocyte (RBC) [id number] 08:35:00 Test Item Value Reference Range Interpretation Comments erythrocyte (RBC) count (test 4.18 X10E6/UL 3.77-5.28 code = 789-8) [facility] Regionalleukocyte count, lvxiy0100-83-16 08:35:00 Test Item Value Reference Range Interpretation Comments leukocyte count, blood (test 3.8 X10E3/UL 3.4-10.8 code = 6690-2) [facility] RegionalCD4/CD8 ulwsy4450-82-01 08:35:00 Test Item Value Reference Range Interpretation Comments CD4/CD8 ratio (test code 1.66 (unknown unit) 0.92-3.72 = 89454) [facility] RegionalT-suppressor cells (CD8) as percent of blood lymphocytes 2021-06-11 08:35:00 Test Item Value Reference Range Interpretation Comments T-suppressor cells (CD8) as percent of 25.8 % 12.0-35.5 blood lymphocytes (test code = 3517) [facility] Regionalabsolute [id number] 08:35:00 Test Item Value Reference Range Interpretation Comments absolute CD8 (test code = 387 (unknown unit) 553-394 86040) [facility] RegionalT-helper cells (CD4) as percent of blood lymphocytes 2021-06-11 08:35:00 Test Item Value Reference Range Interpretation Comments T-helper cells (CD4) as percent of 42.7 % 30.8-58.5 blood lymphocytes (test code = 8123-2) [facility] RegionalT-helper cells (CD4) [id number] 08:35:00 Test Item Value Reference Range Interpretation Comments T-helper cells (CD4) count (test code 641 /UL 359-1519 = 26546-2) [facility] Regionalhepatitis A antibody, wgqch1038-56-90 08:35:00 Test Item Value Reference Range Interpretation Comments hepatitis A antibody, total (test Positive Negative A code = 29929-0) [facility] Regionalhepatitis B core antibody, hjqli1162-34-32 08:35:00 Test Item Value Reference Range Interpretation Comments hepatitis B core antibody, total Negative Negative (test code = 13540-3) [facility] Regionalhepatitis B surface [id number] 08:35:00 Test Item Value Reference Range Interpretation Comments hepatitis B surface antigen (test Negative Negative code = 53473-8) [facility] Regionalhe[facility] C antibody, [id number] 08:35:00 Test Item Value Reference Range Interpretation Comments hepatitis C antibody, serum (test code <0.1 0.0-0.9 = 14565-4) [facility] RegionalHIV-2 antibodies, western [id number] 08:35:00 Test Item Value Reference Range Interpretation Comments HIV-2 antibodies, western blot Non Reactive Non Reactive (test code = 05948-8) [facility] RegionalHIV-1/HIV-2 Ab, [id number] 08:35:00 Test Item Value Reference Range Interpretation Comments HIV-1/HIV-2 Ab, serum (test code = Reactive Non Reactive 92957-3) [facility] HealthHIV-CMIA (Chemiluminescent Microparticle Immuno Assay) 2021-06-11 08:35:00 Test Item Value Reference Range Interpretation Comments HIV-CMIA Preliminary Reactive Non Reactive (Chemiluminescent Microparticle Immuno Assay) (test code = 01164-5) [facility] Regionaltoxoplasma gondii antibody, [id number] 08:35:00 Test Item Value Reference Range Interpretation Comments toxoplasma gondii antibody, IgG (test <3.0 0.0-7.1 code = 5389-2) [facility] Regionalhepatitis B surface zbsvyoas6186-15-57 08:35:00 Test Item Value Reference Range Interpretation Comments hepatitis B surface antibody (test Reactive code = 67793-6) [facility] RegionalHIV-1RNA, serum, by PCR, [id number] 08:35:00 Test Item Value Reference Range Interpretation Comments HIV-1RNA, serum, by PCR, <20 copies/mL quantitative (test code = 33590-2) [facility] [id number] 08:35:00 Test Item Value Reference Range Interpretation Comments human leukocyte antigen B57 (test Negative code = 081837) [facility] Regionalcasts, [id number] 08:35:00 Test Item Value Reference Range Interpretation Comments casts, urine (test code = 5626) None seen None seen [facility] RegionalW urine on suplkrmukb7979-97-26 08:35:00 Test Item Value Reference Range Interpretation Comments WBC urine on microscopy (test code = >30 /hpf 0-5 A 1016) [facility] RegionalOccult Blood, [id number] 08:35:00 Test Item Value Reference Range Interpretation Comments Occult Blood, urine (test code = Negative Negative ) [facility] RegionalCD4/CD8 [id number] 08:35:00 Test Item Value Reference Range Interpretation Comments CD4/CD8 ratio (test code 1.66 (unknown unit) 0.92-3.72 = 99358) [facility] RegionalT-suppressor cells (CD8) as percent of blood lymphocytes 2021-06-11 08:35:00 Test Item Value Reference Range Interpretation Comments T-suppressor cells (CD8) as percent of 25.8 % 12.0-35.5 blood lymphocytes (test code = 3517) [facility] Regionalabsolute [id number] 08:35:00 Test Item Value Reference Range Interpretation Comments absolute CD8 (test code = 387 (unknown unit) [phone]) [facility] Regionalhepatitis C antibody, [id number] 08:35:00 Test Item Value Reference Range Interpretation Comments hepatitis C antibody, serum (test code <0.1 0.0-0.9 = 5199-5) [facility] RegionalNeisseria gonorrhoeae DNA [id number] 08:35:00 Test Item Value Reference Range Interpretation Comments Neisseria gonorrhoeae DNA probe Negative Negative (test code = 99108-0) [facility] Regionalhemoglobin A1C, blood, as % of total wmtwoabrny5501-49-52 09:15:00 Test Item Value Reference Range Interpretation Comments hemoglobin A1C, blood, as % of total 7.3 % 4.8-5.6 H hemoglobin (test code = 4548-4) [facility] Regionalmicroalbumin/creatinine ratio, gmgwl2057-25-28 09:15:00 Test Item Value Reference Range Interpretation Comments microalbumin/creatinine ratio, 25 MG/G CREAT 0-29 urine (test code = 04299-4) [facility] Regionalmicroalbumin/total urine [id number] 09:15:00 Test Item Value Reference Range Interpretation Comments microalbumin/total urine volume 43.4 mg/L (test code = 34681-9) [facility] Regionalcreatinine, random, [id number] 09:15:00 Test Item Value Reference Range Interpretation Comments creatinine, random, urine (test 171.7 mg/dL code = 2161-8) [facility] RegionalLDL cholesterol, [id number] 09:15:00 Test Item Value Reference Range Interpretation Comments LDL cholesterol, serum (test code = 150 mg/dL 0-99 H 2088-04) [facility] Regionalvery low density fhohjdtqniwa9498-18-65 09:15:00 Test Item Value Reference Range Interpretation Comments very low density lipoproteins (test 16 mg/dL 5-40 code = 1-7) [facility] RegionalHDL cholesterol, [id number] 09:15:00 Test Item Value Reference Range Interpretation Comments HDL cholesterol, serum (test code = 56 mg/dL >39 2084-9) [facility] Regionaltriglyceride, serum, [id number] 09:15:00 Test Item Value Reference Range Interpretation Comments triglyceride, serum, fasting (test 91 mg/dL 0-149 code = 2571-8) [facility] Regionalcholesterol, [id number] 09:15:00 Test Item Value Reference Range Interpretation Comments cholesterol, serum (test code = 222 mg/dL 100-199 H 2092-3) [facility] Regionalalanine aminotransferase (SGPT), [id number] 09:15:00 Test Item Value Reference Range Interpretation Comments alanine aminotransferase (SGPT), serum 13 1/L 0-32 (test code = 1742-6) [facility] Regionalaspartate aminotransferase (SGOT), [id number] 09:15:00 Test Item Value Reference Range Interpretation Comments aspartate aminotransferase (SGOT), 15 1/L 0-40 serum (test code = 1920-8) [facility] Regionalalkaline phosphatase, [id number] 09:15:00 Test Item Value Reference Range Interpretation Comments alkaline phosphatase, serum (test code 90 1/L 39-117 = 1783-0) [facility] Healthbilirubin, serum, [id number] 09:15:00 Test Item Value Reference Range Interpretation Comments bilirubin, serum, total (test code 0.3 mg/dL 0.0-1.2 = 1975-2) [facility] Healthalbumin/globulin ratio, [id number] 09:15:00 Test Item Value Reference Range Interpretation Comments albumin/globulin ratio, 1.6 (unknown unit) 1.2-2.2 serum (test code = 1759-0) [facility] Healthglobulin, ynyhc4536-11-08 09:15:00 Test Item Value Reference Range Interpretation Comments globulin, serum (test code 2.7 (unknown unit) 1.5-4.5 = 2336-6) [facility] Healthalbumin, [id number] 09:15:00 Test Item Value Reference Range Interpretation Comments albumin, serum (test code = 1751-7) 4.2 g/dL 3.8-4.9 [facility] Regionalprotein, total, [id number] 09:15:00 Test Item Value Reference Range Interpretation Comments protein, total, serum (test code = 6.9 g/dL 6.0-8.5 2885-2) [facility] Regionalcalcium, [id number] 09:15:00 Test Item Value Reference Range Interpretation Comments calcium, serum (test code = 1999-8) 9.4 mg/dL 8.7-10.2 [facility] Regionalcarbon dioxide, venous [id number] 09:15:00 Test Item Value Reference Range Interpretation Comments carbon dioxide, venous blood (test 25 mmol/L code = 7-1) [facility] Regionalchloride, [id number] 09:15:00 Test Item Value Reference Range Interpretation Comments chloride, serum (test code = 101 mmol/L 96-106 5-0) [facility] Regionalpotassium, [id number] 09:15:00 Test Item Value Reference Range Interpretation Comments potassium, serum (test code = 3.8 mmol/L 3.5-5.2 2823-3) [facility] Regionalsodium, [id number] 09:15:00 Test Item Value Reference Range Interpretation Comments sodium, serum (test code = 2951-2) 139 mmol/L 134-144 [facility] Regionalurea nitrogen/creatinine ratio, ofdiy2848-86-23 09:15:00 Test Item Value Reference Range Interpretation Comments urea nitrogen/creatinine 19 (unknown unit) 9-23 ratio, serum (test code = 3097-3) [facility] HealtheGFR if Wcexqhma8232-83-57 09:15:00 Test Item Value Reference Range Interpretation Comments eGFR if 98 mL/min/{1.73 m2} >59 (test code = 81145-4) [facility] RegionalEstimated Glomerular Filtration Rate (calc)2020-04-06 09:15:00 Test Item Value Reference Range Interpretation Comments Estimated Glomerular 85 mL/min/{1.73 m2} >59 Filtration Rate (calc) (test code = 53836-2) [facility] Regionalcreatinine, [id number] 09:15:00 Test Item Value Reference Range Interpretation Comments creatinine, serum (test code = 0.78 mg/dL 0.57-1.00 2160-0) [facility] Regionalurea nitrogen, [id number] 09:15:00 Test Item Value Reference Range Interpretation Comments urea nitrogen, blood (test code = 15 mg/dL 6-24 3094-0) [facility] Regionalblood glucose, [id number] 09:15:00 Test Item Value Reference Range Interpretation Comments blood glucose, random (test code = 122 mg/dL 65-99 H 2339-0) [facility] Regionalimmature granulocytes, percentage of total cells, blood 2020-04-06 09:15:00 Test Item Value Reference Range Interpretation Comments immature granulocytes, percentage of 0 % total cells, blood (test code = 73182-9) [facility] Regionalbasophil count, [id number] 09:15:00 Test Item Value Reference Range Interpretation Comments basophil count, absolute (test 0.0 x10E3/uL 0.0-0.2 code = 01676-7) [facility] RegionalEosinophil Absolute [id number] 09:15:00 Test Item Value Reference Range Interpretation Comments Eosinophil Absolute Count (test 0.1 X10E3/UL 0.0-0.4 code = 92914-8) [facility] Regionalmonocyte count, blood, iaefhmefw0485-53-74 09:15:00 Test Item Value Reference Range Interpretation Comments monocyte count, blood, automated 0.4 X10E3/UL 0.1-0.9 (test code = 742-7) [facility] Regionallymphocyte count, blood, xosqfqusj9050-39-02 09:15:00 Test Item Value Reference Range Interpretation Comments lymphocyte count, blood, 1.5 X10E3/UL 0.7-3.1 automated (test code = 731-0) [facility] RegionalAbsolute Ykzgomxpgef4086-69-24 09:15:00 Test Item Value Reference Range Interpretation Comments Absolute Neutrophils (test code 2.4 X10E3/UL 1.4-7.0 = 89890-8) [facility] Regionalbasophils as percent of blood nucfeinohc3608-32-30 09:15:00 Test Item Value Reference Range Interpretation Comments basophils as percent of blood 1 % leukocytes (test code = 707-0) [facility] Regionaleosinophils as percent of blood vrmxvqtyxk7421-19-83 09:15:00 Test Item Value Reference Range Interpretation Comments eosinophils as percent of blood 2 % leukocytes (test code = 713-8) [facility] Healthmonocytes as percent of blood jbvleholhj9565-06-44 09:15:00 Test Item Value Reference Range Interpretation Comments monocytes as percent of blood 9 % leukocytes (test code = 5905-5) [facility] Regionallymphocytes as percent of blood roylkygbqw6653-95-54 09:15:00 Test Item Value Reference Range Interpretation Comments lymphocytes as percent of blood 33 % leukocytes (test code = 736-9) [facility] Regionalneutrophils as percent of blood rfiuxepiyh0804-86-52 09:15:00 Test Item Value Reference Range Interpretation Comments neutrophils as percent of blood 55 % leukocytes (test code = 770-8) [facility] Regionalplatelet isaji5111-66-74 09:15:00 Test Item Value Reference Range Interpretation Comments platelet count (test code = 295 X10E3/UL 150-450 777-3) [facility] Regionalred blood cell distribution [id number] 09:15:00 Test Item Value Reference Range Interpretation Comments red blood cell distribution width 12.9 % 11.7-15.4 (test code = 788-0) [facility] corpuscular hemoglobin concentration, [id number] 09:15:00 Test Item Value Reference Range Interpretation Comments mean corpuscular hemoglobin 33.3 G/DL 31.5-35.7 concentration, RBC (test code = 786-4) [facility], [id number] 09:15:00 Test Item Value Reference Range Interpretation Comments mean corpuscular hemoglobin, RBC 31.6 pg 26.6-33.0 (test code = 785-6) [facility] corpuscular volume, [id number] 09:15:00 Test Item Value Reference Range Interpretation Comments mean corpuscular volume, RBC (test code 95 fL 79-97 = 787-2) [facility] Regionalhematocrit, [id number] 09:15:00 Test Item Value Reference Range Interpretation Comments hematocrit, blood (test code = 4544-3) 37.5 % 34.0-46.6 [facility] Regionalhemoglobin, [id number] 09:15:00 Test Item Value Reference Range Interpretation Comments hemoglobin, blood (test code = 12.5 g/dL 11.1-15.9 718-7) [facility] Regionalerythrocyte (RBC) [id number] 09:15:00 Test Item Value Reference Range Interpretation Comments erythrocyte (RBC) count (test 3.95 X10E6/UL 3.77-5.28 code = 789-8) [facility] Regionalleukocyte count, [id number] 09:15:00 Test Item Value Reference Range Interpretation Comments leukocyte count, blood (test 4.3 X10E3/UL 3.4-10.8 code = 6690-2) [facility] RegionalT-helper cells (CD4) as percent of blood lymphocytes 2020-04-06 09:15:00 Test Item Value Reference Range Interpretation Comments T-helper cells (CD4) as percent of 44.9 % 30.8-58.5 blood lymphocytes (test code = 8123-2) [facility] RegionalT-helper cells (CD4) [id number] 09:15:00 Test Item Value Reference Range Interpretation Comments T-helper cells (CD4) count (test code 674 /UL 359-8869 = 67285-6) [facility] Regionalhepatitis A antibody, [id number] 09:15:00 Test Item Value Reference Range Interpretation Comments hepatitis A antibody, total (test Positive Negative A code = 70106-6) [facility], [id number] 09:15:00 Test Item Value Reference Range Interpretation Comments hepatitis B core antibody, total Negative Negative (test code = 98765-5) [facility] surface enkupbi7689-20-51 09:15:00 Test Item Value Reference Range Interpretation Comments hepatitis B surface antigen (test Negative Negative code = 16511-9) [facility], [id number] 09:15:00 Test Item Value Reference Range Interpretation Comments hepatitis C antibody, 0.1 (unknown unit) 0.0-0.9 serum (test code = 86677-3) [facility] mlqqxmkt5347-15-56 09:15:00 Test Item Value Reference Range Interpretation Comments hepatitis B surface >1000.0 See_Comment [Automa aracely message] The antibody (test code = system which generated 92952-8) this result tra nsmitted reference range : Immunity>9.9. T he reference range was not used to interpr et this result as normal/abnormal . [facility] RegionalHIV-1RNA, serum, by PCR, piqkfpxhtyin4814-35-82 09:15:00 Test Item Value Reference Range Interpretation Comments HIV-1RNA, serum, by PCR, <20 copies/mL quantitative (test code = 59139-9) [facility] RegionalCD4/CD8 [id number] 09:15:00 Test Item Value Reference Range Interpretation Comments CD4/CD8 ratio (test code 1.96 (unknown unit) 0.92-3.72 = 89247) [facility] RegionalT-suppressor cells (CD8) as percent of blood lymphocytes 2020-04-06 09:15:00 Test Item Value Reference Range Interpretation Comments T-suppressor cells (CD8) as percent of 22.9 % 12.0-35.5 blood lymphocytes (test code = 3517) [facility] Regionalabsolute [id number] 09:15:00 Test Item Value Reference Range Interpretation Comments absolute CD8 (test code = 344 (unknown unit) 814-441 08191) [facility] Regionalhepatitis C antibody, [id number] 09:15:00 Test Item Value Reference Range Interpretation Comments hepatitis C antibody, 0.1 (unknown unit) 0.0-0.9 serum (test code = 5199-5) [facility] RegionalCD4/CD8 [id number] 09:15:00 Test Item Value Reference Range Interpretation Comments CD4/CD8 ratio (test code 1.96 (unknown unit) 0.92-3.72 = 10337) [facility] RegionalT-suppressor cells (CD8) as percent of blood lymphocytes 2020-04-06 09:15:00 Test Item Value Reference Range Interpretation Comments T-suppressor cells (CD8) as percent of 22.9 % 12.0-35.5 blood lymphocytes (test code = 3517) [facility] Regionalabsolute [id number] 09:15:00 Test Item Value Reference Range Interpretation Comments absolute CD8 (test code = 344 (unknown unit) 964-255 67118) [facility] Regionalrad plasma reagin antibody, [id number] 09:41:00 Test Item Value Reference Range Interpretation Comments rapid plasma reagin antibody, Non Reactive Non Reactive serum (test code = 5291-0) [facility] Regionalhemoglobin A1C, blood, as % of total lvwaxvbdqz8535-03-41 09:41:00 Test Item Value Reference Range Interpretation Comments hemoglobin A1C, blood, as % of total 7.1 % 4.8-5.6 H hemoglobin (test code = 4548-4) [facility] RegionalLDL cholesterol, [id number] 09:41:00 Test Item Value Reference Range Interpretation Comments LDL cholesterol, serum (test code = 136 mg/dL 0-99 H 2088-) [facility] Regionalvery low density upmenupnyqfe3409-15-28 09:41:00 Test Item Value Reference Range Interpretation Comments very low density lipoproteins (test 14 mg/dL 5-40 code = 1-7) [facility] RegionalHDL cholesterol, cgyuc0090-23-88 09:41:00 Test Item Value Reference Range Interpretation Comments HDL cholesterol, serum (test code = 59 mg/dL >39 2084-9) [facility] Regionaltriglyceride, serum, jcuhpmq7642-67-25 09:41:00 Test Item Value Reference Range Interpretation Comments triglyceride, serum, fasting (test 72 mg/dL 0-149 code = 2571-8) [facility] Regionalcholesterol, [id number] 09:41:00 Test Item Value Reference Range Interpretation Comments cholesterol, serum (test code = 209 mg/dL 100-199 H 2093-3) [facility] Regionalalanine aminotransferase (SGPT), iingt0358-67-02 09:41:00 Test Item Value Reference Range Interpretation Comments alanine aminotransferase (SGPT), serum 16 1/L 0-32 (test code = 1742-6) [facility] Regionalaspartate aminotransferase (SGOT), cczuj3484-11-91 09:41:00 Test Item Value Reference Range Interpretation Comments aspartate aminotransferase (SGOT), 17 1/L 0-40 serum (test code = 1920-8) [facility] Regionalalkaline phosphatase, gqpik2376-85-07 09:41:00 Test Item Value Reference Range Interpretation Comments alkaline phosphatase, serum (test code 93 1/L 39-117 = 1783-0) [facility] Regionalbilirubin, serum, [id number] 09:41:00 Test Item Value Reference Range Interpretation Comments bilirubin, serum, total (test code 0.3 mg/dL 0.0-1.2 = 1975-2) [facility] Regionalalbumin/globulin ratio, [id number] 09:41:00 Test Item Value Reference Range Interpretation Comments albumin/globulin ratio, 1.9 (unknown unit) 1.2-2.2 serum (test code = 1759-0) [facility] Healthglobulin, [id number] 09:41:00 Test Item Value Reference Range Interpretation Comments globulin, serum (test code 2.4 (unknown unit) 1.5-4.5 = 2336-6) [facility] Regionalalbumin, [id number] 09:41:00 Test Item Value Reference Range Interpretation Comments albumin, serum (test code = 1751-7) 4.5 g/dL 3.8-4.9 [facility] Regionalprotein, total, dlfiv1584-75-07 09:41:00 Test Item Value Reference Range Interpretation Comments protein, total, serum (test code = 6.9 g/dL 6.0-8.5 2885-2) [facility] Regionalcalcium, qumog2352-06-98 09:41:00 Test Item Value Reference Range Interpretation Comments calcium, serum (test code = 2000-8) 9.7 mg/dL 8.7-10.2 [facility] Regionalcarbon dioxide, venous [id number] 09:41:00 Test Item Value Reference Range Interpretation Comments carbon dioxide, venous blood (test 24 mmol/L 20-29 code = 2027-1) [facility] Healthchloride, gpbhl8435-51-90 09:41:00 Test Item Value Reference Range Interpretation Comments chloride, serum (test code = 104 mmol/L 96-106 5-0) [facility] Regionalpotassium, aqusz2907-19-45 09:41:00 Test Item Value Reference Range Interpretation Comments potassium, serum (test code = 4.3 mmol/L 3.5-5.2 2823-3) [facility] Regionalsodium, mdlvs6357-90-83 09:41:00 Test Item Value Reference Range Interpretation Comments sodium, serum (test code = 2951-2) 143 mmol/L 134-144 [facility] Regionalurea nitrogen/creatinine ratio, wdqbt5498-55-93 09:41:00 Test Item Value Reference Range Interpretation Comments urea nitrogen/creatinine 18 (unknown unit) 9-23 ratio, serum (test code = 3097-3) [facility] HealtheGFR if Emmvggmy0480-68-18 09:41:00 Test Item Value Reference Range Interpretation Comments eGFR if 95 mL/min/{1.73 m2} >59 (test code = 88099-8) [facility] RegionalEstimated Glomerular Filtration Rate (calc)2019-08-16 09:41:00 Test Item Value Reference Range Interpretation Comments Estimated Glomerular 82 mL/min/{1.73 m2} >59 Filtration Rate (calc) (test code = 58762-1) [facility] Regionalcreatinine, [id number] 09:41:00 Test Item Value Reference Range Interpretation Comments creatinine, serum (test code = 0.80 mg/dL 0.57-1.00 2160-0) [facility] Regionalurea nitrogen, [id number] 09:41:00 Test Item Value Reference Range Interpretation Comments urea nitrogen, blood (test code = 14 mg/dL 6-24 3094-0) [facility] Regionalblood glucose, vjbhcg6346-00-33 09:41:00 Test Item Value Reference Range Interpretation Comments blood glucose, random (test code = 115 mg/dL 65-99 H 2339-0) [facility] Regionalimmature granulocytes, percentage of total cells, blood 2019-08-16 09:41:00 Test Item Value Reference Range Interpretation Comments immature granulocytes, percentage of 0 % total cells, blood (test code = 50451-0) [facility] Healthbasophil count, knnftuwi1819-46-08 09:41:00 Test Item Value Reference Range Interpretation Comments basophil count, absolute (test 0.0 x10E3/uL 0.0-0.2 code = 52605-6) [facility] HealthEosinophil Absolute [id number] 09:41:00 Test Item Value Reference Range Interpretation Comments Eosinophil Absolute Count (test 0.1 X10E3/UL 0.0-0.4 code = 87038-5) [facility] Regionalmonocyte count, blood, mjfjrpjbt6111-71-84 09:41:00 Test Item Value Reference Range Interpretation Comments monocyte count, blood, automated 0.3 X10E3/UL 0.1-0.9 (test code = 742-7) [facility] Regionallymphocyte count, blood, olljzstkm0071-02-17 09:41:00 Test Item Value Reference Range Interpretation Comments lymphocyte count, blood, 1.8 X10E3/UL 0.7-3.1 automated (test code = 731-0) [facility] RegionalAbsolute Xrzpyshiffr9560-81-42 09:41:00 Test Item Value Reference Range Interpretation Comments Absolute Neutrophils (test code 2.2 X10E3/UL 1.4-7.0 = 37007-0) [facility] Regionalbasophils as percent of blood lxbryiwzzh7105-57-66 09:41:00 Test Item Value Reference Range Interpretation Comments basophils as percent of blood 1 % leukocytes (test code = 707-0) [facility] Healtheosinophils as percent of blood bvebjdedvb1648-47-80 09:41:00 Test Item Value Reference Range Interpretation Comments eosinophils as percent of blood 3 % leukocytes (test code = 713-8) [facility] Healthmonocytes as percent of blood ikkvxqlzcb6210-05-66 09:41:00 Test Item Value Reference Range Interpretation Comments monocytes as percent of blood 7 % leukocytes (test code = 5905-5) [facility] Regionallymphocytes as percent of blood iegibmlysg0887-00-52 09:41:00 Test Item Value Reference Range Interpretation Comments lymphocytes as percent of blood 41 % leukocytes (test code = 736-9) [facility] Regionalneutrophils as percent of blood reniqzsbtz6855-06-16 09:41:00 Test Item Value Reference Range Interpretation Comments neutrophils as percent of blood 48 % leukocytes (test code = 770-8) [facility] Regionalplatelet [id number] 09:41:00 Test Item Value Reference Range Interpretation Comments platelet count (test code = 311 X10E3/UL 150-450 777-3) [facility] [id number] 09:41:00 Test Item Value Reference Range Interpretation Comments red blood cell distribution width 14.4 % 11.7-15.4 (test code = 788-0) [facility] corpuscular hemoglobin concentration, [id number] 09:41:00 Test Item Value Reference Range Interpretation Comments mean corpuscular hemoglobin 31.1 G/DL 31.5-35.7 L concentration, RBC (test code = 786-4) [facility] corpuscular hemoglobin, [id number] 09:41:00 Test Item Value Reference Range Interpretation Comments mean corpuscular hemoglobin, RBC 30.6 pg 26.6-33.0 (test code = 785-6) [facility] corpuscular volume, [id number] 09:41:00 Test Item Value Reference Range Interpretation Comments mean corpuscular volume, RBC (test code 99 fL 79-97 H = 787-2) [facility]hematocrit, [id number] 09:41:00 Test Item Value Reference Range Interpretation Comments hematocrit, blood (test code = 4544-3) 40.2 % 34.0-46.6 [facility] Regionalhemoglobin, [id number] 09:41:00 Test Item Value Reference Range Interpretation Comments hemoglobin, blood (test code = 12.5 g/dL 11.1-15.9 718-7) [facility] Regionalerythrocyte (RBC) [id number] 09:41:00 Test Item Value Reference Range Interpretation Comments erythrocyte (RBC) count (test 4.08 X10E6/UL 3.77-5.28 code = 789-8) [facility] Regionalleukocyte count, [id number] 09:41:00 Test Item Value Reference Range Interpretation Comments leukocyte count, blood (test 4.5 X10E3/UL 3.4-10.8 code = 6690-2) [facility] RegionalT-helper cells (CD4) as percent of blood lymphocytes 2019-08-16 09:41:00 Test Item Value Reference Range Interpretation Comments T-helper cells (CD4) as percent of 43.5 % 30.8-58.5 blood lymphocytes (test code = 8123-2) [facility] RegionalT-helper cells (CD4) [id number] 09:41:00 Test Item Value Reference Range Interpretation Comments T-helper cells (CD4) count (test code 783 /UL 359-1519 = 54014-0) [facility] RegionalHIV-1RNA, serum, by PCR, yvxrybbxvzvq6324-04-14 09:41:00 Test Item Value Reference Range Interpretation Comments HIV-1RNA, serum, by PCR, <20 copies/mL quantitative (test code = 10769-5) [facility] RegionalCD4/CD8 [id number] 09:41:00 Test Item Value Reference Range Interpretation Comments CD4/CD8 ratio (test code 1.78 (unknown unit) 0.92-3.72 = 03996) [facility] RegionalT-suppressor cells (CD8) as percent of blood lymphocytes 2019-08-16 09:41:00 Test Item Value Reference Range Interpretation Comments T-suppressor cells (CD8) as percent of 24.4 % 12.0-35.5 blood lymphocytes (test code = 3517) [facility] Regionalabsolute [id number] 09:41:00 Test Item Value Reference Range Interpretation Comments absolute CD8 (test code = 439 (unknown unit) 803-234 38320) [facility] RegionalCD4/CD8 [id number] 09:41:00 Test Item Value Reference Range Interpretation Comments CD4/CD8 ratio (test code 1.78 (unknown unit) 0.92-3.72 = 44342) [facility] RegionalT-suppressor cells (CD8) as percent of blood lymphocytes 2019-08-16 09:41:00 Test Item Value Reference Range Interpretation Comments T-suppressor cells (CD8) as percent of 24.4 % 12.0-35.5 blood lymphocytes (test code = 3517) [facility] Regionalabsolute [id number] 09:41:00 Test Item Value Reference Range Interpretation Comments absolute CD8 (test code = 439 (unknown unit) 611-486 45857) [facility] Regionalmicroalbumin/creatinine ratio, [id number] 15:32:00 Test Item Value Reference Range Interpretation Comments microalbumin/creatinine ratio, 54 MG/G CREAT 0-29 H urine (test code = 89806-5) [facility]microalbumin/total urine [id number] 15:32:00 Test Item Value Reference Range Interpretation Comments microalbumin/total urine volume 79.8 mg/L (test code = 23761-2) [facility] Regionalcreatinine, random, [id number] 15:32:00 Test Item Value Reference Range Interpretation Comments creatinine, random, urine (test 148.6 mg/dL code = 2161-8) [facility] Regionalrapid plasma reagin antibody, [id number] 15:32:00 Test Item Value Reference Range Interpretation Comments rapid plasma reagin antibody, Non Reactive Non Reactive serum (test code = 5291-0) [facility] Regionalhemoglobin A1C, blood, as % of total yuxcstbgkc4135-16-02 15:32:00 Test Item Value Reference Range Interpretation Comments hemoglobin A1C, blood, as % of total 7.1 % 4.8-5.6 H hemoglobin (test code = 4548-4) [facility] RegionalLDL cholesterol, [id number] 15:32:00 Test Item Value Reference Range Interpretation Comments LDL cholesterol, serum (test code = 125 mg/dL 0-99 H 2088-) [facility] low density rkvfxxlpvwbn4703-56-62 15:32:00 Test Item Value Reference Range Interpretation Comments very low density lipoproteins (test 24 mg/dL 5-40 code = 2091-7) [facility] RegionalHDL cholesterol, [id number] 15:32:00 Test Item Value Reference Range Interpretation Comments HDL cholesterol, serum (test code = 63 mg/dL >39 5-9) [facility] Regionaltriglyceride, serum, [id number] 15:32:00 Test Item Value Reference Range Interpretation Comments triglyceride, serum, fasting (test 122 mg/dL 0-149 code = 2571-8) [facility] Regionalcholesterol, [id number] 15:32:00 Test Item Value Reference Range Interpretation Comments cholesterol, serum (test code = 212 mg/dL 100-199 H 2093-3) [facility] Regionalalanine aminotransferase (SGPT), [id number] 15:32:00 Test Item Value Reference Range Interpretation Comments alanine aminotransferase (SGPT), serum 12 1/L 0-32 (test code = 1742-6) [facility] Regionalaspartate aminotransferase (SGOT), [id number] 15:32:00 Test Item Value Reference Range Interpretation Comments aspartate aminotransferase (SGOT), 14 1/L 0-40 serum (test code = 1920-8) [facility] Regionalalkaline phosphatase, [id number] 15:32:00 Test Item Value Reference Range Interpretation Comments alkaline phosphatase, serum (test code 85 1/L 39-117 = 1783-0) [facility] Regionalbilirubin, serum, [id number] 15:32:00 Test Item Value Reference Range Interpretation Comments bilirubin, serum, total (test code 0.2 mg/dL 0.0-1.2 = 1975-2) [facility] Regionalalbumin/globulin ratio, [id number] 15:32:00 Test Item Value Reference Range Interpretation Comments albumin/globulin ratio, 1.5 (unknown unit) 1.2-2.2 serum (test code = 1759-0) [facility] Regionalglobulin, [id number] 15:32:00 Test Item Value Reference Range Interpretation Comments globulin, serum (test code 2.9 (unknown unit) 1.5-4.5 = 2336-6) [facility] Regionalalbumin, [id number] 15:32:00 Test Item Value Reference Range Interpretation Comments albumin, serum (test code = 1751-7) 4.4 g/dL 3.8-4.9 [facility] Regionalprotein, total, [id number] 15:32:00 Test Item Value Reference Range Interpretation Comments protein, total, serum (test code = 7.3 g/dL 6.0-8.5 2885-2) [facility] Regionalcalcium, [id number] 15:32:00 Test Item Value Reference Range Interpretation Comments calcium, serum (test code = 1999-11) 9.6 mg/dL 8.7-10.2 [facility] Regionalcarbon dioxide, venous [id number] 15:32:00 Test Item Value Reference Range Interpretation Comments carbon dioxide, venous blood (test 25 mmol/L code = 2026-1) [facility] Regionalchloride, [id number] 15:32:00 Test Item Value Reference Range Interpretation Comments chloride, serum (test code = 104 mmol/L 96-106 5-0) [facility] Regionalpotassium, [id number] 15:32:00 Test Item Value Reference Range Interpretation Comments potassium, serum (test code = 4.2 mmol/L 3.5-5.2 2823-3) [facility] Regionalsodium, [id number] 15:32:00 Test Item Value Reference Range Interpretation Comments sodium, serum (test code = 2951-2) 143 mmol/L 134-144 [facility] Regionalurea nitrogen/creatinine ratio, [id number] 15:32:00 Test Item Value Reference Range Interpretation Comments urea nitrogen/creatinine 15 (unknown unit) 9-23 ratio, serum (test code = 3097-3) [facility] HealtheGFR if Nprmxvfz4634-49-38 15:32:00 Test Item Value Reference Range Interpretation Comments eGFR if 89 mL/min/{1.73 m2} >59 (test code = 75208-3) [facility] RegionalEstimated Glomerular Filtration Rate (calc)2019-05-15 15:32:00 Test Item Value Reference Range Interpretation Comments Estimated Glomerular 77 mL/min/{1.73 m2} >59 Filtration Rate (calc) (test code = 20153-4) [facility] Regionalcreatinine, [id number] 15:32:00 Test Item Value Reference Range Interpretation Comments creatinine, serum (test code = 0.85 mg/dL 0.57-1.00 2160-0) [facility] Healthurea nitrogen, [id number] 15:32:00 Test Item Value Reference Range Interpretation Comments urea nitrogen, blood (test code = 13 mg/dL 6-24 3094-0) [facility] Regionalblood glucose, jueaum4423-21-81 15:32:00 Test Item Value Reference Range Interpretation Comments blood glucose, random (test code = 93 mg/dL 65-99 2339-0) [facility] Regionalimmature granulocytes, percentage of total cells, blood 2019-05-15 15:32:00 Test Item Value Reference Range Interpretation Comments immature granulocytes, percentage of 0 % total cells, blood (test code = 12363-8) [facility] Regionalbasophil count, [id number] 15:32:00 Test Item Value Reference Range Interpretation Comments basophil count, absolute (test 0.0 x10E3/uL 0.0-0.2 code = 39374-1) [facility] RegionalEosinophil Absolute [id number] 15:32:00 Test Item Value Reference Range Interpretation Comments Eosinophil Absolute Count (test 0.1 X10E3/UL 0.0-0.4 code = 61375-8) [facility] Regionalmonocyte count, blood, yozepvuew8130-33-67 15:32:00 Test Item Value Reference Range Interpretation Comments monocyte count, blood, automated 0.5 X10E3/UL 0.1-0.9 (test code = 742-7) [facility] Regionallymphocyte count, blood, pkgaiebzx5069-73-29 15:32:00 Test Item Value Reference Range Interpretation Comments lymphocyte count, blood, 2.1 X10E3/UL 0.7-3.1 automated (test code = 731-0) [facility] RegionalAbsolute Ziesemfxomr0249-59-05 15:32:00 Test Item Value Reference Range Interpretation Comments Absolute Neutrophils (test code 2.4 X10E3/UL 1.4-7.0 = 68806-6) [facility] Regionalbasophils as percent of blood ktavpamnmd5642-65-71 15:32:00 Test Item Value Reference Range Interpretation Comments basophils as percent of blood 1 % leukocytes (test code = 707-0) [facility] Healtheosinophils as percent of blood krfrrjezjz9190-68-41 15:32:00 Test Item Value Reference Range Interpretation Comments eosinophils as percent of blood 2 % leukocytes (test code = 713-8) [facility] Healthmonocytes as percent of blood goqibiedxq4905-77-40 15:32:00 Test Item Value Reference Range Interpretation Comments monocytes as percent of blood 10 % leukocytes (test code = 5905-5) [facility] Regionallymphocytes as percent of blood dmkqcwvcne3525-64-74 15:32:00 Test Item Value Reference Range Interpretation Comments lymphocytes as percent of blood 41 % leukocytes (test code = 736-9) [facility] Regionalneutrophils as percent of blood tvlapmfvva2096-38-51 15:32:00 Test Item Value Reference Range Interpretation Comments neutrophils as percent of blood 46 % leukocytes (test code = 770-8) [facility] Regionalplatelet oxbad5905-28-10 15:32:00 Test Item Value Reference Range Interpretation Comments platelet count (test code = 356 X10E3/UL 150-450 777-3) [facility] Regionalred blood cell distribution idvjy4899-71-62 15:32:00 Test Item Value Reference Range Interpretation Comments red blood cell distribution width 13.3 % 11.7-15.4 (test code = 788-0) [facility] corpuscular hemoglobin concentration, [id number] 15:32:00 Test Item Value Reference Range Interpretation Comments mean corpuscular hemoglobin 33.1 G/DL 31.5-35.7 concentration, RBC (test code = 786-4) [facility] corpuscular hemoglobin, [id number] 15:32:00 Test Item Value Reference Range Interpretation Comments mean corpuscular hemoglobin, RBC 31.2 pg 26.6-33.0 (test code = 785-6) [facility] corpuscular volume, [id number] 15:32:00 Test Item Value Reference Range Interpretation Comments mean corpuscular volume, RBC (test code 94 fL 79-97 = 787-2) [facility] Regionalhematocrit, [id number] 15:32:00 Test Item Value Reference Range Interpretation Comments hematocrit, blood (test code = 4544-3) 37.8 % 34.0-46.6 [facility] Regionalhemoglobin, [id number] 15:32:00 Test Item Value Reference Range Interpretation Comments hemoglobin, blood (test code = 12.5 g/dL 11.1-15.9 718-7) [facility] Regionalerythrocyte (RBC) [id number] 15:32:00 Test Item Value Reference Range Interpretation Comments erythrocyte (RBC) count (test 4.01 X10E6/UL 3.77-5.28 code = 789-8) [facility] Regionalleukocyte count, [id number] 15:32:00 Test Item Value Reference Range Interpretation Comments leukocyte count, blood (test 5.1 X10E3/UL 3.4-10.8 code = 6690-2) [facility] RegionalT-helper cells (CD4) as percent of blood lymphocytes 2019-05-15 15:32:00 Test Item Value Reference Range Interpretation Comments T-helper cells (CD4) as percent of 45.1 % 30.8-58.5 blood lymphocytes (test code = 8123-2) [facility] RegionalT-helper cells (CD4) [id number] 15:32:00 Test Item Value Reference Range Interpretation Comments T-helper cells (CD4) count (test code 947 /UL 359-1519 = 27068-0) [facility] RegionalHIV-1RNA, serum, by PCR, xgfsxqtxfaec1259-39-71 15:32:00 Test Item Value Reference Range Interpretation Comments HIV-1RNA, serum, by PCR, <20 copies/mL quantitative (test code = 03744-6) [facility] RegionalCD4/CD8 [id number] 15:32:00 Test Item Value Reference Range Interpretation Comments CD4/CD8 ratio (test code 1.98 (unknown unit) 0.92-3.72 = 97175) [facility] RegionalT-suppressor cells (CD8) as percent of blood lymphocytes 2019-05-15 15:32:00 Test Item Value Reference Range Interpretation Comments T-suppressor cells (CD8) as percent of 22.8 % 12.0-35.5 blood lymphocytes (test code = 3517) [facility] Regionalabsolute [id number] 15:32:00 Test Item Value Reference Range Interpretation Comments absolute CD8 (test code = 479 (unknown unit) 109-897 95577) [facility] RegionalCD4/CD8 [id number] 15:32:00 Test Item Value Reference Range Interpretation Comments CD4/CD8 ratio (test code 1.98 (unknown unit) 0.92-3.72 = 34856) [facility] RegionalT-suppressor cells (CD8) as percent of blood lymphocytes 2019-05-15 15:32:00 Test Item Value Reference Range Interpretation Comments T-suppressor cells (CD8) as percent of 22.8 % 12.0-35.5 blood lymphocytes (test code = 3517) [facility] Regionalabsolute [id number] 15:32:00 Test Item Value Reference Range Interpretation Comments absolute CD8 (test code = 479 (unknown unit) 267-183 39778) [facility] Regionalmicroalbumin/creatinine ratio, [id number] 14:28:00 Test Item Value Reference Range Interpretation Comments microalbumin/creatinine 25.4 MG/G CREAT 0.0-30.0 ratio, urine (test code = 71443-8) [facility] Regionalmicroalbumin/total urine [id number] 14:28:00 Test Item Value Reference Range Interpretation Comments microalbumin/total urine volume 41.1 mg/L (test code = 72935-2) [facility] Regionalcreatinine, random, ubmpy7318-33-18 14:28:00 Test Item Value Reference Range Interpretation Comments creatinine, random, urine (test 161.5 mg/dL code = 2161-8) [facility] Regionalblood glucose, cqrctz1698-27-73 14:09:19 Test Item Value Reference Range Interpretation Comments blood glucose, random (test code = 131 mg/dL 2339-0) [facility] Regionalrapid plasma reagin antibody, [id number] 10:22:00 Test Item Value Reference Range Interpretation Comments rapid plasma reagin antibody, Non Reactive Non Reactive serum (test code = 5291-0) [facility] Regionalhemoglobin A1C, blood, as % of total ouzzovzpza3573-99-50 10:22:00 Test Item Value Reference Range Interpretation Comments hemoglobin A1C, blood, as % of total 6.5 % 4.8-5.6 H hemoglobin (test code = 4548-4) [facility], hzwdz1978-86-84 10:22:00 Test Item Value Reference Range Interpretation Comments LDL cholesterol, serum (test code = 175 mg/dL 0-99 H 2088-04) [facility] Regionalvery low density nzttbxpbcaof8983-02-93 10:22:00 Test Item Value Reference Range Interpretation Comments very low density lipoproteins (test 13 mg/dL 5-40 code = 209-7) [facility] RegionalHDL cholesterol, ddqht1502-64-79 10:22:00 Test Item Value Reference Range Interpretation Comments HDL cholesterol, serum (test code = 69 mg/dL >39 2084-12) [facility] Regionaltriglyceride, serum, pejsxow2757-51-51 10:22:00 Test Item Value Reference Range Interpretation Comments triglyceride, serum, fasting (test 67 mg/dL 0-149 code = 2571-8) [facility] Regionalcholesterol, [id number] 10:22:00 Test Item Value Reference Range Interpretation Comments cholesterol, serum (test code = 257 mg/dL 100-199 H 2092-06) [facility] Regionalalanine aminotransferase (SGPT), [id number] 10:22:00 Test Item Value Reference Range Interpretation Comments alanine aminotransferase (SGPT), serum 24 1/L 0-32 (test code = 1742-6) [facility] Regionalaspartate aminotransferase (SGOT), [id number] 10:22:00 Test Item Value Reference Range Interpretation Comments aspartate aminotransferase (SGOT), 21 1/L 0-40 serum (test code = 1920-8) [facility] Regionalalkaline phosphatase, ttioi0464-90-17 10:22:00 Test Item Value Reference Range Interpretation Comments alkaline phosphatase, serum (test code 92 1/L 39-117 = 1783-0) [facility] Regionalbilirubin, serum, [id number] 10:22:00 Test Item Value Reference Range Interpretation Comments bilirubin, serum, total (test code 0.3 mg/dL 0.0-1.2 = 1974-2) [facility] Regionalalbumin/globulin ratio, [id number] 10:22:00 Test Item Value Reference Range Interpretation Comments albumin/globulin ratio, 1.4 (unknown unit) 1.2-2.2 serum (test code = 1759-0) [facility] Regionalglobulin, [id number] 10:22:00 Test Item Value Reference Range Interpretation Comments globulin, serum (test code 3.2 (unknown unit) 1.5-4.5 = 2336-6) [facility] Healthalbumin, kdtdo5374-83-54 10:22:00 Test Item Value Reference Range Interpretation Comments albumin, serum (test code = 1751-7) 4.6 g/dL 3.5-5.5 [facility] Healthprotein, total, [id number] 10:22:00 Test Item Value Reference Range Interpretation Comments protein, total, serum (test code = 7.8 g/dL 6.0-8.5 2885-2) [facility] Regionalcalcium, [id number] 10:22:00 Test Item Value Reference Range Interpretation Comments calcium, serum (test code = 10.0 mg/dL 8.7-10.2 1999-) [facility] Regionalcarbon dioxide, venous [id number] 10:22:00 Test Item Value Reference Range Interpretation Comments carbon dioxide, venous blood (test 22 mmol/L code = 2026-1) [facility] Regionalchloride, joubh6182-08-17 10:22:00 Test Item Value Reference Range Interpretation Comments chloride, serum (test code = 102 mmol/L 96-106 5-0) [facility] Regionalpotassium, yrdmq0933-41-54 10:22:00 Test Item Value Reference Range Interpretation Comments potassium, serum (test code = 4.2 mmol/L 3.5-5.2 2823-3) [facility] Regionalsodium, [id number] 10:22:00 Test Item Value Reference Range Interpretation Comments sodium, serum (test code = 2951-2) 141 mmol/L 134-144 [facility] Regionalurea nitrogen/creatinine ratio, [id number] 10:22:00 Test Item Value Reference Range Interpretation Comments urea nitrogen/creatinine 22 (unknown unit) 9-23 ratio, serum (test code = 3097-3) [facility] HealtheGFR if Cljieqeb3264-16-91 10:22:00 Test Item Value Reference Range Interpretation Comments eGFR if 97 mL/min/{1.73 m2} >59 (test code = 72320-9) [facility] RegionalEstimated Glomerular Filtration Rate (calc)2018-11-16 10:22:00 Test Item Value Reference Range Interpretation Comments Estimated Glomerular 84 mL/min/{1.73 m2} >59 Filtration Rate (calc) (test code = 69893-6) [facility] Regionalcreatinine, [id number] 10:22:00 Test Item Value Reference Range Interpretation Comments creatinine, serum (test code = 0.79 mg/dL 0.57-1.00 2160-0) [facility] Regionalurea nitrogen, pzwrq2609-31-38 10:22:00 Test Item Value Reference Range Interpretation Comments urea nitrogen, blood (test code = 17 mg/dL 6-24 3094-0) [facility] Regionalblood glucose, [id number] 10:22:00 Test Item Value Reference Range Interpretation Comments blood glucose, random (test code = 122 mg/dL 65-99 H 2339-0) [facility] Regionalimmature granulocytes, percentage of total cells, blood 2018-11-16 10:22:00 Test Item Value Reference Range Interpretation Comments immature granulocytes, percentage of 0 % total cells, blood (test code = 65478-0) [facility] Regionalbasophil count, vpkcuosd6622-49-46 10:22:00 Test Item Value Reference Range Interpretation Comments basophil count, absolute (test 0.0 x10E3/uL 0.0-0.2 code = 91802-3) [facility] RegionalEosinophil Absolute Vecuk4543-64-16 10:22:00 Test Item Value Reference Range Interpretation Comments Eosinophil Absolute Count (test 0.1 X10E3/UL 0.0-0.4 code = 87015-4) [facility] Regionalmonocyte count, blood, tstiqxseg0816-69-72 10:22:00 Test Item Value Reference Range Interpretation Comments monocyte count, blood, automated 0.3 X10E3/UL 0.1-0.9 (test code = 742-7) [facility] Regionallymphocyte count, blood, iybjlcnzj8061-35-89 10:22:00 Test Item Value Reference Range Interpretation Comments lymphocyte count, blood, 2.0 X10E3/UL 0.7-3.1 automated (test code = 731-0) [facility] RegionalAbsolute Bgxkjmeotbz8878-61-28 10:22:00 Test Item Value Reference Range Interpretation Comments Absolute Neutrophils (test code 2.1 X10E3/UL 1.4-7.0 = 65977-2) [facility] Regionalbasophils as percent of blood vyphdrxuge2932-20-45 10:22:00 Test Item Value Reference Range Interpretation Comments basophils as percent of blood 1 % leukocytes (test code = 707-0) [facility] Regionaleosinophils as percent of blood bddnyxcdhq1062-07-18 10:22:00 Test Item Value Reference Range Interpretation Comments eosinophils as percent of blood 3 % leukocytes (test code = 713-8) [facility] Healthmonocytes as percent of blood ajimgigugt5318-41-76 10:22:00 Test Item Value Reference Range Interpretation Comments monocytes as percent of blood 7 % leukocytes (test code = 5905-5) [facility] Regionallymphocytes as percent of blood syhczfgwho9469-34-00 10:22:00 Test Item Value Reference Range Interpretation Comments lymphocytes as percent of blood 43 % leukocytes (test code = 736-9) [facility] Regionalneutrophils as percent of blood ujeabompme1775-13-11 10:22:00 Test Item Value Reference Range Interpretation Comments neutrophils as percent of blood 46 % leukocytes (test code = 770-8) [facility] Regionalplatelet lptso9613-50-54 10:22:00 Test Item Value Reference Range Interpretation Comments platelet count (test code = 315 X10E3/UL 150-450 777-3) [facility] Regionalred blood cell distribution dscyp5859-54-54 10:22:00 Test Item Value Reference Range Interpretation Comments red blood cell distribution width 14.4 % 12.3-15.4 (test code = 788-0) [facility] corpuscular hemoglobin concentration, [id number] 10:22:00 Test Item Value Reference Range Interpretation Comments mean corpuscular hemoglobin 33.8 G/DL 31.5-35.7 concentration, RBC (test code = 786-4) [facility] corpuscular hemoglobin, [id number] 10:22:00 Test Item Value Reference Range Interpretation Comments mean corpuscular hemoglobin, RBC 32.1 pg 26.6-33.0 (test code = 785-6) [facility], [id number] 10:22:00 Test Item Value Reference Range Interpretation Comments mean corpuscular volume, RBC (test code 95 fL 79-97 = 787-2) [facility]hematocrit, [id number] 10:22:00 Test Item Value Reference Range Interpretation Comments hematocrit, blood (test code = 4544-3) 39.6 % 34.0-46.6 [facility] Regionalhemoglobin, [id number] 10:22:00 Test Item Value Reference Range Interpretation Comments hemoglobin, blood (test code = 13.4 g/dL 11.1-15.9 718-7) [facility] Regionalerythrocyte (RBC) [id number] 10:22:00 Test Item Value Reference Range Interpretation Comments erythrocyte (RBC) count (test 4.18 X10E6/UL 3.77-5.28 code = 789-8) [facility] Regionalleukocyte count, [id number] 10:22:00 Test Item Value Reference Range Interpretation Comments leukocyte count, blood (test 4.5 X10E3/UL 3.4-10.8 code = 6690-2) [facility] RegionalT-helper cells (CD4) as percent of blood lymphocytes 2018-11-16 10:22:00 Test Item Value Reference Range Interpretation Comments T-helper cells (CD4) as percent of 39.4 % 30.8-58.5 blood lymphocytes (test code = 8123-2) [facility] RegionalT-helper cells (CD4) [id number] 10:22:00 Test Item Value Reference Range Interpretation Comments T-helper cells (CD4) count (test code 788 /UL 359-1519 = 48898-2) [facility] RegionalHIV-1RNA, serum, by PCR, iqzegftplmtb6884-73-15 10:22:00 Test Item Value Reference Range Interpretation Comments HIV-1RNA, serum, by PCR, <20 copies/mL quantitative (test code = 36663-7) [facility] RegionalCD4/CD8 [id number] 10:22:00 Test Item Value Reference Range Interpretation Comments CD4/CD8 ratio (test code 1.37 (unknown unit) 0.92-3.72 = 98293) [facility] RegionalT-suppressor cells (CD8) as percent of blood lymphocytes 2018-11-16 10:22:00 Test Item Value Reference Range Interpretation Comments T-suppressor cells (CD8) as percent of 28.7 % 12.0-35.5 blood lymphocytes (test code = 3517) [facility] Regionalabsolute [id number] 10:22:00 Test Item Value Reference Range Interpretation Comments absolute CD8 (test code = 574 (unknown unit) 109-614 52399) [facility] RegionalCD4/CD8 [id number] 10:22:00 Test Item Value Reference Range Interpretation Comments CD4/CD8 ratio (test code 1.37 (unknown unit) 0.92-3.72 = 21805) [facility] RegionalT-suppressor cells (CD8) as percent of blood lymphocytes 2018-11-16 10:22:00 Test Item Value Reference Range Interpretation Comments T-suppressor cells (CD8) as percent of 28.7 % 12.0-35.5 blood lymphocytes (test code = 3517) [facility] [id number] 10:22:00 Test Item Value Reference Range Interpretation Comments absolute CD8 (test code = 574 (unknown unit) 109-106 01780) [facility] Regionalrad plasma reagin antibody, [id number] 13:14:00 Test Item Value Reference Range Interpretation Comments rapid plasma reagin antibody, Non Reactive Non Reactive serum (test code = 5291-0) [facility] Regionalhemoglobin A1C, blood, as % of total [id number] 13:14:00 Test Item Value Reference Range Interpretation Comments hemoglobin A1C, blood, as % of total 6.5 % 4.8-5.6 H hemoglobin (test code = 4548-4) [facility] RegionalLDL cholesterol, [id number] 13:14:00 Test Item Value Reference Range Interpretation Comments LDL cholesterol, serum (test code = 108 mg/dL 0-99 H 2088-) [facility] gikkleekuppu4016-37-76 13:14:00 Test Item Value Reference Range Interpretation Comments very low density lipoproteins (test 11 mg/dL 5-40 code = 2091-7) [facility] RegionalHDL cholesterol, etezw6932-15-07 13:14:00 Test Item Value Reference Range Interpretation Comments HDL cholesterol, serum (test code = 63 mg/dL >39 5-9) [facility] Regionaltriglyceride, serum, [id number] 13:14:00 Test Item Value Reference Range Interpretation Comments triglyceride, serum, fasting (test 53 mg/dL 0-149 code = 2571-8) [facility] Regionalcholesterol, [id number] 13:14:00 Test Item Value Reference Range Interpretation Comments cholesterol, serum (test code = 182 mg/dL 202-510 1506-3) [facility] Regionalalanine aminotransferase (SGPT), [id number] 13:14:00 Test Item Value Reference Range Interpretation Comments alanine aminotransferase (SGPT), serum 16 1/L 0-32 (test code = 1742-6) [facility] Regionalaspartate aminotransferase (SGOT), [id number] 13:14:00 Test Item Value Reference Range Interpretation Comments aspartate aminotransferase (SGOT), 16 1/L 0-40 serum (test code = 1920-8) [facility] Regionalalkaline phosphatase, [id number] 13:14:00 Test Item Value Reference Range Interpretation Comments alkaline phosphatase, serum (test code 82 1/L 39-117 = 1783-0) [facility] Regionalbilirubin, serum, [id number] 13:14:00 Test Item Value Reference Range Interpretation Comments bilirubin, serum, total (test code 0.2 mg/dL 0.0-1.2 = 1975-2) [facility] Regionalalbumin/globulin ratio, [id number] 13:14:00 Test Item Value Reference Range Interpretation Comments albumin/globulin ratio, 1.7 (unknown unit) 1.2-2.2 serum (test code = 1759-0) [facility] Healthglobulin, [id number] 13:14:00 Test Item Value Reference Range Interpretation Comments globulin, serum (test code 2.6 (unknown unit) 1.5-4.5 = 2336-6) [facility] Healthalbumin, [id number] 13:14:00 Test Item Value Reference Range Interpretation Comments albumin, serum (test code = 1751-7) 4.3 g/dL 3.5-5.5 [facility] Regionalprotein, total, [id number] 13:14:00 Test Item Value Reference Range Interpretation Comments protein, total, serum (test code = 6.9 g/dL 6.0-8.5 2885-2) [facility] Regionalcalcium, [id number] 13:14:00 Test Item Value Reference Range Interpretation Comments calcium, serum (test code = 1999-8) 9.4 mg/dL 8.7-10.2 [facility] Regionalcarbon dioxide, venous [id number] 13:14:00 Test Item Value Reference Range Interpretation Comments carbon dioxide, venous blood (test 23 mmol/L - code = 2026-1) [facility] Healthchloride, [id number] 13:14:00 Test Item Value Reference Range Interpretation Comments chloride, serum (test code = 104 mmol/L 96-106 5-0) [facility] Regionalpotassium, [id number] 13:14:00 Test Item Value Reference Range Interpretation Comments potassium, serum (test code = 3.6 mmol/L 3.5-5.2 2823-3) [facility] Regionalsodium, [id number] 13:14:00 Test Item Value Reference Range Interpretation Comments sodium, serum (test code = 2951-2) 142 mmol/L 134-144 [facility] Regionalurea nitrogen/creatinine ratio, aheqc1801-13-60 13:14:00 Test Item Value Reference Range Interpretation Comments urea nitrogen/creatinine 16 (unknown unit) 9-23 ratio, serum (test code = 3097-3) [facility] HealtheGFR if Pfekexgc2008-49-79 13:14:00 Test Item Value Reference Range Interpretation Comments eGFR if 114 mL/min/{1.73 m2} >59 (test code = 20163-1) [facility] RegionalEstimated Glomerular Filtration Rate (calc)2018-03-09 13:14:00 Test Item Value Reference Range Interpretation Comments Estimated Glomerular 99 mL/min/{1.73 m2} >59 Filtration Rate (calc) (test code = 84664-6) [facility] Regionalcreatinine, [id number] 13:14:00 Test Item Value Reference Range Interpretation Comments creatinine, serum (test code = 0.68 mg/dL 0.57-1.00 0-0) [facility] Regionalurea nitrogen, [id number] 13:14:00 Test Item Value Reference Range Interpretation Comments urea nitrogen, blood (test code = 11 mg/dL 6-24 3094-0) [facility] Regionalblood glucose, jawghs4891-00-03 13:14:00 Test Item Value Reference Range Interpretation Comments blood glucose, random (test code = 122 mg/dL 65-99 H 2339-0) [facility] Regionalimmature granulocytes, percentage of total cells, blood 2018-03-09 13:14:00 Test Item Value Reference Range Interpretation Comments immature granulocytes, percentage of 0 % total cells, blood (test code = 30417-4) [facility] Regionalbasophil count, [id number] 13:14:00 Test Item Value Reference Range Interpretation Comments basophil count, absolute (test 0.0 x10E3/uL 0.0-0.2 code = 89805-3) [facility] RegionalEosinophil Absolute [id number] 13:14:00 Test Item Value Reference Range Interpretation Comments Eosinophil Absolute Count (test 0.1 X10E3/UL 0.0-0.4 code = 21524-9) [facility] Regionalmonocyte count, blood, kgdeltumf0385-27-15 13:14:00 Test Item Value Reference Range Interpretation Comments monocyte count, blood, automated 0.5 X10E3/UL 0.1-0.9 (test code = 742-7) [facility] Regionallymphocyte count, blood, hsjmfiuvd3407-22-61 13:14:00 Test Item Value Reference Range Interpretation Comments lymphocyte count, blood, 1.9 X10E3/UL 0.7-3.1 automated (test code = 731-0) [facility] RegionalAbsolute [id number] 13:14:00 Test Item Value Reference Range Interpretation Comments Absolute Neutrophils (test code 3.1 X10E3/UL 1.4-7.0 = 85247-7) [facility] Regionalbasophils as percent of blood wghmnwumii2928-80-17 13:14:00 Test Item Value Reference Range Interpretation Comments basophils as percent of blood 0 % leukocytes (test code = 707-0) [facility] Regionaleosinophils as percent of blood fgbexxotsm8482-15-63 13:14:00 Test Item Value Reference Range Interpretation Comments eosinophils as percent of blood 2 % leukocytes (test code = 713-8) [facility] Healthmonocytes as percent of blood cipmsfwovu0253-01-68 13:14:00 Test Item Value Reference Range Interpretation Comments monocytes as percent of blood 9 % leukocytes (test code = 5905-5) [facility] Regionallymphocytes as percent of blood xgpxnpxgzh7837-92-92 13:14:00 Test Item Value Reference Range Interpretation Comments lymphocytes as percent of blood 34 % leukocytes (test code = 736-9) [facility] Healthneutrophils as percent of blood ucqkbeusby5578-45-31 13:14:00 Test Item Value Reference Range Interpretation Comments neutrophils as percent of blood 55 % leukocytes (test code = 770-8) [facility] Regionalplatelet [id number] 13:14:00 Test Item Value Reference Range Interpretation Comments platelet count (test code = 272 X10E3/UL 150-379 777-3) [facility] Regionalred blood cell distribution arfpq2992-55-31 13:14:00 Test Item Value Reference Range Interpretation Comments red blood cell distribution width 14.8 % 12.3-15.4 (test code = 788-0) [facility] corpuscular hemoglobin concentration, [id number] 13:14:00 Test Item Value Reference Range Interpretation Comments mean corpuscular hemoglobin 33.7 G/DL 31.5-35.7 concentration, RBC (test code = 786-4) [facility] corpuscular hemoglobin, [id number] 13:14:00 Test Item Value Reference Range Interpretation Comments mean corpuscular hemoglobin, RBC 32.0 pg 26.6-33.0 (test code = 785-6) [facility] corpuscular volume, [id number] 13:14:00 Test Item Value Reference Range Interpretation Comments mean corpuscular volume, RBC (test code 95 fL 79-97 = 787-2) [facility] Regionalhematocrit, [id number] 13:14:00 Test Item Value Reference Range Interpretation Comments hematocrit, blood (test code = 4544-3) 36.5 % 34.0-46.6 [facility] Regionalhemoglobin, [id number] 13:14:00 Test Item Value Reference Range Interpretation Comments hemoglobin, blood (test code = 12.3 g/dL 11.1-15.9 718-7) [facility] Regionalerythrocyte (RBC) uaykh5456-05-00 13:14:00 Test Item Value Reference Range Interpretation Comments erythrocyte (RBC) count (test 3.84 X10E6/UL 3.77-5.28 code = 789-8) [facility] Regionalleukocyte count, [id number] 13:14:00 Test Item Value Reference Range Interpretation Comments leukocyte count, blood (test 5.6 X10E3/UL 3.4-10.8 code = 6690-2) [facility] RegionalT-helper cells (CD4) as percent of blood lymphocytes 2018-03-09 13:14:00 Test Item Value Reference Range Interpretation Comments T-helper cells (CD4) as percent of 42.6 % 30.8-58.5 blood lymphocytes (test code = 8123-2) [facility] RegionalT-helper cells (CD4) [id number] 13:14:00 Test Item Value Reference Range Interpretation Comments T-helper cells (CD4) count (test code 809 /UL 359-1519 = 54662-0) [facility] RegionalHIV-1RNA, serum, by PCR, ojqohcuqbpln3849-04-65 13:14:00 Test Item Value Reference Range Interpretation Comments HIV-1RNA, serum, by PCR, <20 copies/mL quantitative (test code = 96160-4) [facility] RegionalCD4/CD8 [id number] 13:14:00 Test Item Value Reference Range Interpretation Comments CD4/CD8 ratio (test code 1.63 (unknown unit) 0.92-3.72 = 94423) [facility] RegionalT-suppressor cells (CD8) as percent of blood lymphocytes 2018-03-09 13:14:00 Test Item Value Reference Range Interpretation Comments T-suppressor cells (CD8) as percent of 26.2 % 12.0-35.5 blood lymphocytes (test code = 3517) [facility] Regionalabsolute [id number] 13:14:00 Test Item Value Reference Range Interpretation Comments absolute CD8 (test code = 498 (unknown unit) 940-408 62143) [facility] RegionalCD4/CD8 [id number] 13:14:00 Test Item Value Reference Range Interpretation Comments CD4/CD8 ratio (test code 1.63 (unknown unit) 0.92-3.72 = 79478) [facility] RegionalT-suppressor cells (CD8) as percent of blood lymphocytes 2018-03-09 13:14:00 Test Item Value Reference Range Interpretation Comments T-suppressor cells (CD8) as percent of 26.2 % 12.0-35.5 blood lymphocytes (test code = 3517) [facility] Regionalabsolute [id number] 13:14:00 Test Item Value Reference Range Interpretation Comments absolute CD8 (test code = 498 (unknown unit) 787-974 35961) [facility] Regionalmicroalbumin/creatinine ratio, [id number] 12:49:00 Test Item Value Reference Range Interpretation Comments microalbumin/creatinine 35.4 MG/G CREAT 0.0-30.0 H ratio, urine (test code = 55442-0) [facility] Regionalmicroalbumin/total urine [id number] 12:49:00 Test Item Value Reference Range Interpretation Comments microalbumin/total urine volume 28.4 mg/L (test code = 05070-4) [facility] Regionalcreatinine, random, sadfb5331-35-90 12:49:00 Test Item Value Reference Range Interpretation Comments creatinine, random, urine (test 80.2 mg/dL code = 2161-8) [facility] Regionalvitamin D 25-hydroxy, rnsoe2617-11-35 11:04:00 Test Item Value Reference Range Interpretation Comments vitamin D 25-hydroxy, serum (test 36.8 ng/mL 30.0-100.0 code = 16780-4) [facility] Regionalrapid plasma reagin antibody, [id number] 11:04:00 Test Item Value Reference Range Interpretation Comments rapid plasma reagin antibody, Non Reactive Non Reactive serum (test code = 5291-0) [facility] Regionalhemoglobin A1C, blood, as % of total fqkjzqkewp2414-08-84 11:04:00 Test Item Value Reference Range Interpretation Comments hemoglobin A1C, blood, as % of total 6.7 % 4.8-5.6 H hemoglobin (test code = 4548-4) [facility] RegionalLDL cholesterol, [id number] 11:04:00 Test Item Value Reference Range Interpretation Comments LDL cholesterol, serum (test code = 134 mg/dL 0-99 H 2088-04) [facility] Regionalvery low density ezvyinczftog4685-39-38 11:04:00 Test Item Value Reference Range Interpretation Comments very low density lipoproteins (test 11 mg/dL 5-40 code = 2091-7) [facility] RegionalHDL cholesterol, sltoy8843-01-73 11:04:00 Test Item Value Reference Range Interpretation Comments HDL cholesterol, serum (test code = 71 mg/dL >39 2084-12) [facility] Regionaltriglyceride, serum, iuzrpqa4641-32-46 11:04:00 Test Item Value Reference Range Interpretation Comments triglyceride, serum, fasting (test 56 mg/dL 0-149 code = 2571-8) [facility] Regionalcholesterol, [id number] 11:04:00 Test Item Value Reference Range Interpretation Comments cholesterol, serum (test code = 216 mg/dL 100-199 H 2092-06) [facility] Regionalalanine aminotransferase (SGPT), mfvqh3828-26-77 11:04:00 Test Item Value Reference Range Interpretation Comments alanine aminotransferase (SGPT), serum 12 1/L 0-32 (test code = 1742-6) [facility] Regionalaspartate aminotransferase (SGOT), gmsir7458-27-84 11:04:00 Test Item Value Reference Range Interpretation Comments aspartate aminotransferase (SGOT), 12 1/L 0-40 serum (test code = 1920-8) [facility] Regionalalkaline phosphatase, [id number] 11:04:00 Test Item Value Reference Range Interpretation Comments alkaline phosphatase, serum (test code 93 1/L 39-117 = 1783-0) [facility] Regionalbilirubin, serum, [id number] 11:04:00 Test Item Value Reference Range Interpretation Comments bilirubin, serum, total (test code 0.3 mg/dL 0.0-1.2 = 1974-2) [facility] Regionalalbumin/globulin ratio, qgecs1905-03-87 11:04:00 Test Item Value Reference Range Interpretation Comments albumin/globulin ratio, 1.8 (unknown unit) 1.2-2.2 serum (test code = 1759-0) [facility] Regionalglobulin, [id number] 11:04:00 Test Item Value Reference Range Interpretation Comments globulin, serum (test code 2.5 (unknown unit) 1.5-4.5 = 2336-6) [facility] Healthalbumin, [id number] 11:04:00 Test Item Value Reference Range Interpretation Comments albumin, serum (test code = 1751-7) 4.4 g/dL 3.5-5.5 [facility] Healthprotein, total, [id number] 11:04:00 Test Item Value Reference Range Interpretation Comments protein, total, serum (test code = 6.9 g/dL 6.0-8.5 2885-2) [facility] Regionalcalcium, [id number] 11:04:00 Test Item Value Reference Range Interpretation Comments calcium, serum (test code = 2000-8) 9.7 mg/dL 8.7-10.2 [facility] Regionalcarbon dioxide, venous brebs3792-66-76 11:04:00 Test Item Value Reference Range Interpretation Comments carbon dioxide, venous blood (test 26 mmol/L 20-29 code = 7-1) [facility] Regionalchloride, [id number] 11:04:00 Test Item Value Reference Range Interpretation Comments chloride, serum (test code = 100 mmol/L 96-106 5-0) [facility] Regionalpotassium, aqrbb0576-52-87 11:04:00 Test Item Value Reference Range Interpretation Comments potassium, serum (test code = 4.0 mmol/L 3.5-5.2 2823-3) [facility] Regionalsodium, chysg0247-72-81 11:04:00 Test Item Value Reference Range Interpretation Comments sodium, serum (test code = 2951-2) 140 mmol/L 134-144 [facility] Regionalurea nitrogen/creatinine ratio, [id number] 11:04:00 Test Item Value Reference Range Interpretation Comments urea nitrogen/creatinine 20 (unknown unit) 9-23 ratio, serum (test code = 3097-3) [facility] HealtheGFR if Lllcjjqd6489-56-83 11:04:00 Test Item Value Reference Range Interpretation Comments eGFR if 96 mL/min/{1.73 m2} >59 (test code = 00028-1) [facility] RegionalEstimated Glomerular Filtration Rate (calc)2017-09-22 11:04:00 Test Item Value Reference Range Interpretation Comments Estimated Glomerular 83 mL/min/{1.73 m2} >59 Filtration Rate (calc) (test code = 75200-5) [facility] Regionalcreatinine, [id number] 11:04:00 Test Item Value Reference Range Interpretation Comments creatinine, serum (test code = 0.80 mg/dL 0.57-1.00 2160-0) [facility] Regionalurea nitrogen, scuya3050-78-21 11:04:00 Test Item Value Reference Range Interpretation Comments urea nitrogen, blood (test code = 16 mg/dL 6-24 3094-0) [facility] Regionalblood glucose, qcejqw6511-44-64 11:04:00 Test Item Value Reference Range Interpretation Comments blood glucose, random (test code = 122 mg/dL 65-99 H 2339-0) [facility] Regionalimmature granulocytes, percentage of total cells, blood 2017-09-22 11:04:00 Test Item Value Reference Range Interpretation Comments immature granulocytes, percentage of 0 % total cells, blood (test code = 88655-2) [facility] Regionalbasophil count, gjtxaozy1961-43-55 11:04:00 Test Item Value Reference Range Interpretation Comments basophil count, absolute (test 0.0 x10E3/uL 0.0-0.2 code = 98845-5) [facility] RegionalEosinophil Absolute Zmzor0905-16-61 11:04:00 Test Item Value Reference Range Interpretation Comments Eosinophil Absolute Count (test 0.1 X10E3/UL 0.0-0.4 code = 68069-2) [facility] Regionalmonocyte count, blood, msqnsvgmn0486-77-35 11:04:00 Test Item Value Reference Range Interpretation Comments monocyte count, blood, automated 0.4 X10E3/UL 0.1-0.9 (test code = 742-7) [facility] Regionallymphocyte count, blood, eftabqrkn2926-23-96 11:04:00 Test Item Value Reference Range Interpretation Comments lymphocyte count, blood, 1.5 X10E3/UL 0.7-3.1 automated (test code = 731-0) [facility] RegionalAbsolute Vsxckiqofoa9462-74-64 11:04:00 Test Item Value Reference Range Interpretation Comments Absolute Neutrophils (test code 3.4 X10E3/UL 1.4-7.0 = 74440-7) [facility] Regionalbasophils as percent of blood tjiwsuzduy3622-37-33 11:04:00 Test Item Value Reference Range Interpretation Comments basophils as percent of blood 1 % leukocytes (test code = 707-0) [facility] Regionaleosinophils as percent of blood zdppzcfvut3979-33-90 11:04:00 Test Item Value Reference Range Interpretation Comments eosinophils as percent of blood 2 % leukocytes (test code = 713-8) [facility] Healthmonocytes as percent of blood ppfabfypbh5758-73-59 11:04:00 Test Item Value Reference Range Interpretation Comments monocytes as percent of blood 7 % leukocytes (test code = 5905-5) [facility] Regionallymphocytes as percent of blood llnhqvnhuz1294-51-04 11:04:00 Test Item Value Reference Range Interpretation Comments lymphocytes as percent of blood 28 % leukocytes (test code = 736-9) [facility] Regionalneutrophils as percent of blood vjldemcvom6198-36-43 11:04:00 Test Item Value Reference Range Interpretation Comments neutrophils as percent of blood 62 % leukocytes (test code = 770-8) [facility] Regionalplatelet uoxzm6164-53-72 11:04:00 Test Item Value Reference Range Interpretation Comments platelet count (test code = 268 X10E3/UL 150-379 777-3) [facility] Regionalred blood cell distribution witdz3084-41-42 11:04:00 Test Item Value Reference Range Interpretation Comments red blood cell distribution width 16.2 % 12.3-15.4 H (test code = 788-0) [facility] corpuscular hemoglobin concentration, [id number] 11:04:00 Test Item Value Reference Range Interpretation Comments mean corpuscular hemoglobin 34.0 G/DL 31.5-35.7 concentration, RBC (test code = 786-4) [facility] corpuscular hemoglobin, [id number] 11:04:00 Test Item Value Reference Range Interpretation Comments mean corpuscular hemoglobin, RBC 31.9 pg 26.6-33.0 (test code = 785-6) [facility], [id number] 11:04:00 Test Item Value Reference Range Interpretation Comments mean corpuscular volume, RBC (test code 94 fL 79-97 = 787-2) [facility] Regionalhematocrit, aenqv5149-10-03 11:04:00 Test Item Value Reference Range Interpretation Comments hematocrit, blood (test code = 4544-3) 37.9 % 34.0-46.6 [facility]hemoglobin, [id number] 11:04:00 Test Item Value Reference Range Interpretation Comments hemoglobin, blood (test code = 12.9 g/dL 11.1-15.9 718-7) [facility] Regionalerythrocyte (RBC) [id number] 11:04:00 Test Item Value Reference Range Interpretation Comments erythrocyte (RBC) count (test 4.04 X10E6/UL 3.77-5.28 code = 789-8) [facility] Regionalleukocyte count, [id number] 11:04:00 Test Item Value Reference Range Interpretation Comments leukocyte count, blood (test 5.4 X10E3/UL 3.4-10.8 code = 6690-2) [facility] RegionalT-helper cells (CD4) as percent of blood lymphocytes 2017-09-22 11:04:00 Test Item Value Reference Range Interpretation Comments T-helper cells (CD4) as percent of 40.6 % 30.8-58.5 blood lymphocytes (test code = 8123-2) [facility] RegionalT-helper cells (CD4) [id number] 11:04:00 Test Item Value Reference Range Interpretation Comments T-helper cells (CD4) count (test code 609 /UL 359-1519 = 65897-4) [facility] Regionalmicroalbumin/total urine wemqqn8723-79-92 11:04:00 Test Item Value Reference Range Interpretation Comments microalbumin/total urine volume 39.5 mg/L (test code = 44562-8) [facility] Regionalcreatinine, random, aweje1554-89-74 11:04:00 Test Item Value Reference Range Interpretation Comments creatinine, random, urine (test 116.0 mg/dL code = 2161-8) [facility] RegionalHIV-1RNA, serum, by PCR, khuvfvdvgpeq3978-75-48 11:04:00 Test Item Value Reference Range Interpretation Comments HIV-1RNA, serum, by PCR, <20 copies/mL quantitative (test code = 02082-4) [facility] RegionalCD4/CD8 [id number] 11:04:00 Test Item Value Reference Range Interpretation Comments CD4/CD8 ratio (test code 1.68 (unknown unit) 0.92-3.72 = 30779) [facility] RegionalT-suppressor cells (CD8) as percent of blood lymphocytes 2017-09-22 11:04:00 Test Item Value Reference Range Interpretation Comments T-suppressor cells (CD8) as percent of 24.2 % 12.0-35.5 blood lymphocytes (test code = 3517) [facility] [id number] 11:04:00 Test Item Value Reference Range Interpretation Comments absolute CD8 (test code = 363 (unknown unit) 323-197 63207) [facility] RegionalCD4/CD8 [id number] 11:04:00 Test Item Value Reference Range Interpretation Comments CD4/CD8 ratio (test code 1.68 (unknown unit) 0.92-3.72 = 81536) [facility] RegionalT-suppressor cells (CD8) as percent of blood lymphocytes 2017-09-22 11:04:00 Test Item Value Reference Range Interpretation Comments T-suppressor cells (CD8) as percent of 24.2 % 12.0-35.5 blood lymphocytes (test code = 3517) [facility] [id number] 11:04:00 Test Item Value Reference Range Interpretation Comments absolute CD8 (test code = 363 (unknown unit) 355-377 10061) [facility] RegionalNeisseria gonorrhoeae DNA [id number] 11:12:00 Test Item Value Reference Range Interpretation Comments Neisseria gonorrhoeae DNA probe Negative Negative (test code = 37593-9) [facility] Regionalchlamydia DNA [id number] 11:12:00 Test Item Value Reference Range Interpretation Comments chlamydia DNA probe (test code = Negative Negative 58965-6) [facility] RegionalNeisseria gonorrhoeae DNA [id number] 11:12:00 Test Item Value Reference Range Interpretation Comments Neisseria gonorrhoeae DNA probe Negative Negative (test code = 67346-1) [facility] glucose, hpzvye5993-63-17 11:45:11 Test Item Value Reference Range Interpretation Comments blood glucose, random (test code = 87 mg/dL 2339-0) [facility] RegionalNon-nucleotide Reverse Transcriptase Fmnzxeewgh8288-46-40 11:45:11 Test Item Value Reference Range Interpretation Comments Non-nucleotide Reverse Transcriptase none Inhibitors (test code = 539953) [facility] RegionalNon-nucleotide Reverse Transcriptase Uyamxcwqhq3070-50-76 11:45:11 Test Item Value Reference Range Interpretation Comments Non-nucleotide Reverse Transcriptase none Inhibitors (test code = 356639) [facility] RegionalNucleotide Reverse transcriptase acqsbttny8702-93-46 11:45:11 Test Item Value Reference Range Interpretation Comments Nucleotide Reverse transcriptase none inhibitor (test code = 919921) [facility] Regionalrapid plasma reagin antibody, [id number] 10:54:00 Test Item Value Reference Range Interpretation Comments rapid plasma reagin antibody, Non Reactive Non Reactive serum (test code = 5291-0) [facility] RegionalLDL cholesterol, [id number] 10:54:00 Test Item Value Reference Range Interpretation Comments LDL cholesterol, serum (test code = 135 mg/dL 0-99 H 2088-1) [facility] Regionalver low density vudwoniagamo5301-53-38 10:54:00 Test Item Value Reference Range Interpretation Comments very low density lipoproteins (test 12 mg/dL 5-40 code = 2091-7) [facility] RegionalHDL cholesterol, [id number] 10:54:00 Test Item Value Reference Range Interpretation Comments HDL cholesterol, serum (test code = 56 mg/dL >39 2084-9) [facility] Regionaltriglyceride, serum, odncvez1823-17-97 10:54:00 Test Item Value Reference Range Interpretation Comments triglyceride, serum, fasting (test 60 mg/dL 0-149 code = 2571-8) [facility] Regionalcholesterol, wqjnp5546-31-20 10:54:00 Test Item Value Reference Range Interpretation Comments cholesterol, serum (test code = 203 mg/dL 100-199 H 2092-3) [facility] Regionalalanine aminotransferase (SGPT), stxlt8165-11-99 10:54:00 Test Item Value Reference Range Interpretation Comments alanine aminotransferase (SGPT), serum 17 1/L 0-32 (test code = 1742-6) [facility] Regionalaspartate aminotransferase (SGOT), nykpc9639-93-82 10:54:00 Test Item Value Reference Range Interpretation Comments aspartate aminotransferase (SGOT), 19 1/L 0-40 serum (test code = 1920-8) [facility] Regionalalkaline phosphatase, duyvp7506-55-93 10:54:00 Test Item Value Reference Range Interpretation Comments alkaline phosphatase, serum (test code 91 1/L 39-117 = 1783-0) [facility] Healthbilirubin, serum, [id number] 10:54:00 Test Item Value Reference Range Interpretation Comments bilirubin, serum, total (test code 0.2 mg/dL 0.0-1.2 = 1975-2) [facility] Healthalbumin/globulin ratio, ogsyc2182-33-27 10:54:00 Test Item Value Reference Range Interpretation Comments albumin/globulin ratio, 1.6 (unknown unit) 1.2-2.2 serum (test code = 1759-0) [facility] Healthglobulin, [id number] 10:54:00 Test Item Value Reference Range Interpretation Comments globulin, serum (test code 2.7 (unknown unit) 1.5-4.5 = 2336-6) [facility] Healthalbumin, yyoaf8806-67-10 10:54:00 Test Item Value Reference Range Interpretation Comments albumin, serum (test code = 1751-7) 4.3 g/dL 3.5-5.5 [facility] Regionalprotein, total, [id number] 10:54:00 Test Item Value Reference Range Interpretation Comments protein, total, serum (test code = 7.0 g/dL 6.0-8.5 2885-2) [facility] Regionalcalcium, evnkl7236-89-76 10:54:00 Test Item Value Reference Range Interpretation Comments calcium, serum (test code = 1999-8) 9.3 mg/dL 8.7-10.2 [facility] Regionalcarbon dioxide, venous [id number] 10:54:00 Test Item Value Reference Range Interpretation Comments carbon dioxide, venous blood (test 23 mmol/L 18-29 code = 7-1) [facility] Regionalchloride, tovkr6936-68-23 10:54:00 Test Item Value Reference Range Interpretation Comments chloride, serum (test code = 101 mmol/L 96-106 2075-0) [facility] Healthpotassium, [id number] 10:54:00 Test Item Value Reference Range Interpretation Comments potassium, serum (test code = 4.2 mmol/L 3.5-5.2 2823-3) [facility] Regionalsodium, gvbrc4498-27-15 10:54:00 Test Item Value Reference Range Interpretation Comments sodium, serum (test code = 2951-2) 141 mmol/L 134-144 [facility] Regionalurea nitrogen/creatinine ratio, fidha3021-89-00 10:54:00 Test Item Value Reference Range Interpretation Comments urea nitrogen/creatinine 20 (unknown unit) 9-23 ratio, serum (test code = 3097-3) [facility] HealtheGFR if Qntihruw8908-29-18 10:54:00 Test Item Value Reference Range Interpretation Comments eGFR if 115 mL/min/{1.73 m2} >59 (test code = 90124-5) [facility] RegionalEstimated Glomerular Filtration Rate (calc)2017-06-02 10:54:00 Test Item Value Reference Range Interpretation Comments Estimated Glomerular 100 mL/min/{1.73 m2} >59 Filtration Rate (calc) (test code = 03013-3) [facility] Regionalcreatinine, vwryn1849-97-43 10:54:00 Test Item Value Reference Range Interpretation Comments creatinine, serum (test code = 0.66 mg/dL 0.57-1.00 2160-0) [facility] Regionalurea nitrogen, vqdik2405-22-57 10:54:00 Test Item Value Reference Range Interpretation Comments urea nitrogen, blood (test code = 13 mg/dL 09-30 3094-0) [facility] Regionalblood glucose, vahkac1427-49-78 10:54:00 Test Item Value Reference Range Interpretation Comments blood glucose, random (test code = 105 mg/dL 65-99 H 2339-0) [facility] Regionalimmature granulocytes, percentage of total cells, blood 2017-06-02 10:54:00 Test Item Value Reference Range Interpretation Comments immature granulocytes, percentage of 0 % total cells, blood (test code = 36517-5) [facility] Regionalbasophil count, fspoewxl7998-40-65 10:54:00 Test Item Value Reference Range Interpretation Comments basophil count, absolute (test 0.0 x10E3/uL 0.0-0.2 code = 22718-2) [facility] HealthEosinophil Absolute Gnfhb3329-00-52 10:54:00 Test Item Value Reference Range Interpretation Comments Eosinophil Absolute Count (test 0.1 X10E3/UL 0.0-0.4 code = 27849-9) [facility] Healthmonocyte count, blood, kdfkfjqfk5721-07-28 10:54:00 Test Item Value Reference Range Interpretation Comments monocyte count, blood, automated 0.3 X10E3/UL 0.1-0.9 (test code = 742-7) [facility] Regionallymphocyte count, blood, wbzgujipb6100-68-19 10:54:00 Test Item Value Reference Range Interpretation Comments lymphocyte count, blood, 1.3 X10E3/UL 0.7-3.1 automated (test code = 731-0) [facility] RegionalAbsolute Uzkmyfcrryd5353-15-75 10:54:00 Test Item Value Reference Range Interpretation Comments Absolute Neutrophils (test code 1.7 X10E3/UL 1.4-7.0 = 09957-0) [facility] Healthbasophils as percent of blood gfxstfobgr4024-47-58 10:54:00 Test Item Value Reference Range Interpretation Comments basophils as percent of blood 1 % leukocytes (test code = 707-0) [facility] Healtheosinophils as percent of blood atdnoketsh9209-84-21 10:54:00 Test Item Value Reference Range Interpretation Comments eosinophils as percent of blood 4 % leukocytes (test code = 713-8) [facility] Healthmonocytes as percent of blood hpsnzrrrgs4384-89-41 10:54:00 Test Item Value Reference Range Interpretation Comments monocytes as percent of blood 9 % leukocytes (test code = 5905-5) [facility] Regionallymphocytes as percent of blood izxqicdwwx8369-87-71 10:54:00 Test Item Value Reference Range Interpretation Comments lymphocytes as percent of blood 37 % leukocytes (test code = 736-9) [facility] Regionalneutrophils as percent of blood damatysdlf1148-79-44 10:54:00 Test Item Value Reference Range Interpretation Comments neutrophils as percent of blood 49 % leukocytes (test code = 770-8) [facility] Regionalplatelet nsjig6464-27-64 10:54:00 Test Item Value Reference Range Interpretation Comments platelet count (test code = 287 X10E3/UL 150-379 777-3) [facility] Regionalred blood cell distribution dmnth2023-60-80 10:54:00 Test Item Value Reference Range Interpretation Comments red blood cell distribution width 14.6 % 12.3-15.4 (test code = 788-0) [facility] corpuscular hemoglobin concentration, [id number] 10:54:00 Test Item Value Reference Range Interpretation Comments mean corpuscular hemoglobin 31.6 G/DL 31.5-35.7 concentration, RBC (test code = 786-4) [facility] corpuscular hemoglobin, [id number] 10:54:00 Test Item Value Reference Range Interpretation Comments mean corpuscular hemoglobin, RBC 29.8 pg 26.6-33.0 (test code = 785-6) [facility] corpuscular volume, [id number] 10:54:00 Test Item Value Reference Range Interpretation Comments mean corpuscular volume, RBC (test code 94 fL 79-97 = 787-2) [facility] Regionalhematocrit, xejlk4729-29-54 10:54:00 Test Item Value Reference Range Interpretation Comments hematocrit, blood (test code = 4544-3) 38.3 % 34.0-46.6 [facility] Regionalhemoglobin, utbic2816-31-95 10:54:00 Test Item Value Reference Range Interpretation Comments hemoglobin, blood (test code = 12.1 g/dL 11.1-15.9 718-7) [facility] Regionalerythrocyte (RBC) [id number] 10:54:00 Test Item Value Reference Range Interpretation Comments erythrocyte (RBC) count (test 4.06 X10E6/UL 3.77-5.28 code = 789-8) [facility] Regionalleukocyte count, boqem7699-28-69 10:54:00 Test Item Value Reference Range Interpretation Comments leukocyte count, blood (test 3.5 X10E3/UL 3.4-10.8 code = 6690-2) [facility] RegionalT-helper cells (CD4) as percent of blood lymphocytes 2017-06-02 10:54:00 Test Item Value Reference Range Interpretation Comments T-helper cells (CD4) as percent of 34.8 % 30.8-58.5 blood lymphocytes (test code = 8123-2) [facility] HealthT-helper cells (CD4) ybbjk9697-22-80 10:54:00 Test Item Value Reference Range Interpretation Comments T-helper cells (CD4) count (test code 452 /UL 359-1519 = 43723-5) [facility] RegionalHIV-1RNA, serum, by PCR, iqcfkioyolqv5397-08-74 10:54:00 Test Item Value Reference Range Interpretation Comments HIV-1RNA, serum, by PCR, quantitative 30 /mL (test code = 89690-1) [facility] HealthCD4/CD8 ggksd1427-08-50 10:54:00 Test Item Value Reference Range Interpretation Comments CD4/CD8 ratio (test code 0.97 (unknown unit) 0.92-3.72 = 44973) [facility] RegionalT-suppressor cells (CD8) as percent of blood lymphocytes 2017-06-02 10:54:00 Test Item Value Reference Range Interpretation Comments T-suppressor cells (CD8) as percent of 35.9 % 12.0-35.5 H blood lymphocytes (test code = 3517) [facility] Regionalabstex[facility] [id number] 10:54:00 Test Item Value Reference Range Interpretation Comments absolute CD8 (test code = 467 (unknown unit) 442.531.16513) [facility] RegionalCD4/CD8 jdafj3875-74-27 10:54:00 Test Item Value Reference Range Interpretation Comments CD4/CD8 ratio (test code 0.97 (unknown unit) 0.92-3.72 = 53775) [facility] RegionalT-suppressor cells (CD8) as percent of blood lymphocytes 2017-06-02 10:54:00 Test Item Value Reference Range Interpretation Comments T-suppressor cells (CD8) as percent of 35.9 % 12.0-35.5 H blood lymphocytes (test code = 3517) [facility]ab[facility]ex[facility] [id number] 10:54:00 Test Item Value Reference Range Interpretation Comments absolute CD8 (test code = 467 (unknown unit) 345-365 42913) [facility] RegionalHIV genotype roqhob4186-67-19 13:04:16 Test Item Value Reference Range Interpretation Comments HIV genotype result (test code = done 00958-2) [facility] RegionalQuantiferon Gold TB blood test for tuberculosis screening 2017-05-04 12:42:00 Test Item Value Reference Range Interpretation Comments Quantiferon Gold TB blood test for Negative Negative tuberculosis screening (test code = 32841-8) [facility] Regionalhemoglobin A1C, blood, as % of total ufjpfhqosx9388-40-17 12:35:00 Test Item Value Reference Range Interpretation Comments hemoglobin A1C, blood, as % of total 6.5 % 4.8-5.6 H hemoglobin (test code = 4548-4) [facility] Regionalerythrocyte (RBC) oyhwp7519-38-59 12:35:00 Test Item Value Reference Range Interpretation Comments erythrocyte (RBC) count (test 4.20 X10E6/UL 3.77-5.28 code = 789-8) [facility] Regionalmicroalbumin/total urine vxqldz8148-65-04 11:30:00 Test Item Value Reference Range Interpretation Comments microalbumin/total urine volume 100.2 mg/L (test code = 42517-2) [facility] Regionalcreatinine, random, hbuie0321-94-01 11:30:00 Test Item Value Reference Range Interpretation Comments creatinine, random, urine (test 230.4 mg/dL code = 2161-8) [facility] reagin antibody, [id number] 10:24:00 Test Item Value Reference Range Interpretation Comments rapid plasma reagin antibody, Non Reactive Non Reactive serum (test code = 5291-0) [facility] RegionalNeisseria gonorrhoeae DNA [id number] 10:24:00 Test Item Value Reference Range Interpretation Comments Neisseria gonorrhoeae DNA probe Negative Negative (test code = 24781-1) [facility] Regionalchlamydia DNA ormfo6042-92-81 10:24:00 Test Item Value Reference Range Interpretation Comments chlamydia DNA probe (test code = Negative Negative 08470-0) [facility] RegionalLDL cholesterol, vzmnn7494-97-03 10:24:00 Test Item Value Reference Range Interpretation Comments LDL cholesterol, serum (test code = 168 mg/dL 0-99 H 2088-) [facility] Regionalvery low density uhxnlwpqmgmy0773-88-82 10:24:00 Test Item Value Reference Range Interpretation Comments very low density lipoproteins (test 20 mg/dL 5-40 code = 2091-7) [facility] RegionalHDL cholesterol, krjml4863-81-84 10:24:00 Test Item Value Reference Range Interpretation Comments HDL cholesterol, serum (test code = 46 mg/dL >39 5-9) [facility] Regionaltriglyceride, serum, qatqorl4809-00-18 10:24:00 Test Item Value Reference Range Interpretation Comments triglyceride, serum, fasting (test 100 mg/dL 0-149 code = 2571-8) [facility] Regionalcholesterol, fhqvh2893-64-06 10:24:00 Test Item Value Reference Range Interpretation Comments cholesterol, serum (test code = 234 mg/dL 100-199 H 2092-3) [facility] Regionalalanine aminotransferase (SGPT), vzsxu3175-68-54 10:24:00 Test Item Value Reference Range Interpretation Comments alanine aminotransferase (SGPT), serum 23 1/L 0-32 (test code = 1742-6) [facility] Regionalaspartate aminotransferase (SGOT), brbbr6468-24-48 10:24:00 Test Item Value Reference Range Interpretation Comments aspartate aminotransferase (SGOT), 21 1/L 0-40 serum (test code = 1920-8) [facility] Regionalalkaline phosphatase, mbfgz8781-09-43 10:24:00 Test Item Value Reference Range Interpretation Comments alkaline phosphatase, serum (test code 65 1/L 39-117 = 1783-0) [facility] Regionalbilirubin, serum, jlnrd3486-38-67 10:24:00 Test Item Value Reference Range Interpretation Comments bilirubin, serum, total (test code 0.3 mg/dL 0.0-1.2 = 1975-2) [facility] Regionalalbumin/globulin ratio, [id number] 10:24:00 Test Item Value Reference Range Interpretation Comments albumin/globulin ratio, 1.6 (unknown unit) 1.2-2.2 serum (test code = 1759-0) [facility] Regionalglobulin, [id number] 10:24:00 Test Item Value Reference Range Interpretation Comments globulin, serum (test code 2.7 (unknown unit) 1.5-4.5 = 2336-6) [facility] Regionalalbumin, qlubs7018-05-71 10:24:00 Test Item Value Reference Range Interpretation Comments albumin, serum (test code = 1751-7) 4.4 g/dL 3.5-5.5 [facility] Regionalprotein, total, jbmlg1008-25-62 10:24:00 Test Item Value Reference Range Interpretation Comments protein, total, serum (test code = 7.1 g/dL 6.0-8.5 2885-2) [facility] Regionalcalcium, azjcc7654-85-83 10:24:00 Test Item Value Reference Range Interpretation Comments calcium, serum (test code = 1999-8) 9.5 mg/dL 8.7-10.2 [facility] Regionalcarbon dioxide, venous wycxr4097-09-93 10:24:00 Test Item Value Reference Range Interpretation Comments carbon dioxide, venous blood (test 25 mmol/L code = 7-1) [facility] Regionalchloride, ddvvc1076-06-42 10:24:00 Test Item Value Reference Range Interpretation Comments chloride, serum (test code = 102 mmol/L 96-106 5-0) [facility] Regionalpotassium, isvvm3495-77-41 10:24:00 Test Item Value Reference Range Interpretation Comments potassium, serum (test code = 4.0 mmol/L 3.5-5.2 2823-3) [facility] Regionalsodium, hhxcf5643-31-75 10:24:00 Test Item Value Reference Range Interpretation Comments sodium, serum (test code = 2951-2) 141 mmol/L 134-144 [facility] Regionalurea nitrogen/creatinine ratio, [id number] 10:24:00 Test Item Value Reference Range Interpretation Comments urea nitrogen/creatinine 14 (unknown unit) 9-23 ratio, serum (test code = 3097-3) [facility] HealtheGFR if Nidxkcov7982-29-12 10:24:00 Test Item Value Reference Range Interpretation Comments eGFR if 95 mL/min/{1.73 m2} >59 (test code = 17368-2) [facility] RegionalEstimated Glomerular Filtration Rate (calc)2017-04-13 10:24:00 Test Item Value Reference Range Interpretation Comments Estimated Glomerular 83 mL/min/{1.73 m2} >59 Filtration Rate (calc) (test code = 99788-0) [facility] Healthcreatinine, [id number] 10:24:00 Test Item Value Reference Range Interpretation Comments creatinine, serum (test code = 0.81 mg/dL 0.57-1.00 2160-0) [facility] Regionalurea nitrogen, [id number] 10:24:00 Test Item Value Reference Range Interpretation Comments urea nitrogen, blood (test code = 11 mg/dL 624 3094-0) [facility] Regionalblood glucose, vfjxqb8321-62-65 10:24:00 Test Item Value Reference Range Interpretation Comments blood glucose, random (test code = 86 mg/dL 65-99 2339-0) [facility] Regionalimmature granulocytes, percentage of total cells, blood 2017-04-13 10:24:00 Test Item Value Reference Range Interpretation Comments immature granulocytes, percentage of 0 % total cells, blood (test code = 20045-5) [facility] Regionalbasophil count, uksrmblc0249-84-34 10:24:00 Test Item Value Reference Range Interpretation Comments basophil count, absolute (test 0.0 x10E3/uL 0.0-0.2 code = 87717-8) [facility] RegionalEosinophil Absolute Nkdpw9496-97-88 10:24:00 Test Item Value Reference Range Interpretation Comments Eosinophil Absolute Count (test 0.0 X10E3/UL 0.0-0.4 code = 07960-2) [facility] Regionalmonocyte count, blood, nylvynvce4678-30-72 10:24:00 Test Item Value Reference Range Interpretation Comments monocyte count, blood, automated 0.4 X10E3/UL 0.1-0.9 (test code = 742-7) [facility] Regionallymphocyte count, blood, nxtigmwdm9664-80-54 10:24:00 Test Item Value Reference Range Interpretation Comments lymphocyte count, blood, 1.5 X10E3/UL 0.7-3.1 automated (test code = 731-0) [facility] RegionalAbsolute Fzjycgpcuaz9466-94-89 10:24:00 Test Item Value Reference Range Interpretation Comments Absolute Neutrophils (test code 1.3 X10E3/UL 1.4-7.0 L = 60607-4) [facility] Regionalbasophils as percent of blood uuruvfettf7066-34-31 10:24:00 Test Item Value Reference Range Interpretation Comments basophils as percent of blood 1 % leukocytes (test code = 707-0) [facility] Healtheosinophils as percent of blood dwbwjpoxrm4071-33-46 10:24:00 Test Item Value Reference Range Interpretation Comments eosinophils as percent of blood 1 % leukocytes (test code = 713-8) [facility] Healthmonocytes as percent of blood dgzomcljop5282-20-02 10:24:00 Test Item Value Reference Range Interpretation Comments monocytes as percent of blood 13 % leukocytes (test code = 5905-5) [facility] Regionallymphocytes as percent of blood [id number] 10:24:00 Test Item Value Reference Range Interpretation Comments lymphocytes as percent of blood 45 % leukocytes (test code = 736-9) [facility]neutrophils as percent of blood [id number] 10:24:00 Test Item Value Reference Range Interpretation Comments neutrophils as percent of blood 40 % leukocytes (test code = 770-8) [facility] Regionalplatelet [id number] 10:24:00 Test Item Value Reference Range Interpretation Comments platelet count (test code = 244 X10E3/UL 150-379 777-3) [facility]red blood cell distribution [id number] 10:24:00 Test Item Value Reference Range Interpretation Comments red blood cell distribution width 14.3 % 12.3-15.4 (test code = 788-0) [facility] corpuscular hemoglobin concentration, [id number] 10:24:00 Test Item Value Reference Range Interpretation Comments mean corpuscular hemoglobin 33.0 G/DL 31.5-35.7 concentration, RBC (test code = 786-4) [facility] [id number] 10:24:00 Test Item Value Reference Range Interpretation Comments mean corpuscular hemoglobin, RBC 30.0 pg 26.6-33.0 (test code = 785-6) [facility], [id number] 10:24:00 Test Item Value Reference Range Interpretation Comments mean corpuscular volume, RBC (test code 91 fL 79-97 = 787-2) [facility]hematocrit, [id number] 10:24:00 Test Item Value Reference Range Interpretation Comments hematocrit, blood (test code = 4544-3) 38.8 % 34.0-46.6 [facility] Regionalhemoglobin, [id number] 10:24:00 Test Item Value Reference Range Interpretation Comments hemoglobin, blood (test code = 12.8 g/dL 11.1-15.9 718-7) [facility] Regionalerythrocyte (RBC) [id number] 10:24:00 Test Item Value Reference Range Interpretation Comments erythrocyte (RBC) count (test 4.26 X10E6/UL 3.77-5.28 code = 789-8) [facility] Regionalleukocyte count, [id number] 10:24:00 Test Item Value Reference Range Interpretation Comments leukocyte count, blood (test 3.3 X10E3/UL 3.4-10.8 L code = 6690-2) [facility] RegionalT-helper cells (CD4) as percent of blood lymphocytes 2017-04-13 10:24:00 Test Item Value Reference Range Interpretation Comments T-helper cells (CD4) as percent of 24.6 % 30.8-58.5 L blood lymphocytes (test code = 8123-2) [facility]T-helper cells (CD4) [id number] 10:24:00 Test Item Value Reference Range Interpretation Comments T-helper cells (CD4) count (test code 369 /UL 359-1519 = 86078-7) [facility] Regionalhuman leukocyte antigen [id number] 10:24:00 Test Item Value Reference Range Interpretation Comments human leukocyte antigen B57 (test Negative code = 671183) [facility] RegionalCD4/CD8 [id number] 10:24:00 Test Item Value Reference Range Interpretation Comments CD4/CD8 ratio (test code 0.41 (unknown unit) 0.92-3.72 L = 06670) [facility] RegionalT-suppressor cells (CD8) as percent of blood lymphocytes 2017-04-13 10:24:00 Test Item Value Reference Range Interpretation Comments T-suppressor cells (CD8) as percent of 60.0 % 12.0-35.5 H blood lymphocytes (test code = 3517) [facility] Regionalabsolute [id number] 10:24:00 Test Item Value Reference Range Interpretation Comments absolute CD8 (test code = 900 (unknown unit) 109-797 H 70262) [facility] Healthhepatitis A antibody, [id number] 10:24:00 Test Item Value Reference Range Interpretation Comments hepatitis A antibody, total (test Negative Negative code = 27156-5) [facility] Regionalhepatitis B core antibody, [id number] 10:24:00 Test Item Value Reference Range Interpretation Comments hepatitis B core antibody, total Negative Negative (test code = 07177-7) [facility] Regionalhepatitis B surface [id number] 10:24:00 Test Item Value Reference Range Interpretation Comments hepatitis B surface antigen (test Negative Negative code = 62132-2) [facility] Regionalhepatitis C antibody, [id number] 10:24:00 Test Item Value Reference Range Interpretation Comments hepatitis C antibody, serum (test code <0.1 0.0-0.9 = 76220-8) [facility] RegionalHIV-2 antibodies, western [id number] 10:24:00 Test Item Value Reference Range Interpretation Comments HIV-2 antibodies, western blot (test Negative Negative code = 59936-6) [facility] RegionalHIV-1/HIV-2 Ab, [id number] 10:24:00 Test Item Value Reference Range Interpretation Comments HIV-1/HIV-2 Ab, serum (test code = Positive Negative A 60237-2) [facility] RegionalHIV-CMIA (Chemiluminescent Microparticle Immuno Assay) 2017-04-13 10:24:00 Test Item Value Reference Range Interpretation Comments HIV-CMIA (Chemiluminescent REAALG Non Reactive A Microparticle Immuno Assay) (test code = 80157-0) [facility] Regionaltoxoplasma gondii antibody, [id number] 10:24:00 Test Item Value Reference Range Interpretation Comments toxoplasma gondii antibody, IgG (test <3.0 0.0-7.1 code = 5389-2) [facility] Regionalhepatitis B surface [id number] 10:24:00 Test Item Value Reference Range Interpretation Comments hepatitis B surface antibody Non Reactive (test code = 11898-2) [facility], serum, by PCR, [id number] 10:24:00 Test Item Value Reference Range Interpretation Comments HIV-1RNA, serum, by PCR, 36048 /mL quantitative (test code = 82707-5) [facility] Regionalhuman leukocyte antigen [id number] 10:24:00 Test Item Value Reference Range Interpretation Comments human leukocyte antigen B57 (test Negative code = 875799) [facility] RegionalCD4/CD8 [id number] 10:24:00 Test Item Value Reference Range Interpretation Comments CD4/CD8 ratio (test code 0.41 (unknown unit) 0.92-3.72 L = 93284) [facility] RegionalT-suppressor cells (CD8) as percent of blood lymphocytes 2017-04-13 10:24:00 Test Item Value Reference Range Interpretation Comments T-suppressor cells (CD8) as percent of 60.0 % 12.0-35.5 H blood lymphocytes (test code = 3517) [facility] Regionalabsolute [id number] 10:24:00 Test Item Value Reference Range Interpretation Comments absolute CD8 (test code = 900 (unknown unit) 109-897 H 76878) [facility] Regionalhepatitis C antibody, [id number] 10:24:00 Test Item Value Reference Range Interpretation Comments hepatitis C antibody, serum (test code <0.1 0.0-0.9 = 5199-5) [facility] RegionalNeisseria gonorrhoeae DNA [id number] 10:24:00 Test Item Value Reference Range Interpretation Comments Neisseria gonorrhoeae DNA probe Negative Negative (test code = 27965-9) [facility]
[2023-02-24] MEDS ORDERED: FAMOTIDINE 20 MG/2 ML VIAL IV ONE (17:20)
[2023-02-24] MEDS ORDERED: NA CHLORIDE 0.9% 1,000 ML ONE (17:20)
[2023-02-24] MEDS ORDERED: ONDANSETRON 4 MG/2 ML VIAL ONE (17:20)
[2023-02-24 17:30] LABS: Specific Gravity 1.023 (1.005-1.030); Urine Bacteria None Seen /HPF (<20); Urine Bilirubin NEGATIVE (Negative); Urine Blood Negative (Negative); Urine Clarity Clear (Clear); Urine Color Light-Yellow (Yellow); Urine Glucose NEGATIVE (Negative); Urine Mucus Slight /HPF (None Seen); Urine Protein 1+ (Negative); Urine RBC <5 /HPF (None Seen); Urine Urobilinogen Normal (Normal)
[2023-02-24 17:32] LABS: Absolute Lymphocytes (CBC) 0.9 K/uL (0.7-4.9); Hematocrit 40.1 % (36.0-45.0); Lymphocytes % 13.3 % (15.3-44.8); MCV 96.2 fL (80-100); MPV 7.8 fL (7.6-11.3); Platelets 316 thou/uL (152-406); RBC Red Blood Cell Count 4.17 M/uL (3.86-4.86)
[2023-02-24] MEDS ORDERED: KETOROLAC 30 MG/ML INJ ONE (17:51)
[2023-02-24 18:08] LABS: Albumin 3.8 g/dL (3.4-5.0); Bilirubin Total 0.4 mg/dL (0.2-1.0); Potassium 3.7 mEq/L (3.5-5.1); Protein, Total 8.2 g/dL (6.4-8.2)
--- NOTE | 2023-02-24 18:14 | ER ---
Nurse's Notes [facility] Name: Tana Pérez Age: 62 yrs Sex: Female : 1960 Arrival Date: 02/24/2023 Time: 16:35 Bed 2 Private MD: Diagnosis: Vomiting, unspecified Presentation: 02/24 16:40 Chief complaint: Patient states: Vomiting since this morning, no fever. Coronavirus ld1 screen: At this time, the client does not indicate any symptoms associated with coronavirus-19. Ebola Screen: No symptoms or risks identified at this time. Initial Sepsis Screen: Does the patient meet any 2 criteria? No. Patient's initial sepsis screen is negative. Does the patient have a suspected source of infection? No. Patient's initial sepsis screen is negative. Risk Assessment: Do you want to hurt yourself or someone else? Patient reports no desire to harm self or others. Onset of symptoms was February 24, 2023 at 16:41. 16:40 Method Of Arrival: Ambulatory ld1 16:40 Acuity: JUANITA 4 ld1 Triage Assessment: 16:41 General: Appears in no apparent distress. comfortable, Behavior is calm, cooperative, ld1 appropriate for age. Pain: Denies pain. EENT: No signs and/or symptoms were reported regarding the EENT system. Neuro: Level of Consciousness is awake, alert, obeys commands, Oriented to person, place, time, situation. Cardiovascular: Capillary refill < 3 seconds Patient's skin is warm and dry. Respiratory: Airway is patent Respiratory effort is even, unlabored. GI: Abdomen is round non-distended, Reports vomiting. : No signs and/or symptoms were reported regarding the genitourinary system. Derm: No signs and/or symptoms reported regarding the dermatologic system. Musculoskeletal: No signs and/or symptoms reported regarding the musculoskeletal system. Historical: - Allergies: 16:41 Vistaril; ld1 - PMHx: 16:41 Anxiety; depressive disorder; Diabetes - NIDDM; HIV; Hyperlipidemia; Hypertension; ld1 - PSHx: 16:41 Exploratory laparotomy; hysterectomy; left knee; ld1 - Immunization history:: Adult Immunizations up to date. - Social history:: Smoking status: Patient denies any tobacco usage or history of. Patient/guardian denies using alcohol. Screenin:29 [facility] ED Fall Risk Assessment (Adult) Score/Fall Risk Level 0 - 2 = Low Risk hb Oriented to surroundings, Maintained a safe environment. Abuse screen: Denies threats or abuse. Denies injuries from another. Nutritional screening: No deficits noted. Tuberculosis screening: No symptoms or risk factors identified. Assessment: 17:28 General: Appears in no apparent distress. Behavior is calm, cooperative. Pain: Pain hb currently is 8 out of 10 on a pain scale. Neuro: Level of Consciousness is awake, alert, obeys commands, Oriented to person, place, time, situation. Cardiovascular: Patient's skin is warm and dry. Respiratory: Respiratory effort is even, unlabored, Respiratory pattern is regular, symmetrical. GI: Reports nausea, vomiting. : No signs and/or symptoms were reported regarding the genitourinary system. EENT: No signs and/or symptoms were reported regarding the EENT system. Derm: Skin is pink, warm \T\ dry. Musculoskeletal: Reports body aches. 18:33 Reassessment: Patient appears in no apparent distress at this time. Patient and/or hb family updated on plan of care and expected duration. Pain level reassessed. Patient is alert, oriented x 3, equal unlabored respirations, skin warm/dry/pink. Vital Signs: 16:40 BP 155 / 99; Pulse 87; Resp 18; Temp 98.1(O); Pulse Ox 96% on R/A; Weight 88.45 kg; ld1 Height 5 ft. 2 in. ; Pain 0/10; 17:29 BP 149 / 84; Pulse 86; Resp 16; Pulse Ox 96% on R/A; Pain 8/10; hb 16:40 Body Mass Index 35.67 (88.45 kg, 157.48 cm) ld1 16:40 Pain Scale: Adult ld1 17:29 Pain Scale: Adult hb ED Course: 16:37 Patient arrived in ED. mr 16:41 Triage completed. ld1 16:41 Arm band placed on right wrist. ld1 16:43 Scot Perez PA is PHCP. cp 16:43 Scot Doll MD is Attending Physician. cp 17:20 COVID-19 SARS RT PCR Sent. ko1 17:20 Influenza Screen (a \T\ B) Sent. ko1 17:20 Urinalysis w/ reflexes Sent. ko1 17:25 No provider procedures requiring assistance completed. Inserted saline lock: 20 gauge hb in left antecubital area, using aseptic technique. Blood collected. 17:28 Lizet Merritt, RN is Primary Nurse. hb 17:29 Patient has correct armband on for positive identification. Provided Education on: hb medications, tests, result times. 18:50 IV discontinued, intact, bleeding controlled, No redness/swelling at site. Pressure tm6 dressing applied. Administered Medications: 17:15 Drug: NS 0.9% IV 500 ml IV at 500 ml/hr continuous Route: IV; Rate: 500 ml/hr; Site: hb left antecubital; 18:34 Follow up: Response: No adverse reaction; IV Status: Completed infusion; IV Intake: hb 1000ml 17:40 Drug: Famotidine IVP 20 mg IVP once; dilute with 10 mL 0.9% NaCl; give over 2 minutes hb Route: IVP; Site: left antecubital; 18:33 Follow up: Response: No adverse reaction hb 17:40 Drug: Ondansetron IVP 4 mg IVP once; over 2 minutes Route: IVP; Site: left antecubital; hb 18:33 Follow up: Response: No adverse reaction hb 17:49 Drug: Ketorolac IVP 15 mg IVP once Route: IVP; Site: left antecubital; hb 18:34 Follow up: Response: No adverse reaction hb Medication: 17:29 VIS not applicable for this client. hb Intake: 18:34 IV: 1000ml; Total: 1000ml. hb Outcome: 18:14 Discharge ordered by MD. cp 18:49 Discharged to home ambulatory, tm6 18:49 Condition: stable 18:49 Discharge instructions given to patient, Instructed on discharge instructions, follow up and referral plans. medication usage, Demonstrated understanding of instructions, follow-up care, medications, Prescriptions given X 1, 18:50 Patient left the ED. tm6 Signatures: Vesta Valladares, Reg Reg mr Scot Perez, JANET PA cp Lizet Merritt, RAJI ALEGRIA hb Kay Olivarez RN RN ld1 Yecenia Ambriz RN RN ko1 Carley Sky RN RN tm6 Corrections: (The following items were deleted from the chart) 17:29 17:28 Pain: Pain currently is 6 out of 10 on a pain scale. hb hb
--- NOTE | 2023-02-24 18:15 | EDPHYS ---
Physician Documentation [facility] Name: Tana Pérez Age: 62 yrs Sex: Female : 1960 Arrival Date: 02/24/2023 Time: 16:35 Bed 2 Private MD: ED Physician Scot Doll HPI: 02/24 17:00 This 62 yrs old Black Female presents to ER via Ambulatory with complaints of Vomiting. cp 17:00 The patient presents to the emergency department with vomiting, that is intermittent, 2 cp times today. Possible causes: unknown. Associated signs and symptoms: Pertinent negatives: abdominal pain, constipation, diarrhea, fever, GI bleeding, active vomiting. Severity of symptoms: in the emergency department the symptoms are unchanged despite home interventions. 17:00 Onset: The symptoms/episode began/occurred this morning. cp Historical: - Allergies: 16:41 Vistaril; ld1 - PMHx: 16:41 Anxiety; depressive disorder; Diabetes - NIDDM; HIV; Hyperlipidemia; Hypertension; ld1 - PSHx: 16:41 Exploratory laparotomy; hysterectomy; left knee; ld1 - Immunization history:: Adult Immunizations up to date. - Social history:: Smoking status: Patient denies any tobacco usage or history of. Patient/guardian denies using alcohol. ROS: 17:05 Constitutional: Negative for body aches, chills, fever, cp 17:05 Eyes: Negative for injury, pain, redness, and discharge, cp 17:05 ENT: Negative for drainage from ear(s), ear pain, sore throat, difficulty swallowing, difficulty handling secretions, 17:05 Cardiovascular: Negative for chest pain, palpitations, 17:05 Respiratory: Negative for cough, shortness of breath, wheezing, 17:05 Abdomen/GI: Positive for vomiting, Negative for abdominal pain, diarrhea, constipation, hematemesis, 17:05 Back: Negative for pain at rest, pain with movement, 17:05 : Negative for urinary symptoms, 17:05 Neuro: Negative for altered mental status, dizziness, headache, weakness, 17:05 All other systems are negative, Exam: 17:10 Constitutional: The patient appears in no acute distress, alert, awake, comfortable, cp non-toxic, well developed, well nourished, 17:10 Head/Face: Normocephalic, atraumatic. cp 17:10 Eyes: Periorbital structures: appear normal, Conjunctiva: normal, no exudate, no injection, Sclera: no appreciated abnormality, Lids and lashes: appear normal, bilaterally, 17:10 ENT: External ear(s): are unremarkable, Nose: is normal, Mouth: Lips: moist, Oral mucosa: pink and intact, moist, Posterior pharynx: is normal, airway is patent, no erythema, no exudate, 17:10 Chest/axilla: Inspection: normal, 17:10 Cardiovascular: Rate: normal, Rhythm: regular, 17:10 Respiratory: the patient does not display signs of respiratory distress, Respirations: normal, no use of accessory muscles, no retractions, labored breathing, is not present, Breath sounds: are clear throughout, no decreased breath sounds, no stridor, no wheezing, 17:10 Abdomen/GI: Inspection: abdomen appears normal, Bowel sounds: active, all quadrants, Palpation: soft, in all quadrants, nontender, in all quadrants, 17:10 Back: pain, is absent, ROM is normal, 17:10 Neuro: Orientation: to person, place \T\ time. Mentation: is normal, Motor: moves all fours, strength is normal, Vital Signs: 16:40 BP 155 / 99; Pulse 87; Resp 18; Temp 98.1(O); Pulse Ox 96% on R/A; Weight 88.45 kg; ld1 Height 5 ft. 2 in. ; Pain 0/10; 17:29 BP 149 / 84; Pulse 86; Resp 16; Pulse Ox 96% on R/A; Pain 8/10; hb 16:40 Body Mass Index 35.67 (88.45 kg, 157.48 cm) ld1 16:40 Pain Scale: Adult ld1 17:29 Pain Scale: Adult hb MDM: 16:50 Patient medically screened. joslyn 18:13 Data reviewed: vital signs, nurses notes, lab test result(s). 02/24 16:56 Order name: CBC with Diff; Complete Time: 17:59 cp 02/24 17:59 Interpretation: Normal except: HAY% 80.3; LYM% 13.3. cp 02/24 16:56 Order name: CMP; Complete Time: 18:11 cp 02/24 18:11 Interpretation: Normal except: GLUC 171. cp 02/24 16:56 Order name: Lipase; Complete Time: 18:11 cp 02/24 16:56 Order name: Urinalysis w/ reflexes; Complete Time: 17:59 cp 02/24 16:56 Order name: COVID-19 SARS RT PCR; Complete Time: 17:59 cp 02/24 16:56 Order name: Influenza Screen (a \T\ B); Complete Time: 17:59 cp 02/24 16:56 Order name: IV Saline Lock; Complete Time: 18:32 cp 02/24 16:56 Order name: Labs collected and sent; Complete Time: 18:32 cp 02/24 18:11 Order name: PO challenge; Complete Time: 18:42 cp Administered Medications: 17:15 Drug: NS 0.9% IV 500 ml IV at 500 ml/hr continuous Route: IV; Rate: 500 ml/hr; Site: hb left antecubital; 18:34 Follow up: Response: No adverse reaction; IV Status: Completed infusion; IV Intake: hb 1000ml 17:40 Drug: Famotidine IVP 20 mg IVP once; dilute with 10 mL 0.9% NaCl; give over 2 minutes hb Route: IVP; Site: left antecubital; 18:33 Follow up: Response: No adverse reaction hb 17:40 Drug: Ondansetron IVP 4 mg IVP once; over 2 minutes Route: IVP; Site: left antecubital; hb 18:33 Follow up: Response: No adverse reaction hb 17:49 Drug: Ketorolac IVP 15 mg IVP once Route: IVP; Site: left antecubital; hb 18:34 Follow up: Response: No adverse reaction hb Disposition Summary: 02/24/23 18:14 Discharge Ordered Notes: Location: Home cp Problem: new cp Symptoms: have improved cp Condition: Stable cp Diagnosis - Vomiting, unspecified cp Followup: cp - With: Private Physician - When: 2 - 3 days - Reason: Recheck today's complaints Discharge Instructions: - Discharge Summary Sheet cp - Vomiting, Adult cp Forms: - Medication Reconciliation Form cp - Thank You Letter cp - Antibiotic Education cp - Prescription Opioid Use cp - Patient Portal Instructions cp - Leadership Thank You Letter cp Prescriptions: - Zofran 4 mg Oral Tablet - take 1 tablet ORAL route every 12 hours As needed; 20 tablet; Refills: 0, cp Product Selection Permitted Signatures: Dispatcher [employer] Scot Gonzalez MD MD cha Page, Corey, Lizet Newell cp, RN RN Kay Olivarez RN RN ld1
[2023-02-24 19:23] VITALS: TEMP 98.1; O2SAT 96
[2023-02-24 19:26] VITALS: BP 149/84
== END 2023-02-24 18:50 | disposition home or self-care (01) ==
LOC: ER 16:35
DX: R11.10 Vomiting, unspecified (principal); Z11.52 Encounter for screening for COVID-19; Z88.8 Allergy status to other drugs, medicaments and biological substances
CPT/HCPCS: 96361; 85025; 81001; 36415; 83690; 80053; 87635; 87804 ×2; 96375; 96374; 99284; J2405; J7030

== ENCOUNTER → 2023-04-29 | Emergency (ER) | payer BC ==
--- NOTE | 2023-04-29 21:48 | RAD REPORT ---
EXAM DESCRIPTION: RAD - Chest Pa And Lat (2 Views) - 04/29/2023 9:30 pm CLINICAL HISTORY: coughing after inhaling bleach COMPARISON: Chest Pa And Lat (2 Views) dated 05/14/2022; Chest Pa And Lat (2 Views) dated 11/01/2020 FINDINGS: Lines: None. Lungs: No evidence of edema or pneumonia. Pleural: No significant pleural effusions or pneumothorax. Cardiac: The heart size is within normal limits. Mediastinum: Within normal limits. Bones: No acute fractures. Other: None IMPRESSION: No acute cardiopulmonary disease.
--- NOTE | 2023-04-29 21:57 | EDPHYS ---
Physician Documentation [facility] Name: Tana Pérez Age: 62 yrs Sex: Female : 1960 Arrival Date: 04/29/2023 Time: 19:33 Bed 17 Private MD: ED Physician Hakan Olivarez HPI: 04/29 21:26 This 62 yrs old Black Female presents to ER via Ambulatory with complaints of cough. ms3 21:26 62-year-old female with past medical history of anxiety, depression, diabetes, HIV, ms3 hyperlipidemia, hypertension presents to the emergency department for cough and sore throat that began after pouring bleach into her drain. 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 Patient states then she began coughing. Patient notes she did throw up on her way home from her daughter's house and has had wheezing. Patient denies any alleviating or inciting factors. Historical: - Allergies: 20:00 Vistaril; me1 - PMHx: 20:00 Anxiety; depressive disorder; Diabetes - NIDDM; HIV; Hyperlipidemia; Hypertension; me1 - PSHx: 20:00 Exploratory laparotomy; left knee; hysterectomy; me1 - Immunization history:: Adult Immunizations up to date. - Social history:: Smoking status: Patient denies any tobacco usage or history of. ROS: 21:26 Constitutional: Negative for fever, and chills. Neck: Negative for injury, pain, and ms3 swelling, Cardiovascular: Negative for chest pain, and palpitations. Abdomen/GI: Negative for abdominal pain, nausea, vomiting, diarrhea, and constipation, MS/Extremity: Negative for injury and deformity, 21:26 Neuro: Negative for headache, weakness, numbness, tingling. 21:26 Respiratory: Positive for cough, 21:26 All other systems are negative, Exam: 21:26 Constitutional: This is a well developed, well nourished patient who is awake, alert, ms3 and in no acute distress. Head/Face: Normocephalic, atraumatic. Neck: Trachea midline, no cervical lymphadenopathy. Supple, full range of motion without nuchal rigidity, or vertebral point tenderness. No Meningismus. Chest/axilla: Normal chest wall appearance and motion. Nontender with no deformity. Cardiovascular: Regular rate and rhythm with a normal S1 and S2. No gallops, murmurs, or rubs. Normal PMI, no JVD. No pulse deficits. Respiratory: Lungs have equal breath sounds bilaterally, clear to auscultation and percussion. No rales, rhonchi or wheezes noted. No increased work of breathing, no retractions or nasal flaring. Abdomen/GI: Soft, non-tender, with normal bowel sounds. No distension or tympany. No guarding or rebound. No evidence of tenderness throughout. Skin: Warm, dry with normal turgor. Normal color with no rashes, no lesions, and no evidence of cellulitis. MS/ Extremity: Pulses equal, no cyanosis. Neurovascular intact. Full, normal range of motion. Vital Signs: 20:00 BP 148 / 82; Pulse 87; Resp 19; Pulse Ox 98% on R/A; me1 20:01 BP 148 / 82; Pulse 83; Resp 18; Pulse Ox 100% on R/A; Pain 5/10; tl4 21:00 BP 106 / 64; Pulse 84; Resp 18; Pulse Ox 98% on R/A; me1 21:00 BP 148 / 88; Pulse 89; Resp 18; Pulse Ox 98% on R/A; me1 20:01 Pain Scale: Adult tl4 MDM: 19:43 Patient medically screened. ms3 21:26 Differential Diagnosis: Bronchitis Upper Respiratory Infection Pneumonia. ms3 21:56 Data reviewed: vital signs, nurses notes, and as a result, I will discharge patient. ms3 Counseling: I had a detailed discussion with the patient and/or guardian regarding the historical points, exam findings, and any diagnostic results supporting the discharge/admit diagnosis, radiology results, the need for outpatient follow up, to return to the emergency department if symptoms worsen or persist or if there are any questions or concerns that arise at home. Special discussion: I discussed with the patient/guardian in detail that at this point there is no indication for admission to the hospital. It is understood, however, that if the symptoms persist or worsen the patient needs to return immediately for re-evaluation. ED course: Discussed chest x-ray findings with patient. Patient to follow-up with primary care physician in 2 to 3 days. Patient understands agrees to plan. All questions were answered. Return precautions discussed include worsening symptoms, or any other concerns.. 04/29 20:09 Order name: Chest Pa And Lat (2 Views) XRAY; Complete Time: 21:56 ms3 Administered Medications: No medications were administered Disposition Summary: 04/29/23 21:56 Discharge Ordered Notes: Location: Home ms3 Condition: Stable ms3 Diagnosis - Cough ms3 Followup: ms3 - With: Faheem Segundo DO - When: 2 - 3 days - Reason: Recheck today's complaints Discharge Instructions: - Discharge Summary Sheet ms3 - Cough, Adult ms3 Forms: - Medication Reconciliation Form ms3 - Thank You Letter ms3 - Antibiotic Education ms3 - Prescription Opioid Use ms3 - Patient Portal Instructions ms3 - Leadership Thank You Letter ms3 Prescriptions: - Tessalon Perles 100 mg Oral Capsule - take 1 capsule ORAL route every 8 hours As needed; 15 capsule; Refills: 0, ms3 Product Selection Permitted Signatures: Dispatcher [employer] EDHakan Msua, DO ms3 Clementina Rangel, RN RN me1
--- NOTE | 2023-04-29 21:57 | ER ---
Nurse's Notes [facility] Name: Tana Pérez Age: 62 yrs Sex: Female : 1960 Arrival Date: 04/29/2023 Time: 19:33 Bed 17 Private MD: Diagnosis: Cough Presentation: 04/29 20:01 Chief complaint: Patient states: Pt c/o painful cough, nausea, vomiting after being tl4 exposed to fumes after she poured chlorine bleach into drain after using draino type product. Coronavirus screen: Vaccine status: Patient reports receiving the 2nd dose of the covid vaccine. Ebola Screen: Patient negative for fever greater than or equal to 101.5 degrees Fahrenheit, and additional compatible Ebola Virus Disease symptoms Patient denies exposure to infectious person. Patient denies travel to an Ebola-affected area in the 21 days before illness onset. No symptoms or risks identified at this time. Initial Sepsis Screen: Does the patient meet any 2 criteria? No. Patient's initial sepsis screen is negative. Does the patient have a suspected source of infection? No. Patient's initial sepsis screen is negative. Risk Assessment: Do you want to hurt yourself or someone else? Patient reports no desire to harm self or others. Onset of symptoms was April 29, 2023. 20:01 Method Of Arrival: Ambulatory tl4 20:01 Acuity: JUANITA 3 tl4 Triage Assessment: 20:04 General: Appears in no apparent distress. Behavior is calm, cooperative. Pain: tl4 Complains of pain in chest. EENT: No signs and/or symptoms were reported regarding the EENT system. Neuro: No deficits noted. Cardiovascular: No deficits noted. Respiratory: Reports shortness of breath cough that is. GI: No signs and/or symptoms were reported involving the gastrointestinal system. : No signs and/or symptoms were reported regarding the genitourinary system. Historical: - Allergies: 20:00 Vistaril; me1 - PMHx: 20:00 Anxiety; depressive disorder; Diabetes - NIDDM; HIV; Hyperlipidemia; Hypertension; me1 - PSHx: 20:00 Exploratory laparotomy; left knee; hysterectomy; me1 - Immunization history:: Adult Immunizations up to date. - Social history:: Smoking status: Patient denies any tobacco usage or history of. Screenin:00 [facility] ED Fall Risk Assessment (Adult) History of falling in the last 3 months, me1 including since admission No falls in past 3 months (0 pts) Confusion or Disorientation No (0 pts) Intoxicated or Sedated No (0 pts) Impaired Gait No (0 pts) Mobility Assist Device Used No (0 pt) Altered Elimination No (0 pt) Score/Fall Risk Level 0 - 2 = Low Risk Maintained a safe environment, Provided non-skid footwear, Hourly rounding (assess needs \T\ fall precautionary measures) done. Abuse screen: Denies threats or abuse. Nutritional screening: No deficits noted. Tuberculosis screening: No symptoms or risk factors identified. Assessment: 19:57 General: Appears uncomfortable, well groomed, well developed, well nourished, Behavior me1 is calm, cooperative, appropriate for age, Reports coughing and stinging to nares and throat after exposure to chemicals. Patient had put drano in a clogged drain yesterday and then today poured bleach in the sink causing a chemical reaction that made the patient cough. Pain: Denies pain. Neuro: Level of Consciousness is awake, alert, obeys commands, Oriented to person, place, time, situation, Appropriate for age. Cardiovascular: Capillary refill < 3 seconds Patient's skin is warm and dry. Respiratory: Airway is patent Respiratory effort is even, unlabored, Respiratory pattern is regular, symmetrical. Respiratory: Reports cough that is dry, coughing and stinging to nares and throat after exposure to chemicals. Patient had put drano in a clogged drain yesterday and then today poured bleach in the sink causing a chemical reaction that made the patient cough. Vital Signs: 20:00 BP 148 / 82; Pulse 87; Resp 19; Pulse Ox 98% on R/A; me1 20:01 BP 148 / 82; Pulse 83; Resp 18; Pulse Ox 100% on R/A; Pain 5/10; tl4 21:00 BP 106 / 64; Pulse 84; Resp 18; Pulse Ox 98% on R/A; me1 21:00 BP 148 / 88; Pulse 89; Resp 18; Pulse Ox 98% on R/A; me1 20:01 Pain Scale: Adult tl4 ED Course: 19:39 Patient arrived in ED. tl4 19:41 Hakan Olivarez DO is Attending Physician. ms3 19:41 Clementina Rangel, RN is Primary Nurse. me1 20:00 Patient has correct armband on for positive identification. Bed in low position. Call me1 light in reach. Side rails up X2. Provided Education on: POC. Verbalized understanding. . 20:00 No provider procedures requiring assistance completed. me1 20:04 Triage completed. tl4 20:04 Arm band placed on Patient placed in an exam room, on a stretcher. tl4 21:31 Chest Pa And Lat (2 Views) XRAY In Process Unspecified. EDMS 21:56 Faheem Segundo DO is Referral Physician. ms3 22:04 Patient did not have IV access during this emergency room visit. me1 Administered Medications: No medications were administered Medication: 20:00 VIS not applicable for this client. me1 Outcome: 21:56 Discharge ordered by MD. ms3 22:04 Discharged to home ambulatory, me1 22:04 Condition: stable 22:04 Discharge instructions given to patient, Instructed on discharge instructions, follow up and referral plans. medication usage, Demonstrated understanding of instructions, follow-up care, medications, Prescriptions given X 1, 22:05 Patient left the ED. me1 Signatures: Dispatcher [employer] EDMD Hakan Olivarez DO DO ms3 Clementina Rangel, RN RN me1 Eliazar Davis tl4 Corrections: (The following items were deleted from the chart) 21:59 21:19 BP 106 / 64; Pulse 84bpm; Resp 18bpm; Pulse Ox 98% RA; me1 me1
[2023-04-29 23:13] VITALS: BP 148/88; O2SAT 98
== END ==
LOC: ER 19:33
DX: R05.9 Cough, unspecified (principal); I10 Essential (primary) hypertension; Z21 Asymptomatic human immunodeficiency virus [HIV] infection status; Z88.8 Allergy status to other drugs, medicaments and biological substances
CPT/HCPCS: 71046; 99283

== ENCOUNTER 2024-06-08 03:55 | Emergency (ER) | payer BC ==
[2024-06-08 04:46] LABS: Influenza A Ag Negative; Influenza B Ag Negative; SARS-CoV-2 Antigen Rapid Res Negative (Negative)
--- NOTE | 2024-06-08 04:49 | EDPHYS ---
Physician Documentation [facility] Name: Tana Pérez Age: 64 yrs Sex: Female : 1960 Arrival Date: 06/08/2024 Time: 03:55 Bed 6 Private MD: ED Physician Lam Segundo HPI: 06/08 04:18 This 64 yrs old Black Female presents to ER via Ambulatory with complaints of Cough, sp3 Congestion, Shortness Of Breath. 04:18 64-year-old female with a history of diabetes, hyperlipidemia, hypertension, HIV with sp3 undetectable viral load now presents to the ED with chief complaint cough and congestion for 2 to 3 days. 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 She denies any fever, headache, chest pain, significant shortness of breath, abdominal pain, vomiting, diarrhea, rash, bleeding, syncope, near syncope, or any other signs or symptoms on ROS at this time.. Historical: - Allergies: 04:14 Vistaril; al5 - PMHx: 04:14 Anxiety; depressive disorder; Diabetes - NIDDM; HIV; Hyperlipidemia; Hypertension; al5 - PSHx: 04:14 Exploratory laparotomy; hysterectomy; left knee; al5 - Immunization history:: Adult Immunizations up to date, Flu vaccine is not up to date. It has been more than one year since last vaccine. - Infectious Disease History:: Denies. - Social history:: Smoking status: Patient denies any tobacco usage or history of. ROS: 04:19 Constitutional: Negative for fever, chills, and weight loss, Eyes: Negative for injury, sp3 pain, redness, and discharge, Neck: Negative for injury, pain, and swelling, Cardiovascular: Negative for chest pain, palpitations, and edema, Abdomen/GI: Negative for abdominal pain, nausea, vomiting, diarrhea, and constipation, Back: Negative for injury and pain, MS/Extremity: Negative for injury and deformity, Skin: Negative for injury, rash, and discoloration, Neuro: Negative for headache, weakness, numbness, tingling, and seizure, Psych: Negative for depression, anxiety, suicide ideation, homicidal ideation, and hallucinations, Allergy/Immunology: Negative for hives, rash, and allergies, Endocrine: Negative for neck swelling, polydipsia, polyuria, polyphagia, and marked weight changes, Hematologic/Lymphatic: Negative for swollen nodes, abnormal bleeding, and unusual bruising, 04:19 All other systems are negative, Exam: 04:19 Constitutional: This is a well developed, well nourished patient who is awake, alert, sp3 and in no acute distress. Head/Face: Normocephalic, atraumatic. Eyes: Pupils equal round and reactive to light, extra-ocular motions intact. Lids and lashes normal. Conjunctiva and sclera are non-icteric and not injected. Cornea within normal limits. Periorbital areas with no swelling, redness, or edema. ENT: Nares patent. No nasal discharge, no septal abnormalities noted. External auditory canals are clear. Oropharynx with no redness, swelling, or masses, exudates, or evidence of obstruction, uvula midline. Mucous membranes moist. Neck: Trachea midline, no thyromegaly or masses palpated, and no cervical lymphadenopathy. Supple, full range of motion without nuchal rigidity, or vertebral point tenderness. No Meningismus. Chest/axilla: Normal chest wall appearance and motion. Nontender with no deformity. No lesions are appreciated. Cardiovascular: Regular rate and rhythm with a normal S1 and S2. No gallops, murmurs, or rubs. Normal PMI, no JVD. No pulse deficits. Abdomen/GI: Soft, non-tender, with normal bowel sounds. No distension or tympany. No guarding or rebound. No evidence of tenderness throughout. Back: No spinal tenderness. No costovertebral tenderness. Full range of motion. Skin: Warm, dry with normal turgor. Normal color with no rashes, no lesions, and no evidence of cellulitis. MS/ Extremity: Pulses equal, no cyanosis. Neurovascular intact. Full, normal range of motion. Neuro: Awake and alert, GCS 15, oriented to person, place, time, and situation. Cranial nerves II-XII grossly intact. Motor strength 5/5 in all extremities. Sensory grossly intact. Cerebellar exam normal. Normal gait. Psych: Awake, alert, with orientation to person, place and time. Behavior, mood, and affect are within normal limits. 04:19 Respiratory: Mild cough noted. Nonproductive., Vital Signs: 04:13 BP 137 / 78; Pulse 92; Resp 18; Temp 97.8; Pulse Ox 99% ; Weight 97.52 kg; Height 5 ft. al5 2 in. ; 04:30 BP 142 / 88; Pulse 86; Resp 18; Pulse Ox 98% on R/A; al5 04:13 Body Mass Index 39.32 (97.52 kg, 157.48 cm) al5 MDM: 04:04 Medical Screening Exam initiated sp3 04:19 Data reviewed: vital signs, nurses notes, old medical records, lab test result(s), sp3 radiologic studies. ED course: 64-year-old female with PMH above now with upper respiratory type infection symptoms. Differential diagnosis includes viral illness, COVID-19, influenza, bronchitis, pneumonia, among others. Workup with chest x-ray and viral swabs. Vital signs are normal and pulse oxygenation is 99% on room air. Patient has no work of breathing and is in no acute distress. If workup negative we will safely discharge patient home on Tessalon Perles. Otherwise any indicated medications will be started and probable discharge as well.. 04:47 ED course: Mild hazy opacity right lower lobe noted. Given HIV status, we will give sp3 Zithromax, inhaler and Tessalon to go home on.. 06/08 04:04 Order name: COVID-19 Ag + Flu A+B Ag; Complete Time: 04:47 sp3 06/08 04:12 Order name: CXR XRAY sp3 Administered Medications: No medications were administered Disposition Summary: 06/08/24 04:48 Discharge Ordered Notes: Location: Home sp3 Condition: Stable sp3 Diagnosis - Upper respiratory infection, possible pneumonia sp3 Followup: sp3 - With: Private Physician - When: Upon discharge from the Emergency Department - Reason: Continuance of care Discharge Instructions: - Discharge Summary Sheet sp3 - Community-Acquired Pneumonia, Adult sp3 Forms: - Medication Reconciliation Form sp3 - Antibiotic Education sp3 - Prescription Opioid Use sp3 - Patient Portal Instructions sp3 - Leadership Thank You Letter sp3 - Work release form al5 Prescriptions: - albuterol sulfate 90 mcg/actuation Inhalation HFA Aerosol Inhaler - inhale 2 puff INHALATION route every 4 hours as needed for shortness of breath sp3 or wheezing; 1 Applicator; Refills: 0, Product Selection Permitted - Tessalon Perles 100 mg Oral Capsule - take 1 capsule ORAL route every 8 hours As needed; 15 capsule; Refills: 0, sp3 Product Selection Permitted - Zithromax Z-Francesco 250 mg Oral Tablet - take 1 tablet ORAL route as directed for 5 days Day 1 - take two (2) tablets sp3 one time. Day 2, 3, 4 , 5 take one (1) tablet once daily.; 6 tablet; Refills: 0, Product Selection Permitted Signatures: Dispatcher [employer] Lam Walker MD MD sp3 Silvia Good RN RN al5
--- NOTE | 2024-06-08 04:49 | ER ---
Nurse's Notes [facility] Name: Tana Pérez Age: 64 yrs Sex: Female : 1960 Arrival Date: 06/08/2024 Time: 03:55 Bed 6 Private MD: Diagnosis: Upper respiratory infection, possible pneumonia Presentation: 06/08 04:13 Chief complaint: Patient states: nasal congestion, fatigue, headache, feeling hot, al5 along with cough since Sunday afternoon. Coronavirus screen: congestion, cough unrelated to allergies, fatigue, headache, runny nose. Ebola Screen: No symptoms or risks identified at this time. Resp Distress? No respiratory distress is noted at this time. Initial Sepsis Screen: Does the patient meet any 2 criteria? HR > 90 bpm. No. Patient's initial sepsis screen is negative. Does the patient have a suspected source of infection? No. Patient's initial sepsis screen is negative. Risk Assessment: Do you want to hurt yourself or someone else? Patient reports no desire to harm self or others. Onset of symptoms was June 06, 2024. 04:13 Method Of Arrival: Ambulatory al5 04:13 Acuity: JUANITA 4 al5 Triage Assessment: 04:15 General: Appears in no apparent distress. Behavior is calm, cooperative. Pain: al5 Complains of pain in generalized. EENT: Reports nasal congestion nasal discharge. Neuro: Level of Consciousness is awake, alert, obeys commands, Oriented to person, place, time, situation. Cardiovascular: Capillary refill < 3 seconds Patient's skin is warm and dry. Respiratory: Reports cough that is persistent Airway is patent Respiratory effort is even, unlabored, Respiratory pattern is regular, symmetrical. GI: No signs and/or symptoms were reported involving the gastrointestinal system. : No signs and/or symptoms were reported regarding the genitourinary system. Derm: Skin is intact, is healthy with good turgor, Skin is pink, warm \T\ dry. normal. Musculoskeletal: No signs and/or symptoms reported regarding the musculoskeletal system. Historical: - Allergies: 04:14 Vistaril; al5 - PMHx: 04:14 Anxiety; depressive disorder; Diabetes - NIDDM; HIV; Hyperlipidemia; Hypertension; al5 - PSHx: 04:14 Exploratory laparotomy; hysterectomy; left knee; al5 - Immunization history:: Adult Immunizations up to date, Flu vaccine is not up to date. It has been more than one year since last vaccine. - Infectious Disease History:: Denies. - Social history:: Smoking status: Patient denies any tobacco usage or history of. Screenin:16 [facility] ED Fall Risk Assessment (Adult) History of falling in the last 3 months, al5 including since admission No falls in past 3 months (0 pts) Confusion or Disorientation No (0 pts) Intoxicated or Sedated No (0 pts) Impaired Gait No (0 pts) Mobility Assist Device Used No (0 pt) Altered Elimination No (0 pt) Score/Fall Risk Level 0 - 2 = Low Risk Oriented to surroundings, Maintained a safe environment, Hourly rounding (assess needs \T\ fall precautionary measures) done. Abuse screen: Denies threats or abuse. Denies injuries from another. Nutritional screening: No deficits noted. Tuberculosis screening: No symptoms or risk factors identified. Assessment: 04:16 Reassessment: see triage assessment. al5 Vital Signs: 04:13 BP 137 / 78; Pulse 92; Resp 18; Temp 97.8; Pulse Ox 99% ; Weight 97.52 kg; Height 5 ft. al5 2 in. ; 04:30 BP 142 / 88; Pulse 86; Resp 18; Pulse Ox 98% on R/A; al5 04:13 Body Mass Index 39.32 (97.52 kg, 157.48 cm) al5 ED Course: 03:59 Patient arrived in ED. gm2 04:04 Lam Segundo MD is Attending Physician. sp3 04:05 Susana Ken RN is Primary Nurse. ay 04:14 Triage completed. al5 04:16 Arm band placed on right wrist. Patient placed in the treatment room, on a stretcher, al5 on pulse oximetry. 04:16 Patient has correct armband on for positive identification. Bed in low position. Call al5 light in reach. Side rails up X 1. Provided Education on: plan of care. 04:16 No provider procedures requiring assistance completed. al5 04:17 Silvia Good, RAJI is Primary Nurse. al5 04:38 CXR XRAY In Process Unspecified. EDMS 04:57 Patient did not have IV access during this emergency room visit. al5 Administered Medications: No medications were administered Medication: 04:16 VIS not applicable for this client. al5 Outcome: 04:48 Discharge ordered by . sp3 04:57 Discharged to home ambulatory, al5 04:57 Condition: good 04:57 Discharge instructions given to patient, Instructed on discharge instructions, follow up and referral plans. medication usage, Demonstrated understanding of instructions, follow-up care, medications, Prescriptions given X 3, 04:57 Patient left the ED. al5 Signatures: Dispatcher [employer] EDMS Lam Segundo MD MD sp3 Michelle Hillman 2 Silvia Good, RN RN al5 Susana Ken RN RN ay
[2024-06-08 05:03] VITALS: TEMP 97.8
[2024-06-08 05:05] VITALS: BP 142/88; O2SAT 98
--- NOTE | 2024-06-08 08:51 | RAD REPORT ---
EXAM DESCRIPTION: Chest Single View CLINICAL HISTORY: COUGH COMPARISON: None TECHNIQUE: Single AP view of the chest. FINDINGS: Lung volumes adequate. Cardiac silhouette is normal in size. No pneumothorax. No large pleural effusion. No focal consolidation. No acute bony finding. IMPRESSION: No evidence of acute cardiopulmonary disease. Electronically signed by: Brenda Calero MD 06/08/2024 06:38 AM AIR SUPPORT CONTROL OFFICER [id number] Due to temporary technical issues with the PACS/[employer] reporting system, reports are being sandro d by the in-house radiologist without review as a courtesy to ensure prompt reporting. The interpreting radiologist is fully responsible for the content of the report. Transcribed Date/Time: 06/08/2024 8:51 AM
== END 2024-06-08 04:57 | disposition home or self-care (01) ==
LOC: ER 03:55
DX: J06.9 Acute upper respiratory infection, unspecified (principal); Z21 Asymptomatic human immunodeficiency virus [HIV] infection status; Z11.52 Encounter for screening for COVID-19
CPT/HCPCS: 36415; 71045; 87428; 99283

== ENCOUNTER 2024-06-11 05:51 | Emergency (ER) | payer BC ==
[2024-06-11] MEDS ORDERED: KETOROLAC 30 MG/ML INJ ONE (07:58)
[2024-06-11] MEDS ORDERED: ACETAMINOPHEN 500 MG TAB ONE (07:58)
[2024-06-11] MEDS ORDERED: GUAIFENESIN/DM 5 ML UCUP ONE (07:59)
[2024-06-11] MEDS ORDERED: METOCLOPRAMIDE 10 MG/2mL INJ ONE (07:59)
[2024-06-11] MEDS ORDERED: DIPHENHYDRAMINE 50 MG/ML VIAL ONE (07:59)
[2024-06-11] MEDS ORDERED: NA CHLORIDE 0.9% 1,000 ML ONE (07:59)
[2024-06-11] MEDS ORDERED: BENZONATATE 100 MG CAP PO ONE (07:59)
--- NOTE | 2024-06-11 07:59 | RAD REPORT ---
EXAMINATION: ONE VIEW CHEST XR CLINICAL INDICATION: Female, 64 years old.,CHEST PAIN TECHNIQUE: Frontal chest projection is submitted. Examination is limited by patient positioning and t echnique. COMPARISON: 06/08/2024 FINDINGS: The lungs are well inflated and clear. No pneumothorax or sizable effusion. The heart is normal in s ize. Mediastinal contours are unremarkable. IMPRESSION: No acute intrathoracic abnormalities.
[2024-06-11 08:34] LABS: Absolute Eosinophils 0.1 K/uL (0-0.5); Absolute Lymphocytes (CBC) 1.5 K/uL (0.7-4.9); Absolute Monocytes 0.3 K/uL (0.1-1.3); Absolute Neutrophil 1.2 K/uL (1.8-8.0); Basophils % 0.9 % (0-1.3); Eosinophils % 3.1 % (0-4.4); Hematocrit 40.8 % (36.0-45.0); Hemoglobin 13.5 g/dL (12.0-15.0); Lymphocytes % 48.3 % (15.3-44.8); MCH 31.9 pg (27.0-35.0); MCV 96.5 fL (80-100); Monocytes % 10.1 % (3.3-12.3); Neutrophils % 37.6 % (41.7-73.7); Nucleated Red Blood Cells % 0.2 % (0-0); Platelets 292 thou/uL (152-406); RBC Red Blood Cell Count 4.23 M/uL (3.86-4.86); Red Cell Distribution Width 13.7 % (12.1-15.2)
[2024-06-11 08:53] LABS: ALT/SGPT 27 U/L (13-56); AST/SGOT 16 U/L (15-37); Albumin 3.8 g/dL (3.4-5.0); Albumin/Globulin Ratio 0.9 (1.1-1.8); Alkaline Phosphatase 95 U/L (45-117); Anion Gap 6.9 mEq/L (5.0-15.0); BUN Blood Urea Nitrogen 13 mg/dL (7-18); Bicarbonate 30 mEq/L (21-32); Bilirubin Total 0.3 mg/dL (0.2-1.0); Globulin 4.2 g/dL (2.3-3.5); Glomerular Filtration Rate 81 ml/min (=/>90); Glucose Level 147 mg/dL (74-106); NT PRO-BNP 8 pg/mL (<125); Potassium 3.9 mEq/L (3.5-5.1); Sodium Level 139 mEq/L (136-145)
[2024-06-11 08:54] LABS: Bilirubin Direct < 0.2 mg/dL (0-0.2); Bilirubin Indirect, Calculated 0.1 mg/dL (0.2-0.8)
[2024-06-11 08:55] LABS: Influenza A Ag Negative; Influenza B Ag Negative; SARS-CoV-2 Antigen Rapid Res Negative (Negative)
--- NOTE | 2024-06-11 11:02 | EKG ---
Test Date: 2024-06-11 Test Time: 07:28:50 [place] Farmer: [place] MEASUREMENT RESULTS: Intervals: Rate: 74 DC: 152 QRSD: 78 QT: 384 QTc: 426 [place]: P: 51 DC: 152 QRS: 21 T: 35 INTERPRETIVE STATEMENTS: Normal sinus rhythm Minimal voltage criteria for LVH, may be normal variant Borderline ECG No previous ECG available for comparison Electronically Signed On 06-11-24 11:01:43 GENETIC COORDINATOR by Gavin Mesa
[2024-06-11] MEDS ORDERED: CEFTRIAXONE 1000 MG/VIAL ONE (12:55)
[2024-06-11] MEDS ORDERED: predniSONE 20 MG TAB ONE (12:55)
[2024-06-11] MEDS ORDERED: METHYLPREDNISOLONE 125 MG INJ ONE (12:55)
[2024-06-11] MEDS ORDERED: AZITHROMYCIN 250 MG TAB ONE (12:55)
--- NOTE | 2024-06-11 13:00 | EDPHYS ---
Physician Documentation [facility] Name: Tana Pérez Age: 64 yrs Sex: Female : 1960 Arrival Date: 06/11/2024 Time: 05:51 Bed 18 Private MD: ED Physician Scot Doll HPI: 06/11 06:20 This 64 yrs old Black Female presents to ER via Unassigned with complaints of Cough, sp4 Headache, Congestion. 07:40 62-year-old black female presents to the ER via unassigned with complaint cough sp4 headache worsening congestion.. Historical: - Allergies: 06:28 Vistaril; aa10 - PMHx: 06:28 Anxiety; depressive disorder; Diabetes - NIDDM; HIV; Hyperlipidemia; Hypertension; aa10 - PSHx: 06:28 Exploratory laparotomy; hysterectomy; left knee; aa10 - Immunization history:: Adult Immunizations up to date. - Infectious Disease History:: Denies. - Social history:: Smoking status: unknown. - Family history:: not pertinent. ROS: 07:40 Constitutional: Negative for fever, chills, and weight loss, positive cough, positive sp4 headache, positive congestion 07:40 All other systems are negative, Exam: 07:40 Constitutional: This is a well developed, well nourished patient who is awake, alert, sp4 and in no acute distress. Head/Face: Normocephalic, atraumatic. Eyes: Pupils equal round and reactive to light, extra-ocular motions intact. Lids and lashes normal. Conjunctiva and sclera are not injected. Cornea within normal limits. Periorbital areas with no swelling, redness, or edema. ENT: Nares patent. No nasal discharge, no septal abnormalities noted. Tympanic membranes are normal and external auditory canals are clear. Oropharynx with no redness, swelling, or masses, exudates, or evidence of obstruction, uvula midline. Mucous membranes moist. Neck: Trachea midline, no thyromegaly or masses palpated, and no cervical lymphadenopathy. Supple, full range of motion without nuchal rigidity, or vertebral point tenderness. Chest/axilla: Normal chest wall appearance and motion. Nontender with no deformity. No lesions are appreciated. Cardiovascular: Regular rate and rhythm with a normal S1 and S2. No gallops, murmurs, or rubs. Normal PMI, no JVD. No pulse deficits. Respiratory: Lungs have equal breath sounds bilaterally, clear to auscultation and percussion. No rales, rhonchi or wheezes noted. No increased work of breathing, no retractions or nasal flaring. Abdomen/GI: Soft, with normal bowel sounds. No distension or tympany. No guarding or rebound. No evidence of tenderness throughout. Back: No spinal tenderness. No costovertebral tenderness. Skin: Warm, dry with normal turgor. Normal color with no rashes, no lesions, and no evidence of cellulitis. MS/ Extremity: Pulses equal, no cyanosis. Neurovascular intact. Full, normal range of motion. Neuro: Awake and alert, GCS 15, oriented to person, place, time, and situation. Cranial nerves II-XII grossly intact. Motor strength 5/5 in all extremities. Sensory grossly intact. Psych: Awake, alert, with orientation to person, place and time. Behavior, mood, and affect are within normal limits 07:40 ECG was reviewed by the Attending Physician. EKG at 0 728 sinus rhythm rate 74 otherwise normal, Vital Signs: 06:22 BP 140 / 118; Pulse 78; Resp 20; Temp 98.1; Pulse Ox 96% on R/A; aa10 06:30 BP 140 / 118; Pulse 80; Resp 22; Temp 98.1; Pulse Ox 96% on R/A; aa10 08:40 BP 140 / 93; Pulse 74; Resp 18; Pulse Ox 97% on R/A; ld1 08:40 Temp 98.2(O); ld1 10:26 BP 127 / 72; Pulse 78; Resp 18; Pulse Ox 100% on R/A; ld1 12:07 BP 114 / 60; Pulse 73; Resp 18; Pulse Ox 98% on R/A; ld1 [place] Coma Score: 07:28 Eye Response: spontaneous(4). Motor Response: obeys commands(6). Verbal Response: sp4 oriented(5). Total: 15. MDM: 06:26 Medical Screening Exam initiated sp4 07:42 Differential Diagnosis: Obstructed Airway Bronchitis Influenza Upper Respiratory sp4 Infection Sinusitis. Data reviewed: vital signs, nurses notes, lab test result(s), EKG, radiologic studies, plain films. Transition of care: After a detail discussion of the patient's case, care is transferred to Scot Doll MD. 07:43 Consideration of Admission/Observation Escalation of care including sp4 admission/observation considered. 06/11 06:18 Order name: COVID-19 Ag + Flu A+B Ag; Complete Time: 12:41 sp4 06/11 06:20 Order name: Basic Metabolic Panel; Complete Time: 12:41 sp4 06/11 06:20 Order name: CBC with Diff; Complete Time: 12:41 sp4 06/11 06:20 Order name: LFT's; Complete Time: 12:41 sp4 06/11 06:20 Order name: NT PRO-BNP; Complete Time: 12:41 sp4 06/11 06:25 Order name: Blood Culture Adult (2) sp4 06/11 06:20 Order name: XRAY Chest (1 view); Complete Time: 12:41 sp4 06/11 06:20 Order name: Cardiac monitoring; Complete Time: 07:27 sp4 06/11 06:20 Order name: EKG - Nurse/Tech; Complete Time: 07:27 sp4 06/11 06:20 Order name: IV Saline Lock; Complete Time: 08:28 sp4 06/11 06:20 Order name: Labs collected and sent; Complete Time: 08:28 sp4 06/11 06:20 Order name: O2 Per Protocol; Complete Time: 07:27 sp4 06/11 06:20 Order name: O2 Sat Monitoring; Complete Time: 07:27 sp4 EC:28 Rate is 74 beats/min. Rhythm is regular, Normal Sinus Rhythm. QRS Blain is Normal. IN sp4 interval is normal. QRS interval is normal. QT interval is normal. No Q waves. T waves are Normal. No ST changes noted. Clinical impression: No evidence of ischemia. Interpreted by me. Reviewed by me. Administered Medications: 08:26 Drug: diphenhydrAMINE IVP 25 mg IVP once Route: IVP; Site: right antecubital; ld1 13:17 Follow up: Response: No adverse reaction ld1 08:27 Drug: NS 0.9% IV 1000 ml IV at 1 bolus Per protocol; to be given as a bolus over 60 ld1 minutes Route: IV; Rate: 1 bolus; Site: right antecubital; 13:18 Follow up: Response: No adverse reaction; IV Status: Completed infusion; IV Intake: ld1 1000ml 08:27 Drug: Ketorolac IVP 30 mg IVP once Route: IVP; Site: right antecubital; ld1 13:18 Follow up: Response: No adverse reaction ld1 08:27 Drug: metoCLOPramide IVP 10 mg IVP once; over 1 to 2 minutes Route: IVP; Site: right ld1 antecubital; 13:18 Follow up: Response: No adverse reaction ld1 08:27 Drug: Dextromethorphan-Guaifenesin PO Liquid 10 mg-100 mg/5 mL 10 ml PO once Route: PO; ld1 13:18 Follow up: Response: No adverse reaction ld1 08:27 Drug: Acetaminophen PO 1000 mg PO once Route: PO; ld1 13:17 Follow up: Response: No adverse reaction ld1 08:27 Drug: Tessalon Perle PO 200 mg PO once Route: PO; ld1 13:17 Follow up: Response: No adverse reaction ld1 13:02 Drug: AZITHromycin PO 500 mg PO once Route: PO; ld1 13:17 Follow up: Response: No adverse reaction ld1 13:02 Drug: Rocephin IV 1 grams IV at per protocol once; Given slow IV push per pharmacy ld1 instructions Route: IV; Rate: per protocol; Site: right antecubital; 13:17 Follow up: Response: No adverse reaction; IV Status: Completed infusion ld1 13:02 Drug: MethylPrednisoLONE IVP 125 mg IVP once Route: IVP; Site: right antecubital; ld1 13:17 Follow up: Response: No adverse reaction ld1 13:02 Drug: predniSONE PO 40 mg PO once Route: PO; ld1 13:17 Follow up: Response: No adverse reaction ld1 Disposition Summary: 06/11/24 12:59 Discharge Ordered Notes: Location: Home joslyn Problem: new joslyn Symptoms: have improved joslyn Condition: Stable joslyn Diagnosis - Acute bronchitis, unspecified joslyn - Acute upper respiratory infection, unspecified joslyn - Cough joslyn Followup: joslyn - With: Private Physician - When: 2 - 3 days - Reason: Recheck today's complaints, Continuance of care, Re-evaluation by your physician Discharge Instructions: - Discharge Summary Sheet joslyn - Acute Bronchitis, Adult joslyn - Upper Respiratory Infection, Adult joslyn - Cool Mist Vaporizer joslyn - Cough, Pediatric joslyn - Upper Respiratory Infection, Adult, Seas-wk-Tsds joslyn - Viral Respiratory Infection, Quac-Lz-Zwdo joslyn - Cough, Adult joslyn Forms: - Medication Reconciliation Form joslyn - Antibiotic Education joslyn - Prescription Opioid Use joslyn - Patient Portal Instructions joslyn - Leadership Thank You Letter joslyn - Work release form ld1 Prescriptions: - albuterol sulfate 90 mcg/actuation Inhalation HFA Aerosol Inhaler - inhale 2 inhalation INHALATION route every 4 to 6 hours as needed for shortness joslyn of breath or wheezing; 1 unit; Refills: 0, Product Selection Permitted - Tessalon Perles 100 mg Oral capsule - take 2 capsule ORAL route every 8 hours As needed; 30 capsule; Refills: 0, joslyn Product Selection Permitted - Medrol (Francesco) 4 mg Oral Tablets, Dose Pack - take 1 tablet ORAL route as directed - follow package instructions; 1 packet; joslyn Refills: 0, Product Selection Permitted - Zithromax 500 mg Oral tablet - take 1 tablet ORAL route once daily for 5 days; 5 tablet; Refills: 0, Product joslyn Selection Permitted Signatures: Dispatcher [employer] EDMS Scot Doll MD MD cha Sims, Lauren, RN RN ld1 Son Gautam MD MD sp4 Laura Pina, RN RN aa10 Corrections: (The following items were deleted from the chart) 06:21 06:21 BASIC METABOLIC PANEL+C.LAB.BRZ ordered. EDMS EDMS 06:21 06:21 CBC+H.LAB.BRZ ordered. EDMS EDMS 06:21 06:21 HEPATIC FUNCTION+C.LAB.BRZ ordered. EDMS EDMS 06:21 06:21 PROBNP+C.LAB.BRZ ordered. EDMS EDMS 06:21 06:21 Chest Single View+RAD.RAD.BRZ ordered. EDID EDMS
--- NOTE | 2024-06-11 13:00 | ER ---
Nurse's Notes [facility] Name: Tana Pérez Age: 64 yrs Sex: Female : 1960 Arrival Date: 06/11/2024 Time: 05:51 Bed 18 Private MD: Diagnosis: Acute bronchitis, unspecified;Acute upper respiratory infection, unspecified;Cough Presentation: 06/11 06:22 Chief complaint: Patient states: patient presented with fatigue ,cough, nasal aa10 congestion,and headaches. Coronavirus screen: Client denies travel out of the [place] in the last 14 days. Client presents with at least one sign or symptom that may indicate coronavirus-19. Standard/surgical mask placed on the client. Provider contacted for isolation considerations. Ebola Screen: Patient negative for fever greater than or equal to 101.5 degrees Fahrenheit, and additional compatible Ebola Virus Disease symptoms Patient denies exposure to infectious person. Patient denies travel to an Ebola-affected area in the 21 days before illness onset. No symptoms or risks identified at this time. Initial Sepsis Screen: Does the patient meet any 2 criteria? No. Patient's initial sepsis screen is negative. Does the patient have a suspected source of infection? No. Patient's initial sepsis screen is negative. Risk Assessment: Do you want to hurt yourself or someone else? Patient reports no desire to harm self or others. Onset of symptoms was June 05, 2024. 06:22 Method Of Arrival: Ambulatory aa10 06:22 Acuity: JUANITA 3 aa10 Triage Assessment: 06:28 Headache History: Denies prior headaches. General: Appears in no apparent distress. aa10 comfortable, Behavior is calm, cooperative, appropriate for age, Reports chills for 2-3 days, fatigue for 2-3 days. Pain: Complains of pain in face Pain currently is 6 out of 10 on a pain scale. Pain began gradually, Also complains of inability to work. Neuro: No deficits noted. Level of Consciousness is awake, alert, obeys commands, Oriented to person, place, time, situation, Appropriate for age [employer]st are equal bilaterally Moves all extremities. Respiratory: No deficits noted. Airway is patent. Historical: - Allergies: 06:28 Vistaril; aa10 - PMHx: 06:28 Anxiety; depressive disorder; Diabetes - NIDDM; HIV; Hyperlipidemia; Hypertension; aa10 - PSHx: 06:28 Exploratory laparotomy; hysterectomy; left knee; aa10 - Immunization history:: Adult Immunizations up to date. - Infectious Disease History:: Denies. - Social history:: Smoking status: unknown. - Family history:: not pertinent. Screenin:31 [facility] ED Fall Risk Assessment (Adult) History of falling in the last 3 months, aa10 including since admission No falls in past 3 months (0 pts) Confusion or Disorientation No (0 pts) Intoxicated or Sedated No (0 pts) Impaired Gait No (0 pts) Mobility Assist Device Used No (0 pt) Altered Elimination No (0 pt) Score/Fall Risk Level 0 - 2 = Low Risk Oriented to surroundings, Maintained a safe environment, Educated pt \T\ family on fall prevention, incl call for assistance when getting out of bed, Assessed \T\ reinforced patient's understanding of fall precautions, Provided non-skid footwear, Hourly rounding (assess needs \T\ fall precautionary measures) done. Abuse screen: Denies threats or abuse. Denies injuries from another. Nutritional screening: No deficits noted. Tuberculosis screening: No symptoms or risk factors identified. Assessment: 06:32 General: see triage assessment. Pain: Complains of pain in face. 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 08:41 General: Appears in no apparent distress. uncomfortable, Behavior is calm, cooperative, ld1 appropriate for age. Pain: Denies pain. Neuro: Level of Consciousness is awake, alert, obeys commands, Oriented to person, place, time, situation. Cardiovascular: Capillary refill < 3 seconds Patient's skin is warm and dry. Respiratory: Reports cough that is productive, non-productive, Airway is patent Respiratory effort is even, unlabored. GI: Abdomen is flat, non-distended. : No signs and/or symptoms were reported regarding the genitourinary system. EENT: No signs and/or symptoms were reported regarding the EENT system. Derm: No signs and/or symptoms reported regarding the dermatologic system. Musculoskeletal: No signs and/or symptoms reported regarding the musculoskeletal system. 10:26 Reassessment: Patient appears in no apparent distress at this time. No changes from ld1 previously documented assessment. Patient and/or family updated on plan of care and expected duration. Pain level reassessed. Patient is alert, oriented x 3, equal unlabored respirations, skin warm/dry/pink. Vital Signs: 06:22 BP 140 / 118; Pulse 78; Resp 20; Temp 98.1; Pulse Ox 96% on R/A; aa10 06:30 BP 140 / 118; Pulse 80; Resp 22; Temp 98.1; Pulse Ox 96% on R/A; aa10 08:40 BP 140 / 93; Pulse 74; Resp 18; Pulse Ox 97% on R/A; ld1 08:40 Temp 98.2(O); ld1 10:26 BP 127 / 72; Pulse 78; Resp 18; Pulse Ox 100% on R/A; ld1 12:07 BP 114 / 60; Pulse 73; Resp 18; Pulse Ox 98% on R/A; ld1 [place] Coma Score: 07:28 Eye Response: spontaneous(4). Motor Response: obeys commands(6). Verbal Response: sp4 oriented(5). Total: 15. ED Course: 05:55 Patient arrived in ED. gm2 06:25 Triage completed. aa10 06:26 Son Gautam MD is Attending Physician. sp4 06:31 Arm band placed on right wrist. aa10 06:32 Patient has correct armband on for positive identification. Allergy band placed. Fall aa10 risk band placed. Placed in gown. Bed in low position. Call light in reach. Side rails up X2. Provided Education on: about plan of care. 06:45 XRAY Chest (1 view) In Process Unspecified. EDMS 08:26 Kay Olivarez, RN is Primary Nurse. ld1 08:28 Blood Culture Adult (2) Sent. ld1 08:28 COVID-19 Ag + Flu A+B Ag Sent. ld1 08:40 Inserted saline lock: 20 gauge in right antecubital area, using aseptic technique. ld1 Blood collected. Flushed with 10 mL NS. 08:41 Door closed. Noise minimized. Warm blanket given. ld1 08:41 No provider procedures requiring assistance completed. ld1 12:41 Attending Physician role handed off by Son Gautam MD joslyn 12:41 Scot Doll MD is Attending Physician. joslyn 13:26 IV discontinued, intact, bleeding controlled, No redness/swelling at site. ld1 Administered Medications: 08:26 Drug: diphenhydrAMINE IVP 25 mg IVP once Route: IVP; Site: right antecubital; ld1 13:17 Follow up: Response: No adverse reaction ld1 08:27 Drug: NS 0.9% IV 1000 ml IV at 1 bolus Per protocol; to be given as a bolus over 60 ld1 minutes Route: IV; Rate: 1 bolus; Site: right antecubital; 13:18 Follow up: Response: No adverse reaction; IV Status: Completed infusion; IV Intake: ld1 1000ml 08:27 Drug: Ketorolac IVP 30 mg IVP once Route: IVP; Site: right antecubital; ld1 13:18 Follow up: Response: No adverse reaction ld1 08:27 Drug: metoCLOPramide IVP 10 mg IVP once; over 1 to 2 minutes Route: IVP; Site: right ld1 antecubital; 13:18 Follow up: Response: No adverse reaction ld1 08:27 Drug: Dextromethorphan-Guaifenesin PO Liquid 10 mg-100 mg/5 mL 10 ml PO once Route: PO; ld1 13:18 Follow up: Response: No adverse reaction ld1 08:27 Drug: Acetaminophen PO 1000 mg PO once Route: PO; ld1 13:17 Follow up: Response: No adverse reaction ld1 08:27 Drug: Tessalon Perle PO 200 mg PO once Route: PO; ld1 13:17 Follow up: Response: No adverse reaction ld1 13:02 Drug: AZITHromycin PO 500 mg PO once Route: PO; ld1 13:17 Follow up: Response: No adverse reaction ld1 13:02 Drug: Rocephin IV 1 grams IV at per protocol once; Given slow IV push per pharmacy ld1 instructions Route: IV; Rate: per protocol; Site: right antecubital; 13:17 Follow up: Response: No adverse reaction; IV Status: Completed infusion ld1 13:02 Drug: MethylPrednisoLONE IVP 125 mg IVP once Route: IVP; Site: right antecubital; ld1 13:17 Follow up: Response: No adverse reaction ld1 13:02 Drug: predniSONE PO 40 mg PO once Route: PO; ld1 13:17 Follow up: Response: No adverse reaction ld1 Medication: 06:31 VIS not applicable for this client. aa10 Intake: 13:18 IV: 1000ml; Total: 1000ml. ld1 Outcome: 12:59 Discharge ordered by . joslyn 13:25 Discharged to home ambulatory, ld1 13:25 Condition: stable 13:25 Discharge instructions given to patient, Instructed on discharge instructions, follow up and referral plans. medication usage, Demonstrated understanding of instructions, follow-up care, medications, Prescriptions given X 4, 13:26 Patient left the ED. ld1 Signatures: Dispatcher [employer] EDScot Burns MD MD cha Sims, Lauren, RN RN ld1 Son Gautam MD MD sp4 Michelle Hillman gm2 Laura Pina, RN RN aa10
[2024-06-11 13:33] VITALS: TEMP 98.2
[2024-06-11 13:35] VITALS: BP 114/60; O2SAT 98
== END 2024-06-11 13:26 | disposition home or self-care (01) ==
LOC: ER 05:51
DX: J20.9 Acute bronchitis, unspecified (principal); J06.9 Acute upper respiratory infection, unspecified; Z21 Asymptomatic human immunodeficiency virus [HIV] infection status; Z11.52 Encounter for screening for COVID-19
CPT/HCPCS: 93005; 87040 ×2; 85025; 80048; 36415; 80076; 83880; 71045; 87428; J7512; J2765; J1200; J2919; J7030; J0696